=== PATIENT | male | born 1955 | race Caucasian/White ===

== ENCOUNTER 2022-03-03 11:20 | Inpatient (IN) | payer OTHER ==
--- OUTSIDE RECORDS SUMMARY | 2022-03-03 11:41 | XMS REPORT | Continuity of Care Document ---
:1955 Author Organization [facility] t Address [address] [place] [address] Care Team Providers Name Role Phone Kapil Hui Kenn Primary Care Physician Joshua Corral Attending Clinician [phone] 1.5, [facility] Ayla Mr Attending Clinician Unavailable SUSY CLARKE Attending Clinician Unavailable Susy Clarke MD Attending Clinician ALLISON LARKIN Attending Clinician Unavailable Mykel Sy Attending Clinician Unavailable REUBEN BILLY Attending Clinician Unavailable 3, [facility] Ayla Mr Attending Clinician Unavailable Jossue Swan NP Attending Clinician JOSSUE SWAN Attending Clinician Unavailable Andres Reynoso MA Attending Clinician Unavailable JOSHUA CASTANEDA Attending Clinician Unavailable FELISHA MALIK Attending Clinician Unavailable Felisha Malik MD Attending Clinician Jenny Blanco MA Attending Clinician Unavailable Sarita Bailey NP Attending Clinician NORA ECHEVERRIA Attending Clinician Unavailable Nora Whitley Attending Clinician [phone] Grace MITCHELL, Herman Bridges Attending Clinician Trae LAMBERT, Allison Attending Clinician RAJ AREVALO Attending Clinician Unavailable Pauly LAMBERT, Rica Attending Clinician [phone] Andres Patricia MD Attending Clinician RICA NOVA Attending Clinician Unavailable Jagdish BHATIA, Gonzales Ford Attending Clinician Unavailable Zak LAMBERT, Pedro Mckeon Attending Clinician [phone] Karla LAMBERT, Saige Attending Clinician Andres Gandhi Attending Clinician Unavailable Randi LAMBERT, Stefani Attending Clinician Felicia Fraga MD Attending Clinician [phone] FELICIA FRAGA Attending Clinician Unavailable Lulu Thomas RN Attending Clinician Unavailable Mini Medel Attending Clinician Unavailable Only, [facility] Test Attending Clinician Unavailable Gaurav Birmingham Attending Clinician [phone] CARLTON VELASQUEZ Attending Clinician Unavailable Nora Echeverria NP Attending Clinician Unavailable Fidelina Carlos MD Attending Clinician LEEANN URBINA Attending Clinician Unavailable Carlton Velasquez MD Attending Clinician [phone] CARLTON VELASQUEZ Attending Clinician Unavailable Carlton Velasquez MD Attending Clinician [phone] Attending Clinician Unavailable MATA BILLY Attending Clinician Unavailable Reuben Billy DPM Attending Clinician MATA BILLY Attending Clinician Unavailable Mathew Benitez MD Attending Clinician [phone] Mata Billy DPM Attending Clinician BRADY NASH Attending Clinician Unavailable Cornelio MITCHELL, Oyebunmi Attending Clinician LAZARA ORDOÑEZ Attending Clinician Unavailable YEMI ELIZABETH Attending Clinician Unavailable YOSSI STACY Attending Clinician Unavailable ZACHARY MUNOZ Attending Clinician Unavailable Fernanda Sylvester Attending Clinician Doctor Unassigned, [place] Attending Clinician Unavailable LEEANN BRANDT Attending Clinician Unavailable KAILYN HOWE Attending Clinician Unavailable Yessica , [facility] Attending Clinician YESSICA [facility] Attending Clinician Unavailable RAJ AREVALO Admitting Clinician Unavailable ANDRES PATIRCIA Admitting Clinician Unavailable FELISHA MALIK Admitting Clinician Unavailable CHINYERE FLEMING Admitting Clinician Unavailable ZACHARY MUNOZ Admitting Clinician Unavailable KAILYN HOWE Admitting Clinician Unavailable Payers Payer Name Policy Type Policy Number Effective Date Expiration Date S compa [facility] [id number] 2020 ADVANTAGE O -[facility] 00:00:00 [facility]-MEDICAID - [id number] 2018 MEDICAID 00:00:00 MEDICARE PART A [id number] \\T\\ B - MEDICARE [facility] DUAL [id number] 2020 [facility] HMO D SNP 00:00:00 MEDICAID OF [place] [id number] 2018 00:00:00 CDC REVIEW [id number] 2020 00:00:00 Problems Condition Condition Condition Status Onset Resolution Last Treating Co mments Source Name Details Category Date Date Treatment Clinician Date Hepatic Hepatic Disease Active [facility] encephalop encephalop 7-12 K[facility]ha kes athy athy 00:00: Medical 00 Center Other Other Disease Active [facility] cirrhosis cirrhosis 4-12 [facility] of liver of liver 00:00: Medica l 00 Center Chemothera Chemothera Disease Active [facility] py py 1-05 [facility] management management 00:00: Me felicianoal , , 00 Center encounter encounter for for HCC HCC Disease Active 2020-[address] [facility] (hepatocel (hepatocel 2-20 Kiesha kes lular lular 00:00: Medical carcinoma) carcinoma) 00 Ce nter Ulcerated Ulcerated Disease Active 2020-07 [facility] leg leg 2-02 [place] varices, varices, 00:00: of right right 00 Medicin (HCCode) (HCCode) e Ulcer of Ulcer of Disease Active 2020-07 [place] skin skin 0-12 [place] (HCCode) (HCCode) 00:00: of 00 Medicin e Benign Benign Disease Active 2020-07 [facility] neoplasm neoplasm 0-12 Colleg e of skin of of skin of 00:00: of trunk, trunk, 00 Medicin except except e scrotum scrotum Portal Portal Disease Active 2020-[address] [facility] hypertensi hypertensi 0-04 Kiesha kes on on 00:00: Medical 00 Center Onychomyco Onychomyco Disease Active 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, with y, with long-term long-term current current use of use of insulin [facility] PAD PAD Disease Active [facility] (periphera (periphera 03-26 Co llege l artery l artery 00:00: of disease) disease) 00 Medici n [facility] (HCCode) e Encounter Encounter Disease Active [facility] for for 03-26 [place] incision incision 00:00: of and and 00 Medicin drainage drainage e procedure procedure S/P S/P Disease Active [facility] excisional excisional 03-26 Co llege debridemen debridemen 00:00: of t t 00 Medicin e Post-opera Post-opera Disease Active [facility] tive state tive state 03-26 Co llege 00:00: of 00 Medicin e Encounter Encounter Disease Active [facility] for post for post 03-26 Colleg e surgical surgical 00:00: of wound wound 00 Medicin check check e PAD PAD Disease Active [facility] (periphera (periphera 03-26 Co llege l artery l artery 00:00: of disease) disease) 00 Medici n [facility] ([facility]) e Cellulitis Cellulitis Disease Active [facility] 8[facility]25 [facility] 00[facility] Medical 00 Center Diabetic Diabetic Disease [facility] foot foot [facility]25 [facility] Center Diabetic Diabetic Disease [facility] 8[facility]25 [facility] infection infection 00:00: Medi bebe 00 [place] Cellulitis Cellulitis Disease Active B ayjuan and and 8-23 [place] abscess of abscess of 00:00: of foot foot 00 Medicin e Hepatocell Hepatocell Disease Active [facility] ular ular 7-17 [facility] carcinoma carcinoma 00:00: Medi bebe 00 [place] Under care Under care Disease Active [facility] of 6-14 [place] 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 MRI reports a 6.2 cm mass in the right lobe of the liver concernin g for malignanc y. Imaging will be reviewed at radiology [facility]. Liver biopsy will likely be needed since he has no history of chronic liver disease and character istics of lesion are atypical. Fatty Fatty Disease Active 2018-07 Last [facility] St infiltrati infiltrati 0-21 [facility]men [facility] on of on of 00:00: t & Plan: Medical liver liver [address] [place] [address] g of this note might be different from the original. Ultrasoun d reports fatty infiltrat ion of the liver. He has multiple risk factors for BARRETO including diabetes, HTN, and hyperlipi demia. Transamin ases are well within normal range. Blood work ordered today to evaluate for viral, autoimmun e, genetic and metabolic causes of liver disease. Overweight Overweight Disease Active 2018-[address] (BMI (BMI 0-21 [facility] 25.0-29.9) 25.0-29.9) 00:00: t & Plan: Medical [address] [place] [address] g of this note might be different from the original. Body mass index is 28.09 kg/m2. Being overweigh t increases his risk for fatty infiltrat ion. Screening Screening Disease Active 2018-07 Last [facility] for for 0-21 Assessmen [place] endocrine, endocrine, 00:00: t & Plan: Medical metabolic metabolic 00 Formattin C enter and and g of this immunity immunity note disorder disorder might be different from the original. All patients with chronic liver disease, regardles s of etiology, should be immunized to prevent hepatitis A and hepatitis B if they are not already immune. We will test for immunity to both viruses - vaccine recommend ations will follow. 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 Medicin diabetes diabetes e mellitus mellitus (HCCode) (HCCode) Type 2 Type 2 Disease Active [facility] diabetes diabetes 01-01 Colleg e mellitus mellitus 00:00: of with with 00 Medicin diabetic diabetic e peripheral peripheral angiopathy angiopathy without without gangrene, gangrene, with with long-term long-term current current use of use of insulin insulin (HCCode) (HCCode) Type 2 Type 2 Disease Active Overview: Univer s diabetes diabetes 1-03 Formattin ity of mellitus mellitus 00:00: g of this [place] as without without 00 note Medical complicati complicati might be Branch ons ons different from the original. ICD10 Diagnosis Term Police Aide Utility Hypertensi Hypertensi Disease Active U nivers on on 07-05 ity of 00:00: [address] Diabetic Diabetic Disease Active [place] [facility] retinopath retinopath 8-13 Co llege y of both y of both 00:00: of eyes eyes 00 Medicin associated associated e with type with type 2 diabetes 2 diabetes mellitus mellitus (HCCode) (HCCode) Allergies, Adverse Reactions, Alerts Allergy Allergy Status Severity Reaction(s) Onset Inactive Treating Comm ents Source Name Type Date Date Clinician NO KNOWN Allergy Active [facility] NO KNOWN Drug Active [facility] ALLERGIE Class ity of S [facility] Family History Family Member Diagnosis Comments Start Date Stop Date Source Natural father Diabetes [facility] Natural father [facility] Natural mother [facility] Natural sister [facility] Natural sister Kidney failure [facility] Natural sister Mastocytosis [facility] Social History Social Habit Start Date Stop Date Quantity Comments Source History SDOH [facility] Alcohol Std Drinks Medica l Center History SDOH [facility] Alcohol Binge Medical [address] [facility] History SDOH [facility] St [facility] Alcohol Comment Medical C enter Alcohol intake 2022-01-11 2022-01-11 Current [facility] 00:00:00 00:00:00 non-drinker of Medical Ce nter alcohol (finding) Exposure to 2021-12-05 2021-12-15 [facility] SARS-CoV-2 (event) 00:00:00 11:58:00 of Med icine Tobacco use and 2019-04-18 2019-04-18 Never used [facility] St Kiesha kes exposure 00:00:00 00:00:00 Medical Center History SDOH 2019-04-18 2019-04-[address] [facility] Alcohol Frequency 00:00:00 [facility]:00[facility] Cigarette 2018-01-01 2018-01-01 [facility] pack-years 00:00:00 00:00:00 of Medicine Sex Ass[birth year] At [birth year] [facility] 00:00:00 00:00:00 [facility] Smoking Status Start Date Stop Date Source Never smoker [facility] Medications Ordered Filled Start Stop Current Ordering Indication Dosage Frequency Signature Comments Components Source Medication Medication Date Date Medication? Clinician (SIG) Name Name lactulose Yes Hepatic 20g QD Take [address] (CHRONULAC) 7-12 encephalopa mLs (20 g [facility] 10 gram/15 00:00: thy (HCC) total) by Medical mL solution 00 mouth Center daily. amlodipine Yes [id number] Take 1 [facility] (NORVASC) 3-22 tablet by Colle ge 10 MG 00:00: mouth of tablet 00 every day Medicin e amlodipine Yes [id number] Take 1 [facility] (NORVASC) 3-22 tablet by Colle ge 10 MG 00:00: mouth of tablet 00 every day Medicin e amlodipine Yes [id number] Take 1 [facility] (NORVASC) 3-22 tablet by Colle ge 10 MG 00:00: mouth of tablet 00 every day Medicin e enoxaparin 2021-0 Yes 40mg Inject 40 [facility] (LOVENOX) 3-16 mg into College 40 MG/0.4ML 00:00: the skin of SOLN 00 daily. Medicin e enoxaparin 2-0 Yes 40mg Inject 40 [facility] (LOVENOX) 3-16 mg into College 40 MG/0.4ML 00:00: the skin of SOLN 00 daily. Medicin e enoxaparin 2021-0 Yes 40mg Inject 40 [facility] (LOVENOX) 3-16 mg into College 40 MG/0.4ML 00:00: the skin of SOLN 00 daily. Medicin e enoxaparin 2021-0 Yes 40mg Inject 40 [facility] (LOVENOX) 3-16 mg into College 40 MG/0.4ML 00:00: the skin of SOLN 00 daily. Medicin e Insulin 2021-0 Yes [id number] 90U Inject 90 Félix Glargine 3-13 Units into Colle ge (LANTUS 00:00: the skin of SOLOSTAR) 00 daily. Medicin 100 UNIT/ML e SOPN Insulin 2021-0 Yes [id number] 90U Inject 90 Félix Glargine 3-13 Units into Colle ge (LANTUS 00:00: the skin of SOLOSTAR) 00 daily. Medicin 100 UNIT/ML e SOPN Insulin 2-0 Yes [id number] 90U Inject 90 [facility] Glargine 3-13 Units into Colle ge (LANTUS 00:00: the skin of SOLOSTAR) 00 daily. Medicin 100 UNIT/ML e SOPN Insulin 2-0 Yes [id number] 90U Inject 90 Fléix Glargine 3-13 Units into Colle ge (LANTUS 00:00: the skin of SOLOSTAR) 00 daily. Medicin 100 UNIT/ML e SOPN Insulin 2-0 2022- No [id number] 90U Inject 90 [facility] Glargine 3-13 07-05 Units into May ege (LANTUS 00:00: 00:00 the skin of SOLOSTAR) 00 :00 daily. Medicin 100 UNIT/ML e SOPN cyanocobala Yes 100ug QD Take [address] min 1-20 mcg by [facility] (VITAMIN 13:26: mouth Medical B-12) 100 54 daily. Center MCG tablet amLODIPine Yes 10mg QD Take [address] (NORVASC) 1-20 by mouth [facility] 10 MG 13:26: daily. Medical tablet 54 Center escitalopra Yes 40mg QD Take [address] m oxalate 1-20 by mouth [facility] (LEXAPRO) 13:26: daily. Medica l 20 MG 54 Center tablet gabapentin Yes 300mg Take [address] (NEURONTIN) 1-20 mg by [facility] 300 MG 13:26: mouth 3 Medical capsule 54 (three) Center times daily as needed. Insulin 2020-07 Yes [id number] 21U Inject 21 Éflix Lispro, 1 2-20 Units into May ege Unit Dial, 00:00: the skin 3 o f (HUMALOG 00 times Medicin KWIKPEN) daily e 100 UNIT/ML (before SOPN meals). Insulin 2020-07 Yes [id number] 21U Inject 21 [facility] Lispro, 1 2-20 Units into May ege Unit Dial, 00:00: the skin 3 o f (HUMALOG 00 times Medicin KWIKPEN) daily e 100 UNIT/ML (before SOPN meals). Insulin 2020-07 Yes [id number] 21U Inject 21 [facility] Lispro, 1 2-20 Units into May ege Unit Dial, 00:00: the skin 3 o f (HUMALOG 00 times Medicin KWIKPEN) daily e 100 UNIT/ML (before SOPN meals). Insulin 2020-07 Yes [id number] 21U Inject 21 [facility] Lispro, 1 2-20 Units into May ege Unit Dial, 00:00: the skin 3 o f (HUMALOG 00 times Medicin KWIKPEN) daily e 100 UNIT/ML (before SOPN meals). Insulin 2020-07 Yes [id number] 21U Inject 21 Félix Lispro, 1 2-20 Units into May ege Unit Dial, 00:00: the skin 3 o f (HUMALOG 00 times Medicin KWIKPEN) daily e 100 UNIT/ML (before SOPN meals). Insulin 2020-07 Yes [id number] 21U Inject 21 [facility] Lispro, 1 2-20 Units into May ege Unit Dial, 00:00: the skin 3 o f (HUMALOG 00 times Medicin KWIKPEN) daily e 100 UNIT/ML (before SOPN meals). Insulin 2020-07 Yes [id number] 21U Inject 21 Félix Lispro, 1 2-20 Units into May ege Unit Dial, 00:00: the skin 3 o f (HUMALOG 00 times Medicin KWIKPEN) daily e 100 UNIT/ML (before SOPN meals). Insulin 2020-07 Yes 18U Inject 18 [facility] Lispro 100 2-02 Units into Col lege UNIT/ML 14:17: the skin. of SOCT 35 Inject Medicin 18-21 e units into the skin. ACCU-CHEK 2020-07 Yes [facility] JASWINDER PLUS 1-19 College 00:00: of 00 Medicin e ACCU-CHEK 2020-07 Yes [facility] JASWINDER PLUS 1-19 College 00:00: of 00 Medicin e ACCU-CHEK 2020-07 Yes [facility] JASWINDER PLUS 1-19 College 00:00: of 00 Medicin e ACCU-CHEK 2020-07 Yes [facility] JASWINDER PLUS 1-19 College 00:00: of 00 Medicin e ACCU-CHEK 2020-07 Yes [facility] JASWINDER PLUS 1-19 College 00:00: of 00 Medicin e ACCU-CHEK 2020-07 Yes [facility] JASWINDER PLUS 1-19 College 00:00: of 00 Medicin e ACCU-CHEK 2020-07 Yes [facility] JASWINDER PLUS 1-19 College 00:00: of 00 Medicin e ACCU-CHEK 2020-07 Yes [facility] JASWINDER PLUS 1-19 College 00:00: of 00 Medicin e dicloxacill 2020-07- No 500mg Take 1 [facility] in 07-17 capsule by [place] (DYNAPEN) 00:00: 05:59 mouth four o f 500 MG 00 :00 times Medicin capsule daily for e 10 days. linaGLIPtin 2020-07- No 5mg QD Take [address] (TRADJENTA) 07-03 by mouth Gabrielle es 5 mg Tab 12:02: 00:00 daily. Medica l 01 :00 Center Insulin 2020-07 Yes 18U Inject 18 [facility] Lispro 100 0-29 Units into Col lege UNIT/ML 14:23: the skin. of SOCT 08 Inject Medicin 18-21 e units into the skin. Insulin 2020- Yes 18U Inject 18 [facility] Lispro 100 0-29 Units into Col lege UNIT/ML 14:23: the skin. of SOCT 08 Inject Medicin 18-21 e units into the skin. Insulin 2020- Yes 18U Inject 18 [facility] Lispro 100 0-22 Units into Col lege UNIT/ML 13:46: the skin. of SOCT 20 Inject Medicin 18-21 e units into the skin. Insulin 2020-0 Yes 18U Inject 18 [facility] Lispro 100 9-29 Units into Col lege UNIT/ML 14:43: the skin. of SOCT 51 Inject Medicin 18-21 e units into the skin. Insulin 2020-0 Yes 18U Inject 18 [facility] Lispro 100 9-29 Units into Col lege UNIT/ML 14:43: the skin. of SOCT 51 Inject Medicin 18-21 e units into the skin. enoxaparin 2021-0 Yes 40mg Inject 40 [facility] (LOVENOX) 9-29 mg into College 40 MG/0.4ML 00:00: the skin of SOLN 00 daily. Medicin e enoxaparin 2021-0 Yes 40mg Inject 40 [facility] (LOVENOX) 9-29 mg into College 40 MG/0.4ML 00:00: the skin of SOLN 00 daily. Medicin e enoxaparin 2021-0 Yes 40mg Inject 40 [facility] (LOVENOX) 9-29 mg into College 40 MG/0.4ML 00:00: the skin of SOLN 00 daily. Medicin e enoxaparin 2021-0 Yes 40mg Inject 40 [facility] (LOVENOX) 9-29 mg into College 40 MG/0.4ML 00:00: the skin of SOLN 00 daily. Medicin e enoxaparin 2021-0 Yes 40mg Inject 40 [facility] (LOVENOX) 9-29 mg into College 40 MG/0.4ML 00:00: the skin of SOLN 00 daily. Medicin e enoxaparin 2020-0 Yes 40mg Inject 40 [facility] (LOVENOX) 9-29 mg into College 40 MG/0.4ML 00:00: the skin of SOLN 00 daily. Medicin e enoxaparin 1-0 Yes 40mg Inject 40 [facility] (LOVENOX) 9-29 mg into College 40 MG/0.4ML 00:00: the skin of SOLN 00 daily. Medicin e enoxaparin 2020-0 Yes 40mg Inject 40 [facility] (LOVENOX) 9-29 mg into College 40 MG/0.4ML 00:00: the skin of SOLN 00 daily. Medicin e enoxaparin 2020-0 Yes 40mg Inject 40 [facility] (LOVENOX) 9-29 mg into College 40 MG/0.4ML 00:00: the skin of SOLN 00 daily. Medicin e enoxaparin 2020-0 Yes 40mg Inject 40 [facility] (LOVENOX) 9-29 mg into College 40 MG/0.4ML 00:00: the skin of SOLN 00 daily. Medicin e enoxaparin 0 2- No 40mg Inject 40 [facility] (LOVENOX) 9-29 04-28 mg into Colleg e 40 MG/0.4ML 00:00: 00:00 the skin o f SOLN 00 :00 daily. Medicin e Insulin 2020-0 Yes 18U Inject 18 [facility] Lispro 100 9-21 Units into Col lege UNIT/ML 14:00: the skin. of SOCT 50 Inject Medicin 18-21 e units into the skin. Insulin 2020-0 Yes 18U Inject 18 [facility] Lispro 100 9-21 Units into Col lege UNIT/ML 14:00: the skin. of SOCT 50 Inject Medicin 18-21 e units into the skin. Ozempic 0 Yes INJECT 0.[address] [facility] 0.25 mg or 8-18 MG UNDER [facility] 0.5 mg(2 00:00: THE SKIN Medic al mg/1.5 mL) 00 EVERY 7 Center PnIj DAYS fluocinonid 2020-0 Yes [facility] e (LIDEX) 7-29 College 0.05 % 00:00: of cream Medicin e fluocinonid Yes Félix e (LIDEX) 01-28 [place] 0.05 % 00:00: of cream Medicin e fluocinonid Yes [facility] e (LIDEX) 01-28 [place] 0.05 % 00:00: of cream Medicin e fluocinonid Yes Félix e (LIDEX) 01-28 [place] 0.05 % 00:00: of cream Medicin e fluocinonid Yes [facility] e (LIDEX) 01-28 [place] 0.05 % 00:00: of cream Medicin e fluocinonid Yes [facility] e (LIDEX) 01-28 [place] 0.05 % 00:00: of cream Medicin e fluocinonid Yes [facility] e (LIDEX) 01-28 [place] 0.05 % 00:00: of cream Medicin e fluocinonid Yes Félix e (LIDEX) 01-28 [place] 0.05 % 00:00: of cream Medicin e fluocinonid Yes [facility] e (LIDEX) 01-28 [place] 0.05 % 00:00: of cream Medicin e fluocinonid Yes Félix e (LIDEX) 01-28 [place] 0.05 % 00:00: of cream Medicin e fluocinonid 2021- No [facility] (LIDEX) 01-28 03-07 [place] 0.05 % 00:00: 00:00 of cream 00 :00 Medicin e Insulin 2020-0 Yes 18U Inject 18 [facility] r Lispro 100 7-13 Units into Col lege UNIT/ML 15:34: the skin. of SOCT 04 Inject Medicin 18-21 e units into the skin. Blood Yes [id number] USE TO [facility] Glucose 01-07 TEST BLOOD Colleg e Monitoring 00:00: GLUCOSE of Suppl 00 Medicin (ACCU-CHEK e JASWINDER PLUS) w/Device KIT Glucose Yes [id number] Use to [facility] Blood 01-07 check College Strips 00:00: sugars 3x of (ACCU-CHEK 00 daily Medicin JASWINDER PLUS) e Accu-Chek 2021-0 Yes [id number] Use to [facility] Softclix 7-08 check College Lancets 00:00: sugars of MISC 00 Medicin e Accu-Chek 2021-0 Yes [id number] Use to [facility] Softclix 7-08 check College Lancets 00:00: sugars of MISC 00 Medicin e Accu-Chek 2021-0 Yes [id number] Use to [facility] Softclix 7-08 check College Lancets 00:00: sugars of MISC 00 Medicin e Accu-Chek 2021-0 Yes [id number] Use to [facility] Softclix 7-08 check College Lancets 00:00: sugars of MISC 00 Medicin e Accu-Chek 2021-0 Yes [id number] Use to [facility] Softclix 7-08 check College Lancets 00:00: sugars of MISC 00 Medicin e Accu-Chek 2021-0 Yes [id number] Use to [facility] Softclix 7-08 check College Lancets 00:00: sugars of MISC 00 Medicin e Accu-Chek 2021-0 Yes [id number] Use to [facility] Softclix 7-08 check College Lancets 00:00: sugars of MISC 00 Medicin e Accu-Chek 2021-0 Yes [id number] Use to [facility] Softclix 7-08 check College Lancets 00:00: sugars of MISC 00 Medicin e Accu-Chek 2021-0 Yes [id number] Use to [facility] Softclix 7-08 check College Lancets 00:00: sugars of MISC 00 Medicin e Accu-Chek 2021-0 Yes [id number] Use to [facility] Softclix 7-08 check College Lancets 00:00: sugars of MISC 00 Medicin e Accu-Chek 2021-0 Yes [id number] Use to [facility] Softclix 7-08 check College Lancets 00:00: sugars of MISC 00 Medicin e Accu-Chek 2021-0 Yes [id number] Use to [facility] Softclix 7-08 check College Lancets 00:00: sugars of MISC 00 Medicin e Accu-Chek 2020-0 Yes [id number] Use to [facility] Softclix 01-07 check College Lancets 00:00: sugars of MISC 00 Medicin e Accu-Chek 2021- No [id number] Use to [facility] Softclix 01-07 04-28 check College Lancets 00:00: 00:00 sugars of MISC 00 :00 Medicin e enoxaparin 2021- No INJECT 0.[address] [facility] [facility] (LOVENOX) 01-07 01-05 ML [facility] 40 mg/0.4 00:00: 00:00 THE SKIN Med ical mL Syrg 00 :00 DAILY. [place] Blood 2020- No [id number] USE TO [facility] Glucose 01-07 TEST BLOOD Colle ge Monitoring 00:00: 00:00 GLUCOSE of Suppl 00 :00 Medicin (ACCU-CHEK e JASWINDER PLUS) w/Device KIT Glucose 2020- No [id number] Use to [facility] Blood 01-07 check [facility] Strips 00:00: 00:00 sugars 3x of (ACCU-CHEK 00 :00 daily Medicin JASWINDER PLUS) e Blood 2020- No [id number] USE TO [facility] Glucose 01-07 TEST BLOOD [facility] Monitoring 00:00: 00:00 GLUCOSE of Suppl 00 :00 Medicin (ACCU-CHEK e JASWINDER PLUS) w/Device KIT Glucose 2020- No [id number] Use to [facility] Blood 01-07 check [facility] Strips 00:00: 00:00 sugars 3x of (ACCU-CHEK 00 :00 daily Medicin JASWINDER PLUS) e enoxaparin Yes 40mg Inject 40 [facility] (LOVENOX) 7-07 mg into [facility] 40 MG/0.4ML 00:00: the skin of SOLN 00 daily. Medicin e enoxaparin 2020-0 Yes 40mg Inject 40 [facility] (LOVENOX) 7-07 mg into [facility] 40 MG/0.4ML 00:00: the skin of SOLN 00 daily. Medicin e enoxaparin Yes 40mg Inject 40 [facility] (LOVENOX) 7-07 mg into [facility] 40 MG/0.4ML 00:00: the skin of SOLN 00 daily. Medicin e enoxaparin Yes 40mg Inject 40 [facility] (LOVENOX) 7-07 mg into [facility] 40 MG/0.4ML 00:00: the skin of SOLN 00 daily. Medicin e enoxaparin 2020- No 40mg Inject 40 [facility] (LOVENOX) 7-07 09-29 mg into Colleg e 40 MG/0.4ML 00:00: 00:00 the skin o f SOLN 00 :00 daily. Medicin e mupirocin Yes APPLY THIN [facility] (BACTROBAN) 6-28 LAYER TO [facility] 2 % 00:00: THE of ointment 00 AFFECTED Medicin AREA OF e OPEN WOUNDS ON BOTH LEGS TWICE DAILY mupirocin Yes APPLY THIN [facility] (BACTROBAN) 6-28 LAYER TO [facility] 2 % 00:00: THE of ointment 00 AFFECTED Medicin AREA OF e OPEN WOUNDS ON BOTH LEGS TWICE DAILY mupirocin 0 Yes APPLY THIN [facility] (BACTROBAN) 6-28 LAYER TO [facility] 2 % 00:00: THE of ointment 00 AFFECTED Medicin AREA OF e OPEN WOUNDS ON BOTH LEGS TWICE DAILY mupirocin 0 Yes APPLY THIN [facility] (BACTROBAN) 6-28 LAYER TO [facility] 2 % 00:00: THE of ointment 00 AFFECTED Medicin AREA OF e OPEN WOUNDS ON BOTH LEGS TWICE DAILY mupirocin 0 Yes APPLY THIN [facility] (BACTROBAN) 6-28 LAYER TO [facility] 2 % 00:00: THE of ointment 00 AFFECTED Medicin AREA OF e OPEN WOUNDS ON BOTH LEGS TWICE DAILY mupirocin 0 Yes APPLY THIN [facility] (BACTROBAN) 6-28 LAYER TO [facility] 2 % 00:00: THE of ointment 00 AFFECTED Medicin AREA OF e OPEN WOUNDS ON BOTH LEGS TWICE DAILY mupirocin Yes APPLY THIN [facility] (BACTROBAN) 6-28 LAYER TO [facility] 2 % 00:00: THE of ointment 00 AFFECTED Medicin AREA OF e OPEN WOUNDS ON BOTH LEGS TWICE DAILY mupirocin Yes APPLY THIN [facility] (BACTROBAN) 6-28 LAYER TO [facility] 2 % 00:00: THE of ointment 00 AFFECTED Medicin AREA OF e OPEN WOUNDS ON BOTH LEGS TWICE DAILY mupirocin Yes APPLY THIN [facility] (BACTROBAN) 6-28 LAYER TO [facility] 2 % 00:00: THE of ointment 00 AFFECTED Medicin AREA OF e OPEN WOUNDS ON BOTH LEGS TWICE DAILY mupirocin 2022- No APPLY THIN [facility] (BACTROBAN) 6-28 01-19 LAYER TO [facility] 2 % 00:00: 00:00 THE of ointment 00 :00 AFFECTED Medicin AREA OF e OPEN WOUNDS ON BOTH LEGS TWICE DAILY Insulin Yes 18U Inject 18 [facility] Lispro 100 6-17 Units into [facility] UNIT/ML 15:04: the skin. of SOCT 25 Inject Medicin 18-21 e units into the skin. Insulin Yes 18U Inject 18 [facility] Lispro 100 6-17 Units into [facility] UNIT/ML 15:04: the skin. of SOCT 25 Inject Medicin 18-21 e units into the skin. Insulin 0 Yes 18U Inject 18 [facility] Lispro 100 6-17 Units into [facility] UNIT/ML 15:04: the skin. of SOCT 25 Inject Medicin 18-21 e units into the skin. insulin 2020- No 55U Inject 55 [facility] glargine 6-17 06-17 Units into [facility] (LANTUS) 15:03: 00:00 the skin of 100 UNIT/ML 06 :00 nightly. Medi ascencion injection e Insulin Yes 18U Inject 18 [facility] Lispro 100 6-16 Units into [facility] UNIT/ML 11:08: the skin. of SOCT 44 Inject Medicin 18-21 e units into the skin. Semaglutide Yes [id number] .5mg Inject 0.5 [facility] ,0.25 or 5-20 mg into College 0.5MG/DOS, 00:00: the skin of (OZEMPIC, 00 every 7 Medicin 0.25 OR 0.5 days. e MG/DOSE,) 2 MG/1.5ML SOPN Semaglutide 2021-0 Yes [id number] .5mg Inject 0.5 [facility] ,0.25 or 5-20 mg into College 0.5MG/DOS, 00:00: the skin of (OZEMPIC, 00 every 7 Medicin 0.25 OR 0.5 days. e MG/DOSE,) 2 MG/1.5ML SOPN Semaglutide 2021-0 Yes [id number] .5mg Inject 0.5 [facility] ,0.25 or 5-20 mg into College 0.5MG/DOS, 00:00: the skin of (OZEMPIC, 00 every 7 Medicin 0.25 OR 0.5 days. e MG/DOSE,) 2 MG/1.5ML SOPN Semaglutide 2021-0 Yes [id number] .5mg Inject 0.5 [facility] ,0.25 or 5-20 mg into College 0.5MG/DOS, 00:00: the skin of (OZEMPIC, 00 every 7 Medicin 0.25 OR 0.5 days. e MG/DOSE,) 2 MG/1.5ML SOPN Semaglutide 2021-0 Yes [id number] .5mg Inject 0.5 [facility] ,0.25 or 5-20 mg into College 0.5MG/DOS, 00:00: the skin of (OZEMPIC, 00 every 7 Medicin 0.25 OR 0.5 days. e MG/DOSE,) 2 MG/1.5ML SOPN Semaglutide 2021-0 Yes [id number] .5mg Inject 0.5 [facility] ,0.25 or 5-20 mg into [facility] 0.5MG/DOS, 00:00: the skin of (OZEMPIC, 00 every 7 Medicin 0.25 OR 0.5 days. e MG/DOSE,) 2 MG/1.5ML SOPN Semaglutide 2021-0 Yes [id number] .5mg Inject 0.5 [facility] ,0.25 or 5-20 mg into College 0.5MG/DOS, 00:00: the skin of (OZEMPIC, 00 every 7 Medicin 0.25 OR 0.5 days. e MG/DOSE,) 2 MG/1.5ML SOPN Semaglutide 2021-0 Yes [id number] .5mg Inject 0.5 [facility] ,0.25 or 5-20 mg into [facility] 0.5MG/DOS, 00:00: the skin of (OZEMPIC, 00 every 7 Medicin 0.25 OR 0.5 days. e MG/DOSE,) 2 MG/1.5ML SOPN Semaglutide 2021-0 Yes [id number] .5mg Inject 0.5 [facility] ,0.25 or 5-20 mg into [facility] 0.5MG/DOS, 00:00: the skin of (OZEMPIC, 00 every 7 Medicin 0.25 OR 0.5 days. e MG/DOSE,) 2 MG/1.5ML SOPN Semaglutide 2021-0 Yes [id number] .5mg Inject 0.5 [facility] ,0.25 or 5-20 mg into [facility] 0.5MG/DOS, 00:00: the skin of (OZEMPIC, 00 every 7 Medicin 0.25 OR 0.5 days. e MG/DOSE,) 2 MG/1.5ML SOPN Semaglutide 2021-0 Yes [id number] .5mg Inject 0.5 [facility] ,0.25 or 5-20 mg into College 0.5MG/DOS, 00:00: the skin of (OZEMPIC, 00 every 7 Medicin 0.25 OR 0.5 days. e MG/DOSE,) 2 MG/1.5ML SOPN Semaglutide 2021-0 Yes [id number] .5mg Inject 0.5 [facility] ,0.25 or 5-20 mg into [facility] 0.5MG/DOS, 00:00: the skin of (OZEMPIC, 00 every 7 Medicin 0.25 OR 0.5 days. e MG/DOSE,) 2 MG/1.5ML SOPN Semaglutide 2021-0 Yes [id number] .5mg Inject 0.5 [facility] ,0.25 or 5-20 mg into [facility] 0.5MG/DOS, 00:00: the skin of (OZEMPIC, 00 every 7 Medicin 0.25 OR 0.5 days. e MG/DOSE,) 2 MG/1.5ML SOPN Semaglutide 2021-0 Yes [id number] .5mg Inject 0.5 [facility] ,0.25 or 5-20 mg into [facility] 0.5MG/DOS, 00:00: the skin of (OZEMPIC, 00 every 7 Medicin 0.25 OR 0.5 days. e MG/DOSE,) 2 MG/1.5ML SOPN Semaglutide 2021-0 Yes [id number] .5mg Inject 0.5 [facility] ,0.25 or 5-20 mg into [facility] 0.5MG/DOS, 00:00: the skin of (OZEMPIC, 00 every 7 Medicin 0.25 OR 0.5 days. e MG/DOSE,) 2 MG/1.5ML SOPN Semaglutide 2021-0 Yes [id number] .5mg Inject 0.5 [facility] ,0.25 or 5-20 mg into [facility] 0.5MG/DOS, 00:00: the skin of (OZEMPIC, 00 every 7 Medicin 0.25 OR 0.5 days. e MG/DOSE,) 2 MG/1.5ML SOPN Semaglutide 2021-0 Yes [id number] .5mg Inject 0.5 [facility] ,0.25 or 5-20 mg into [facility] 0.5MG/DOS, 00:00: the skin of (OZEMPIC, 00 every 7 Medicin 0.25 OR 0.5 days. e MG/DOSE,) 2 MG/1.5ML SOPN Semaglutide 2021-0 Yes [id number] .5mg Inject 0.5 [facility] ,0.25 or 5-20 mg into [facility] 0.5MG/DOS, 00:00: the skin of (OZEMPIC, 00 every 7 Medicin 0.25 OR 0.5 days. e MG/DOSE,) 2 MG/1.5ML SOPN Semaglutide 2021-0 Yes [id number] .5mg Inject 0.5 [facility] ,0.25 or 5-20 mg into [facility] 0.5MG/DOS, 00:00: the skin of (OZEMPIC, 00 every 7 Medicin 0.25 OR 0.5 days. e MG/DOSE,) 2 MG/1.5ML SOPN Semaglutide 2021-0 Yes [id number] .5mg Inject 0.5 [facility] ,0.25 or 5-20 mg into [facility] 0.5MG/DOS, 00:00: the skin of (OZEMPIC, 00 every 7 Medicin 0.25 OR 0.5 days. e MG/DOSE,) 2 MG/1.5ML SOPN pantoprazol 2020-0 Yes TAKE 1 [facility] e 5-04 TABLET BY [facility] (PROTONIX) 00:00: MOUTH of 40 MG 00 EVERY DAY Medicin tablet e pantoprazol 2020-0 Yes TAKE 1 [facility] e 5-04 TABLET BY [facility] (PROTONIX) 00:00: MOUTH of 40 MG 00 EVERY DAY Medicin tablet e pantoprazol 2020-0 Yes TAKE 1 [facility] e 5-04 TABLET BY [facility] (PROTONIX) 00:00: MOUTH of 40 MG 00 EVERY DAY Medicin tablet e pantoprazol 2020-0 Yes TAKE 1 [facility] e 5-04 TABLET BY [facility] (PROTONIX) 00:00: MOUTH of 40 MG 00 EVERY DAY Medicin tablet e pantoprazol 2020-0 Yes TAKE 1 [facility] e 5-04 TABLET BY [facility] (PROTONIX) 00:00: MOUTH of 40 MG 00 EVERY DAY Medicin tablet e pantoprazol 2020-0 Yes TAKE 1 [facility] e 5-04 TABLET BY [facility] (PROTONIX) 00:00: MOUTH of 40 MG 00 EVERY DAY Medicin tablet e pantoprazol 2020-0 Yes TAKE 1 [facility] e 5-04 TABLET BY [facility] (PROTONIX) 00:00: MOUTH of 40 MG 00 EVERY DAY Medicin tablet e pantoprazol 2020-0 Yes TAKE 1 [facility] e 5-04 TABLET BY [facility] (PROTONIX) 00:00: MOUTH of 40 MG 00 EVERY DAY Medicin tablet e pantoprazol 2020-0 Yes TAKE 1 [facility] e 5-04 TABLET BY [facility] (PROTONIX) 00:00: MOUTH of 40 MG 00 EVERY DAY Medicin tablet e pantoprazol 2020-0 Yes TAKE 1 [facility] e 5-04 TABLET BY [facility] (PROTONIX) 00:00: MOUTH of 40 MG 00 EVERY DAY Medicin tablet e pantoprazol 2020-0 Yes TAKE 1 [facility] e 5-04 TABLET BY [facility] (PROTONIX) 00:00: MOUTH of 40 MG 00 EVERY DAY Medicin tablet e pantoprazol 2020-0 Yes TAKE 1 [facility] e 5-04 TABLET BY [facility] (PROTONIX) 00:00: MOUTH of 40 MG 00 EVERY DAY Medicin tablet e pantoprazol Yes TAKE 1 [facility] e 5-04 TABLET BY [place] (PROTONIX) 00:00: MOUTH of 40 MG 00 EVERY DAY Medicin tablet e pantoprazol Yes TAKE 1 [facility] e 5-04 TABLET BY [place] (PROTONIX) 00:00: MOUTH of 40 MG 00 EVERY DAY Medicin tablet e pantoprazol Yes TAKE 1 [facility] e 5-04 TABLET BY [place] (PROTONIX) 00:00: MOUTH of 40 MG 00 EVERY DAY Medicin tablet e pantoprazol Yes TAKE 1 [facility] e 5-04 TABLET BY [place] (PROTONIX) 00:00: MOUTH of 40 MG 00 EVERY DAY Medicin tablet e Insulin Yes 15U Inject 15 [facility] Lispro 100 4-22 Units into [facility] UNIT/ML 19:54: the skin. of SOCT 59 Medicin e insulin 0 Yes 55U Inject 55 [facility] glargine 4-22 Units into [facility] (LANTUS) 19:54: the skin of 100 UNIT/ML 59 nightly. Medi ascencion injection e Insulin Yes 15U Inject 15 [facility] Lispro 100 4-22 Units into [facility] UNIT/ML 16:56: the skin. of SOCT 04 Medicin e insulin 0 Yes 55U Inject 55 [facility] glargine 4-22 Units into [facility] (LANTUS) 16:56: the skin of 100 UNIT/ML 04 nightly. Medi ascencion injection e insulin Yes 55U Inject 55 [facility] glargine 4-22 Units into [facility] (LANTUS) 14:54: the skin of 100 UNIT/ML 59 nightly. Medi ascencion injection e Insulin 0 Yes 15U Inject 15 [facility] Lispro 100 4-15 Units into [facility] UNIT/ML 18:59: the skin. of SOCT 42 Medicin e insulin 0 Yes 55U Inject 55 [facility] glargine 4-15 Units into [facility] (LANTUS) 18:59: the skin of 100 UNIT/ML 42 nightly. Medi ascencion injection e Glucose Yes [id number] Check [facility] Blood 10-09 blood [facility] Strips 00:00: glucose of (ACCU-CHEK 00 four times Med icin JASWINDER PLUS) daily. Dx e Code: E 11.9 Alcohol 2020-0 Yes [id number] Check [facility] Swabs 10-09 blood College (PHARMACIST 00:00: glucose of CHOICE 00 four times Medicin ALCOHOL) daily. Dx e PADS Code: E 11.9 Lancets 30G 2020-0 Yes [id number] Check [facility] MISC 10-09 blood College 00:00: glucose of 00 four times Medicin daily. Dx e Code: E 11.9 Blood 0 Yes [id number] Use as [facility] Glucose 10-09 directed. College Monitoring 00:00: Dx Code: E o f Suppl 00 11.9 Medicin (ACCU-CHEK e JASWINDER PLUS) w/Device KIT Glucose Yes [id number] Check [facility] Blood 10-09 blood [facility] Strips 00:00: glucose of (ACCU-CHEK 00 four times Med icin JASWINDER PLUS) daily. Dx e Code: E 11.9 Alcohol 0 Yes [id number] Check [facility] Swabs 10-09 blood [facility] (PHARMACIST 00:00: glucose of CHOICE 00 four times Medicin ALCOHOL) daily. Dx e PADS Code: E 11.9 Lancets 30G 2020-0 Yes [id number] Check [facility] MISC 10-09 blood College 00:00: glucose of 00 four times Medicin daily. Dx e Code: E 11.9 Blood 0 Yes [id number] Use as [facility] Glucose 10-09 directed. [facility] Monitoring 00:00: Dx Code: E o f Suppl 00 11.9 Medicin (ACCU-CHEK e JASWINDER PLUS) w/Device KIT Glucose Yes [id number] Check [facility] Blood 10-09 blood [facility] Strips 00:00: glucose of (ACCU-CHEK 00 four times Med icin JASWINDER PLUS) daily. Dx e Code: E 11.9 Alcohol 2020-0 Yes [id number] Check [facility] Swabs 10-09 blood [facility] (PHARMACIST 00:00: glucose of CHOICE 00 four times Medicin ALCOHOL) daily. Dx e PADS Code: E 11.9 Lancets 30G 2020-0 Yes [id number] Check [facility] MISC 10-09 blood [facility] 00:00: glucose of 00 four times Medicin daily. Dx e Code: E 11.9 Blood 2020-0 Yes [id number] Use as [facility] Glucose 10-09 directed. [facility] Monitoring 00:00: Dx Code: E o f Suppl 00 11.9 Medicin (ACCU-CHEK e JASWINDER PLUS) w/Device KIT Glucose 0 Yes [id number] Check [facility] Blood 10-09 blood [facility] Strips 00:00: glucose of (ACCU-CHEK 00 four times Med icin JASWINDER PLUS) daily. Dx e Code: E 11.9 Alcohol 2020-0 Yes [id number] Check [facility] Swabs 10-09 blood [facility] (PHARMACIST 00:00: glucose of CHOICE 00 four times Medicin ALCOHOL) daily. Dx e PADS Code: E 11.9 Lancets 30G 2020-0 Yes [id number] Check [facility] MISC 10-09 blood College 00:00: glucose of 00 four times Medicin daily. Dx e Code: E 11.9 Blood Yes [id number] Use as [facility] Glucose 10-09 directed. [facility] Monitoring 00:00: Dx Code: E o f Suppl 00 11.9 Medicin (ACCU-CHEK e JASWINDER PLUS) w/Device KIT Glucose 0 Yes [id number] Check [facility] Blood 10-09 blood [facility] Strips 00:00: glucose of (ACCU-CHEK 00 four times Med icin JASWINDER PLUS) daily. Dx e Code: E 11.9 Alcohol 2020-0 Yes [id number] Check [facility] Swabs 10-09 blood [facility] (PHARMACIST 00:00: glucose of CHOICE 00 four times Medicin ALCOHOL) daily. Dx e PADS Code: E 11.9 Lancets 30G 2020-0 Yes [id number] Check [facility] MISC 10-09 blood College 00:00: glucose of 00 four times Medicin daily. Dx e Code: E 11.9 Blood 0 Yes [id number] Use as [facility] Glucose 10-09 directed. [facility] Monitoring 00:00: Dx Code: E o f Suppl 00 11.9 Medicin (ACCU-CHEK e JASWINDER PLUS) w/Device KIT Glucose 0 Yes [id number] Check [facility] Blood 10-09 blood [facility] Strips 00:00: glucose of (ACCU-CHEK 00 four times Med icin JASWINDER PLUS) daily. Dx e Code: E 11.9 Alcohol 2020-0 Yes [id number] Check [facility] Swabs 10-09 blood [facility] (PHARMACIST 00:00: glucose of CHOICE 00 four times Medicin ALCOHOL) daily. Dx e PADS Code: E 11.9 Lancets 30G 2020-0 Yes [id number] [facility] 00:00: glucose of 00 four times Medicin daily. Dx e Code: E 11.9 Blood 0 Yes [id number] Use as [facility] Glucose 10-09 directed. [facility] Monitoring 00:00: Dx Code: E o f Suppl 00 11.9 Medicin (ACCU-CHEK e JASWINDER PLUS) w/Device KIT Glucose Yes [id number] Check [facility] Blood 10-09 blood [facility] Strips 00:00: glucose of (ACCU-CHEK 00 four times Med icin JASWINEDR PLUS) daily. Dx e Code: E 11.9 Alcohol 0 Yes [id number] Check [facility] Swabs 10-09 blood College (PHARMACIST 00:00: glucose of CHOICE 00 four times Medicin ALCOHOL) daily. Dx e PADS Code: E 11.9 Lancets 30G 2020-0 Yes [id number] Check [facility] 10-09 blood College 00:00: glucose of 00 four times Medicin daily. Dx e Code: E 11.9 Blood 0 Yes [id number] Use as [facility] Glucose 10-09 directed. [facility] Monitoring 00:00: Dx Code: E o f Suppl 00 11.9 Medicin (ACCU-CHEK e JASWINDER PLUS) w/Device KIT Glucose 0 Yes [id number] Check [facility] Blood 10-09 blood [facility] Strips 00:00: glucose of (ACCU-CHEK 00 four times Med icin JASWINDER PLUS) daily. Dx e Code: E 11.9 Alcohol 2020-0 Yes [id number] Check [facility] Swabs 10-09 blood [facility] (PHARMACIST 00:00: glucose of CHOICE 00 four times Medicin ALCOHOL) daily. Dx e PADS Code: E 11.9 Lancets 30G 2020-0 Yes [id number] [facility] 00:00: glucose of 00 four times Medicin daily. Dx e Code: E 11.9 Alcohol 2020-0 Yes [id number] Check [facility] Swabs 10-09 blood [facility] (PHARMACIST 00:00: glucose of CHOICE 00 four times Medicin ALCOHOL) daily. Dx e PADS Code: E 11.9 Lancets 30G 2020-0 Yes [id number] Check [facility] MISC 10-09 blood College 00:00: glucose of 00 four times Medicin daily. Dx e Code: E 11.9 Alcohol 2020-0 Yes [id number] Check [facility] Swabs 10-09 blood [facility] (PHARMACIST 00:00: glucose of CHOICE 00 four times Medicin ALCOHOL) daily. Dx e PADS Code: E 11.9 Lancets 30G 2020-0 Yes [id number] Check [facility] MISC 10-09 blood College 00:00: glucose of 00 four times Medicin daily. Dx e Code: E 11.9 Alcohol 2020-0 Yes [id number] Check [facility] Swabs 10-09 blood [facility] (PHARMACIST 00:00: glucose of CHOICE 00 four times Medicin ALCOHOL) daily. Dx e PADS Code: E 11.9 Lancets 30G 2020-0 Yes [id number] Check [facility] MISC 10-09 blood College 00:00: glucose of 00 four times Medicin daily. Dx e Code: E 11.9 Alcohol 2020-0 Yes [id number] Check [facility] Swabs 10-09 blood [facility] (PHARMACIST 00:00: glucose of CHOICE 00 four times Medicin ALCOHOL) daily. Dx e PADS Code: E 11.9 Lancets 30G 2020-0 Yes [id number] Check [facility] MISC 10-09 blood [facility] 00:00: glucose of 00 four times Medicin daily. Dx e Code: E 11.9 Alcohol 2020-0 Yes [id number] Check [facility] Swabs 10-09 blood [facility] (PHARMACIST 00:00: glucose of CHOICE 00 four times Medicin ALCOHOL) daily. Dx e PADS Code: E 11.9 Lancets 30G 2020-0 Yes [id number] Check [facility] MISC 10-09 blood College 00:00: glucose of 00 four times Medicin daily. Dx e Code: E 11.9 Alcohol 2020-0 Yes [id number] Check [facility] Swabs 10-09 blood [facility] (PHARMACIST 00:00: glucose of CHOICE 00 four times Medicin ALCOHOL) daily. Dx e PADS Code: E 11.9 Lancets 30G 2020-0 Yes [id number] Check [facility] MISC 10-09 blood College 00:00: glucose of 00 four times Medicin daily. Dx e Code: E 11.9 Alcohol 2020-0 Yes [id number] Check [facility] Swabs 10-09 blood [facility] (PHARMACIST 00:00: glucose of CHOICE 00 four times Medicin ALCOHOL) daily. Dx e PADS Code: E 11.9 Lancets 30G 2020-0 Yes [id number] Check [facility] MISC 10-09 blood College 00:00: glucose of 00 four times Medicin daily. Dx e Code: E 11.9 Alcohol 2020-0 Yes [id number] Check [facility] Swabs 10-09 blood [facility] (PHARMACIST 00:00: glucose of CHOICE 00 four times Medicin ALCOHOL) daily. Dx e PADS Code: E 11.9 Lancets 30G 2020-0 Yes [id number] Check [facility] MISC 10-09 blood [facility] 00:00: glucose of 00 four times Medicin daily. Dx e Code: E 11.9 Alcohol 2020-0 Yes [id number] Check [facility] Swabs 10-09 blood [facility] (PHARMACIST 00:00: glucose of CHOICE 00 four times Medicin ALCOHOL) daily. Dx e PADS Code: E 11.9 Lancets 30G 2020-0 Yes [id number] Check [facility] MISC 10-09 blood College 00:00: glucose of 00 four times Medicin daily. Dx e Code: E 11.9 Alcohol 2020-0 Yes [id number] Check [facility] Swabs 10-09 blood [facility] (PHARMACIST 00:00: glucose of CHOICE 00 four times Medicin ALCOHOL) daily. Dx e PADS Code: E 11.9 Lancets 30G 2020-0 Yes [id number] Check [facility] MISC 10-09 blood College 00:00: glucose of 00 four times Medicin daily. Dx e Code: E 11.9 Alcohol 2020-0 Yes [id number] Check [facility] Swabs 10-09 blood [facility] (PHARMACIST 00:00: glucose of CHOICE 00 four times Medicin ALCOHOL) daily. Dx e PADS Code: E 11.9 Lancets 30G 2020-0 Yes [id number] Check [facility] MISC 10-09 blood [facility] 00:00: glucose of 00 four times Medicin daily. Dx e Code: E 11.9 Alcohol 2020-0 Yes [id number] Check [facility] Swabs 10-09 blood [facility] (PHARMACIST 00:00: glucose of CHOICE 00 four times Medicin ALCOHOL) daily. Dx e PADS Code: E 11.9 Lancets 30G 2020-0 Yes [id number] Check [facility] MISC 10-09 blood College 00:00: glucose of 00 four times Medicin daily. Dx e Code: E 11.9 Alcohol 2020-0 Yes [id number] Check [facility] Swabs 10-09 blood [facility] (PHARMACIST 00:00: glucose of CHOICE 00 four times Medicin ALCOHOL) daily. Dx e PADS Code: E 11.9 Lancets 30G 2020-0 Yes [id number] Check [facility] MISC 10-09 blood College 00:00: glucose of 00 four times Medicin daily. Dx e Code: E 11.9 Alcohol 2020-0 Yes [id number] Check [facility] Swabs 10-09 blood College (PHARMACIST 00:00: glucose of CHOICE 00 four times Medicin ALCOHOL) daily. Dx e PADS Code: E 11.9 Lancets 30G 2020-0 Yes [id number] Check [facility] MISC 10-09 blood College 00:00: glucose of 00 four times Medicin daily. Dx e Code: E 11.9 Alcohol 2020-0 Yes [id number] Check [facility] Swabs 10-09 blood College (PHARMACIST 00:00: glucose of CHOICE 00 four times Medicin ALCOHOL) daily. Dx e PADS Code: E 11.9 Lancets 30G 2020-0 Yes [id number] Check [facility] MISC 10-09 blood College 00:00: glucose of 00 four times Medicin daily. Dx e Code: E 11.9 Glucose 2020- No [id number] Check [place] [facility] Blood 10-09 blood College Strips 00:00: 00:00 glucose of (ACCU-CHEK 00 :00 four times Med icin JASWINDER PLUS) daily. Dx e Code: E 11.9 Glucose 2020-0 202- No [id number] Check [facility] Blood 10-09 blood College Strips 00:00: 00:00 glucose of (ACCU-CHEK 00 :00 four times Med icin JASWINDER PLUS) daily. Dx e Code: E 11.9 Insulin 2020-0 Yes 15U Inject 15 [facility] Lispro 100 3-12 Units into [facility] UNIT/ML 20:12: the skin. of SOCT 30 Medicin e insulin 2020-0 Yes 55U Inject 55 [facility] glargine 3-12 Units into [facility] (LANTUS) 20:12: the skin of 100 UNIT/ML 30 nightly. Medi ascencion injection e Insulin 2020-0 Yes 15U Inject 15 [facility] Lispro 100 3-12 Units into [facility] UNIT/ML 20:12: the skin. of SOCT 30 Medicin e insulin 2020-0 Yes 55U Inject 55 [facility] glargine 3-12 Units into [facility] (LANTUS) 20:12: the skin of 100 UNIT/ML 30 nightly. Medi ascencion injection e Semaglutide 2020-0 Yes [id number] .25mg Inject [facility] ,0.25 or 3-12 0.25 mg College 0.5MG/DOS, 00:00: into the of (OZEMPIC, 00 skin every Medi ascencion 0.25 OR 0.5 7 days. e MG/DOSE,) 2 MG/1.5ML SOPN Insulin 2020-0 Yes [id number] 65U Inject 65 [facility] Glargine 3-12 Units into [facility]le ge (LANTUS 00:00: the skin of SOLOSTAR) 00 daily. Medicin 100 UNIT/ML e SOPN Semaglutide 2020-0 Yes [id number] .25mg Inject [facility] ,0.25 or 3-12 0.25 mg College 0.5MG/DOS, 00:00: into the of (OZEMPIC, 00 skin every Medi ascencion 0.25 OR 0.5 7 days. e MG/DOSE,) 2 MG/1.5ML SOPN Insulin 1-0 Yes [id number] 65U Inject 65 [facility] Glargine 3-12 Units into [facility] (LANTUS 00:00: the skin of SOLOSTAR) 00 daily. Medicin 100 UNIT/ML e SOPN Semaglutide 1-0 Yes [id number] .25mg Inject [facility] ,0.25 or 3-12 0.25 mg [facility] 0.5MG/DOS, 00:00: into the of (OZEMPIC, 00 skin every Medi ascencion 0.25 OR 0.5 7 days. e MG/DOSE,) 2 MG/1.5ML SOPN Insulin 0 Yes [id number] 65U Inject 65 [facility] Glargine 3-12 Units into [facility]le [facility] (LANTUS 00:00: the skin of SOLOSTAR) 00 daily. Medicin 100 UNIT/ML e SOPN Semaglutide Yes [id number] .25mg Inject [facility] ,0.25 or 3-12 0.25 mg College 0.5MG/DOS, 00:00: into the of (OZEMPIC, 00 skin every Medi ascencion 0.25 OR 0.5 7 days. e MG/DOSE,) 2 MG/1.5ML SOPN Insulin 0 Yes [id number] 65U Inject 65 Félix Glargine 3-12 Units into Colle ge ([place] 00:00: the skin of SOLOSTAR) 00 daily. Medicin 100 UNIT/ML e SOPN Insulin Yes [id number] 65U Inject 65 Félix Glargine 3-12 Units into Colle ge ([place] 00:00: the skin of SOLOSTAR) 00 daily. Medicin 100 UNIT/ML e SOPN Insulin 0 Yes [id number] 65U Inject 65 [facility] Glargine 3-12 Units into Colle ge ([place] 00:00: the skin of SOLOSTAR) 00 daily. Medicin 100 UNIT/ML e SOPN Insulin 0 Yes [id number] 65U Inject 65 [facility] Glargine 3-12 Units into Colle ge ([place] 00:00: the skin of SOLOSTAR) 00 daily. Medicin 100 UNIT/ML e SOPN Insulin 0 Yes [id number] 65U Inject 65 [facility] Glargine 3-12 Units into Colle ge ([place] 00:00: the skin of SOLOSTAR) 00 daily. Medicin 100 UNIT/ML e SOPN Insulin 0 Yes [id number] 65U Inject 65 [facility] Glargine 3-12 Units into Colle ge ([place] 00:00: the skin of SOLOSTAR) 00 daily. Medicin 100 UNIT/ML e SOPN Insulin 0 2020- No [id number] 65U Inject 65 [facility] Glargine 3-12 09-21 Units into May ege ([place] 00:00: 00:00 the skin of SOLOSTAR) 00 :00 daily. Medicin 100 UNIT/ML e SOPN Insulin 0 2021- No [id number] 65U Inject 65 Félix Glargine 3-12 09-21 Units into May ege ([place] 00:00: 00:00 the skin of SOLOSTAR) 00 :00 daily. Medicin 100 UNIT/ML e SOPN Insulin Yes 15U Inject 15 [facility] Lispro 100 3-10 Units into Col lege UNIT/ML 19:18: the skin. of SOCT 47 Medicin e insulin 0 Yes 55U Inject 55 [facility] r glargine 3-10 Units into Colle ge ([place]) 19:18: the skin of 100 UNIT/ML 47 nightly. Medi ascencion injection e Insulin Yes 15U Inject 15 Baylo r Lispro 100 2-11 Units into Col lege UNIT/ML 19:35: the skin. of SOCT 31 Medicin e insulin Yes 55U Inject 55 Baylo r glargine 2-11 Units into Colle ge (LANTUS) 19:35: the skin of 100 UNIT/ML 31 nightly. Medi ascencion injection e Insulin Yes 15U Inject 15 [facility] Lispro 100 2-03 Units into [facility] UNIT/ML 19:20: the skin. of SOCT 27 Medicin e insulin Yes 55U Inject 55 [facility] glargine 2-03 Units into [facility] ([place]ANTUS) 19:20: the skin of 100 UNIT/ML 27 nightly. Medi ascencion injection e Amoxicillin Yes TAKE 4 [facility] 500 MG TABS 2-03 TABLETS BY [facility] 00:00: MOUTH 1 of 00 HOUR PRIOR Medicin TO DENTAL e APPOINTMEN T Amoxicillin Yes TAKE 4 [facility] 500 MG TABS 2-03 TABLETS BY [facility] 00:00: MOUTH 1 of 00 HOUR PRIOR Medicin TO DENTAL e APPOINTMEN T Amoxicillin Yes TAKE 4 [facility] 500 MG TABS 2-03 TABLETS BY [facility] 00:00: MOUTH 1 of 00 HOUR PRIOR Medicin TO DENTAL e APPOINTMEN T Amoxicillin Yes TAKE 4 [facility] 500 MG TABS 2-03 TABLETS BY [facility] 00:00: MOUTH 1 of 00 HOUR PRIOR Medicin TO DENTAL e APPOINTMEN T Amoxicillin Yes TAKE 4 [facility] 500 MG TABS 2-03 TABLETS BY [facility] 00:00: MOUTH 1 of 00 HOUR PRIOR Medicin TO DENTAL e APPOINTMEN T Amoxicillin Yes TAKE 4 [facility] 500 MG TABS 2-03 TABLETS BY [facility] 00:00: MOUTH 1 of 00 HOUR PRIOR Medicin TO DENTAL e APPOINTMEN T Amoxicillin 0 2020- No TAKE 4 [facility] 500 MG TABS 2-03 07-13 TABLETS BY [facility] 00:00: 00:00 MOUTH 1 of 00 :00 HOUR PRIOR Medicin TO DENTAL e APPOINTMEN T Lancets 30G Yes [id number] Check [facility] MISC 2-01 blood College 00:00: glucose of 00 four times Medicin daily. Dx e Code: E 11.9 Glucose Yes [id number] Check [facility] Blood 2- blood College Strips 00:00: glucose of (ACCU-CHEK 00 four times Med icin JASWINDER PLUS) daily. Dx e Code: E 11.9 Blood Yes [id number] USE TO [facility] Glucose 2- CALIBRATE College Calibration 00:00: METER. Dx o f (ACCU-CHEK 00 Code: E Medici n JASWINDER) SOLN 11.9 e Alcohol Yes [id number] Check [facility] Swabs 2- blood College (PHARMACIST 00:00: glucose of CHOICE 00 four times Medicin ALCOHOL) daily. Dx e PADS Code: E 11.9 Lancets 30G Yes [id number] Check [facility] MISC 2-01 blood College 00:00: glucose of 00 four times Medicin daily. Dx e Code: E 11.9 Glucose Yes [id number] Check [facility] Blood 2-01 blood College Strips 00:00: glucose of (ACCU-CHEK 00 four times Med icin JASWINDER PLUS) daily. Dx e Code: E 11.9 Blood Yes [id number] USE TO [facility] Glucose 2-01 CALIBRATE [employer] Calibration 00:00: METER. Dx o f (ACCU-CHEK 00 Code: E Medici n JASWINDER) SOLN 11.9 e Alcohol 2020-0 Yes [id number] Check [facility] Swabs 2- blood College (PHARMACIST 00:00: glucose of CHOICE 00 four times Medicin ALCOHOL) daily. Dx e PADS Code: E 11.9 Lancets 30G 2020-0 Yes [id number] Check [facility] MISC 2- blood College 00:00: glucose of 00 four times Medicin daily. Dx e Code: E 11.9 Glucose 2020-0 Yes [id number] Check [facility] Blood 2- blood College Strips 00:00: glucose of (ACCU-CHEK 00 four times Med icin JASWINDER PLUS) daily. Dx e Code: E 11.9 Blood 0 Yes [id number] USE TO [facility] r Glucose 2- CALIBRATE [employer] Calibration 00:00: METER. Dx o f (ACCU-CHEK 00 Code: E Medici n JASWINDER) SOLN 11.9 e Alcohol 2020-0 Yes [id number] Check [facility] Swabs 2- blood College (PHARMACIST 00:00: glucose of CHOICE 00 four times Medicin ALCOHOL) daily. Dx e PADS Code: E 11.9 Lancets 30G 2020-0 Yes [id number] Check [facility] MISC 2- blood College 00:00: glucose of 00 four times Medicin daily. Dx e Code: E 11.9 Glucose 2020-0 Yes [id number] Check [facility] Blood 2- blood [employer] Strips 00:00: glucose of (ACCU-CHEK 00 four times Med icin JASWINDER PLUS) daily. Dx e Code: E 11.9 Blood 0 Yes [id number] USE TO [facility] r Glucose 2- CALIBRATE [employer] Calibration 00:00: METER. Dx o f (ACCU-CHEK 00 Code: E Medici n JASWINDER) SOLN 11.9 e Alcohol 2020-0 Yes [id number] Check [facility] Swabs 2-01 blood College (PHARMACIST 00:00: glucose of CHOICE 00 four times Medicin ALCOHOL) daily. Dx e PADS Code: E 11.9 Lancets 30G 2020-0 Yes [id number] Check [facility] MISC 2-01 blood College 00:00: glucose of 00 four times Medicin daily. Dx e Code: E 11.9 Glucose 2020-0 Yes [id number] Check [facility] Blood 2-01 blood College Strips 00:00: glucose of (ACCU-CHEK 00 four times Med icin JASWINDER PLUS) daily. Dx e Code: E 11.9 Blood 2020-0 Yes [id number] USE TO [facility] Glucose 2-01 CALIBRATE [employer] Calibration 00:00: METER. Dx o f (ACCU-CHEK 00 Code: E Medici n JASWINDER) SOLN 11.9 e Alcohol 2020-0 Yes [id number] Check [facility] Swabs 2- blood College (PHARMACIST 00:00: glucose of CHOICE 00 four times Medicin ALCOHOL) daily. Dx e PADS Code: E 11.9 Lancets 30G 0 Yes [id number] Check [facility] 2- blood College 00:00: glucose of 00 four times Medicin daily. Dx e Code: E 11.9 Glucose 2020-0 Yes [id number] Check [facility] Blood 2- blood College Strips 00:00: glucose of (ACCU-CHEK 00 four times Med icin JASWINDER PLUS) daily. Dx e Code: E 11.9 Blood 2020-0 Yes [id number] USE TO [facility] Glucose 2-01 CALIBRATE [employer] Calibration 00:00: METER. Dx o f (ACCU-CHEK 00 Code: E Medici n JASWINDER) SOLN 11.9 e Alcohol 0 Yes [id number] Check [facility] Swabs 2- blood College (PHARMACIST 00:00: glucose of CHOICE 00 four times Medicin ALCOHOL) daily. Dx e PADS Code: E 11.9 Blood 2020-0 Yes [id number] USE TO [facility] Glucose 2-01 CALIBRATE [employer] Calibration 00:00: METER. Dx o f (ACCU-CHEK 00 Code: E Medici n JASWINDER) SOLN 11.9 e Blood 2020-0 Yes [id number] USE TO [facility] Glucose 2-01 CALIBRATE [employer] Calibration 00:00: METER. Dx o f (ACCU-CHEK 00 Code: E Medici n JASWINDER) SOLN 11.9 e Blood 2020-0 Yes [id number] USE TO [facility] Glucose 2-01 CALIBRATE [employer] Calibration 00:00: METER. Dx o f (ACCU-CHEK 00 Code: E Medici n JASWINDER) SOLN 11.9 e Blood 2020-0 Yes [id number] USE TO [facility] Glucose 2-01 CALIBRATE [employer] Calibration 00:00: METER. Dx o f (ACCU-CHEK 00 Code: E Medici n JASWINDER) SOLN 11.9 e Blood 2020-0 Yes [id number] USE TO [facility] Glucose 2-01 CALIBRATE [employer] Calibration 00:00: METER. Dx o f (ACCU-CHEK 00 Code: E Medici n JASWINDER) SOLN 11.9 e Blood 2020-0 Yes [id number] USE TO [facility] Glucose 2-01 CALIBRATE [employer] Calibration 00:00: METER. Dx o f (ACCU-CHEK 00 Code: E Medici n JASWINDER) SOLN 11.9 e Blood 2020-0 Yes [id number] USE TO [facility] Glucose 2-01 CALIBRATE [employer] Calibration 00:00: METER. Dx o f (ACCU-CHEK 00 Code: E Medici n JASWINDER) SOLN 11.9 e Blood 2020-0 Yes [id number] USE TO [facility] Glucose 2-01 CALIBRATE [employer] Calibration 00:00: METER. Dx o f (ACCU-CHEK 00 Code: E Medici n JASWINDER) SOLN 11.9 e Blood 2020-0 2021- No [id number] USE TO [facility] Glucose 2-01 - CALIBRATE Colleg e Calibration 00:00: 00:00 METER. Dx of (ACCU-CHEK 00 :00 Code: E Medici n JASWINDER) SOLN 11.9 e Blood 2020-0 2021- No [id number] USE TO [facility] Glucose 2-01 - CALIBRATE Colleg e Calibration 00:00: 00:00 METER. Dx of (ACCU-CHEK 00 :00 Code: E Medici n JASWINDER) SOLN 11.9 e Insulin 2020-0 Yes 15U Inject 15 [facility] Lispro 100 1-13 Units into [facility] UNIT/ML 20:56: the skin. of SOCT 19 Medicin e insulin 2020-0 Yes 55U Inject 55 [facility] glargine 1-13 Units into [facility] ([place]) 20:56: the skin of 100 UNIT/ML 19 nightly. Medi ascencion injection e Insulin 0 Yes 15U Inject 15 [facility] Lispro 100 1-13 Units into [facility] UNIT/ML 20:56: the skin. of SOCT 19 Medicin e insulin 0 Yes 55U Inject 55 [facility] glargine 1-13 Units into Col[facility] ([place]US) 20:56: the skin of 100 UNIT/ML 19 nightly. Medi ascencion injection e Insulin 0 Yes 15U Inject 15 [facility] Lispro 100 1-13 Units into [facility] UNIT/ML 20:56: the skin. of SOCT 19 Medicin e insulin 0 Yes 55U Inject 55 [facility] glargine 1-13 Units into [facility] ([place]ANTUS) 20:56: the skin of 100 UNIT/ML 19 nightly. Medi ascencion injection e levofloxaci 2019-07 2020- No 750mg Take 750 [facility] n 2-10 12-10 mg by [place] ([facility]) 19:38: 00:00 mouth of 750 MG 35 :00 daily. Medicin tablet e levofloxaci 2019-07 2020- No 750mg Take 750 [facility] n 2-10 12-10 mg by [place] ([facility]) 19:38: 00:00 mouth of 750 MG 35 :00 daily. Medicin tablet e Cyanocobala 2019-07 Yes 500ug Take 500 [facility] (B-12) 1-18 mcg by [place] 500 MCG 00:00: mouth of TABS 00 daily. Medicin e Cyanocobala 2019-07 Yes 500ug Take 500 [facility] (B-12) 1-18 mcg by [place] 500 MCG 00:00: mouth of TABS 00 daily. Medicin e Cyanocobala 2019-07 Yes 500ug Take 500 [facility] (B-12) 1-18 mcg by [place] 500 MCG 00:00: mouth of TABS 00 daily. Medicin e Cyanocobala 2019- Yes 500ug Take 500 [facility] (B-12) 1-18 mcg by [place] 500 MCG 00:00: mouth of TABS 00 daily. Medicin e Cyanocobala 2019-07 Yes 500ug Take 500 [facility] (B-12) 1-18 mcg by [place] 500 MCG 00:00: mouth of TABS 00 daily. Medicin e Cyanocobala 2020-1 Yes 500ug Take 500 [facility] (B-12) 1-18 mcg by [place] 500 MCG 00:00: mouth of TABS 00 daily. Medicin e Cyanocobala 2020-1 Yes 500ug Take 500 [facility] (B-12) 1-18 mcg by [place] 500 MCG 00:00: mouth of TABS 00 daily. Medicin e Cyanocobala 2020- Yes 500ug Take 500 [facility] (B-12) 1-18 mcg by [place] 500 MCG 00:00: mouth of TABS 00 daily. Medicin e Cyanocobala 2020- Yes 500ug Take 500 [facility] (B-12) 1-18 mcg by [place] 500 MCG 00:00: mouth of TABS 00 daily. Medicin e Cyanocobala 2020- Yes 500ug Take 500 [facility] (B-12) 1-18 mcg by [place] 500 MCG 00:00: mouth of TABS 00 daily. Medicin e Cyanocobala 2019- Yes 500ug Take 500 [facility] (B-12) 1-18 mcg by [place] 500 MCG 00:00: mouth of TABS 00 daily. Medicin e Cyanocobala 2019- Yes 500ug Take 500 [facility] (B-12) 1-18 mcg by [place] 500 MCG 00:00: mouth of TABS 00 daily. Medicin e Cyanocobala 2019- Yes 500ug Take 500 [facility] (B-12) 1-18 mcg by [place] 500 MCG 00:00: mouth of TABS 00 daily. Medicin e Cyanocobala 2020- Yes 500ug Take 500 [facility] (B-12) 1-18 mcg by [place] 500 MCG 00:00: mouth of TABS 00 daily. Medicin e Cyanocobala 2020-1 Yes 500ug Take 500 [facility] (B-12) 1-18 mcg by [place] 500 MCG 00:00: mouth of TABS 00 daily. Medicin e Cyanocobala 2020-1 Yes 500ug Take 500 [facility] (B-12) 1-18 mcg by [place] 500 MCG 00:00: mouth of TABS 00 daily. Medicin e Cyanocobala 2020-1 Yes 500ug Take 500 [facility] (B-12) 1-18 mcg by [place] 500 MCG 00:00: mouth of TABS 00 daily. Medicin e Cyanocobala 2020-1 Yes 500ug Take 500 [facility] (B-12) 1-18 mcg by [place] 500 MCG 00:00: mouth of TABS 00 daily. Medicin e Cyanocobala 2020-1 Yes 500ug Take 500 [facility] (B-12) 1-18 mcg by [place] 500 MCG 00:00: mouth of TABS 00 daily. Medicin e Cyanocobala 2020-1 Yes 500ug Take 500 [facility] (B-12) 1-18 mcg by [place] 500 MCG 00:00: mouth of TABS 00 daily. Medicin e Cyanocobala 2020- Yes 500ug Take 500 [facility] (B-12) 1-18 mcg by [place] 500 MCG 00:00: mouth of TABS 00 daily. Medicin e Cyanocobala 2020- Yes 500ug Take 500 [facility] (B-12) 1-18 mcg by [place] 500 MCG 00:00: mouth of TABS 00 daily. Medicin e Cyanocobala 2019-1 Yes 500ug Take 500 [facility] (B-12) 1-18 mcg by [place] 500 MCG 00:00: mouth of TABS 00 daily. Medicin e Cyanocobala 2019-1 Yes 500ug Take 500 [facility] (B-12) 1-18 mcg by [place] 500 MCG 00:00: mouth of TABS 00 daily. Medicin e Cyanocobala 2020-1 Yes 500ug Take 500 [facility] (B-12) 1-18 mcg by [place] 500 MCG 00:00: mouth of TABS 00 daily. Medicin e Cyanocobala 2020-1 Yes 500ug Take 500 [facility] (B-12) 1-18 mcg by [place] 500 MCG 00:00: mouth of TABS 00 daily. Medicin e Cyanocobala 2020-1 Yes 500ug Take 500 [facility] (B-12) 1-18 mcg by [place] 500 MCG 00:00: mouth of TABS 00 daily. Medicin e Cyanocobala 2020-1 Yes 500ug Take 500 [facility] (B-12) 1-18 mcg by [place] 500 MCG 00:00: mouth of TABS 00 daily. Medicin e Cyanocobala 2019-07 Yes 500ug Take 500 [facility] (B-12) 1-18 mcg by [place] 500 MCG 00:00: mouth of TABS 00 daily. Medicin e Cyanocobala 2019-07 Yes 500ug Take 500 [facility] (B-12) 1-18 mcg by [place] 500 MCG 00:00: mouth of TABS 00 daily. Medicin e Cyanocobala 2019-07 Yes 500ug Take 500 [facility] (B-12) 1-18 mcg by [place] 500 MCG 00:00: mouth of TABS 00 daily. Medicin e Cyanocobala 2019-07- No 500ug Take 500 [facility] (B-12) 1-18 [facility]: [facility]:00 mouth of TABS 00 :00 daily. Medicin e levofloxaci 2019-07 2020- No [id number] 750mg Take 1 [facility] n -18 12- [id number] Tablet by [place] ([facility]) 00:00: 05:59 mouth of 750 MG 00 :00 daily for Medicin tablet 14 days. e levofloxaci 2019-07 2020- No [id number] 750mg Take 1 [facility] n -18 12-03 [id number] Tablet by [place] ([facility]) 00:00: 05:59 mouth of 750 MG 00 :00 daily for Medicin tablet 14 days. e levofloxaci 2019-07- No [id number] 750mg Take 1 Tab [facility] n 07-07 [id number] by mouth [place] ([facility]) 00:00: 00:00 daily for o f 750 MG 00 :00 14 days. Medicin tablet e Insulin 2019-07 Yes [id number] 45U Inject 45 [facility] Glargine 0-28 Units into [facility] 100 UNIT/ML 00:00: the skin of SOPN 00 daily. DX Medicin Code: E e 11.9 Insulin 2019-07 Yes [id number] 45U Inject 45 [facility] Glargine 0-28 Units into [facility] 100 UNIT/ML 00:00: the skin of SOPN 00 daily. DX Medicin Code: E e 11.9 Insulin 2019-07 Yes [id number] 45U Inject 45 [facility] Glargine 0-28 Units into [facility] 100 UNIT/ML 00:00: the skin of SOPN 00 daily. DX Medicin Code: E e 11.9 Insulin 2019-07 Yes [id number] 45U Inject 45 [facility] Glargine 0-28 Units into [facility] 100 UNIT/ML 00:00: the skin of SOPN 00 daily. DX Medicin Code: E e 11.9 Insulin 2019-07 Yes [id number] 45U Inject 45 [facility] Glargine 0-28 Units into [facility] 100 UNIT/ML 00:00: the skin of SOPN 00 daily. DX Medicin Code: E e 11.9 Insulin 2019-07 Yes [id number] 45U Inject 45 [facility] Glargine 0-28 Units into [facility] 100 UNIT/ML 00:00: the skin of SOPN 00 daily. DX Medicin Code: E e 11.9 Insulin 2019-07 202- No [id number] 45U Inject 45 [facility] Glargine 0-28 01-11 Units into [facility] 100 UNIT/ML 00:00: 00:00 the skin o f SOPN 00 :00 daily. DX Medicin Code: E e 11.9 levofloxaci 2019-07- No [id number] 750mg Take 1 Tab [facility] n 0-05-15 [id number] by [facility] [place] 00:00: 05:59 daily for o f 750 MG 00 :00 28 days. Medicin tablet e levofloxaci 2019-07- No [id number] 750mg Take 1 Tab [facility] n 0-05-15 [id number] by [facility] ([place]) 00:00: 05:59 daily for o f 750 MG 00 :00 28 days. Medicin tablet e levofloxaci 2019-07- No [id number] 750mg Take 1 Tab [facility] n 0-15 05-15 [id number] by [facility] ([place]) 00:00: 05:59 daily for o f 750 MG 00 :00 28 days. Medicin tablet e levofloxaci 2019-07- No [id number] 750mg Take 1 Tab [facility] n 0-15 05-07 [id number] by [facility] ([place]) 00:00: 00:00 daily for o f 750 MG 00 :00 28 days. Medicin tablet e amoxicillin 2019- No [id number] 1{tbl} Take 1 Tab [facility] -clavulanat 9-24 10-05 by mouth [facility] e 00:00: 04:59 two times of (AUGMENTIN) 00 :00 daily for Med icin 875-125 MG 10 days. e per tablet amoxicillin 0 2020- No [id number] 1{tbl} Take 1 Tab [facility] -clavulanat 9-24 10-05 by mouth [facility] e 00:00: 04:59 two times of (AUGMENTIN) 00 :00 daily for Med icin 875-125 MG 10 days. e per tablet amoxicillin 0 2020- No [id number] 1{tbl} Take 1 Tab [facility] -clavulanat 9-24 10-05 by mouth [facility] e 00:00: 04:59 two times of (AUGMENTIN) 00 :00 daily for Med icin 875-125 MG 10 days. e per tablet metformin 2020-0 Yes [id number] 500mg Take 1 Tab [facility] (GLUCOPHAGE 9-21 by mouth [place] -XR) 500 MG 00:00: two times o f XR tablet 00 daily. Medicin e linaGLIPtin 2020-0 Yes [id number] Take 1 [facility] (TRADJENTA) 9-21 tablet by [facility] 5 MG TABS 00:00: mouth of 00 every day Medicin e Insulin 2020-0 Yes [id number] 12U Inject 12 [facility] Lispro, 1 9-21 Units into [facility] Unit Dial, 00:00: the skin 3 o f 100 UNIT/ML 00 times Medicin SOPN daily e (before meals). Glucose 2020-0 Yes [id number] Use one [facility] Blood 9-21 strip as College Strips 00:00: directed. of (ACCU-CHEK 00 Check [facility] Medi ascencion JASWINDER PLUS) 4 TIMES e DAILY metformin 2020-0 Yes [id number] 500mg Take 1 Tab [facility] (GLUCOPHAGE 9-21 by mouth [place] [facility] -XR) 500 MG 00:00: two times o f XR tablet 00 daily. Medicin e linaGLIPtin 2020-0 Yes [id number] Take 1 [facility] (TRADJENTA) 9-21 tablet by [facility] 5 MG TABS 00:00: mouth of 00 every day Medicin e Insulin 2020-0 Yes [id number] 12U Inject 12 [facility] Lispro, 1 9-21 Units into [facility] Unit Dial, 00:00: the skin 3 o f 100 UNIT/ML 00 times Medicin SOPN daily e (before meals). Glucose 2020-0 Yes [id number] Use one [facility] Blood 9-21 strip as College Strips 00:00: directed. of (ACCU-CHEK 00 Check [facility] Medi ascencion JASWINDER PLUS) 4 TIMES e DAILY metformin 2020-0 Yes [id number] 500mg Take 1 Tab [facility] (GLUCOPHAGE 9-21 by mouth [facility] -XR) 500 MG 00:00: two times o f XR tablet 00 daily. Medicin e linaGLIPtin 2020-0 Yes [id number] Take 1 [facility] (TRADJENTA) 9-21 tablet by [facility] 5 MG TABS 00:00: mouth of 00 every day Medicin e Insulin 2020-0 Yes [id number] 12U Inject 12 [facility] Lispro, 1 9-21 Units into [facility] Unit Dial, 00:00: the skin 3 o f 100 UNIT/ML 00 times Medicin SOPN daily e (before meals). Glucose 2020-0 Yes [id number] Use one [facility] Blood 9-21 strip as College Strips 00:00: directed. of (ACCU-CHEK 00 Check FSG Medi ascencion JASWINDER PLUS) 4 TIMES e DAILY metformin 2020-0 Yes [id number] 500mg Take 1 Tab [facility] (GLUCOPHAGE 9-21 by mouth [place] -XR) 500 MG 00:00: two times o f XR tablet 00 daily. Medicin e linaGLIPtin 2020-0 Yes [id number] Take 1 [facility] (TRADJENTA) 9-21 tablet by [facility] 5 MG TABS 00:00: mouth of 00 every day Medicin e Insulin 2020-0 Yes [id number] 12U Inject 12 [facility] Lispro, 1 9-21 Units into [facility] Unit Dial, 00:00: the skin 3 o f 100 UNIT/ML 00 times Medicin SOPN daily e (before meals). Glucose 2020-0 Yes [id number] Use one [facility] Blood 9-21 strip as [facility] Strips 00:00: directed. of (ACCU-CHEK 00 Check FS[facility] Medi ascencion JASWINDER PLUS) 4 TIMES e DAILY metformin 2020-0 Yes [id number] 500mg Take 1 Tab [facility] (GLUCOPHAGE 9-21 by mouth [place] -XR) 500 MG 00:00: two times o f XR tablet 00 daily. Medicin e linaGLIPtin 2020-0 Yes [id number] Take 1 [facility] (TRADJENTA) 9-21 tablet by [facility] 5 MG TABS 00:00: mouth of 00 every day Medicin e Insulin 2020-0 Yes [id number] 12U Inject 12 [facility] Lispro, 1 9-21 Units into [facility] Unit Dial, 00:00: the skin 3 o f 100 UNIT/ML 00 times Medicin SOPN daily e (before meals). Glucose 2020-0 Yes [id number] Use one [facility] Blood 9-21 strip as [facility] Strips 00:00: directed. of (ACCU-CHEK 00 Check FS[facility] Medi ascencion JASWINDER PLUS) 4 TIMES e DAILY metformin 2020-0 Yes [id number] 500mg Take 1 Tab [facility] (GLUCOPHAGE 9-21 by mouth [place] -XR) 500 MG 00:00: two times o f XR tablet 00 daily. Medicin e linaGLIPtin 2020-0 Yes [id number] Take 1 [facility] (TRADJENTA) 9-21 tablet by [facility] 5 MG TABS 00:00: mouth of 00 every day Medicin e Glucose 2020-0 Yes [id number] Use one [facility] Blood 9-21 strip as [facility] Strips 00:00: directed. of (ACCU-CHEK 00 Check FS[facility] Medi ascencion JASWINDER PLUS) 4 TIMES e DAILY metformin 2020-0 Yes [id number] 500mg Take 1 Tab [facility] (GLUCOPHAGE 9-21 by mouth [place] -XR) 500 MG 00:00: two times o f XR tablet 00 daily. Medicin e linaGLIPtin 2020-0 Yes [id number] Take 1 [facility] (TRADJENTA) 9-21 tablet by [facility] 5 MG TABS 00:00: mouth of 00 every day Medicin e Glucose 2020-0 Yes [id number] Use one [facility] Blood 9-21 strip as [facility] Strips 00:00: directed. of (ACCU-CHEK 00 Check FSG Medi ascencion JASWINDER PLUS) 4 TIMES e DAILY metformin 2020-0 Yes [id number] 500mg Take 1 Tab [facility] (GLUCOPHAGE 9-21 by mouth [place] -XR) 500 MG 00:00: two times o f XR tablet 00 daily. Medicin e linaGLIPtin 2020-0 Yes [id number] Take 1 [facility] (TRADJENTA) 9-21 tablet by [facility] 5 MG TABS 00:00: mouth of 00 every day Medicin e metformin 2020-0 Yes [id number] 500mg Take 1 Tab [facility] (GLUCOPHAGE 9-21 by mouth [facility] -XR) 500 MG 00:00: two times o f XR tablet 00 daily. Medicin e linaGLIPtin 2020-0 Yes [id number] Take 1 [facility] (TRADJENTA) 9-21 tablet by [facility] 5 MG TABS 00:00: mouth of 00 every day Medicin e metformin 2020-0 Yes [id number] 500mg Take 1 Tab [facility] (GLUCOPHAGE 9-21 by mouth [place] -XR) 500 MG 00:00: two times o f XR tablet 00 daily. Medicin e linaGLIPtin 2020-0 Yes [id number] Take 1 [facility] (TRADJENTA) 9-21 tablet by [facility] 5 MG TABS 00:00: mouth of 00 every day Medicin e metformin 2020-0 Yes [id number] 500mg Take 1 Tab [facility] (GLUCOPHAGE 9-21 by mouth [place] [facility] -XR) 500 MG 00:00: two times o f XR tablet 00 daily. Medicin e linaGLIPtin 2020-0 Yes [id number] Take 1 [facility] (TRADJENTA) 9-21 tablet by [facility] 5 MG TABS 00:00: mouth of 00 every day Medicin e metformin 2020-0 Yes [id number] 500mg Take 1 Tab [facility] (GLUCOPHAGE 9-21 by mouth [facility] -XR) 500 MG 00:00: two times o f XR tablet 00 daily. Medicin e metformin 2020-0 Yes [id number] 500mg Take 1 Tab [facility] (GLUCOPHAGE 9-21 by mouth [place] [facility] -XR) 500 MG 00:00: two times o f XR tablet 00 daily. Medicin e metformin 2020-0 Yes [id number] 500mg Take 1 Tab [facility] (GLUCOPHAGE 9-21 by mouth [place] [facility] -XR) 500 MG 00:00: two times o f XR tablet 00 daily. Medicin e metformin 2020-0 Yes [id number] 500mg Take 1 Tab [facility] (GLUCOPHAGE 9-21 by mouth [place] -XR) 500 MG 00:00: two times o f XR tablet 00 daily. Medicin e metformin 2020-0 Yes [id number] 500mg Take 1 Tab [facility] (GLUCOPHAGE 9-21 by mouth [facility] -XR) 500 MG 00:00: two times o f XR tablet 00 daily. Medicin e metformin 2020-0 Yes [id number] 500mg Take 1 Tab [facility] (GLUCOPHAGE 9-21 by mouth [place] [facility] -XR) 500 MG 00:00: two times o f XR tablet 00 daily. Medicin e metformin 2020-0 Yes [id number] 500mg Take 1 Tab [facility] (GLUCOPHAGE 9-21 by mouth [place] [facility] -XR) 500 MG 00:00: two times o f XR tablet 00 daily. Medicin e metformin 2020-0 Yes [id number] 500mg Take 1 Tab [facility] (GLUCOPHAGE 9-21 by mouth [place] [facility] -XR) 500 MG 00:00: two times o f XR tablet 00 daily. Medicin e metformin 2020-0 Yes [id number] 500mg Take 1 Tab [facility] (GLUCOPHAGE 9-21 by mouth [place] [facility] -XR) 500 MG 00:00: two times o f XR tablet 00 daily. Medicin e metformin 2020-0 Yes [id number] 500mg Take 1 Tab [facility] (GLUCOPHAGE 9-21 by mouth [place] [facility] -XR) 500 MG 00:00: two times o f XR tablet 00 daily. Medicin e metformin 2020-0 Yes [id number] 500mg Take 1 Tab [facility] (GLUCOPHAGE 9-21 by mouth [place] [facility] -XR) 500 MG 00:00: two times o f XR tablet 00 daily. Medicin e metformin 2020-0 Yes [id number] 500mg Take 1 Tab [facility] (GLUCOPHAGE 9-21 by mouth [place] [facility] -XR) 500 MG 00:00: two times o f XR tablet 00 daily. Medicin e metformin 2020-0 Yes [id number] 500mg Take 1 Tab [facility] (GLUCOPHAGE 9-21 by mouth [place] [facility] -XR) 500 MG 00:00: two times o f XR tablet 00 daily. Medicin e metformin 2020-0 Yes [id number] 500mg Take 1 Tab [facility] (GLUCOPHAGE 9-21 by mouth [place] [facility] -XR) 500 MG 00:00: two times o f XR tablet 00 daily. Medicin e metformin 2020-0 Yes [id number] 500mg Take 1 Tab [facility] (GLUCOPHAGE 9-21 by mouth May ege -XR) 500 MG 00:00: two times o f XR tablet 00 daily. Medicin e metformin 2020-0 Yes [id number] 500mg Take 1 Tab [facility] (GLUCOPHAGE 9-21 by mouth May ege -XR) 500 MG 00:00: two times o f XR tablet 00 daily. Medicin e metformin 2020-0 Yes [id number] 500mg Take 1 Tab [facility] (GLUCOPHAGE 9-21 by mouth May ege -XR) 500 MG 00:00: two times o f XR tablet 00 daily. Medicin e metformin 2020-0 Yes [id number] 500mg Take 1 Tab [facility] (GLUCOPHAGE 9-21 by mouth May ege -XR) 500 MG 00:00: two times o f XR tablet 00 daily. Medicin e metformin 2020-0 Yes [id number] 500mg Take 1 Tab [facility] (GLUCOPHAGE 9-21 by mouth May ege -XR) 500 MG 00:00: two times o f XR tablet 00 daily. Medicin e metformin 2020-0 Yes [id number] 500mg Take 1 Tab [facility] (GLUCOPHAGE 9-21 by mouth May ege -XR) 500 MG 00:00: two times o f XR tablet 00 daily. Medicin e linaGLIPtin 2020-0 Yes [id number] Take 1 [facility] (TRADJENTA) 9-21 tablet by [facility] 5 MG TABS 00:00: mouth of 00 every day Medicin e Insulin 2020-0 Yes [id number] 12U Inject 12 [facility] Lispro, 1 9-21 Units into [facility] Unit Dial, 00:00: the skin 3 o f 100 UNIT/ML 00 times Medicin SOPN daily e (before meals). Glucose 2020-0 Yes [id number] Use one [facility] Blood 9-21 strip as [facility] Strips 00:00: directed. of (ACCU-CHEK 00 Check FSG Medi ascencion JASWINDER PLUS) 4 TIMES e DAILY metformin 2020-0 Yes [id number] 500mg Take 1 Tab [facility] (GLUCOPHAGE 9-21 by mouth [facility] -XR) 500 MG 00:00: two times o f XR tablet 00 daily. Medicin e linaGLIPtin 2020-0 Yes [id number] Take 1 [facility] ([facility]) 9-21 tablet by [facility] 5 MG TABS 00:00: mouth of 00 every day Medicin e Insulin 2020-0 Yes [id number] 12U Inject 12 [facility] Lispro, 1 9-21 Units into [facility] Unit Dial, 00:00: the skin 3 o f 100 UNIT/ML 00 times Medicin SOPN daily e (before meals). Glucose 2020-0 Yes [id number] Use one [facility] Blood 9-21 strip as [facility] Strips 00:00: directed. of (ACCU-CHEK 00 Check FSG Medi ascencion JASWINDER PLUS) 4 TIMES e DAILY metformin 2020-0 Yes [id number] 500mg Take 1 Tab [facility] (GLUCOPHAGE 9-21 by mouth [facility] -XR) 500 MG 00:00: two times o f XR tablet 00 daily. Medicin e linaGLIPtin 2020-0 Yes [id number] Take 1 [facility] (TRADJENTA) 9-21 tablet by [facility] 5 MG TABS 00:00: mouth of 00 every day Medicin e Insulin 2020-0 Yes [id number] 12U Inject 12 [facility] Lispro, 1 9-21 Units into [facility] Unit Dial, 00:00: the skin 3 o f 100 UNIT/ML 00 times Medicin SOPN daily e (before meals). Glucose 2020-0 Yes [id number] Use one [facility] Blood 9-21 strip as [facility] Strips 00:00: directed. of (ACCU-CHEK 00 Check FSG Medi ascencion JASWINDER PLUS) 4 TIMES e DAILY metformin 2020-0 Yes [id number] 500mg Take 1 Tab [facility] (GLUCOPHAGE 9-21 by mouth [facility] -XR) 500 MG 00:00: two times o f XR tablet 00 daily. Medicin e metformin 2020-0 Yes [id number] 500mg Take 1 Tab [facility] (GLUCOPHAGE 9-21 by mouth [facility] -XR) 500 MG 00:00: two times o f XR tablet 00 daily. Medicin e linaGLIPtin 2020-0 Yes [id number] Take 1 [facility] ([facility]) 9-21 tablet by [facility] 5 MG TABS 00:00: mouth of 00 every day Medicin e Insulin 2020-0 Yes [id number] 12U Inject 12 [facility] Lispro, 1 9-21 Units into [facility] Unit Dial, 00:00: the skin 3 o f 100 UNIT/ML 00 times Medicin SOPN daily e (before meals). Glucose 2020-0 Yes [id number] Use one [facility] Blood 9-21 strip as [facility] Strips 00:00: directed. of (ACCU-CHEK 00 Check FSG Medi ascencion JASWINDER PLUS) 4 TIMES e DAILY metformin 2020-0 Yes [id number] 500mg Take 1 Tab [facility] (GLUCOPHAGE 9-21 by mouth [facility] -XR) 500 MG 00:00: two times o f XR tablet 00 daily. Medicin e linaGLIPtin 2020-0 Yes [id number] Take 1 [facility] ([facility]) 9-21 tablet by [facility] 5 MG TABS 00:00: mouth of 00 every day Medicin e Insulin 2020-0 Yes [id number] 12U Inject 12 [facility] Lispro, 1 9-21 Units into [facility] Unit Dial, 00:00: the skin 3 o f 100 UNIT/ML 00 times Medicin SOPN daily e (before meals). Glucose 2020-0 Yes [id number] Use one [facility] Blood 9-21 strip as [facility] Strips 00:00: directed. of (ACCU-CHEK 00 Check FSG Medi ascencion JASWINDER PLUS) 4 TIMES e DAILY metformin 2020-0 Yes [id number] 500mg Take 1 Tab [facility] (GLUCOPHAGE 9-21 by mouth [facility] -XR) 500 MG 00:00: two times o f XR tablet 00 daily. Medicin e linaGLIPtin 2020-0 Yes [id number] Take 1 [facility] (TRAD[facility]ENTA) 9-21 tablet by [facility] 5 MG TABS 00:00: mouth of 00 every day Medicin e Insulin 2020-0 Yes [id number] 12U Inject 12 [facility] Lispro, 1 9-21 Units into [facility] Unit Dial, 00:00: the skin 3 o f 100 UNIT/ML 00 times Medicin SOPN daily e (before meals). Glucose 2020-0 Yes [id number] Use one [facility] Blood 9-21 strip as [facility] Strips 00:00: directed. of (ACCU-CHEK 00 Check FSG Medi ascencion JASWINDER PLUS) 4 TIMES e DAILY metformin 2020-0 Yes [id number] 500mg Take 1 Tab [facility] (GLUCOPHAGE 9-21 by mouth [facility] -XR) 500 MG 00:00: two times o f XR tablet 00 daily. Medicin e linaGLIPtin 2020-0 Yes [id number] Take 1 [facility] ([facility]A) 9-21 tablet by [facility] 5 MG TABS 00:00: mouth of 00 every day Medicin e Insulin 2020-0 Yes [id number] 12U Inject 12 [facility] Lispro, 1 03-23 Units into [facility] Unit Dial, 00:00: the skin 3 o f 100 UNIT/ML 00 times Medicin SOPN daily e (before meals). Glucose 2020-0 Yes [id number] Use one [facility] Blood 03-23 strip as [facility] Strips 00:00: directed. of (ACCU-CHEK 00 Check FSG Medi ascencion JASWINDER PLUS) 4 TIMES e DAILY metformin 2019-0 2021- No [id number] 500mg Take 1 Tab [facility] (GLUCOPHAGE 03-23 03-13 by mouth [facility] -XR) 500 MG 00:00: 00:00 two times of XR tablet 00 :00 daily. Medicin e linaGLIPtin 2019-0 2020- No [id number] Take 1 [facility] ([place]A) -20 09-12 tablet by [facility] 5 MG TABS 00:00: 00:00 mouth of 00 :00 every day Medicin e linaGLIPtin 2019-0 2020- No [id number] Take 1 [facility] (TRADJ[facility]A) -20 09-12 tablet by [facility] 5 MG TABS 00:00: 00:00 mouth of 00 :00 every day Medicin e Insulin 2019-0 2020- No [id number] 12U Inject 12 [facility] Lispro, 1 - 01-11 Units into [facility] Unit Dial, 00:00: 00:00 the skin 3 of 100 UNIT/ML 00 :00 times Medicin SOPN daily e (before meals). Glucose 0 2020- No [id number] Use one [facility] Blood 03-23- strip as [facility] Strips 00:00: 00:00 directed. of (ACCU-CHEK 00 :00 Check FSG Medi ascencion JASWINDER PLUS) 4 TIMES e DAILY insulin 2019-0 Yes 8U Inject [address] [facility] lispro 9-16 [facility] (HUMALOG) 00:00: subcutaneo Me dical 100 unit/mL 00 usly 3 Center InPn (three) times daily before meals. ADVOCATE 2020-0 Yes USE FOR [facility] INSULIN PEN 9-16 INSULIN Colle [facility] NEEDLES 33G 00:00: INJECTIONS of X 4 MM MISC 00 FOUR TIMES Me dicin DAILY e DIRECTED ADVOCATE 2020-0 Yes USE FOR [facility] INSULIN PEN 9-16 INSULIN [facility]le [facility] NEEDLES 33G 00:00: INJECTIONS of X 4 MM MISC 00 FOUR TIMES Me dicin DAILY e DIRECTED ADVOCATE 2020-0 Yes USE FOR [facility] INSULIN PEN 9-16 INSULIN Colle [facility] NEEDLES 33G 00:00: INJECTIONS of X 4 MM MISC 00 FOUR TIMES Me dicin DAILY e DIRECTED ADVOCATE 2020-0 Yes USE FOR [facility] INSULIN PEN 9-16 INSULIN Colle [facility] NEEDLES 33G 00:00: INJECTIONS of X 4 MM MISC 00 FOUR TIMES Me dicin DAILY e DIRECTED ADVOCATE 2020-0 Yes USE FOR [facility] INSULIN PEN 9-16 INSULIN [facility]le [facility] NEEDLES 33G 00:00: INJECTIONS of X 4 MM MISC 00 FOUR TIMES Me dicin DAILY e DIRECTED ADVOCATE 2020-0 Yes USE FOR [facility] INSULIN PEN 9-16 INSULIN [facility] NEEDLES 33G 00:00: INJECTIONS of X 4 MM MISC 00 FOUR TIMES Me dicin DAILY e DIRECTED ADVOCATE 2020-0 Yes USE FOR [facility] INSULIN PEN 9-16 INSULIN [facility] NEEDLES 33G 00:00: INJECTIONS of X 4 MM MISC 00 FOUR TIMES Me dicin DAILY e DIRECTED ADVOCATE 2020-0 Yes USE FOR [facility] INSULIN PEN 9-16 INSULIN [facility]le [facility] NEEDLES 33G 00:00: INJECTIONS of X 4 MM MISC 00 FOUR TIMES Me dicin DAILY e DIRECTED ADVOCATE 2020-0 Yes USE FOR [facility] INSULIN PEN 9-16 INSULIN [facility]le [facility] NEEDLES 33G 00:00: INJECTIONS of X 4 MM MISC 00 FOUR TIMES Me dicin DAILY e DIRECTED ADVOCATE 2020-0 Yes USE FOR [facility] INSULIN PEN 9-16 INSULIN [facility]le [facility] NEEDLES 33G 00:00: INJECTIONS of X 4 MM MISC 00 FOUR TIMES Me dicin DAILY e DIRECTED ADVOCATE 2020-0 Yes USE FOR [facility] INSULIN PEN 9-16 INSULIN [facility]le [facility] NEEDLES 33G 00:00: INJECTIONS of X 4 MM MISC 00 FOUR TIMES Me dicin DAILY e DIRECTED ADVOCATE 2020-0 Yes USE FOR [facility] INSULIN PEN 9-16 INSULIN [facility]le [facility] NEEDLES 33G 00:00: INJECTIONS of X 4 MM MISC 00 FOUR TIMES Me dicin DAILY e DIRECTED ADVOCATE 2020-0 Yes USE FOR [facility] INSULIN PEN 9-16 INSULIN [facility]le [facility] NEEDLES 33G 00:00: INJECTIONS of X 4 MM MISC 00 FOUR TIMES Me dicin DAILY e DIRECTED ADVOCATE 2020-0 Yes USE FOR [facility] INSULIN PEN 9-16 INSULIN [facility] NEEDLES 33G 00:00: INJECTIONS of X 4 MM MISC 00 FOUR TIMES Me dicin DAILY e DIRECTED ADVOCATE 2020-0 Yes USE FOR [facility] INSULIN PEN 9-16 INSULIN [facility]le [facility] NEEDLES 33G 00:00: INJECTIONS of X 4 MM MISC 00 FOUR TIMES Me dicin DAILY e DIRECTED ADVOCATE 2020-0 Yes USE FOR [facility] INSULIN PEN 9-16 INSULIN [facility]le [facility] NEEDLES 33G 00:00: INJECTIONS of X 4 MM MISC 00 FOUR TIMES Me dicin DAILY e DIRECTED ADVOCATE 2020-0 Yes USE FOR [facility] INSULIN PEN 9-16 INSULIN [facility]le [facility] NEEDLES 33G 00:00: INJECTIONS of X 4 MM MISC 00 FOUR TIMES Me dicin DAILY e DIRECTED ADVOCATE 2020-0 Yes USE FOR [facility] INSULIN PEN 9-16 INSULIN Colle [facility] NEEDLES 33G 00:00: INJECTIONS of X 4 MM MISC 00 FOUR TIMES Me dicin DAILY e DIRECTED ADVOCATE 2020-0 Yes USE FOR [facility] INSULIN PEN 9-16 INSULIN [facility]le [facility] NEEDLES 33G 00:00: INJECTIONS of X 4 MM MISC 00 FOUR TIMES Me dicin DAILY e DIRECTED ADVOCATE 2020-0 Yes USE FOR [facility] INSULIN PEN 9-16 INSULIN [facility]le [facility] NEEDLES 33G 00:00: INJECTIONS of X 4 MM MISC 00 FOUR TIMES Me dicin DAILY e DIRECTED ADVOCATE 2020-0 Yes USE FOR [facility] INSULIN PEN 9-16 INSULIN Colle [facility] NEEDLES 33G 00:00: INJECTIONS of X 4 MM MISC 00 FOUR TIMES Me dicin DAILY e DIRECTED ADVOCATE 2020-0 Yes USE FOR [facility] INSULIN PEN 9-16 INSULIN Colle [facility] NEEDLES 33G 00:00: INJECTIONS of X 4 MM MISC 00 FOUR TIMES Me dicin DAILY e DIRECTED ADVOCATE 2020-0 Yes USE FOR [facility] INSULIN PEN 9-16 INSULIN Colle [facility] NEEDLES 33G 00:00: INJECTIONS of X 4 MM MISC 00 FOUR TIMES Me dicin DAILY e DIRECTED ADVOCATE 2020-0 Yes USE FOR [facility] INSULIN PEN 9-16 INSULIN Colle [facility] NEEDLES 33G 00:00: INJECTIONS of X 4 MM MISC 00 FOUR TIMES Me dicin DAILY e DIRECTED ADVOCATE 2020-0 Yes USE FOR [facility] INSULIN PEN 9-16 INSULIN [facility]le [facility] NEEDLES 33G 00:00: INJECTIONS of X 4 MM MISC 00 FOUR TIMES Me dicin DAILY e DIRECTED ADVOCATE 2020-0 Yes USE FOR [facility] INSULIN PEN 9-16 INSULIN Colle [facility] NEEDLES 33G 00:00: INJECTIONS of X 4 MM MISC 00 FOUR TIMES Me dicin DAILY e DIRECTED ADVOCATE 2020-0 Yes USE FOR [facility] INSULIN PEN 9-16 INSULIN [facility] NEEDLES 33G 00:00: INJECTIONS of X 4 MM MISC 00 FOUR TIMES Me dicin DAILY e DIRECTED ADVOCATE 2020-0 Yes USE FOR [facility] INSULIN PEN 9-16 INSULIN [facility]le [facility] NEEDLES 33G 00:00: INJECTIONS of X 4 MM MISC 00 FOUR TIMES Me dicin DAILY e DIRECTED ADVOCATE 2020-0 Yes USE FOR [facility] INSULIN PEN 9-16 INSULIN Colle [facility] NEEDLES 33G 00:00: INJECTIONS of X 4 MM MISC 00 FOUR TIMES Me dicin DAILY e DIRECTED ADVOCATE 2020-0 Yes USE FOR [facility] INSULIN PEN 9-16 INSULIN [facility]le [facility] NEEDLES 33G 00:00: INJECTIONS of X 4 MM MISC 00 FOUR TIMES Me dicin DAILY e DIRECTED ADVOCATE 2020-0 Yes USE FOR [facility] INSULIN PEN 9-16 INSULIN Colle ge NEEDLES 33G 00:00: INJECTIONS of X 4 MM MISC 00 FOUR TIMES Me dicin DAILY e DIRECTED ADVOCATE 2020-0 Yes USE FOR [facility] INSULIN PEN 9-16 INSULIN [facility]le [facility] NEEDLES 33G 00:00: INJECTIONS of X 4 MM MISC 00 FOUR TIMES Me dicin DAILY e DIRECTED ADVOCATE 2020-0 Yes USE FOR [facility] INSULIN PEN 9-16 INSULIN [facility]le [facility] NEEDLES 33G 00:00: INJECTIONS of X 4 MM MISC 00 FOUR TIMES Me dicin DAILY e DIRECTED ADVOCATE 2020-0 Yes USE FOR [facility] INSULIN PEN 9-16 INSULIN [facility] NEEDLES 33G 00:00: INJECTIONS of X 4 MM MISC 00 FOUR TIMES Me dicin DAILY e DIRECTED ADVOCATE 2020-0 Yes USE FOR [facility] INSULIN PEN 9-16 INSULIN [facility]le [facility] NEEDLES 33G 00:00: INJECTIONS of X 4 MM MISC 00 FOUR TIMES Me dicin DAILY e DIRECTED ADVOCATE 2020-0 Yes USE FOR [facility] INSULIN PEN 9-16 INSULIN [facility] NEEDLES 33G 00:00: INJECTIONS of X 4 MM MISC 00 FOUR TIMES Me dicin DAILY e DIRECTED ADVOCATE 2020-0 Yes USE FOR [facility] INSULIN PEN 9-16 INSULIN [facility] NEEDLES 33G 00:00: INJECTIONS of X 4 MM MISC 00 FOUR TIMES Me dicin DAILY e DIRECTED ADVOCATE 2020-0 Yes USE FOR [facility] INSULIN PEN 9-16 INSULIN Colle ge NEEDLES 33G 00:00: INJECTIONS of X 4 MM MISC 00 FOUR TIMES Me dicin DAILY e DIRECTED ADVOCATE 2020-0 Yes USE FOR [facility] INSULIN PEN 9-16 INSULIN [facility]le [facility] NEEDLES 33G 00:00: INJECTIONS of X 4 MM MISC 00 FOUR TIMES Me dicin DAILY e DIRECTED ADVOCATE 2020-0 Yes USE FOR [facility] INSULIN PEN 9-16 INSULIN [facility]le [facility] NEEDLES 33G 00:00: INJECTIONS of X 4 MM MISC 00 FOUR TIMES Me dicin DAILY e DIRECTED ADVOCATE 2020-0 Yes USE FOR [facility] INSULIN PEN 9-16 INSULIN Colle ge NEEDLES 33G 00:00: INJECTIONS of X 4 MM MISC 00 FOUR TIMES Me dicin DAILY e DIRECTED ADVOCATE 2020-0 Yes USE FOR [facility] INSULIN PEN 9-16 INSULIN [facility]le [facility] NEEDLES 33G 00:00: INJECTIONS of X 4 MM MISC 00 FOUR TIMES Me dicin DAILY e DIRECTED ADVOCATE 2020-0 Yes USE FOR [facility] INSULIN PEN 9-16 INSULIN [facility]le [facility] NEEDLES 33G 00:00: INJECTIONS of X 4 MM MISC 00 FOUR TIMES Me dicin DAILY e DIRECTED Insulin 2020-0 Yes [id number] 40U Inject 40 [facility] Glargine 9-14 Units into [facility] 100 UNIT/ML 00:00: the skin of SOPN 00 daily. DX Medicin Code: E e 11.9 Insulin 2020-0 Yes [id number] 40U Inject 40 [facility] Glargine 9-14 Units into [facility] 100 UNIT/ML 00:00: the skin of SOPN 00 daily. DX Medicin Code: E e 11.9 Insulin 2020-0 Yes [id number] 40U Inject 40 [facility] Glargine 9-14 Units into [facility] 100 UNIT/ML 00:00: the skin of SOPN 00 daily. DX Medicin Code: E e 11.9 Insulin 2020-0 Yes [id number] 40U Inject 40 [facility] Glargine 9-14 Units into Colle [facility] 100 UNIT/ML 00:00: the skin of SOPN 00 daily. DX Medicin Code: E e 11.9 Insulin 2020-0 Yes [id number] 40U Inject 40 [facility] Glargine 9-14 Units into [facility] 100 UNIT/ML 00:00: the skin of SOPN 00 daily. DX Medicin Code: E e 11.9 Insulin 2020-0 2020- No [id number] 40U Inject 40 [facility] Glargine 9-14 10-28 Units into [facility] 100 UNIT/ML 00:00: 00:00 the skin o f SOPN 00 :00 daily. DX Medicin Code: E e 11.9 Insulin 2020-0 2020- No [id number] 8U Inject 8 [facility] Lispro, 1 9-14 09-21 Units into [facility] Unit Dial, 00:00: 00:00 the skin 3 of (HUMALOG 00 :00 times Medicin KWIKPEN) daily for e 100 UNIT/ML 30 days. SOPN Dx Code: E 11.9 ascorbic 2020-0 Yes 500mg Q.5D Take [address] [facility] acid, 9-02 tablet [facility] vitamin C, 00:00: (500 mg Medi bebe (VITAMIN C) 00 total) by [address] [facility] 500 MG mouth 2 tablet (two) times daily. multivitami 2020-0 Yes 1{tbl} QD Take [address] [facility] 9-02 tablet by [facility] (THERAGRAN) 00:00: mouth Medic al tablet 00 daily. Center zinc 2020-0 Yes 220mg QD Take [address] [facility] sulfate 9-02 capsule [facility] (ZINCATE) 00:00: (220 mg Medic al 220 (50) mg 00 total) by [address] [facility] capsule mouth daily. insulin 2020-0 Yes 40U QD Inject 40 [facility] glargine [facility] (LANTUS) 00:00: subcutaneo Med ical 100 unit/mL 00 usly every Ce nter (3 mL) InPn morning. zinc 2020-0 Yes 220mg Take 220 [facility] sulfate 9-02 mg by [facility] (ZINCATE) 00:00: mouth. of 220 (50 Zn) 00 Medicin MG capsule e zinc 2020-0 Yes 220mg Take 220 [facility] sulfate 9-02 mg by [facility] (ZINCATE) 00:00: mouth. of 220 (50 Zn) 00 Medicin MG capsule e zinc 2020-0 Yes 220mg Take 220 [facility] sulfate 9-02 mg by [facility] (ZINCATE) 00:00: mouth. of 220 (50 Zn) 00 Medicin MG capsule e zinc 2020-0 Yes 220mg Take 220 [facility] sulfate 9-02 mg by [facility] (ZINCATE) 00:00: mouth. of 220 (50 Zn) 00 Medicin MG capsule e zinc 2020-0 Yes 220mg Take 220 [facility] sulfate 9-02 mg by [facility] (ZINCATE) 00:00: mouth. of 220 (50 Zn) 00 Medicin MG capsule e zinc 2020-0 Yes 220mg Take 220 [facility] sulfate 9-02 mg by College (ZINCATE) 00:00: mouth. of 220 (50 Zn) 00 Medicin MG capsule e zinc 2020-0 Yes 220mg Take 220 [facility] sulfate 9-02 mg by [facility] (ZINCATE) 00:00: mouth. of 220 (50 Zn) 00 Medicin MG capsule e zinc 2020-0 Yes 220mg Take 220 [facility] sulfate 9-02 mg by [facility] (ZINCATE) 00:00: mouth. of 220 (50 Zn) 00 Medicin MG capsule e zinc 2020-0 Yes 220mg Take 220 [facility] sulfate 9-02 mg by [facility] (ZINCATE) 00:00: mouth. of 220 (50 Zn) 00 Medicin MG capsule e Multiple 2020-0 Yes 1{tbl} Take 1 [facility] 9-02 Tablet by [facility] nerals 00:00: mouth. of (ONCOVITE) 00 Medicin TABS e Multiple 2020-0 Yes 1{tbl} Take 1 [facility] 9-02 Tablet by [facility] nerals 00:00: mouth. of (ONCOVITE) 00 Medicin TABS e Multiple 2020-0 Yes 2{tbl} Take 2 [facility] 9-02 Tablets by [facility] nerals 00:00: mouth of (ONCOVITE) 00 daily. Medicin TABS Take 2 e tablets once daily Multiple 2020-0 Yes 2{tbl} Take 2 [facility] 9-02 Tablets by [facility] nerals 00:00: mouth of (ONCOVITE) 00 daily. Medicin TABS Take 2 e tablets once daily Multiple 2020-0 Yes 2{tbl} Take 2 [facility] 9-02 Tablets by [facility] nerals 00:00: mouth of (ONCOVITE) 00 daily. Medicin TABS Take 2 e tablets once daily Multiple 2020-0 Yes 2{tbl} Take 2 [facility] 9-02 Tablets by [facility] nerals 00:00: mouth of (ONCOVITE) 00 daily. Medicin TABS Take 2 e tablets once daily Multiple 2020-0 Yes 2{tbl} Take 2 [facility] 9-02 Tablets by [facility] nerals 00:00: mouth of (ONCOVITE) 00 daily. Medicin TABS Take 2 e tablets once daily Multiple 2020-0 Yes 2{tbl} Take 2 [facility] 9-02 Tablets by [facility] nerals 00:00: mouth of (ONCOVITE) 00 daily. Medicin TABS Take 2 e tablets once daily Multiple 2020-0 Yes 2{tbl} Take 2 [facility] 9-02 Tablets by [facility] nerals 00:00: mouth of (ONCOVITE) 00 daily. Medicin TABS Take 2 e tablets once daily Multiple 2020-0 Yes 2{tbl} Take 2 [facility] 9-02 Tablets by [facility] nerals 00:00: mouth of (ONCOVITE) 00 daily. Medicin TABS Take 2 e tablets once daily Multiple 2020-0 Yes 2{tbl} Take 2 [facility] 9-02 Tablets by [facility] nerals 00:00: mouth of (ONCOVITE) 00 daily. Medicin TABS Take 2 e tablets once daily Multiple 2020-0 Yes 2{tbl} Take 2 [facility] 9-02 Tablets by [facility] nerals 00:00: mouth of (ONCOVITE) 00 daily. Medicin TABS Take 2 e tablets once daily Multiple 2020-0 Yes 2{tbl} Take 2 [facility] 9-02 Tablets by [facility] nerals 00:00: mouth of (ONCOVITE) 00 daily. Medicin TABS Take 2 e tablets once daily ascorbic 2019-0 Yes 500mg Take 500 [facility] acid 500 MG 9-02 mg by [facility] tablet 00:00: mouth. of 00 Medicin e Insulin 2019-0 Yes 40U Inject 40 [facility] Gl[facility]ine 9-02 Units into [facility]le [facility] 100 UNIT/ML 00:00: the skin. o f SOPN 00 Medicin e zinc 2020-0 Yes 220mg Take 220 [facility] sulfate 9-02 mg by [facility] (ZINCATE) 00:00: mouth. of 220 (50 Zn) 00 Medicin MG capsule e Multiple 2020-0 Yes 2{tbl} Take 2 [facility] 9-02 Tablets by [facility] nerals 00:00: mouth of (ONCOVITE) 00 daily. Medicin TABS Take 2 e tablets once daily ascorbic 2020-0 Yes 500mg Take 500 [facility] acid 500 MG 9-02 mg by [facility] tablet 00:00: mouth. of 00 Medicin e Insulin 2020-0 Yes 40U Inject 40 [facility] Gl[facility]ine 9-02 Units into [facility] 100 UNIT/ML 00:00: the skin. o f SOPN 00 Medicin e zinc 2020-0 Yes 220mg Take 220 [facility] sulfate 9-02 mg by [facility] (ZINCATE) 00:00: mouth. of 220 (50 Zn) 00 Medicin MG capsule e Multiple 2020-0 Yes 2{tbl} Take 2 [facility] 9-02 Tablets by [employer] [facility] nerals 00:00: mouth of (ONCOVITE) 00 daily. Medicin TABS Take 2 e tablets once daily ascorbic 2020-0 Yes 500mg Take 500 [facility] acid 500 MG 9-02 mg by [facility] tablet 00:00: mouth. of 00 Medicin e Insulin 2020-0 Yes 40U Inject 40 [facility] Gl[facility]ine 9-02 Units into [facility] 100 UNIT/ML 00:00: the skin. o f SOPN 00 Medicin e zinc 2020-0 Yes 220mg Take 220 [facility] sulfate 9-02 mg by [facility] (ZINCATE) 00:00: mouth. of 220 (50 Zn) 00 Medicin MG capsule e Multiple 2020-0 Yes 2{tbl} Take 2 [facility] 9-02 Tablets by [facility] nerals 00:00: mouth of (ONCOVITE) 00 daily. Medicin TABS Take 2 e tablets once daily ascorbic 2020-0 Yes 500mg Take 500 [facility] acid 500 MG 9-02 mg by [facility] tablet 00:00: mouth. of 00 Medicin e Insulin 2020-0 Yes 40U Inject 40 [facility] Gl[facility]ine 9-02 Units into [facility] 100 UNIT/ML 00:00: the skin. o f SOPN 00 Medicin e zinc 2020-0 Yes 220mg Take 220 [facility] sulfate 9-02 mg by [facility] (ZINCATE) 00:00: mouth. of 220 (50 Zn) 00 Medicin MG capsule e Multiple 2020-0 Yes 2{tbl} Take 2 [facility] 9-02 [facility]ts [facility]: mouth of (ONCOVITE) 00 daily. Medicin TABS Take 2 e tablets once daily ascorbic 2020-0 Yes 500mg Take 500 [facility] acid 500 MG 9-02 mg by [facility] tablet 00:00: mouth. of 00 Medicin e Insulin 2020-0 Yes 40U Inject 40 [facility] Gl[facility]ine 9-02 Units into [facility] 100 UNIT/ML 00:00: the skin. o f SOPN 00 Medicin e zinc 2020-0 Yes 220mg Take 220 [facility] sulfate 9-02 mg by [place] (ZINCATE) 00:00: mouth. of 220 (50 Zn) 00 Medicin MG capsule e Insulin 2020-0 Yes 40U Inject 40 [facility] Gl[facility]ine 9-02 Units into [facility] 100 UNIT/ML 00:00: the skin. o f SOPN 00 Medicin e zinc 2020-0 Yes 220mg Take 220 [facility] sulfate 9-02 mg by [facility] (ZINCATE) 00:00: mouth. of 220 (50 Zn) 00 Medicin MG capsule e Insulin 2020-0 Yes 40U Inject 40 [facility] Gl[facility]ine 9-02 Units into [facility] 100 UNIT/ML 00:00: the skin. o f SOPN 00 Medicin e zinc 2020-0 Yes 220mg Take 220 [facility] sulfate 9-02 mg by [facility] (ZINCATE) 00:00: mouth. of 220 (50 Zn) 00 Medicin MG capsule e Insulin 2020-0 Yes 40U Inject 40 [facility] Gl[facility]ine 9-02 Units into [facility] 100 UNIT/ML 00:00: the skin. o f SOPN 00 Medicin e zinc 2020-0 Yes 220mg Take 220 [facility] sulfate 9-02 mg by [facility] (ZINCATE) 00:00: mouth. of 220 (50 Zn) 00 Medicin MG capsule e Multiple 2020-0 Yes 2{tbl} Take 2 [facility] 9-02 [facility]ts [facility]: mouth of (ONCOVITE) 00 daily. Medicin TABS Take 2 e tablets once daily Insulin 2020-0 Yes 40U Inject 40 [facility] Gl[facility]ine 9-02 Units into [facility] 100 UNIT/ML 00:00: the skin. o f SOPN 00 Medicin e Insulin 2020-0 Yes 8U Inject 8 [facility] Lispro, 1 9-02 Units into [facility] Unit Dial, 00:00: the skin. of 100 UNIT/ML 00 Medicin SOPN e Insulin Pen 2020-0 Yes Use as [facility] (PEN - directed. [facility] NEEDLES) 00:00: Dispense of 32G X 4 MM 00 as Medicin MISC written, e do not substitute . Brand medically necessary. . zinc 2020-0 Yes 220mg Take 220 [facility] sulfate 9-02 mg by [facility] (ZINCATE) 00:00: mouth. of 220 (50 Zn) 00 Medicin MG capsule e zinc 2020-0 Yes 220mg Take 220 [facility] sulfate 9-02 mg by [facility] (ZINCATE) 00:00: mouth. of 220 (50 Zn) 00 Medicin MG capsule e zinc 2020-0 Yes 220mg Take 220 [facility] sulfate 9-02 mg by [facility] (ZINCATE) 00:00: mouth. of 220 (50 Zn) 00 Medicin MG capsule e zinc 2020-0 Yes 220mg Take 220 [facility] sulfate 9-02 mg by [facility] (ZINCATE) 00:00: mouth. of 220 (50 Zn) 00 Medicin MG capsule e zinc 2020-0 Yes 220mg Take 220 [facility] sulfate 9-02 mg by [facility] (ZINCATE) 00:00: mouth. of 220 (50 Zn) 00 Medicin MG capsule e Multiple 2020-0 Yes 2{tbl} Take 2 [facility] 9-02 Tablets by [facility] nerals 00:00: mouth of (ONCOVITE) 00 daily. Medicin TABS Take 2 e tablets once daily zinc 2020-0 Yes 220mg Take 220 [facility] sulfate 9-02 mg by [facility] (ZINCATE) 00:00: mouth. of 220 (50 Zn) 00 Medicin MG capsule e zinc 2020-0 Yes 220mg Take 220 [facility] sulfate 9-02 mg by [facility] (ZINCATE) 00:00: mouth. of 220 (50 Zn) 00 Medicin MG capsule e zinc 2020-0 Yes 220mg Take 220 [facility] sulfate 9-02 mg by [facility] (ZINCATE) 00:00: mouth. of 220 (50 Zn) 00 Medicin MG capsule e Multiple 2021- No 2{tbl} Take 2 [facility] 03-04-28 Tablets by [facility] 00:00: 00:00 mouth of (ONCOVITE) 00 :00 daily. Medicin TABS Take 2 e tablets once daily ascorbic No 500mg Take 500 [place] acid 500 MG 03-04 04-28 mg by [facility] e tablet 00:00: 00:00 mouth. of 00 :00 Medicin e zinc No 220mg Take 220 [facility] sulfate 03-04 02-11 mg by [place] (ZINCATE) 00:00: 00:00 mouth. of 220 (50 Zn) 00 :00 Medicin MG capsule e Insulin No 8U Inject 8 [facility] Lispro, 1 03-04 Units into [facility]ge Unit Dial, 00:00: 00:00 the skin. o f 100 UNIT/ML 00 :00 Medicin SOPN e Insulin Pen 2019- No Use as [place] Needle (PEN 03-04 directed. [facility] NEEDLES) 00:00: 00:00 Dispense of 32G X 4 MM 00 :00 as Medicin MISC written, e do not substitute . Brand medically necessary. . acetaminoph 2019- No 500mg Take 500 [facility] en 03-03 09-12 mg by [place] (TYLENOL) 00:00: 04:59 mouth. of 500 mg 00 :00 Medicin tablet e amoxicillin Yes 1{tbl} Take 1 Tab [facility] -clavulanat 8-20 by mouth [facility] e 00:00: two times of (AUGMENTIN) 00 daily. Medici n 875-125 MG e per tablet amoxicillin Yes 1{tbl} Take 1 Tab [facility] -clavulanat 8-20 by mouth May ege e 00:00: two times of (AUGMENTIN) 00 daily. Medici n 875-125 MG e per tablet amoxicillin 2019- No 1{tbl} Take 1 Tab [facility] -clavulanat 8-20 - by mouth [facility] 00:00: 00:00 two times of (AUGMENTIN) 00 :00 daily. Medici n 875-125 MG e per tablet JARDIANCE 2020-0 Yes [id number] Take 1 [facility] MG TABS 8-17 tablet by May ege 00:00: mouth of 00 every day Medicin e glipiZIDE 2020-0 Yes [id number] Take 2 [facility] (GLUCOTROL) 8-17 tablets by [facility] 10 MG 00:00: mouth of tablet 00 twice Medicin daily e JARDIANCE 2020-0 Yes [id number] Take 1 [facility] 25 MG TABS 8-17 tablet by May ege 00:00: mouth of 00 every day Medicin e glipiZIDE 2020-0 Yes [id number] Take 2 [facility] (GLUCOTROL) 8-17 tablets by [facility] 10 MG 00:00: mouth of tablet 00 twice Medicin daily e JARDIANCE 2020-0 2020- No [id number] Take 1 [facility] 25 MG TABS 8-17 -21 tablet by [facility] 00:00: 00:00 mouth of 00 :00 every day Medicin e glipiZIDE 2020-0 2020- No [id number] Take 2 [facility] (GLUCOTROL) 8-17 -21 tablets by [facility] 10 MG 00:00: 00:00 mouth of tablet 00 :00 twice Medicin daily e becaplermin 2020-0 Yes [facility] (REGRANEX) 7-10 [place] 0.01 % gel 00:00: of 00 Medicin e becaplermin 2020-0 Yes [facility] (REGRANEX) 7-10 [place] 0.01 % gel 00:00: of 00 Medicin e becaplermin 2020-0 Yes [facility] (REGRANEX) 7-10 [place] 0.01 % gel 00:00: of 00 Medicin e becaplermin 2020-0 Yes [facility] (REGRANEX) 7-10 [place] 0.01 % gel 00:00: of 00 Medicin e becaplermin 2020-0 Yes [facility] (REGRANEX) 7-10 [place] 0.01 % gel 00:00: of 00 Medicin e becaplermin 2020-0 Yes [facility] (REGRANEX) 7-10 [place] 0.01 % gel 00:00: of 00 Medicin e becaplermin 2020-0 2020- No [facility] (REGRANEX) 7-10 - [place] 0.01 % gel 00:00: 00:00 of 00 :00 Medicin e mupirocin 2019-0 2020- No Apply [facility] calcium 12-18 topically [facility] (BACTROBAN) 18:40: 00:00 two times of 2 % cream 11 :00 daily. Medicin e lisinopril 2020- No 20mg Take 20 mg [facility] (PRINIVIL, 12-18 by mouth. [facility] ZESTRIL) 20 18:31: 00:00 of MG tablet 32 :00 Medicin e collagenase 2020-0 Yes Apply to [facility] 250 UNIT/GM 6-18 affected May e[facility] ointment 00:00: are daily of 00 Medicin e collagenase 2020-0 Yes Apply to [facility] 250 UNIT/GM 6-18 affected [facility] ointment 00:00: are daily of 00 Medicin e collagenase 2020-0 Yes Apply to [facility] 250 UNIT/GM 6-18 affected [facility] ointment 00:00: are daily of 00 Medicin e collagenase 2020-0 Yes Apply to [facility] 250 UNIT/GM 6-18 affected [facility] ointment 00:00: are daily of 00 Medicin e collagenase 2020-0 Yes Apply to [facility] 250 UNIT/GM 6-18 affected [facility] ointment 00:00: are daily of 00 Medicin e collagenase 2020-0 Yes Apply to [facility] 250 UNIT/GM 6-18 affected [facility] ointment 00:00: are daily of 00 Medicin e collagenase 2020-0 Yes Apply to [facility] 250 UNIT/GM 6-18 affected [facility] ointment 00:00: are daily of 00 Medicin e collagenase 2020-0 Yes Apply to [facility] 250 UNIT/GM 6-18 affected May [facility] ointment 00:00: are daily of 00 Medicin e collagenase 2020-0 2020- No Apply to [facility] 250 UNIT/GM 6-18 03-23 affected [facility] ointment 00:00: 00:00 are daily of 00 :00 Medicin e gabapentin 2020-0 Yes Take 1 [facility] (NEURONTIN) 6-15 capsule by [facility] 300 MG 00:00: mouth 3 of capsule 00 times a Medicin day e gabapentin 2020-0 Yes Take 1 [facility] (NEURONTIN) 6-15 capsule by [facility] 300 MG 00:00: mouth 3 of capsule 00 times a Medicin day e gabapentin 2020-0 Yes Take 1 [facility] (NEURONTIN) 6-15 capsule by [facility] 300 MG 00:00: mouth 3 of capsule 00 times a Medicin day e gabapentin 2020-0 Yes Take 1 [facility] (NEURONTIN) 6-15 capsule by [facility] 300 MG 00:00: mouth 3 of capsule 00 times a Medicin day e gabapentin 2020-0 Yes Take 1 [facility] (NEURONTIN) 6-15 capsule by [facility] 300 MG 00:00: mouth 3 of capsule 00 times a Medicin day e gabapentin 2020-0 Yes Take 1 [facility] (NEURONTIN) 6-15 capsule by [facility] 300 MG 00:00: mouth 3 of capsule 00 times a Medicin day e gabapentin 2020-0 Yes Take 1 [facility] (NEURONTIN) 6-15 capsule by [facility] 300 MG 00:00: mouth 3 of capsule 00 times a Medicin day e gabapentin 2020-0 Yes Take 1 [facility] (NEURONTIN) 6-15 capsule by [facility] 300 MG 00:00: mouth 3 of capsule 00 times a Medicin day e gabapentin 2020-0 Yes Take 1 [facility] (NEURONTIN) 6-15 capsule by [facility] 300 MG 00:00: mouth 3 of capsule 00 times a Medicin day e gabapentin 2020-0 Yes Take 1 [facility] (NEURONTIN) 6-15 capsule by [facility] 300 MG 00:00: mouth 3 of capsule 00 times a Medicin day e gabapentin 2020-0 Yes Take 1 [facility] (NEURONTIN) 6-15 capsule by [facility] 300 MG 00:00: mouth 3 of capsule 00 times a Medicin day e gabapentin 2020-0 Yes Take 1 [facility] (NEURONTIN) 6-15 capsule by [facility] 300 MG 00:00: mouth 3 of capsule 00 times a Medicin day e gabapentin 2020-0 Yes Take 1 [facility] (NEURONTIN) 6-15 capsule by [facility] 300 MG 00:00: mouth 3 of capsule 00 times a Medicin day e gabapentin 2020-0 Yes Take 1 [facility] (NEURONTIN) 6-15 capsule by [facility] 300 MG 00:00: mouth 3 of capsule 00 times a Medicin day e gabapentin 2020-0 Yes Take 1 [facility] (NEURONTIN) 6-15 capsule by [facility] 300 MG 00:00: mouth 3 of capsule 00 times a Medicin day e gabapentin 2020-0 Yes Take 1 [facility] (NEURONTIN) 6-15 capsule by [facility] 300 MG 00:00: mouth 3 of capsule 00 times a Medicin day e gabapentin 2020-0 Yes Take 1 [facility] (NEURONTIN) 6-15 capsule by [facility] 300 MG 00:00: mouth 3 of capsule 00 times a Medicin day e gabapentin 2020-0 Yes Take 1 [facility] (NEURONTIN) 6-15 capsule by [facility] 300 MG 00:00: mouth 3 of capsule 00 times a Medicin day e gabapentin 2020-0 Yes Take 1 [facility] (NEURONTIN) 6-15 capsule by [facility] 300 MG 00:00: mouth 3 of capsule 00 times a Medicin day e gabapentin 2020-0 Yes Take 1 [facility] (NEURONTIN) 6-15 capsule by [facility] 300 MG 00:00: mouth 3 of capsule 00 times a Medicin day e gabapentin 2020-0 Yes Take 1 [facility] (NEURONTIN) 6-15 capsule by [facility] 300 MG 00:00: mouth 3 of capsule 00 times a Medicin day e gabapentin 2020-0 Yes Take 1 [facility] (NEURONTIN) 6-15 capsule by [facility] 300 MG 00:00: mouth 3 of capsule 00 times a Medicin day e gabapentin 2020-0 Yes Take 1 [facility] (NEURONTIN) 6-15 capsule by [facility] 300 MG 00:00: mouth 3 of capsule 00 times a Medicin day e gabapentin 2020-0 Yes Take 1 [facility] (NEURONTIN) 6-15 capsule by [facility] 300 MG 00:00: mouth 3 of capsule 00 times a Medicin day e gabapentin 2020-0 Yes Take 1 [facility] (NEURONTIN) 6-15 capsule by [facility] 300 MG 00:00: mouth 3 of capsule 00 times a Medicin day e gabapentin 2020-0 Yes Take 1 [facility] (NEURONTIN) 6-15 capsule by [facility] 300 MG 00:00: mouth 3 of capsule 00 times a Medicin day e gabapentin 2020-0 Yes Take 1 [facility] (NEURONTIN) 6-15 capsule by [facility] 300 MG 00:00: mouth 3 of capsule 00 times a Medicin day e gabapentin 2020-0 Yes Take 1 [facility] (NEURONTIN) 6-15 capsule by [facility] 300 MG 00:00: mouth 3 of capsule 00 times a Medicin day e gabapentin 2020-0 Yes Take 1 [facility] (NEURONTIN) 6-15 capsule by [facility] 300 MG 00:00: mouth 3 of capsule 00 times a Medicin day e gabapentin 2020-0 Yes Take 1 [facility] (NEURONTIN) 6-15 capsule by [facility] 300 MG 00:00: mouth 3 of capsule 00 times a Medicin day e gabapentin 2020-0 Yes Take 1 [facility] (NEURONTIN) 6-15 capsule by [facility] 300 MG 00:00: mouth 3 of capsule 00 times a Medicin day e gabapentin 2020-0 Yes Take 1 [facility] (NEURONTIN) 6-15 capsule by [facility] 300 MG 00:00: mouth 3 of capsule 00 times a Medicin day e gabapentin 2020-0 Yes Take 1 [facility] (NEURONTIN) 6-15 capsule by [facility] 300 MG 00:00: mouth 3 of capsule 00 times a Medicin day e gabapentin 2020-0 Yes Take 1 [facility] (NEURONTIN) 6-15 capsule by [facility] 300 MG 00:00: mouth 3 of capsule 00 times a Medicin day e gabapentin 2020-0 Yes Take 1 [facility] (NEURONTIN) 6-15 capsule by [facility] 300 MG 00:00: mouth 3 of capsule 00 times a Medicin day e gabapentin 2020-0 Yes Take 1 [facility] (NEURONTIN) 6-15 capsule by [facility] 300 MG 00:00: mouth 3 of capsule 00 times a Medicin day e gabapentin 2020-0 Yes Take 1 [facility] (NEURONTIN) 6-15 capsule by [facility] 300 MG 00:00: mouth 3 of capsule 00 times a Medicin day e gabapentin 2020-0 Yes Take 1 [facility] (NEURONTIN) 6-15 capsule by [facility] 300 MG 00:00: mouth 3 of capsule 00 times a Medicin day e gabapentin 2020-0 Yes Take 1 [facility] (NEURONTIN) 6-15 capsule by [facility] 300 MG 00:00: mouth 3 of capsule 00 times a Medicin day e gabapentin 2020-0 Yes Take 1 [facility] (NEURONTIN) 6-15 capsule by [facility] 300 MG 00:00: mouth 3 of capsule 00 times a Medicin day e gabapentin 2020-0 Yes Take 1 [facility] (NEURONTIN) 6-15 capsule by [facility] 300 MG 00:00: mouth 3 of capsule 00 times a Medicin day e gabapentin 2020-0 Yes Take 1 [facility] (NEURONTIN) 6-15 capsule by [facility] 300 MG 00:00: mouth 3 of capsule 00 times a Medicin day e gabapentin 2020-0 Yes Take 1 [facility] (NEURONTIN) 6-15 capsule by [facility] 300 MG 00:00: mouth 3 of capsule 00 times a Medicin day e gabapentin 2020-0 Yes Take 1 [facility] (NEURONTIN) 6-15 capsule by [facility] 300 MG 00:00: mouth 3 of capsule 00 times a Medicin day e gabapentin 2020-0 Yes Take 1 [facility] (NEURONTIN) 6-15 capsule by [facility] 300 MG 00:00: mouth 3 of capsule 00 times a Medicin day e gabapentin 2020-0 Yes Take 1 [facility] (NEURONTIN) 6-15 capsule by [facility] 300 MG 00:00: mouth 3 of capsule 00 times a Medicin day e gabapentin 2020-0 Yes Take 1 [facility] (NEURONTIN) 6-15 capsule by [facility] 300 MG 00:00: mouth 3 of capsule 00 times a Medicin day e gabapentin 2020-0 Yes Take 1 [facility] (NEURONTIN) 6-15 capsule by [facility] 300 MG 00:00: mouth 3 of capsule 00 times a Medicin day e gabapentin 2020-0 Yes Take 1 [facility] (NEURONTIN) 6-15 capsule by [facility] 300 MG 00:00: mouth 3 of capsule 00 times a Medicin day e gabapentin 2020-0 Yes Take 1 [facility] (NEURONTIN) 6-15 capsule by [facility] 300 MG 00:00: mouth 3 of capsule 00 times a Medicin day e gabapentin 2020-0 Yes Take 1 [facility] (NEURONTIN) 6-15 capsule by [facility] 300 MG 00:00: mouth 3 of capsule 00 times a Medicin day e lisinopril 2020-0 Yes 20mg Take 20 mg [facility] (PRINIVIL, 5-20 by mouth. May egg[facility] ZESTRIL) 20 18:55: of MG tablet 51 Medicin e amlodipine 2020-0 Yes [id number] Take 1 [facility] (NORVASC) 5-19 tablet by [facility]le [facility] 10 MG 00:00: mouth of tablet 00 every day Medicin e amlodipine 2020-0 Yes [id number] Take 1 [facility] (NORVASC) 5-19 tablet by Colle ge 10 MG 00:00: mouth of tablet 00 every day Medicin e amlodipine 2020-0 Yes [id number] Take 1 [facility] (NORVASC) 5-19 tablet by Colle ge 10 MG 00:00: mouth of tablet 00 every day Medicin e amlodipine 2020-0 Yes [id number] Take 1 [facility] (NORVASC) 5-19 tablet by Colle ge 10 MG 00:00: mouth of tablet 00 every day Medicin e amlodipine 2020-0 Yes [id number] Take 1 [facility] (NORVASC) 5-19 tablet by Colle ge 10 MG 00:00: mouth of tablet 00 every day Medicin e amlodipine 2020-0 Yes [id number] Take 1 [facility] (NORVASC) 5-19 tablet by Colle ge 10 MG 00:00: mouth of tablet 00 every day Medicin e amlodipine 2020-0 Yes [id number] Take 1 [facility] (NORVASC) 5-19 tablet by Colle ge 10 MG 00:00: mouth of tablet 00 every day Medicin e amlodipine 2020-0 Yes [id number] Take 1 [facility] (NORVASC) 5-19 tablet by Colle ge 10 MG 00:00: mouth of tablet 00 every day Medicin e amlodipine 2020-0 Yes [id number] Take 1 [facility] (NORVASC) 5-19 tablet by Colle ge 10 MG 00:00: mouth of tablet 00 every day Medicin e amlodipine 2020-0 Yes [id number] Take 1 [facility] (NORVASC) 5-19 tablet by Colle ge 10 MG 00:00: mouth of tablet 00 every day Medicin e amlodipine 2020-0 Yes [id number] Take 1 [facility] (NORVASC) 5-19 tablet by Colle ge 10 MG 00:00: mouth of tablet 00 every day Medicin e amlodipine 2020-0 Yes [id number] Take 1 [facility] (NORVASC) 5-19 tablet by Colle ge 10 MG 00:00: mouth of tablet 00 every day Medicin e amlodipine 2020-0 Yes [id number] Take 1 [facility] (NORVASC) 5-19 tablet by Colle ge 10 MG 00:00: mouth of tablet 00 every day Medicin e amlodipine 2020-0 Yes [id number] Take 1 [facility] (NORVASC) 5-19 tablet by Colle ge 10 MG 00:00: mouth of tablet 00 every day Medicin e amlodipine 2020-0 Yes [id number] Take 1 [facility] (NORVASC) 5-19 tablet by Colle ge 10 MG 00:00: mouth of tablet 00 every day Medicin e amlodipine 2020-0 Yes [id number] Take 1 [facility] (NORVASC) 5-19 tablet by Colle ge 10 MG 00:00: mouth of tablet 00 every day Medicin e amlodipine 2020-0 Yes [id number] Take 1 [facility] (NORVASC) 5-19 tablet by Colle [facility] 10 MG 00:00: mouth of tablet 00 every day Medicin e amlodipine 2020-0 Yes [id number] Take 1 [facility] (NORVASC) 5-19 tablet by Colle [facility] 10 MG 00:00: mouth of tablet 00 every day Medicin e amlodipine 2020-0 Yes [id number] Take 1 [facility] (NORVASC) 5-19 tablet by Colle ge 10 MG 00:00: mouth of tablet 00 every day Medicin e amlodipine 2020-0 Yes [id number] Take 1 [facility] (NORVASC) 5-19 tablet by Col[facility] 10 MG 00:00: mouth of tablet 00 every day Medicin e amlodipine 2020-0 Yes [id number] Take 1 [facility] (NORVASC) 5-19 tablet by Colle ge 10 MG 00:00: mouth of tablet 00 every day Medicin e amlodipine 2020-0 Yes [id number] Take 1 [facility] (NORVASC) 5-19 tablet by [facility]le [facility] 10 MG 00:00: mouth of tablet 00 every day Medicin e amlodipine 2020-0 Yes [id number] Take 1 [facility] (NORVASC) 5-19 tablet by Colle [facility] 10 MG 00:00: mouth of tablet 00 every day Medicin e amlodipine 2020-0 Yes [id number] Take 1 [facility] (NORVASC) 5-19 tablet by Colle [facility] 10 MG 00:00: mouth of tablet 00 every day Medicin e amlodipine 2020-0 Yes [id number] Take 1 [facility] (NORVASC) 5-19 tablet by Colle ge 10 MG 00:00: mouth of tablet 00 every day Medicin e amlodipine 2020-0 Yes [id number] Take 1 [facility] (NORVASC) 5-19 tablet by Colle [facility] 10 MG 00:00: mouth of tablet 00 every day Medicin e amlodipine 2020-0 Yes [id number] Take 1 [facility] (NORVASC) 5-19 tablet by Colle ge 10 MG 00:00: mouth of tablet 00 every day Medicin e amlodipine 2020-0 Yes [id number] Take 1 [facility] (NORVASC) 5-19 tablet by [facility] 10 MG 00:00: mouth of tablet 00 every day Medicin e amlodipine 2020-0 Yes [id number] Take 1 [facility] (NORVASC) 5-19 tablet by [facility] 10 MG 00:00: mouth of tablet 00 every day Medicin e amlodipine 2020-0 Yes [id number] Take 1 [facility] (NORVASC) 5-19 tablet by Colle ge 10 MG 00:00: mouth of tablet 00 every day Medicin e amlodipine 2020-0 Yes [id number] Take 1 [facility] (NORVASC) 5-19 tablet by [facility]le [facility] 10 MG 00:00: mouth of tablet 00 every day Medicin e amlodipine 2020-0 Yes [id number] Take 1 [facility] (NORVASC) 5-19 tablet by Colle ge 10 MG 00:00: mouth of tablet 00 every day Medicin e amlodipine 2020-0 Yes [id number] Take 1 [facility] (NORVASC) 5-19 tablet by Colle [facility] 10 MG 00:00: mouth of tablet 00 every day Medicin e amlodipine 2020-0 Yes [id number] Take 1 [facility] (NORVASC) 5-19 tablet by Colle ge 10 MG 00:00: mouth of tablet 00 every day Medicin e amlodipine 2020-0 Yes [id number] Take 1 [facility] (NORVASC) 5-19 tablet by Colle [facility] 10 MG 00:00: mouth of tablet 00 every day Medicin e amlodipine 2020-0 Yes [id number] Take 1 [facility] (NORVASC) 5-19 tablet by Colle [facility] 10 MG 00:00: mouth of tablet 00 every day Medicin e amlodipine 2020-0 Yes [id number] Take 1 [facility] (NORVASC) 5-19 tablet by Colle ge 10 MG 00:00: mouth of tablet 00 every day Medicin e amlodipine 2020-0 Yes [id number] Take 1 [facility] (NORVASC) 5-19 tablet by Colle ge 10 MG 00:00: mouth of tablet 00 every day Medicin e amlodipine 2020-0 Yes [id number] Take 1 [facility] (NORVASC) 5-19 tablet by Colle [facility] 10 MG 00:00: mouth of tablet 00 every day Medicin e amlodipine 2020-0 Yes [id number] Take 1 [facility] (NORVASC) 5-19 tablet by [facility]le [facility] 10 MG 00:00: mouth of tablet 00 every day Medicin e amlodipine 2020-0 Yes [id number] Take 1 [facility] (NORVASC) 5-19 tablet by Colle [facility] 10 MG 00:00: mouth of tablet 00 every day Medicin e amlodipine 2020-0 Yes [id number] Take 1 [facility] (NORVASC) 5-19 tablet by Colle ge 10 MG 00:00: mouth of tablet 00 every day Medicin e amlodipine 2020-0 Yes [id number] Take 1 [facility] (NORVASC) 5-19 tablet by Colle ge 10 MG 00:00: mouth of tablet 00 every day Medicin e amlodipine 2020-0 Yes [id number] Take 1 [facility] (NORVASC) 5-19 tablet by Colle ge 10 MG 00:00: mouth of tablet 00 every day Medicin e amlodipine 2020-0 Yes [id number] Take 1 [facility] (NORVASC) 5-19 tablet by Colle ge 10 MG 00:00: mouth of tablet 00 every day Medicin e amlodipine 2020-0 Yes [id number] Take 1 [facility] (NORVASC) 5-19 tablet by Colle ge 10 MG 00:00: mouth of tablet 00 every day Medicin e amlodipine 2020-0 Yes [id number] Take 1 [facility] (NORVASC) 5-19 tablet by Colle [facility] 10 MG 00:00: mouth of tablet 00 every day Medicin e amlodipine 2020-0 Yes [id number] Take 1 [facility] (NORVASC) 5-19 tablet by Colle ge 10 MG 00:00: mouth of tablet 00 every day Medicin e amlodipine 2020-0 Yes [id number] Take 1 [facility] (NORVASC) 5-19 tablet by Colle ge 10 MG 00:00: mouth of tablet 00 every day Medicin e triamcinolo 2020-[address] [facility] 5-14 [facility] ([facility]) 00:00: of 0.1 % cream 00 Medicin e triamcinolo 2020-[address] [facility] 5-14 [facility] ([facility]) 00:00: of 0.1 % cream 00 Medicin e triamcinolo 2020-0 Yes FRANSICO EXT [facility] 5-14 [facility] ([facility]) 00:00: of 0.1 % cream 00 Medicin e triamcinolo 2020-0 Yes FRANSICO EXT [facility] 5-14 [facility] ([facility]) 00:00: of 0.1 % cream 00 Medicin e triamcinolo 2020-0 Yes FRANSICO EXT [facility] 5-14 BID [place] ([facility]) 00:00: of 0.1 % cream 00 Medicin e triamcinolo 2020-0 Yes FRANSICO EXT [facility] 5-14 [facility] ([facility]) 00:00: of 0.1 % cream 00 Medicin e triamcinolo 2020-0 Yes FRANSICO EXT [facility] 5-14 [facility] ([facility]) 00:00: of 0.1 % cream 00 Medicin e triamcinolo 2020-0 Yes FRANSICO EXT [facility] 5-14 [facility] ([facility]) 00:00: of 0.1 % cream 00 Medicin e triamcinolo 2020-0 Yes FRANSICO EXT [facility] 5-14 BID [place] ([facility]) 00:00: of 0.1 % cream 00 Medicin e triamcinolo 2020-0 2020- No FRANSICO EXT [facility] 5-14 - BID [place] ([facility]) 00:00: 00:00 of 0.1 % cream 00 :00 Medicin e mupirocin 2020-0 Yes Apply [facility] calcium 4-14 topically [place] (BACTROBAN) 18:12: two times o f 2 % cream 46 daily. Medicin e lisinopril 2020-0 Yes 20mg Take 20 mg [facility] (PRINIVIL, 4-14 by mouth. May mack PETERSRIL) 20 18:12: of MG tablet 46 Medicin e mupirocin 2020-0 Yes Apply [facility] calcium 4-14 topically [place] (BACTROBAN) 18:12: two times o f 2 % cream 46 daily. Medicin e metformin 2020-0 2020- No 1000mg Take 1,000 [facility] (GLUCOPHAGE 4-14 04-14 mg by [facility] ) 1000 MG 18:12: 00:00 mouth. of tablet 35 :00 Medicin e metformin 2020-0 Yes [facility] (GLUCOPHAGE 4-14 [facility] -XR) 500 MG 00:00: of XR tablet 00 Medicin e metformin 2020-0 Yes [facility] (GLUCOPHAGE 4-14 [place] -XR) 500 MG 00:00: of XR tablet 00 Medicin e metformin 2020-0 Yes [facility] (GLUCOPHAGE 4-14 [place] -XR) 500 MG 00:00: of XR tablet 00 Medicin e metformin 2020-0 Yes [facility] (GLUCOPHAGE 4-14 [place] -XR) 500 MG 00:00: of XR tablet 00 Medicin e metformin 2020-0 Yes [facility] (GLUCOPHAGE 4-14 [place] -XR) 500 MG 00:00: of XR tablet 00 Medicin e metformin 2020-0 Yes [facility] (GLUCOPHAGE 4-14 [place] -XR) 500 MG 00:00: of XR tablet 00 Medicin e metformin 2020-0 Yes [facility] (GLUCOPHAGE 4-14 [place] -XR) 500 MG 00:00: of XR tablet 00 Medicin e metformin 2020-0 Yes [facility] (GLUCOPHAGE 4-14 [place] -XR) 500 MG 00:00: of XR tablet 00 Medicin e metformin 2020-0 Yes [facility] (GLUCOPHAGE 4-14 [place] -XR) 500 MG 00:00: of XR tablet 00 Medicin e metformin 2020-0 Yes [facility] (GLUCOPHAGE 4-14 [place] -XR) 500 MG 00:00: of XR tablet 00 Medicin e metformin 2020-0 2020- No [facility] (GLUCOPHAGE 4-14 09-21 College -XR) 500 MG 00:00: 00:00 of XR tablet 00 :00 Medicin e metformin 2020-0 Yes 1000mg Take 1,000 [facility] (GLUCOPHAGE 3-16 mg by [place] ) 1000 MG 18:50: mouth. of tablet 02 Medicin e mupirocin 2020-0 Yes Apply [facility] calcium 3-16 topically [place] (BACTROBAN) 18:50: two times o f 2 % cream 02 daily. Medicin e lisinopril 2020-0 2020- No 20mg Take 20 mg [facility] (PRINIVIL, 3-16 03-16 by mouth. Col lege ZESTRIL) 20 18:49: 00:00 of MG tablet 17 :00 Medicin e amoxicillin 2020-0 Yes [id number] 1{tbl} Take 1 [facility] -clavulanat 3-16 tablet by ity of e 00:00: mouth 2 [place] (AUGMENTIN) 00 (two) Medical 875-125 mg times Branch per tablet daily. amoxicillin 2020-0 Yes [id number] 1{tbl} Take 1 [facility] -clavulanat 3-16 tablet by ity of e 00:00: mouth 2 [place] (AUGMENTIN) 00 (two) Medical 875-125 mg times Branch per tablet daily. amoxicillin 2020-0 Yes 1{tbl} Take 1 Tab [facility] -clavulanat 3-16 by mouth. Col lege e 00:00: of (AUGMENTIN) 00 Medicin 875-125 MG e per tablet amoxicillin 2020-0 Yes 1{tbl} Take 1 Tab [facility] -clavulanat 3-16 by mouth. Col lege e 00:00: of (AUGMENTIN) 00 Medicin 875-125 MG e per tablet amoxicillin 2020-0 2020- No 1{tbl} Take 1 Tab [facility] -clavulanat 3-16 06-18 by mouth. Co [facility]lege e 00:00: 00:00 of (AUGMENTIN) 00 :00 Medicin 875-125 MG e per tablet metformin 2020-0 2020- No [id number] Take 1 [facility] (GLUCOPHAGE 3-16 03-16 tablet by Co llege -XR) 500 MG 00:00: 00:00 mouth of XR tablet 00 :00 every day Medic in e TRADJENTA 5 2020-0 Yes [id number] Take 1 [facility] MG TABS 2-21 tablet by [place] 00:00: mouth of 00 every day Medicin e TRADJENTA 5 2020-0 Yes [id number] Take 1 [facility] MG TABS 2-21 tablet by [place] 00:00: mouth of 00 every day Medicin e TRADJENTA 5 2020-0 Yes [id number] Take 1 [facility] MG TABS 2-21 tablet by College 00:00: mouth of 00 every day Medicin e TRADJENTA 5 2020-0 Yes [id number] Take 1 [facility] MG TABS 2-21 tablet by College 00:00: mouth of 00 every day Medicin e TRADJENTA 5 2020-0 Yes [id number] Take 1 [facility] MG TABS 2-21 tablet by College 00:00: mouth of 00 every day Medicin e TRADJENTA 5 2020-0 Yes [id number] Take 1 [facility] MG TABS 2-21 tablet by College 00:00: mouth of 00 every day Medicin e TRADJENTA 5 2020-0 Yes [id number] Take 1 [facility] MG TABS 2-21 tablet by College 00:00: mouth of 00 every day Medicin e TRADJENTA 5 2020-0 Yes [id number] Take 1 [facility] MG TABS 2-21 tablet by [place] 00:00: mouth of 00 every day Medicin e TRADJENTA 5 2020-0 Yes [id number] Take 1 [facility] MG TABS 2-21 tablet by College 00:00: mouth of 00 every day Medicin e TRADJENTA 5 2020-0 Yes [id number] Take 1 [facility] MG TABS 2-21 tablet by College 00:00: mouth of 00 every day Medicin e TRADJENTA 5 2020-0 Yes [id number] Take 1 [facility] MG TABS 2-21 tablet by [place] 00:00: mouth of 00 every day Medicin e TRADJENTA 5 2020-0 2020- No [id number] Take 1 [facility] MG TABS 2-21 09-21 tablet by [facility] 00:00: 00:00 mouth of 00 :00 every day Medicin e triamcinolo 2019- 2020- No FRANSICO EXT AA [facility] ne -15 03-16 [facility] College ([place]) 00:00: 00:00 of 0.1 % cream 00 :00 Medicin e Blood 2019- Yes USE TO [facility] Glucose 0-17 CALIBRATE College Calibration 00:00: METER of (ACCU-CHEK 00 Medicin JASWINDER) SOLN e Blood 2019- Yes USE TO [facility] Glucose 0-17 CALIBRATE [facility] Calibration 00:00: METER of (ACCU-CHEK 00 Medicin JASWINDER) SOLN e Blood 2019- Yes USE TO [facility] Glucose 0-17 CALIBRATE [facility] Calibration 00:00: METER of (ACCU-CHEK 00 Medicin JASWINDER) SOLN e Blood 2018-07 Yes USE TO [facility] Glucose 0-17 CALIBRATE [facility] Calibration 00:00: METER of (ACCU-CHEK 00 Medicin JASWINDER) SOLN e Blood 2018-07 Yes USE TO [facility] Glucose 0-17 CALIBRATE [facility] Calibration 00:00: METER of (ACCU-CHEK 00 Medicin JASWINDER) SOLN e Blood 2018-07 Yes USE TO [facility] Glucose 0-17 CALIBRATE College Calibration 00:00: METER of (ACCU-CHEK 00 Medicin JASWINDER) SOLN e Blood 2018-07 Yes USE TO [facility] Glucose 0-17 CALIBRATE College Calibration 00:00: METER of (ACCU-CHEK 00 Medicin JASWINDER) SOLN e Blood 2018-07 Yes USE TO [facility] Glucose 0-17 CALIBRATE College Calibration 00:00: METER of (ACCU-CHEK 00 Medicin JASWINDER) SOLN e Blood 2018-07 Yes USE TO [facility] Glucose 0-17 CALIBRATE [facility] Calibration 00:00: METER of (ACCU-CHEK 00 Medicin JASWINDER) SOLN e Blood 2018-07 Yes USE TO [facility] Glucose 0-17 CALIBRATE [employer] Calibration 00:00: METER of (ACCU-CHEK 00 Medicin JASWINDER) SOLN e Blood 2018-07 Yes USE TO [facility] Glucose 0-17 CALIBRATE [facility] Calibration 00:00: METER of (ACCU-CHEK 00 Medicin JASWINDER) SOLN e Blood 2018-07 Yes USE TO [facility] Glucose 0-17 CALIBRATE [facility] Calibration 00:00: METER of (ACCU-CHEK 00 Medicin JASWINDER) SOLN e Blood 2018-07 Yes USE TO [facility] Glucose 0-17 CALIBRATE [facility] Calibration 00:00: METER of (ACCU-CHEK 00 Medicin JASWINDER) SOLN e Blood 2018-07 Yes USE TO [facility] Glucose 0-17 CALIBRATE [facility] Calibration 00:00: METER of (ACCU-CHEK 00 Medicin JASWINDER) SOLN e Blood 2018-07 Yes USE TO [facility] Glucose 0-17 CALIBRATE [employer] Calibration 00:00: METER of (ACCU-CHEK 00 Medicin JASWINDER) SOLN e Blood 2018-07 Yes USE TO [facility] Glucose 0-17 CALIBRATE [facility] Calibration 00:00: METER of (ACCU-CHEK 00 Medicin JASWINDER) SOLN e Blood 2018-07 Yes USE TO [facility] Glucose 0-17 CALIBRATE [facility] Calibration 00:00: METER of (ACCU-CHEK 00 Medicin JASWINDER) SOLN e Blood 2018-07 Yes USE TO [facility] Glucose 0-17 CALIBRATE [employer] Calibration 00:00: METER of (ACCU-CHEK 00 Medicin JASWINDER) SOLN e Blood 2018-07 Yes USE TO [facility] Glucose 0-17 CALIBRATE [employer] Calibration 00:00: METER of (ACCU-CHEK 00 Medicin JASWINDER) SOLN e Blood 2018-07 Yes USE TO [facility] Glucose 0-17 CALIBRATE [facility] Calibration 00:00: METER of (ACCU-CHEK 00 Medicin JASWINDER) SOLN e Blood 2018-07 Yes USE TO [facility] Glucose 0-17 CALIBRATE [employer] Calibration 00:00: METER of (ACCU-CHEK 00 Medicin JASWINDER) SOLN e Blood 2018-07 Yes USE TO [facility] Glucose 0-17 CALIBRATE [employer] Calibration 00:00: METER of (ACCU-CHEK 00 Medicin JASWINDER) SOLN e Blood 2018-07 Yes USE TO [facility] Glucose 0-17 CALIBRATE [employer] Calibration 00:00: METER of (ACCU-CHEK 00 Medicin JASWINDER) SOLN e Blood 2018-07 Yes USE TO [facility] Glucose 0-17 CALIBRATE [employer] Calibration 00:00: METER of (ACCU-CHEK 00 Medicin JASWINDER) SOLN e Blood 2018-07 Yes USE TO [facility] Glucose 0-17 CALIBRATE [employer] Calibration 00:00: METER of (ACCU-CHEK 00 Medicin JASWINDER) SOLN e JARDIANCE 2018-07 Yes [id number] Take one [facility] 25 MG TABS 0-14 tablet by [facility] 00:00: mouth of 00 every day Medicin e glipiZIDE 2018-07 Yes Take two [facility] (GLUCOTROL) 0-14 tablets by [facility] 10 MG 00:00: mouth of tablet 00 twice Medicin daily e JARDIANCE 2018-07 Yes [id number] Take one [facility] 25 MG TABS 0-14 tablet by [facility] 00:00: mouth of 00 every day Medicin e glipiZIDE 2018-07 Yes Take two [facility] (GLUCOTROL) 0-14 tablets by [facility] 10 MG 00:00: mouth of tablet 00 twice Medicin daily e JARDIANCE 2018-07 Yes [id number] Take one [facility] 25 MG TABS 0-14 tablet by [facility] 00:00: mouth of 00 every day Medicin e glipiZIDE 2018-07 Yes Take two [facility] (GLUCOTROL) 0-14 tablets by [facility] 10 MG 00:00: mouth of tablet 00 twice Medicin daily e JARDIANCE 2018-07 Yes [id number] Take one [facility] 25 MG TABS 0-14 tablet by [facility] 00:00: mouth of 00 every day Medicin e glipiZIDE 2018-07 Yes Take two [facility] (GLUCOTROL) 0-14 tablets by [facility] 10 MG 00:00: mouth of tablet 00 twice Medicin daily e JARDIANCE 2018-07 Yes [id number] Take one [facility] 25 MG TABS 0-14 tablet by [facility] 00:00: mouth of 00 every day Medicin e glipiZIDE 2018-07 Yes Take two [facility] (GLUCOTROL) 0-14 tablets by [facility] 10 MG 00:00: mouth of tablet 00 twice Medicin daily e JARDIANCE 2018-07 Yes [id number] Take one [facility] 25 MG TABS 0-14 tablet by [facility] 00:00: mouth of 00 every day Medicin e glipiZIDE 2018-07 Yes Take two [facility] (GLUCOTROL) 0-14 tablets by [facility] 10 MG 00:00: mouth of tablet 00 twice Medicin daily e JARDIANCE 2018-07 Yes [id number] Take one [facility] 25 MG TABS 0-14 tablet by [facility] 00:00: mouth of 00 every day Medicin e glipiZIDE 2018-07 Yes Take two [facility] (GLUCOTROL) 0-14 tablets by [facility] 10 MG 00:00: mouth of tablet 00 twice Medicin daily e JARDIANCE 2018-07 Yes [id number] Take one [facility] 25 MG TABS 0-14 tablet by [facility] 00:00: mouth of 00 every day Medicin e glipiZIDE 2018-07 Yes Take two [facility] (GLUCOTROL) 0-14 tablets by [facility] 10 MG 00:00: mouth of tablet 00 twice Medicin daily e JARDIANCE 2018-07 Yes [id number] Take one [facility] 25 MG TABS 0-14 tablet by May [facility] 00:00: mouth of 00 every day Medicin e glipiZIDE 2018-07 Yes Take two [facility] (GLUCOTROL) 0-14 tablets by [facility] 10 MG 00:00: mouth of tablet 00 twice Medicin daily e JARDIANCE 2018-07 Yes [id number] Take one [facility] 25 MG TABS 0-14 tablet by [facility] 00:00: mouth of 00 every day Medicin e glipiZIDE 2018-07 Yes Take two [facility] (GLUCOTROL) 0-14 tablets by [facility] 10 MG 00:00: mouth of tablet 00 twice Medicin daily e lovastatin 2018-07 Yes 20mg QD Take [address] [facility] (MEVACOR) 0-09 by mouth [facility] 20 MG 00:00: nightly . [facility] tablet 00 Center lisinopril 2018-07 Yes 20mg Take 20 mg [facility] (PRINIVIL, 0-02 by mouth. May eg ZESTRI) 20 13:58: of MG tablet 49 Medicin e metformin 2018-07 Yes 1000mg Take 1,000 [facility] (GLUCOPHAGE 0-02 mg by [place] ) 1000 MG 13:58: mouth. of tablet 49 Medicin e lisinopril 2018-07 Yes 20mg Take 20 mg [facility] (PRINIVIL, 0-02 by mouth. May [facility] REBECCARI) 20 13:58: of MG tablet 49 Medicin e metformin 2018-07 Yes 1000mg Take 1,000 [facility] (GLUCOPHAGE 0-02 mg by [place] ) 1000 MG 13:58: mouth. of tablet 49 Medicin e citalopram Yes TK 1 T PO [facility] (CELEXA) 10 9-26 QD [facility] MG tablet 00:00: of 00 Medicin e amlodipine Yes [id number] 10mg Take 1 Tab [facility] (NORVASC) 9-12 by mouth [facility] 10 MG 00:00: daily. of tablet 00 Medicin e amlodipine Yes [id number] 10mg Take 1 Tab [facility] (NORVASC) 9-12 by mouth [facility] 10 MG 00:00: daily. of tablet 00 Medicin e amlodipine 2019-0 Yes [id number] 10mg Take 1 Tab [facility] (NORVASC) 9-12 by mouth [facility] 10 MG 00:00: daily. of tablet 00 Medicin e amlodipine 2019-0 Yes [id number] 10mg Take 1 Tab [facility] (NORVASC) 9-12 by mouth [facility] 10 MG 00:00: daily. of tablet 00 Medicin e amlodipine 2019-0 Yes [id number] 10mg Take 1 Tab [facility] (NORVASC) 9-12 by mouth [facility] 10 MG 00:00: daily. of tablet 00 Medicin e metformin 2019-0 Yes 1000mg Take 1,000 [facility] (GLUCOPHAGE 8-13 mg by [place] ) 1000 MG 19:18: mouth. of tablet 59 Medicin e metformin 2019-0 Yes 1000mg Take 1,000 [facility] (GLUCOPHAGE 8-13 mg by [place] ) 1000 MG 19:18: mouth. of tablet 59 Medicin e metformin 2019-0 Yes 1000mg Take 1,000 [facility] (GLUCOPHAGE 8-13 mg by [place] ) 1000 MG 19:18: mouth. of tablet 59 Medicin e AMLODIPINE 2019-0 Yes Take by [facility] BESYLATE OR 8-13 mouth. Mimi e 19:18: of 58 Medicin e lisinopril 2019-0 Yes 20mg Take 20 mg [facility] (PRINIVIL, 8-13 by mouth. May e[facility] ZESTRIL) 20 19:18: of MG tablet 58 Medicin e AMLODIPINE 2019-0 Yes Take by [facility] BESYLATE OR 8-13 mouth. [facility] 19:18: of 58 Medicin e lisinopril 2019-0 Yes 20mg Take 20 mg [facility] (PRINIVIL, 8-13 by mouth. May [facility] ZESTRIL) 20 19:18: of MG tablet 58 Medicin e lisinopril 2019-0 Yes 20mg Take 20 mg [facility] (PRINIVIL, 8-13 by mouth. May [facility] ZESTRIL) 20 19:18: of MG tablet 58 Medicin e gabapentin 2019-0 Yes 300mg Take 1 Cap [facility] (NEURONTIN) 8-13 by mouth 3 [facility] 300 MG 00:00: times of capsule 00 daily. Medicin e gabapentin 2019-0 Yes 300mg Take 1 Cap [facility] (NEURONTIN) 8-13 by mouth 3 [facility] 300 MG 00:00: times of capsule 00 daily. Medicin e gabapentin 2019-0 Yes 300mg Take 1 Cap [facility] (NEURONTIN) 8-13 by mouth 3 [facility] 300 MG 00:00: times of capsule 00 daily. Medicin e gabapentin 2019-0 Yes 300mg Take 1 Cap [facility] (NEURONTIN) 8-13 by mouth 3 [facility] 300 MG 00:00: times of capsule 00 daily. Medicin e gabapentin 2019-0 Yes 300mg Take 1 Cap [facility] (NEURONTIN) 8-13 by mouth 3 [facility] 300 MG 00:00: times of capsule 00 daily. Medicin e gabapentin 2019-0 Yes 300mg Take 1 Cap [facility] (NEURONTIN) 8-13 by mouth 3 [facility] 300 MG 00:00: times of capsule 00 daily. Medicin e gabapentin 2019-0 Yes 300mg Take 1 Cap [facility] (NEURONTIN) 8-13 by mouth 3 [facility] 300 MG 00:00: times of capsule 00 daily. Medicin e escitalopra 2019-0 Yes 20mg Take 20 mg [facility] (LEXAPRO) 7-18 by mouth [facility] 20 MG 00:00: daily. of tablet 00 Medicin e escitalopra 2019-0 Yes 20mg Take 20 mg [facility] m (LEXAPRO) 7-18 by mouth [facility] 20 MG 00:00: daily. of tablet 00 Medicin e escitalopra 2019-0 Yes 20mg Take 20 mg [facility] (LEXAPRO) 7-18 by mouth [facility] 20 MG 00:00: daily. of tablet 00 Medicin e escitalopra 2019-0 Yes 20mg Take 20 mg [facility] m (LEXAPRO) 7-18 by mouth [facility] 20 MG 00:00: daily. of tablet 00 Medicin e escitalopra 2019-0 Yes 20mg Take 20 mg [facility] m (LEXAPRO) 7-18 by mouth [facility] 20 MG 00:00: daily. of tablet 00 Medicin e escitalopra 2019-0 Yes 20mg Take 20 mg [facility] (LEXAPRO) 7-18 by mouth [facility] 20 MG 00:00: daily. of tablet 00 Medicin e escitalopra 2019-0 Yes 20mg Take 20 mg [facility] m (LEXAPRO) 7-18 by mouth [facility] 20 MG 00:00: daily. of tablet 00 Medicin e escitalopra 2019-0 Yes 20mg Take 20 mg [facility] (LEXAPRO) 7-18 by mouth [facility] 20 MG 00:00: daily. of tablet 00 Medicin e escitalopra 2019-0 Yes 20mg Take 20 mg [facility] (LEXAPRO) 7-18 by mouth [facility] 20 MG 00:00: daily. of tablet 00 Medicin e escitalopra 2019-0 Yes 20mg Take 20 mg [facility] (LEXAPRO) 7-18 by mouth [facility] 20 MG 00:00: daily. of tablet 00 Medicin e escitalopra 2019-0 Yes 20mg Take 20 mg [facility] m (LEXAPRO) 7-18 by mouth [facility] 20 MG 00:00: daily. of tablet 00 Medicin e escitalopra 2019-0 Yes 20mg Take 20 mg [facility] m (LEXAPRO) 7-18 by mouth [facility] 20 MG 00:00: daily. of tablet Medicin e escitalopra 2019-0 Yes 20mg Take 20 mg [facility] (LEXAPRO) 7-18 by mouth [facility] 20 MG 00:00: daily. of tablet Medicin e escitalopra 2019-0 Yes 20mg Take 20 mg [facility] m (LEXAPRO) 7-18 by mouth [facility] 20 MG 00:00: daily. of tablet 00 Medicin e escitalopra 2019-0 Yes 20mg Take 20 mg [facility] (LEXAPRO) 7-18 by mouth [facility] 20 MG 00:00: daily. of tablet 00 Medicin e escitalopra 2019-0 Yes 20mg Take 20 mg [facility] m (LEXAPRO) 7-18 by mouth [facility] 20 MG 00:00: daily. of tablet 00 Medicin e escitalopra 2019-0 Yes 20mg Take 20 mg [facility] (LEXAPRO) 7-18 by mouth [facility] 20 MG 00:00: daily. of tablet 00 Medicin e escitalopra 2019-0 Yes 20mg Take 20 mg [facility] m (LEXAPRO) 7-18 by mouth [facility] 20 MG 00:00: daily. of tablet 00 Medicin e escitalopra 2019-0 Yes 20mg Take 20 mg [facility] m (LEXAPRO) 7-18 by mouth [facility] 20 MG 00:00: daily. of tablet 00 Medicin e escitalopra 2019-0 Yes 20mg Take 20 mg [facility] (LEXAPRO) 7-18 by mouth [facility] 20 MG 00:00: daily. of tablet 00 Medicin e escitalopra 2018-0 Yes 20mg Take 20 mg [facility] m (LEXAPRO) 7-18 by mouth [facility] 20 MG 00:00: daily. of tablet 00 Medicin e escitalopra 2018-0 Yes 20mg Take 20 mg [facility] m (LEXAPRO) 7-18 by mouth [facility] 20 MG 00:00: daily. of tablet 00 Medicin e escitalopra 0 Yes 20mg Take 20 mg [facility] m (LEXAPRO) 7-18 by mouth [facility] 20 MG 00:00: daily. of tablet Medicin e escitalopra 0 Yes 20mg Take 20 mg [facility] (LEXAPRO) 7-18 by mouth [facility] 20 MG 00:00: daily. of tablet 00 Medicin e escitalopra 0 Yes 20mg Take 20 mg [facility] m (LEXAPRO) 7-18 by mouth [facility] 20 MG 00:00: daily. of tablet Medicin e escitalopra 0 Yes 20mg Take 20 mg [facility] m (LEXAPRO) 7-18 by mouth [facility] 20 MG 00:00: daily. of tablet 00 Medicin e escitalopra 0 Yes 20mg Take 20 mg [facility] (LEXAPRO) 7-18 by mouth [facility] 20 MG 00:00: daily. of tablet 00 Medicin e escitalopra 2019-0 Yes 20mg Take 20 mg [facility] m (LEXAPRO) 7-18 by mouth [facility] 20 MG 00:00: daily. of tablet 00 Medicin e escitalopra 2019-0 Yes 20mg Take 20 mg [facility] m (LEXAPRO) 7-18 by mouth [facility] 20 MG 00:00: daily. of tablet 00 Medicin e escitalopra 2018-0 Yes 20mg Take 20 mg [facility] m (LEXAPRO) 7-18 by mouth [facility] 20 MG 00:00: daily. of tablet 00 Medicin e escitalopra 2019-0 Yes 20mg Take 20 mg [facility] (LEXAPRO) 7-18 by mouth [facility] 20 MG 00:00: daily. of tablet 00 Medicin e escitalopra 2019-0 Yes 20mg Take 20 mg [facility] (LEXAPRO) 7-18 by mouth [facility] 20 MG 00:00: daily. of tablet 00 Medicin e escitalopra 2019-0 Yes 20mg Take 20 mg [facility] m (LEXAPRO) 7-18 by mouth [facility] 20 MG 00:00: daily. of tablet 00 Medicin e escitalopra 2019-0 Yes 20mg Take 20 mg [facility] (LEXAPRO) 7-18 by mouth [facility] 20 MG 00:00: daily. of tablet 00 Medicin e escitalopra 2019-0 Yes 20mg Take 20 mg [facility] (LEXAPRO) 7-18 by mouth [facility] 20 MG 00:00: daily. of tablet 00 Medicin e escitalopra 0 Yes 20mg Take 20 mg [facility] (LEXAPRO) 7-18 by mouth [facility] 20 MG 00:00: daily. of tablet 00 Medicin e escitalopra 2018-0 Yes 20mg Take 20 mg [facility] (LEXAPRO) 7-18 by mouth [facility] 20 MG 00:00: daily. of tablet Medicin e escitalopra 2019-0 Yes 20mg Take 20 mg [facility] (LEXAPRO) 7-18 by mouth [facility] 20 MG 00:00: daily. of tablet 00 Medicin e escitalopra 2019-0 Yes 20mg Take 20 mg [facility] (LEXAPRO) 7-18 by mouth [facility] 20 MG 00:00: daily. of tablet 00 Medicin e escitalopra 2019-0 Yes 20mg Take 20 mg [facility] (LEXAPRO) 7-18 by mouth [facility] 20 MG 00:00: daily. of tablet 00 Medicin e escitalopra 2019-0 Yes 20mg Take 20 mg [facility] m (LEXAPRO) 7-18 by mouth [facility] 20 MG 00:00: daily. of tablet 00 Medicin e escitalopra 2019-0 Yes 20mg Take 20 mg [facility] (LEXAPRO) 7-18 by mouth [facility] 20 MG 00:00: daily. of tablet 00 Medicin e escitalopra 2019-0 Yes 20mg Take 20 mg [facility] m (LEXAPRO) 7-18 by mouth [facility] 20 MG 00:00: daily. of tablet 00 Medicin e escitalopra 2019-0 Yes 20mg Take 20 mg [facility] (LEXAPRO) 7-18 by mouth [facility] 20 MG 00:00: daily. of tablet 00 Medicin e escitalopra 0 Yes 20mg Take 20 mg [facility] (LEXAPRO) 7-18 by mouth [facility] 20 MG 00:00: daily. of tablet 00 Medicin e escitalopra 0 Yes 20mg Take 20 mg [facility] (LEXAPRO) 7-18 by mouth [facility] 20 MG 00:00: daily. of tablet 00 Medicin e escitalopra 0 Yes 20mg Take 20 mg [facility] m (LEXAPRO) 7-18 by mouth [facility] 20 MG 00:00: daily. of tablet 00 Medicin e escitalopra 0 Yes 20mg Take 20 mg [facility] (LEXAPRO) 7-18 by mouth [facility] 20 MG 00:00: daily. of tablet 00 Medicin e escitalopra 0 Yes 20mg Take 20 mg [facility] m (LEXAPRO) 7-18 by mouth [facility] 20 MG 00:00: daily. of tablet 00 Medicin e escitalopra 2018-0 Yes 20mg Take 20 mg [facility] (LEXAPRO) 7-18 by mouth [facility] 20 MG 00:00: daily. of tablet 00 Medicin e escitalopra 2019-0 Yes 20mg Take 20 mg [facility] (LEXAPRO) 7-18 by mouth [facility] 20 MG 00:00: daily. of tablet 00 Medicin e escitalopra 2019-0 Yes 20mg Take 20 mg [facility] (LEXAPRO) 7-18 by mouth [facility] 20 MG 00:00: daily. of tablet 00 Medicin e escitalopra 2019-0 Yes 20mg Take 20 mg [facility] (LEXAPRO) 7-18 by mouth [facility] 20 MG 00:00: daily. of tablet 00 Medicin e escitalopra 2019-0 Yes 20mg Take 20 mg [facility] m (LEXAPRO) 7-18 by mouth [facility] 20 MG 00:00: daily. of tablet 00 Medicin e escitalopra 2019-0 Yes 20mg Take 20 mg [facility] (LEXAPRO) 7-18 by mouth [facility] 20 MG 00:00: daily. of tablet 00 Medicin e escitalopra 0 Yes 20mg Take 20 mg [facility] (LEXAPRO) 7-18 by mouth [facility] 20 MG 00:00: daily. of tablet 00 Medicin e escitalopra 0 Yes 20mg Take 20 mg [facility] m (LEXAPRO) 7-18 by mouth [facility] 20 MG 00:00: daily. of tablet 00 Medicin e escitalopra 0 Yes 20mg Take 20 mg [facility] (LEXAPRO) 7-18 by mouth [facility] 20 MG 00:00: daily. of tablet 00 Medicin e escitalopra Yes 20mg Take 20 mg [facility] m (LEXAPRO) 7-18 by mouth [facility] 20 MG 00:00: daily. of tablet 00 Medicin e Lancet 0 Yes USE WITH [facility] Devices 6-20 LANCET TO [place] (SIMPLE 00:00: TEST BLOOD of DIAGNOSTICS 00 GLUCOSE Medic in LANCING e DEV) [facility] PHARMACIST 2019-0 Yes USE TO [facility] CHOICE 6-20 TEST BLOOD [place] LANCETS 00:00: GLUCOSE of MISC 00 ONCE A DAY Medicin e Alcohol 2018-0 Yes USE TO [facility] Swabs 6-20 TEST BLOOD [place] (PHARMACIST 00:00: GLUCOSE of CHOICE 00 ONCE A DAY Medicin ALCOHOL) e PADS [facility] 2019-0 Yes USE WITH [facility] Devices 6-20 LANCET TO [place] (SIMPLE 00:00: TEST BLOOD of DIAGNOSTICS 00 GLUCOSE Medic in LANCING e DEV) [facility] PHARMACIST 2019-0 Yes USE TO [facility] 6-20 TEST BLOOD [facility] LANCETS 00:00: GLUCOSE of MISC 00 ONCE A DAY Medicin e Alcohol 2019-0 Yes USE TO [facility] Swabs 6-20 TEST BLOOD [place] (PHARMACIST 00:00: GLUCOSE of CHOICE 00 ONCE A DAY Medicin ALCOHOL) e PADS [facility] 2019-0 Yes USE WITH [facility] Devices 6-20 LANCET TO [place] (SIMPLE 00:00: TEST BLOOD of DIAGNOSTICS 00 GLUCOSE Medic in LANCING e DEV) [facility] PHARMACIST 2019-0 Yes USE TO [facility] 6-20 TEST BLOOD [facility] LANCETS 00:00: GLUCOSE of MISC 00 ONCE A DAY Medicin e Alcohol 2019-0 Yes USE TO [facility] Swabs 6-20 TEST BLOOD [facility] (PHARMACIST 00:00: GLUCOSE of CHOICE 00 ONCE A DAY Medicin ALCOHOL) e PADS [facility] 2019-0 Yes USE WITH [facility] 6-20 LANCET TO [facility] (SIMPLE 00:00: TEST BLOOD of DIAGNOSTICS 00 GLUCOSE Medic in LANCING e DEV) [facility] PHARMACIST 2019-0 Yes USE TO [facility] 6-20 TEST BLOOD [facility] LANCETS 00:00: GLUCOSE of MISC 00 ONCE A DAY Medicin e Alcohol 2019-0 Yes USE TO [facility] Swabs 6-20 TEST BLOOD [facility] (PHARMACIST 00:00: GLUCOSE of CHOICE 00 ONCE A DAY Medicin ALCOHOL) e PADS [facility] 2019-0 Yes USE WITH [facility] Devices 6-20 LANCET TO [facility] (SIMPLE 00:00: TEST BLOOD of DIAGNOSTICS 00 GLUCOSE Medic in LANCING e DEV) [facility] PHARMACIST 2019-0 Yes USE TO [facility] 6-20 TEST BLOOD [facility] LANCETS 00:00: GLUCOSE of MISC 00 ONCE A DAY Medicin e Alcohol 2019-0 Yes USE TO [facility] Swabs 6-20 TEST BLOOD [facility] (PHARMACIST 00:00: GLUCOSE of CHOICE 00 ONCE A DAY Medicin ALCOHOL) e PADS [facility] 2019-0 Yes USE WITH [facility] Devices 6-20 LANCET TO [facility] (SIMPLE 00:00: TEST BLOOD of DIAGNOSTICS 00 GLUCOSE Medic in LANCING e DEV) [facility] PHARMACIST 2019-0 Yes USE TO [facility] 6-20 TEST BLOOD [facility] LANCETS 00:00: GLUCOSE of MISC 00 ONCE A DAY Medicin e Alcohol 2019-0 Yes USE TO [facility] Swabs 6-20 TEST BLOOD [facility] (PHARMACIST 00:00: GLUCOSE of CHOICE 00 ONCE A DAY Medicin ALCOHOL) e PADS [facility] 2019-0 Yes USE WITH [facility] 6-20 LANCET TO [facility] (SIMPLE 00:00: TEST BLOOD of DIAGNOSTICS 00 GLUCOSE Medic in LANCING e DEV) [facility] PHARMACIST 2019-0 Yes USE TO [facility] 6-20 TEST BLOOD [facility] LANCETS 00:00: GLUCOSE of MISC 00 ONCE A DAY Medicin e Lancet 2019-0 Yes USE WITH [facility] Devices 6-20 LANCET TO [facility] (SIMPLE 00:00: TEST BLOOD of DIAGNOSTICS 00 GLUCOSE Medic in LANCING e DEV) [facility] PHARMACIST 2019-0 Yes USE TO [facility] 6-20 TEST BLOOD [facility] LANCETS 00:00: GLUCOSE of MISC 00 ONCE A DAY Medicin e Alcohol 2019-0 Yes USE TO [facility] Swabs 6-20 TEST BLOOD [facility] (PHARMACIST 00:00: GLUCOSE of CHOICE 00 ONCE A DAY Medicin ALCOHOL) e PADS ONE TOUCH 2019-0 Yes USE TO [facility] ULTRA TEST 6-20 TEST BLOOD Col [facility] 00:00: GLUCOSE of 00 ONCE A DAY Medicin e [facility] 2019-0 Yes USE WITH [facility] Devices 6-20 LANCET TO [facility] (SIMPLE 00:00: TEST BLOOD of DIAGNOSTICS 00 GLUCOSE Medic in LANCING e DEV) [facility] Lancet 2019-0 Yes USE WITH [facility] Devices 6-20 LANCET TO [facility] (SIMPLE 00:00: TEST BLOOD of DIAGNOSTICS 00 GLUCOSE Medic in LANCING e DEV) [facility] PHARMACIST 2019-0 Yes USE TO [facility] 6-20 TEST BLOOD [place] LANCETS 00:00: GLUCOSE of MISC 00 ONCE A DAY Medicin e PHARMACIST 2019-0 Yes USE TO [facility] 6-20 TEST BLOOD [place] LANCETS 00:00: GLUCOSE of MISC 00 ONCE A DAY Medicin e [facility] 2019-0 Yes USE WITH [facility] Devices 6-20 LANCET TO [facility] (SIMPLE 00:00: TEST BLOOD of DIAGNOSTICS 00 GLUCOSE Medic in LANCING e DEV) [facility] Lancet 2019-0 Yes USE WITH [facility] 6-20 LANCET TO [facility] (SIMPLE 00:00: TEST BLOOD of DIAGNOSTICS 00 GLUCOSE Medic in LANCING e DEV) [facility] Lancet 2019-0 Yes USE WITH [facility] Devices 6-20 LANCET TO [facility] (SIMPLE 00:00: TEST BLOOD of DIAGNOSTICS 00 GLUCOSE Medic in LANCING e DEV) [facility] Lancet 2019-0 Yes USE WITH [facility] Devices 6-20 LANCET TO [facility] (SIMPLE 00:00: TEST BLOOD of DIAGNOSTICS 00 GLUCOSE Medic in LANCING e DEV) [facility] Lancet 2019-0 Yes USE WITH [facility] Devices 6-20 LANCET TO [facility] (SIMPLE 00:00: TEST BLOOD of DIAGNOSTICS 00 GLUCOSE Medic in LANCING e DEV) [facility] Lancet 2019-0 Yes USE WITH [facility] Devices 6-20 LANCET TO [facility] (SIMPLE 00:00: TEST BLOOD of DIAGNOSTICS 00 GLUCOSE Medic in LANCING e DEV) [facility] Lancet 2019-0 Yes USE WITH [facility] Devices 6-20 LANCET TO [facility] (SIMPLE 00:00: TEST BLOOD of DIAGNOSTICS 00 GLUCOSE Medic in LANCING e DEV) [facility] Lancet 2019-0 Yes USE WITH [facility] 6-20 LANCET TO [facility] (SIMPLE 00:00: TEST BLOOD of DIAGNOSTICS 00 GLUCOSE Medic in LANCING e DEV) [facility] Alcohol 2019-0 Yes USE TO [facility] Swabs 6-20 TEST BLOOD [facility] (PHARMACIST 00:00: GLUCOSE of CHOICE 00 ONCE A DAY Medicin ALCOHOL) e PADS ONE TOUCH 2019-0 Yes USE TO [facility] ULTRA TEST 6-20 TEST BLOOD [facility] 00:00: GLUCOSE of 00 ONCE A DAY Medicin e [facility] 2019-0 Yes USE WITH [facility] 6-20 LANCET TO [facility] (SIMPLE 00:00: TEST BLOOD of DIAGNOSTICS 00 GLUCOSE Medic in LANCING e DEV) [facility] Lancet 2019-0 Yes USE WITH [facility] 6-20 LANCET TO [place] (SIMPLE 00:00: TEST BLOOD of DIAGNOSTICS 00 GLUCOSE Medic in LANCING e DEV) [facility] PHARMACIST 2019-0 Yes USE TO [facility] 6-20 TEST BLOOD [place] LANCETS 00:00: GLUCOSE of [facility] 00 ONCE A DAY Medicin e Lanc[facility] 2019-0 Yes USE WITH [facility] Devices 6-20 LANCET TO [facility] (SIMPLE 00:00: TEST BLOOD of DIAGNOSTICS 00 GLUCOSE Medic in LANCING e DEV) [facility] Lancet 2019-0 Yes USE WITH [facility] 6-20 LANCET TO [place] (SIMPLE 00:00: TEST BLOOD of DIAGNOSTICS 00 GLUCOSE Medic in LANCING e DEV) [facility] Lancet 2019-0 Yes USE WITH [facility] Devices 6-20 LANCET TO [place] (SIMPLE 00:00: TEST BLOOD of DIAGNOSTICS 00 GLUCOSE Medic in LANCING e DEV) [facility] Lancet 2019-0 Yes USE WITH [facility] 6-20 LANCET TO [place] (SIMPLE 00:00: TEST BLOOD of DIAGNOSTICS 00 GLUCOSE Medic in LANCING e DEV) [facility] Lancet 2019-0 Yes USE WITH [employer] 6-20 LANCET TO [place] (SIMPLE 00:00: TEST BLOOD of DIAGNOSTICS 00 GLUCOSE Medic in LANCING e DEV) [facility] [facility] [place] Lancet 2019-0 Yes USE WITH [facility] [employer] 6-20 LANCET TO [place] (SIMPLE 00:00: TEST BLOOD of DIAGNOSTICS 00 GLUCOSE Medic in LANCING e DEV) [facility] Lancet 2019-0 Yes USE WITH [employer] 6-20 LANCET TO [facility] (SIMPLE 00:00: TEST BLOOD of DIAGNOSTICS 00 GLUCOSE Medic in LANCING e DEV) [facility] Alcohol 2019-0 Yes USE TO [facility] Swabs 6-20 TEST BLOOD College (PHARMACIST 00:00: GLUCOSE of CHOICE 00 ONCE A DAY Medicin ALCOHOL) e PADS Lancet 2019-0 Yes USE WITH [facility] Devices 6-20 LANCET TO [facility] (SIMPLE 00:00: TEST BLOOD of DIAGNOSTICS 00 GLUCOSE Medic in LANCING e DEV) [facility] ONE TOUCH 2019-0 Yes USE TO [facility] ULTRA TEST 6-20 TEST BLOOD Col lege 00:00: GLUCOSE of 00 ONCE A DAY Medicin e Lancet 2019-0 Yes USE WITH [employer] 6-20 LANCET TO [facility] (SIMPLE 00:00: TEST BLOOD of DIAGNOSTICS 00 GLUCOSE Medic in LANCING e DEV) [facility] PHARMACIST 2019-0 Yes USE TO [facility] CHO[facility] 6-20 TEST BLOOD [facility] LANCETS 00:00: GLUCOSE of [facility] 00 ONCE A DAY Medicin e Lancet 2019-0 Yes USE WITH [employer] 6-20 LANCET TO [place] (SIMPLE 00:00: TEST BLOOD of DIAGNOSTICS 00 GLUCOSE Medic in LANCING e DEV) [facility] Lancet 2019-0 Yes USE WITH [employer] 6-20 LANCET TO [facility] (SIMPLE 00:00: TEST BLOOD of DIAGNOSTICS 00 GLUCOSE Medic in LANCING e DEV) [facility] [place] Lancet 2019-0 Yes USE WITH [facility] Devices 6-20 LANCET TO [facility] (SIMPLE 00:00: TEST BLOOD of DIAGNOSTICS 00 GLUCOSE Medic in LANCING e DEV) [facility] [place] Lancet 2019-0 Yes USE WITH [facility] Devices 6-20 LANCET TO [facility] (SIMPLE 00:00: TEST BLOOD of DIAGNOSTICS 00 GLUCOSE Medic in LANCING e DEV) [facility] [place] Lancet 2019-0 Yes USE WITH [employer] 6-20 LANCET TO [facility] (SIMPLE 00:00: TEST BLOOD of DIAGNOSTICS 00 GLUCOSE Medic in LANCING e DEV) [facility] [place] Lancet 2019-0 Yes USE WITH [facility] Devices 6-20 LANCET TO [facility] (SIMPLE 00:00: TEST BLOOD of DIAGNOSTICS 00 GLUCOSE Medic in LANCING e DEV) [facility] [place] Lancet 2019-0 Yes USE WITH [employer] 6-20 LANCET TO [place] (SIMPLE 00:00: TEST BLOOD of DIAGNOSTICS 00 GLUCOSE Medic in LANCING e DEV) [facility] Alcohol 2019-0 Yes USE TO [facility] Swabs 6-20 TEST BLOOD College (PHARMACIST 00:00: GLUCOSE of CHOICE 00 ONCE A DAY Medicin ALCOHOL) e PADS ONE TOUCH 2019-0 Yes USE TO [facility] ULTRA TEST 6-20 TEST BLOOD Col lege 00:00: GLUCOSE of 00 ONCE A DAY Medicin e Lancet 2019-0 Yes USE WITH [facility] 6-20 LANCET TO [facility] (SIMPLE 00:00: TEST BLOOD of DIAGNOSTICS 00 GLUCOSE Medic in LANCING e DEV) [facility] [place] Lancet 2019-0 Yes USE WITH [employer] 6-20 LANCET TO [facility] (SIMPLE 00:00: TEST BLOOD of DIAGNOSTICS 00 GLUCOSE Medic in LANCING e DEV) [facility] PHARMACIST 2019-0 Yes USE TO [facility] 6-20 TEST BLOOD [facility] LANCETS 00:00: GLUCOSE of MISC 00 ONCE A DAY Medicin e Alcohol 2018-0 Yes USE TO [facility] Sw[facility] 6-20 TEST BLOOD [facility] (PHARMACIST 00:00: GLUCOSE of CHOICE 00 ONCE A DAY Medicin ALCOHOL) e PADS ONE TOUCH 2018-0 Yes USE TO [facility] ULTRA TEST 6-20 TEST BLOOD Col lege 00:00: GLUCOSE of 00 ONCE A DAY Medicin e [place] 2018-0 Yes USE WITH [facility] 6-20 LANCET TO [facility] (SIMPLE 00:00: TEST BLOOD of DIAGNOSTICS 00 GLUCOSE Medic in LANCING e DEV) [facility] PHARMACIST 2019-0 Yes USE TO [facility] 6-20 TEST BLOOD [facility] LANCETS 00:00: GLUCOSE of MISC 00 ONCE A DAY Medicin e Alcohol 2018-0 Yes USE TO [facility] Swabs 6-20 TEST BLOOD [facility] (PHARMACIST 00:00: GLUCOSE of CHOICE 00 ONCE A DAY Medicin ALCOHOL) e PADS ONE TOUCH 2018-0 Yes USE TO [facility] ULTRA TEST 6-20 TEST BLOOD Col lege 00:00: GLUCOSE of 00 ONCE A DAY Medicin e Lanc[place] 2019-0 Yes USE WITH [facility] Devices 6-20 LANCET TO [facility] (SIMPLE 00:00: TEST BLOOD of DIAGNOSTICS 00 GLUCOSE Medic in LANCING e DEV) [facility] [place] PHARMACIST 2019-0 Yes USE TO [facility] 6-20 TEST BLOOD [facility] LANCETS 00:00: GLUCOSE of MISC 00 ONCE A DAY Medicin e Alcohol 2019-0 Yes USE TO [facility] Swabs 6-20 TEST BLOOD College (PHARMACIST 00:00: GLUCOSE of CHOICE 00 ONCE A DAY Medicin ALCOHOL) e PADS ONE TOUCH 2019-0 Yes USE TO [facility] ULTRA TEST 6-20 TEST BLOOD Col lege 00:00: GLUCOSE of 00 ONCE A DAY Medicin e Lancet 2019-0 Yes USE WITH [facility] Devices 6-20 LANCET TO [facility] (SIMPLE 00:00: TEST BLOOD of DIAGNOSTICS 00 GLUCOSE Medic in LANCING e DEV) [facility] [place] PHARMACIST 2019-0 Yes USE TO [facility] 6-20 TEST BLOOD [facility] LANCETS 00:00: GLUCOSE of MISC 00 ONCE A DAY Medicin e Lancet 2019-0 Yes USE WITH [facility] Devices 6-20 LANCET TO [facility] (SIMPLE 00:00: TEST BLOOD of DIAGNOSTICS 00 GLUCOSE Medic in LANCING e DEV) [facility] [place] Alcohol 2018-0 Yes USE TO [facility] Sw[facility] 6-20 TEST BLOOD College (PHARMACIST 00:00: GLUCOSE of CHOICE 00 ONCE A DAY Medicin ALCOHOL) e PADS ONE TOUCH 2018-0 Yes USE TO [facility] ULTRA TEST 6-20 TEST BLOOD Col lege 00:00: GLUCOSE of 00 ONCE A DAY Medicin e Lancet 2018-0 Yes USE WITH [facility] Devices 6-20 LANCET TO [facility] (SIMPLE 00:00: TEST BLOOD of DIAGNOSTICS 00 GLUCOSE Medic in LANCING e DEV) [facility] [place] PHARMACIST 2019-0 Yes USE TO [facility] 6-20 TEST BLOOD [facility] LANCETS 00:00: GLUCOSE of MISC 00 ONCE A DAY Medicin e Alcohol 2018-0 Yes USE TO [facility] Swabs 6-20 TEST BLOOD College (PHARMACIST 00:00: GLUCOSE of CHOICE 00 ONCE A DAY Medicin ALCOHOL) e PADS ONE TOUCH 2018-0 Yes USE TO [facility] ULTRA TEST 6-20 TEST BLOOD Col lege 00:00: GLUCOSE of 00 ONCE A DAY Medicin e [place] 2019-0 Yes USE WITH [facility] 6-20 LANCET TO [facility] (SIMPLE 00:00: TEST BLOOD of DIAGNOSTICS 00 GLUCOSE Medic in LANCING e DEV) [facility] PHARMACIST 2019-0 Yes USE TO [facility] 6-20 TEST BLOOD [facility] LANCETS 00:00: GLUCOSE of MISC 00 ONCE A DAY Medicin e Alcohol 2018-0 Yes USE TO [facility] Sw[facility] 6-20 TEST BLOOD [facility] (PHARMACIST 00:00: GLUCOSE of CHOICE 00 ONCE A DAY Medicin ALCOHOL) e PADS ONE TOUCH 2019-0 Yes USE TO [facility] ULTRA TEST 6-20 TEST BLOOD Col lege 00:00: GLUCOSE of 00 ONCE A DAY Medicin e [place] 2019-0 Yes USE WITH [facility] Devices 6-20 LANCET TO [facility] (SIMPLE 00:00: TEST BLOOD of DIAGNOSTICS 00 GLUCOSE Medic in LANCING e DEV) [facility] [place] PHARMACIST 2019-0 Yes USE TO [facility] 6-20 TEST BLOOD [facility] LANCETS 00:00: GLUCOSE of MISC 00 ONCE A DAY Medicin e Alcohol 2019-0 Yes USE TO [facility] Sw[facility] 6-20 TEST BLOOD [facility] (PHARMACIST 00:00: GLUCOSE of CHOICE 00 ONCE A DAY Medicin ALCOHOL) e PADS ONE TOUCH 2019-0 Yes USE TO [facility] ULTRA TEST 6-20 TEST BLOOD Col lege 00:00: GLUCOSE of 00 ONCE A DAY Medicin e Lancet 2019-0 Yes USE WITH [facility] Devices 6-20 LANCET TO [facility] (SIMPLE 00:00: TEST BLOOD of DIAGNOSTICS 00 GLUCOSE Medic in LANCING e DEV) [facility] [place] PHARMACIST 2019-0 Yes USE TO [facility] 6-20 TEST BLOOD [facility] LANCETS 00:00: GLUCOSE of MISC 00 ONCE A DAY Medicin e Alcohol 2018-0 Yes USE TO [facility] 6-20 TEST BLOOD [facility] (PHARMACIST 00:00: GLUCOSE of CHOICE 00 ONCE A DAY Medicin ALCOHOL) e PADS ONE TOUCH 2019-0 Yes USE TO [facility] ULTRA TEST 6-20 TEST BLOOD Col lege 00:00: GLUCOSE of 00 ONCE A DAY Medicin e Lanc[place] 2019-0 Yes USE WITH [facility] Devices 6-20 LANCET TO [facility] (SIMPLE 00:00: TEST BLOOD of DIAGNOSTICS 00 GLUCOSE Medic in LANCING e DEV) [facility] [place] PHARMACIST 2019-0 Yes USE TO [facility] 6-20 TEST BLOOD [facility] LANCETS 00:00: GLUCOSE of MISC 00 ONCE A DAY Medicin e Alcohol 2019-0 Yes USE TO [facility] Swabs 6-20 TEST BLOOD [facility] (PHARMACIST 00:00: GLUCOSE of CHOICE 00 ONCE A DAY Medicin ALCOHOL) e PADS ONE TOUCH 2019-0 Yes USE TO [facility] ULTRA TEST 6-20 TEST BLOOD Col lege 00:00: GLUCOSE of 00 ONCE A DAY Medicin e [place] 2019-0 Yes USE WITH [employer] 6-20 LANCET TO [facility] (SIMPLE 00:00: TEST BLOOD of DIAGNOSTICS 00 GLUCOSE Medic in LANCING e DEV) [facility] PHARMACIST 2019-0 Yes USE TO [facility] 6-20 TEST BLOOD [facility] LANCETS 00:00: GLUCOSE of MISC 00 ONCE A DAY Medicin e Alcohol 2019-0 Yes USE TO [facility] Swabs 6-20 TEST BLOOD [facility] (PHARMACIST 00:00: GLUCOSE of CHOICE 00 ONCE A DAY Medicin ALCOHOL) e PADS ONE TOUCH 2019-0 Yes USE TO [facility] ULTRA TEST 6-20 TEST BLOOD Col lege 00:00: GLUCOSE of 00 ONCE A DAY Medicin e [place] 2019-0 Yes USE WITH [facility] Devices 6-20 LANCET TO [facility] (SIMPLE 00:00: TEST BLOOD of DIAGNOSTICS 00 GLUCOSE Medic in LANCING e DEV) [facility] PHARMACIST 2019-0 Yes USE TO [facility] CHO[facility] 6-20 TEST BLOOD [facility] LANCETS 00:00: GLUCOSE of MISC 00 ONCE A DAY Medicin e Alcohol 2019-0 Yes USE TO [facility] Sw[facility] 6-20 TEST BLOOD [facility] (PHARMACIST 00:00: GLUCOSE of CHOICE 00 ONCE A DAY Medicin ALCOHOL) e PADS ONE TOUCH 2019-0 Yes USE TO [facility] ULTRA TEST 6-20 TEST BLOOD Col lege 00:00: GLUCOSE of 00 ONCE A DAY Medicin e Lancet 2019-0 Yes USE WITH [employer] 6-20 LANCET TO [facility] (SIMPLE 00:00: TEST BLOOD of DIAGNOSTICS 00 GLUCOSE Medic in LANCING e DEV) [facility] PHARMACIST 2019-0 Yes USE TO [facility] CHO[facility] 6-20 TEST BLOOD [facility] LANCETS 00:00: GLUCOSE of MISC 00 ONCE A DAY Medicin e Alcohol 2019-0 Yes USE TO [facility] Swabs 6-20 TEST BLOOD [facility] (PHARMACIST 00:00: GLUCOSE of CHOICE 00 ONCE A DAY Medicin ALCOHOL) e PADS ONE TOUCH 2019-0 Yes USE TO [facility] ULTRA TEST 6-20 TEST BLOOD Col lege 00:00: GLUCOSE of 00 ONCE A DAY Medicin e Lancet 2019-0 Yes USE WITH [facility] Devices 6-20 LANCET TO [facility] (SIMPLE 00:00: TEST BLOOD of DIAGNOSTICS 00 GLUCOSE Medic in LANCING e DEV) [facility] PHARMACIST 2019-0 Yes USE TO [facility] CHO[facility] 6-20 TEST BLOOD [facility] LANCETS 00:00: GLUCOSE of MISC 00 ONCE A DAY Medicin e Alcohol 2019-0 Yes USE TO [facility] Swabs 6-20 TEST BLOOD [facility] (PHARMACIST 00:00: GLUCOSE of CHOICE 00 ONCE A DAY Medicin ALCOHOL) e PADS Lancet 2019-0 Yes USE WITH [facility] Devices 6-20 LANCET TO [facility] (SIMPLE 00:00: TEST BLOOD of DIAGNOSTICS 00 GLUCOSE Medic in LANCING e DEV) [facility] PHARMACIST 2019-0 Yes USE TO [facility] 6-20 TEST BLOOD [facility] LANCETS 00:00: GLUCOSE of MISC 00 ONCE A DAY Medicin e Alcohol 2019-0 Yes USE TO [facility] 6-20 TEST BLOOD [facility] (PHARMACIST 00:00: GLUCOSE of CHOICE 00 ONCE A DAY Medicin ALCOHOL) e PADS Lancet 2019-0 Yes USE WITH [facility] Devices 6-20 LANCET TO [facility] (SIMPLE 00:00: TEST BLOOD of DIAGNOSTICS 00 GLUCOSE Medic in LANCING e DEV) [facility] PHARMACIST 2019-0 Yes USE TO [facility] CHO[facility] 6-20 TEST BLOOD [facility] LANCETS 00:00: GLUCOSE of MISC 00 ONCE A DAY Medicin e Lancet 2019-0 Yes USE WITH [facility] Devices 6-20 LANCET TO [facility] (SIMPLE 00:00: TEST BLOOD of DIAGNOSTICS 00 GLUCOSE Medic in LANCING e DEV) [facility] Alcohol 2019-0 Yes USE TO [facility] Sw[facility] 6-20 TEST BLOOD [facility] (PHARMACIST 00:00: GLUCOSE of CHOICE 00 ONCE A DAY Medicin ALCOHOL) e PADS Lanc[facility] 2019-0 Yes USE WITH [facility] Devices 6-20 LANCET TO [facility] (SIMPLE 00:00: TEST BLOOD of DIAGNOSTICS 00 GLUCOSE Medic in LANCING e DEV) [facility] [place] PHARMACIST 2019-0 Yes USE TO [facility] CHO[facility] 6-20 TEST BLOOD [facility] LANCETS 00:00: GLUCOSE of MISC 00 ONCE A DAY Medicin e Alcohol 2019-0 Yes USE TO [facility] Swabs 6-20 TEST BLOOD [facility] (PHARMACIST 00:00: GLUCOSE of CHOICE 00 ONCE A DAY Medicin ALCOHOL) e PADS Lancet 2019-0 Yes USE WITH [employer] 6-20 LANCET TO [facility] (SIMPLE 00:00: TEST BLOOD of DIAGNOSTICS 00 GLUCOSE Medic in LANCING e DEV) [facility] PHARMACIST 2019-0 Yes USE TO [facility] CHO[facility] 6-20 TEST BLOOD [facility] LANCETS 00:00: GLUCOSE of MISC 00 ONCE A DAY Medicin e Alcohol 2019-0 Yes USE TO [facility] Swabs 6-20 TEST BLOOD [facility] (PHARMACIST 00:00: GLUCOSE of CHOICE 00 ONCE A DAY Medicin ALCOHOL) e PADS [place] 2019-0 Yes USE WITH [facility] [employer] 6-20 LANCET TO [facility] (SIMPLE 00:00: TEST BLOOD of DIAGNOSTICS 00 GLUCOSE Medic in LANCING e DEV) [facility] PHARMACIST 2019-0 Yes USE TO [facility] CHO[facility] 6-20 TEST BLOOD [facility] LANCETS 00:00: GLUCOSE of MISC 00 ONCE A DAY Medicin e Alcohol 2019-0 Yes USE TO [facility] Swabs 6-20 TEST BLOOD [facility] (PHARMACIST 00:00: GLUCOSE of CHOICE 00 ONCE A DAY Medicin ALCOHOL) e PADS [facility] Yes USE WITH [facility] [employer] 6-20 LANCET TO [facility] (SIMPLE 00:00: TEST BLOOD of DIAGNOSTICS 00 GLUCOSE Medic in LANCING e DEV) [facility] PHARMACIST 2018- Yes USE TO [facility] CHO[facility] 6-20 TEST BLOOD [facility] LANCETS 00:00: GLUCOSE of MISC 00 ONCE A DAY Medicin e Alcohol 2018- Yes USE TO [facility] Swabs 6-20 TEST BLOOD College (PHARMACIST 00:00: GLUCOSE of CHOICE 00 ONCE A DAY Medicin ALCOHOL) e PADS [place] 2018- Yes USE WITH [facility] [employer] 6-20 LANCET TO [facility] (SIMPLE 00:00: TEST BLOOD of DIAGNOSTICS 00 GLUCOSE Medic in LANCING e DEV) [facility] PHARMACIST 2018- Yes USE TO [facility] CHO[facility] 6-20 TEST BLOOD [facility] LANCETS 00:00: GLUCOSE of MISC 00 ONCE A DAY Medicin e Alcohol 2018- Yes USE TO [facility] Sw[facility] 6-20 TEST BLOOD [facility] (PHARMACIST 00:00: GLUCOSE of CHOICE 00 ONCE A DAY Medicin ALCOHOL) e PADS PHARMACIST 2018-0 2020- No USE TO [facility] CHOICE 6-20 02-11 TEST BLOOD Colleg e LANCETS 00:00: 00:00 GLUCOSE of MISC 00 :00 ONCE A DAY Medicin e ONE TOUCH 2018-2019- No USE TO [facility] ULTRA TEST 6-20 - TEST BLOOD Co llege 00:00: 00:00 GLUCOSE of 00 :00 ONCE A DAY Medicin e naproxen Yes TAKE 1 [facility] (NAPROSYN) 4-16 TABLET BY [place] 500 MG 00:00: MOUTH of tablet 00 TWICE Medicin DAILY WITH e MEALS naproxen Yes TAKE 1 [facility] (NAPROSYN) 4-16 TABLET BY [place] 500 MG 00:00: MOUTH of tablet 00 TWICE Medicin DAILY WITH e MEALS naproxen Yes TAKE 1 [facility] (NAPROSYN) 4-16 TABLET BY [place] 500 MG 00:00: MOUTH of tablet 00 TWICE Medicin DAILY WITH e MEALS naproxen Yes TAKE 1 [facility] (NAPROSYN) 4-16 TABLET BY [place] 500 MG 00:00: MOUTH of tablet 00 TWICE Medicin DAILY WITH e MEALS naproxen 2019-0 Yes TAKE 1 [facility] (NAPROSYN) 4-16 TABLET BY [place] 500 MG 00:00: MOUTH of tablet 00 TWICE Medicin DAILY WITH e MEALS naproxen Yes TAKE 1 [facility] (NAPROSYN) 4-16 TABLET BY [place] 500 MG 00:00: MOUTH of tablet 00 TWICE Medicin DAILY WITH e MEALS naproxen Yes TAKE 1 [facility] (NAPROSYN) 4-16 TABLET BY [place] 500 MG 00:00: MOUTH of tablet 00 TWICE Medicin DAILY WITH e MEALS NAPROXEN Yes [id number] TAKE 1 [facility] 500 mg 4-16 [id number] TABLET BY ity of tablet 00:00: MOUTH TWICE Medical DAILY WITH Branch MEALS NAPROXEN Yes [id number] TAKE 1 [facility] 500 mg 4-16 [id number] TABLET BY ity of tablet 00:00: MOUTH 00 TWICE Medical DAILY WITH Branch MEALS naproxen 2020- No TAKE 1 [facility] (NAPROSYN) 4-16 06-18 TABLET BY Col lege 500 MG 00:00: 00:00 MOUTH of tablet 00 :00 TWICE Medicin DAILY WITH e MEALS naproxen 2020- No TAKE 1 [facility] (NAPROSYN) 4-16 03-16 TABLET BY Col lege 500 MG 00:00: 00:00 MOUTH of tablet 00 :00 TWICE Medicin DAILY WITH e MEALS Glucometer Yes Check [facility] Kit 3-28 glucose College 00:00: daily; Dx of Medicin e Glucometer Yes Check [facility] Kit 3-28 glucose College 00:00: daily; Dx of Medicin e Glucometer Yes Check [facility] Kit 3-28 glucose College 00:00: daily; Dx of Medicin e Glucometer Yes Check [facility] Kit 3-28 glucose College 00:00: daily; Dx of Medicin e Glucometer Yes Check [facility] Kit 3-28 glucose College 00:00: daily; Dx of Medicin e Glucometer Yes Check [facility] Kit 3-28 glucose College 00:00: daily; Dx of Medicin e metformin Yes [id number] 500mg Take 1 Tab [facility] (GLUCOPHAGE 3-28 by mouth [place] -XR) 500 MG 00:00: daily. of XR tablet Medicin e Glucometer Yes Check [facility] Kit 3-28 glucose College 00:00: daily; Dx of Medicin e TRADJENTA 5 Yes [id number] 5mg Take 5 mg [facility] MG TABS 3-28 by mouth College 00:00: daily. of Medicin e Glucometer Yes Check [facility] Kit 3-28 glucose College 00:00: daily; Dx of Medicin e Glucometer Yes Check [facility] Kit 3-28 glucose College 00:00: daily; Dx of Medicin e Glucometer Yes Check [facility] Kit 3-28 glucose College 00:00: daily; Dx of Medicin e Glucometer Yes Check [facility] Kit 3-28 glucose College 00:00: daily; Dx of Medicin e Glucometer Yes Check [facility] Kit 3-28 glucose College 00:00: daily; Dx of Medicin e Glucometer Yes Check [facility] Kit 3-28 glucose College 00:00: daily; Dx of Medicin e Glucometer Yes Check [facility] Kit 3-28 glucose College 00:00: daily; Dx of Medicin e Glucometer Yes Check [facility] Kit 3-28 glucose College 00:00: daily; Dx of Medicin e Glucometer Yes Check [facility] Kit 3-28 glucose College 00:00: daily; Dx of Medicin e metformin Yes [id number] 500mg Take 1 Tab [facility] (GLUCOPHAGE 3-28 by mouth [place] -XR) 500 MG 00:00: daily. of XR tablet Medicin e Glucometer Yes Check [facility] Kit 3-28 glucose College 00:00: daily; Dx of Medicin e TRADJENTA 5 Yes [id number] 5mg Take 5 mg [facility] MG TABS 3-28 by mouth College 00:00: daily. of Medicin e Glucometer Yes Check [facility] Kit 3-28 glucose College 00:00: daily; Dx of Medicin e metformin 2019-0 Yes [id number] 500mg Take 1 Tab [facility] (GLUCOPHAGE 3-28 by mouth [place] -XR) 500 MG 00:00: daily. of XR tablet Medicin e Glucometer Yes Check [facility] Kit 3-28 glucose College 00:00: daily; Dx of Medicin e TRADJENTA 5 2019-0 Yes [id number] 5mg Take 5 mg [facility] MG TABS 3-28 by mouth College 00:00: daily. of Medicin e metformin 2018- Yes [id number] 500mg Take 1 Tab [facility] (GLUCOPHAGE 3-28 by mouth [place] -XR) 500 MG 00:00: daily. of XR tablet Medicin e Glucometer Yes Check [facility] Kit 3-28 glucose College 00:00: daily; Dx of Medicin e TRADJENTA 5 2018- Yes [id number] 5mg Take 5 mg [facility] MG TABS 3-28 by mouth College 00:00: daily. of Medicin e metformin 2018- Yes [id number] 500mg Take 1 Tab [facility] (GLUCOPHAGE 3-28 by mouth [place] [facility] -XR) 500 MG 00:00: daily. of XR tablet Medicin e Glucometer Yes Check [facility] Kit 3-28 glucose College 00:00: daily; Dx of Medicin e TRADJENTA 5 Yes [id number] 5mg Take 5 mg [facility] MG TABS 3-28 by mouth College 00:00: daily. of Medicin e Glucometer Yes Check [facility] Kit 3-28 glucose College 00:00: daily; Dx of Medicin e Glucometer Yes Check [facility] Kit 3-28 glucose College 00:00: daily; Dx of Medicin e Glucometer Yes Check [facility] Kit 3-28 glucose College 00:00: daily; Dx of Medicin e Glucometer Yes Check [facility] Kit 3-28 glucose College 00:00: daily; Dx of Medicin e Glucometer Yes Check [facility] Kit 3-28 glucose College 00:00: daily; Dx of Medicin e Glucometer 2019-0 Yes Check [facility] Kit 3-28 glucose College 00:00: daily; Dx of Medicin e Glucometer 2018- Yes Check [facility] Kit 3-28 glucose College 00:00: daily; Dx of Medicin e Glucometer 2018- Yes Check [facility] Kit 3-28 glucose College 00:00: daily; Dx of Medicin e Glucometer 2018- Yes Check [facility] Kit 3- glucose College 00:00: daily; Dx of Medicin e Glucometer 2018- Yes Check [facility] Kit 3-28 glucose College 00:00: daily; Dx of Medicin e Glucometer 2018- Yes Check [facility] Kit 3-28 glucose College 00:00: daily; Dx of Medicin e Glucometer 2018- Yes Check [facility] Kit 3-28 glucose College 00:00: daily; Dx of Medicin e Glucometer Yes Check [facility] Kit 3- glucose College 00:00: daily; Dx of Medicin e Glucometer 2018- Yes Check [facility] Kit 3-28 glucose College 00:00: daily; Dx of Medicin e Glucometer 2018- Yes Check [facility] Kit 3-28 glucose College 00:00: daily; Dx of Medicin e Glucometer 2018- Yes Check [facility] Kit 3-28 glucose College 00:00: daily; Dx of Medicin e Glucometer 2018- Yes Check [facility] Kit 3-28 glucose College 00:00: daily; Dx of Medicin e Glucometer 2018- Yes Check [facility] Kit 3-28 glucose College 00:00: daily; Dx of Medicin e Glucometer 2018- Yes Check [facility] Kit 3-28 glucose College 00:00: daily; Dx of Medicin e Glucometer 2020- No Check [facility] Kit 3-28 -17 glucose College 00:00: 00:00 daily; Dx of 00 : Medicin e lisinopril 2018-0 Yes [id number] 20mg Take 20 mg [facility] (PRINIVIL,Z 3-11 by mouth ity of ESTRIL) 20 18:14: daily. [place] mg tablet 17 Medical [facility] amlodipine Yes Take by [facility] ers besylate 3-11 mouth. ity of (AMLODIPINE 18:14: [place] ORAL) 17 Medical [facility] lisinopril Yes [id number] 20mg Take 20 mg [facility] (PRINIVIL,Z 3-11 by mouth ity of ESTRIL) 20 18:14: daily. [place] mg tablet 17 [facility] amlodipine Yes Take by [facility] ers besylate 3-11 mouth. ity of (AMLODIPINE 18:14: [place] ORAL) 17 [facility] glipiZIDE Yes [id number] 20mg Take 2 [facility] (GLUCOTROL) 2-06 Tabs by Colle ge 10 MG 00:00: mouth two of tablet 00 times Medicin daily. e glipiZIDE Yes [id number] 20mg Take 2 [facility] (GLUCOTROL) 2-06 Tabs by Colle ge 10 MG 00:00: mouth two of tablet 00 times Medicin daily. e glipiZIDE Yes [id number] 20mg Take 2 [facility] (GLUCOTROL) 2-06 Tabs by Colle ge 10 MG 00:00: mouth two of tablet 00 times Medicin daily. e glipiZIDE Yes [id number] 20mg Take 2 [facility] (GLUCOTROL) 2-06 Tabs by Colle ge 10 MG 00:00: mouth two of tablet 00 times Medicin daily. e amlodipine 2017-07 Yes 10mg Take 10 mg [facility] (NORVASC) 1-21 by mouth Colleg e 10 MG 00:00: daily. of tablet 00 Medicin e amlodipine 2017-07 Yes 10mg Take 10 mg [facility] (NORVASC) 1-21 by mouth Colleg e 10 MG 00:00: daily. of tablet 00 Medicin e Empaglifloz 2017-07 Yes [id number] 1{tbl} Take 1 [facility] in 0-09 tablet by [place] (JARDIANCE) 00:00: mouth of 25 MG TABS 00 daily. Medicin e Empaglifloz 2017- Yes [id number] 1{tbl} Take 1 [facility] in 0-09 tablet by [place] (JARDIANCE) 00:00: mouth of 25 MG TABS 00 daily. Medicin e Empaglifloz 2017-07 Yes [id number] 1{tbl} Take 1 [facility] in 0-09 tablet by [place] (JARDIANCE) 00:00: mouth of 25 MG TABS 00 daily. Medicin e Empaglifloz 2017- Yes [id number] 1{tbl} Take 1 [facility] in 0-09 tablet by [place] (JARDIANCE) 00:00: mouth of 25 MG TABS 00 daily. Medicin e metformin Yes [id number] 1000mg Take 1,000 [facility] (GLUCOPHAGE 6-29 mg by ity of ) 1,000 mg 10:42: mouth 2 [place] 01 (two) Medical times [facility] daily with meals. metformin Yes [id number] 1000mg Take 1,000 [facility] (GLUCOPHAGE 6-29 mg by ity of ) 1,000 mg 10:42: mouth 2 [place] 01 (two) Medical times [facility] daily with meals. linaGLIPtin Yes TK 1 T PO [facility] (TRADJENTA) 6-13 D [facility] 5 MG TABS 00:00: 00 Medicin e linaGLIPtin Yes TK 1 T PO [facility] (TRADJENTA) 6-13 D [facility] 5 MG TABS 00:00: of 00 Medicin e linaGLIPtin Yes TK 1 T PO [facility] (TR[facility]) 6-13 [facility] 5 MG TABS 00:00: of 00 Medicin e linaGLIPtin Yes TK 1 T PO B [facility] ([facility]) 6-13 [facility] 5 MG TABS 00:00: of 00 Medicin e linaGLIPtin Yes TK 1 T PO B [facility] ([facility]) 6-13 [facility] 5 MG TABS 00:00: of 00 Medicin e [place] 5 Yes TK 1 T PO U nivers mg tablet 6-13 D ity of 00:00: [facility] TR[facility] 5 Yes TK 1 T PO U nivers mg tablet 6-13 D ity of 00:00: [facility] lovastatin Yes [id number] 20mg Take 20 mg [facility] ([facility]) 6-06 by mouth [facility] 20 MG 00:00: daily. of tablet 00 Medicin e lovastatin Yes [id number] 20mg Take 20 mg [facility] ([facility]) 6-06 [facility] 20 MG 00:00: daily. of tablet 00 Medicin e lovastatin 0 Yes [id number] 20mg Take 20 mg [facility] ([facility] 6[facility] 20 MG 00:00: daily. of tablet 00 Medicin e lovastatin 2017-0 Yes [id number] 20mg Take 20 mg [facility] ([facility]) [facility] 20 MG 00:00: daily. of tablet 00 Medicin e lovastatin Yes [id number] 20mg Take 20 mg [facility] ([facility]) 6[facility] 20 MG 00:00: daily. of tablet 00 Medicin e lovastatin Yes [id number] 20mg Take 20 mg [facility] ([facility] 20 MG 00:00: daily. of tablet 00 Medicin e lovastatin Yes [id number] 20mg Take 20 mg [facility] ([facility] 20 MG 00:00: daily. of tablet 00 Medicin e lovastatin Yes [id number] 20mg Take 20 mg [facility] ([facility] 20 MG 00:00: daily. of tablet 00 Medicin e lovastatin Yes [id number] 20mg Take 20 mg [facility] ([facility] 20 MG 00:00: daily. of tablet 00 Medicin e lovastatin Yes [id number] 20mg Take 20 mg [facility] ([facility] 20 MG 00:00: daily. of tablet 00 Medicin e lovastatin Yes TK 1 T [facility] ([facility] 20 MG 00:00: of tablet 00 Medicin e lovastatin Yes [id number] 20mg Take 20 mg [facility] ([facility]) 6[facility] 20 MG 00:00: daily. of tablet 00 Medicin e lovastatin Yes [id number] 20mg Take 20 mg [facility] ([facility]) 6[facility] 20 MG 00:00: daily. of tablet 00 Medicin e lovastatin Yes [id number] 20mg Take 20 mg [facility] ([facility] 20 MG 00:00: daily. of tablet 00 Medicin e lovastatin Yes [id number] 20mg Take 20 mg [facility] ([facility]) 6[facility] 20 MG 00:00: daily. of tablet 00 Medicin e lovastatin Yes [id number] 20mg Take 20 mg [facility] ([facility]) 6[facility] 20 MG 00:00: daily. of tablet 00 Medicin e lovastatin Yes [id number] 20mg Take 20 mg [facility] ([facility]) 6[facility] 20 MG 00:00: daily. of tablet 00 Medicin e lovastatin Yes [id number] 20mg Take 20 mg [facility] ([facility]) 6[facility]06 [facility] 20 MG 00:00: daily. of tablet 00 Medicin e lovastatin Yes [id number] 20mg Take 20 mg [facility] ([facility] 20 MG 00:00: daily. of tablet 00 Medicin e lovastatin Yes [id number] 20mg Take 20 mg [facility] ([facility]) 6[facility] 20 MG 00:00: daily. of tablet 00 Medicin e lovastatin Yes [id number] 20mg Take 20 mg [facility] ([facility]) 6[facility] 20 MG 00:00: daily. of tablet 00 Medicin e lovastatin Yes TK 1 T [facility] ([facility] 6[facility] 20 MG 00:00: of tablet 00 Medicin e lovastatin Yes [id number] 20mg Take 20 mg [facility] ([facility] 20 MG 00:00: daily. of tablet 00 Medicin e lovastatin Yes [id number] 20mg Take 20 mg [facility] ([facility]) 6[facility]06 [facility] 20 MG 00:00: daily. of tablet 00 Medicin e lovastatin Yes [id number] 20mg Take 20 mg [facility] ([facility]) 6[facility] 20 MG 00:00: daily. of tablet 00 Medicin e lovastatin 2018-0 Yes [id number] 20mg Take 20 mg [facility] ([facility]) 6[facility] 20 MG 00:00: daily. of tablet 00 Medicin e lovastatin 2017-0 Yes [id number] 20mg Take 20 mg [facility] ([facility] 6[facility] 20 MG 00:00: daily. of tablet 00 Medicin e lovastatin 2017-0 Yes [id number] 20mg Take 20 mg [facility] ([facility] 20 MG 00:00: daily. of tablet 00 Medicin e lovastatin 0 Yes [id number] 20mg Take 20 mg [facility] ([facility] 6[facility] 20 MG 00:00: daily. of tablet 00 Medicin e lovastatin 2017-0 Yes [id number] 20mg Take 20 mg [facility] ([facility]) 6[facility]06 [facility] 20 MG 00:00: daily. of tablet 00 Medicin e lovastatin Yes [id number] 20mg Take 20 mg [facility] ([facility]) 6[facility]06 [facility] 20 MG 00:00: daily. of tablet 00 Medicin e lovastatin Yes TK 1 T [facility] ([facility] 6[facility] 20 MG 00:00: of tablet 00 Medicin e lovastatin 0 Yes [id number] 20mg Take 20 mg [facility] ([facility] 20 MG 00:00: daily. of tablet 00 Medicin e lovastatin Yes [id number] 20mg Take 20 mg [facility] ([facility] 20 MG 00:00: daily. of tablet 00 Medicin e lovastatin Yes [id number] 20mg Take 20 mg [facility] ([facility]) 6[facility] 20 MG 00:00: daily. of tablet 00 Medicin e lovastatin 2017-0 Yes [id number] 20mg Take 20 mg [facility] ([facility]) 6[facility] 20 MG 00:00: daily. of tablet 00 Medicin e lovastatin 2017-0 Yes [id number] 20mg Take 20 mg [facility] ([facility]) [facility] 20 MG 00:00: daily. of tablet 00 Medicin e lovastatin 2017-0 Yes [id number] 20mg Take 20 mg [facility] ([facility]) [facility] 20 MG 00:00: daily. of tablet 00 Medicin e lovastatin 2017-0 Yes [id number] 20mg Take 20 mg [facility] ([facility]) 6[facility] 20 MG 00:00: daily. of tablet 00 Medicin e lovastatin 2017-0 Yes [id number] 20mg Take 20 mg [facility] ([facility]) [facility] 20 MG 00:00: daily. of tablet 00 Medicin e lovastatin 2017-0 Yes TK 1 T [facility] ([facility] 6[facility] 20 MG 00:00: of tablet 00 Medicin e lovastatin 2017-0 Yes [id number] 20mg Take 20 mg [facility] ([facility]) 6[facility]06 [facility] 20 MG 00:00: daily. of tablet 00 Medicin e lovastatin 2017-0 Yes TK 1 T [facility] ([facility] 6[facility] 20 MG 00:00: of tablet 00 Medicin e lovastatin 2017-0 Yes [id number] 20mg Take 20 mg [facility] ([facility] 20 MG 00:00: daily. of tablet 00 Medicin e lovastatin 2017-0 Yes [id number] 20mg Take 20 mg [facility] ([facility]) 6[facility] 20 MG 00:00: daily. of tablet 00 Medicin e lovastatin 2017-0 Yes [id number] 20mg Take 20 mg [facility] ([facility]) 6[facility]06 [facility] 20 MG 00:00: daily. of tablet 00 Medicin e lovastatin 2017-0 Yes [id number] 20mg Take 20 mg [facility] ([facility]) 6[facility]06 [facility] 20 MG 00:00: daily. of tablet 00 Medicin e lovastatin 2018-0 Yes [id number] 20mg Take 20 mg [facility] ([facility]) 6[facility] 20 MG 00:00: daily. of tablet 00 Medicin e lovastatin 2017-0 Yes [id number] 20mg Take 20 mg [facility] ([facility]) 6[facility] 20 MG 00:00: daily. of tablet 00 Medicin e lovastatin 2017-0 Yes [id number] 20mg Take 20 mg [facility] ([facility]) 6[facility]06 [facility] 20 MG 00:00: daily. of tablet 00 Medicin e lovastatin 2018-0 Yes [id number] 20mg Take 20 mg [facility] ([facility]) 6[facility]06 [facility] 20 MG 00:00: daily. of tablet 00 Medicin e lovastatin 2017-0 Yes [id number] 20mg Take 20 mg [facility] ([facility]) 6[facility]06 [facility] 20 MG 00:00: daily. of tablet 00 Medicin e lovastatin 2017-0 Yes [id number] 20mg Take 20 mg [facility] ([facility]) 6[facility] 20 MG 00:00: daily. of tablet 00 Medicin e lovastatin 2017-0 Yes [id number] 20mg Take 20 mg [facility] ([facility]) 6[facility] 20 MG 00:00: daily. of tablet 00 Medicin e lovastatin 2017-0 Yes [id number] 20mg Take 20 mg [facility] ([facility]) 6[facility]06 [facility] 20 MG 00:00: daily. of tablet 00 Medicin e lovastatin 2017-0 Yes [id number] 20mg Take 20 mg [facility] ([facility]) 6[facility] 20 MG 00:00: daily. of tablet 00 Medicin e lovastatin 2017-0 Yes [id number] 20mg Take 20 mg [facility] ([facility]) 6[facility] 20 MG 00:00: daily. of tablet 00 Medicin e lovastatin 2017-0 Yes [id number] 20mg Take 20 mg [facility] ([facility]) 6[facility]06 [facility] 20 MG 00:00: daily. of tablet 00 Medicin e lovastatin 2017-0 Yes [id number] 20mg Take 20 mg [facility] ([facility]) 6[facility]06 [facility] 20 MG 00:00: daily. of tablet 00 Medicin e lovastatin 2017-0 Yes [id number] 20mg Take 20 mg [facility] ([facility]) 6[facility]06 [facility] 20 MG 00:00: daily. of tablet 00 Medicin e lovastatin 2017-0 Yes [id number] 20mg Take 20 mg [facility] ([facility]) 6[facility]06 [facility] 20 MG 00:00: daily. of tablet Medicin e lovastatin Yes [id number] 20mg Take 20 mg [facility] ([facility]) 6[facility] 20 MG 00:00: daily. of tablet 00 Medicin e lovastatin Yes [id number] 20mg Take 20 mg [facility] ([facility]) 6[facility]06 [facility] 20 MG 00:00: daily. of tablet Medicin e lovastatin Yes [id number] 20mg Take 20 mg [facility] ([facility]) 606 [facility] 20 MG 00:00: daily. of tablet Medicin e lovastatin Yes TK 1 T PO [facility] 20 mg 6-06 NIGHTLY ity of tablet 00:00: [facility] lovastatin Yes TK 1 T PO Un tai 20 mg 6-06 NIGHTLY ity of tablet 00:00: [place] [facility] escitalopra Yes TK 1 T PO [facility] (LEXAPRO) 6-05 D [facility] 10 MG 00:00: of tablet Medicin e escitalopra Yes TK 1 T PO [facility] (LEXAPRO) 6-05 [facility] 10 MG 00:00: of tablet Medicin e escitalopra Yes TK 1 T PO [facility] (LEXAPRO) 6-05 [facility] 10 MG 00:00: of tablet Medicin e escitalopra Yes TK 1 T PO [facility] (LEXAPRO) 6-05 [facility] 10 MG 00:00: of tablet Medicin e escitalopra Yes TK 1 T PO [facility] (LEXAPRO) 6-05 D [facility] 10 MG 00:00: of tablet Medicin e escitalopra Yes TK 1 T PO U nivers m oxalate 6-05 D ity of 10 mg 00:00: [place] [facility] escitalopra Yes TK 1 T PO U nivers m oxalate 6-05 D ity of 10 mg 00:00: [place] [facility] glipiZIDE Yes TK 2 TS [facility] (GLUCOTROL) 5-29 BID [facility] 10 MG 00:00: of tablet 00 Medicin e glipiZIDE Yes TK 2 TS [facility] (GLUCOTROL) 5-29 BID [facility] 10 MG 00:00: of tablet 00 Medicin e glipiZIDE Yes TK 2 TS [facility] (GLUCOTROL) 5-29 BID [facility] 10 MG 00:00: of tablet Medicin e glipiZIDE Yes TK 2 TS [facility] (GLUCOTROL) 5-29 BID [facility] 10 MG 00:00: of tablet Medicin e glipiZIDE Yes TK 2 TS PO Un [facility] 10 mg 5-29 BID ity of tablet 00:00: [place] [id number] [facility] glipiZIDE Yes TK 2 TS PO Un tai 10 mg 5-29 BID ity of tablet 00:00: [place] [id number] [facility] Immunizations Ordered Filled Immunization Date Status Comments Sour e Immunization Name Name Influenza 2020-04-08 Completed [facility] 00:00:00 [facility] Influenza 2020-04-08 Completed [facility] 00:00:00 Medicine Influenza 2020-04-08 Completed [facility] of 00:00:00 Medicine Influenza 2020-04-08 Completed [facility] of 00:00:00 Medicine Influenza 2020-04-08 Completed [facility] of 00:00:00 Medicine Influenza 2020-04-08 Completed [facility] 00:00:00 Medicine Influenza 2020-04-08 Completed [facility] 00:00:00 Medicine Influenza 2020-04-08 Completed [facility] of 00:00:00 Medicine Influenza 2020-04-08 Completed [facility] of 00:00:00 Medicine Influenza 2020-04-08 Completed [facility] of 00:00:00 Medicine Influenza 2020-04-08 Completed [facility] of 00:00:00 Medicine Influenza 2020-04-08 Completed [facility] 00:00:00 Medicine Influenza 2020-04-08 Completed [facility] of 00:00:00 Medicine Influenza 2020-04-08 Completed [facility] 00:00:00 Medicine Influenza 2020-04-08 Completed [facility] 00:00:00 Medicine Influenza 2020-04-08 Completed [facility] of 00:00:00 Medicine Influenza Hd 2020-04-08 Completed [facility] of 00:00:00 Medicine Influenza Hd 2020-04-08 Completed [facility] of 00:00:00 Medicine Influenza Hd 2020-04-08 Completed [facility] 00:00:00 Medicine Influenza Hd 2020-04-08 Completed [facility] of 00:00:00 Medicine Influenza Hd 2020-04-08 Completed [facility] of 00:00:00 Medicine Influenza Hd 2020-04-08 Completed [facility] 00:00:00 Medicine Influenza Hd 2020-04-08 Completed [facility] of 00:00:00 Medicine Influenza Hd 2020-04-08 Completed [facility] of 00:00:00 Medicine Influenza Hd 2020-04-08 Completed [facility] 00:00:00 Medicine Influenza Hd 2020-04-08 Completed [facility] of 00:00:00 Medicine Influenza Hd 2020-04-08 Completed [facility] 00:00:00 Medicine Influenza Hd 2020-04-08 Completed [facility] 00:00:00 Medicine Influenza Hd 2020-04-08 Completed [facility] of 00:00:00 Medicine Influenza Hd 2020-04-08 Completed [facility] 00:00:00 Medicine Influenza Hd 2020-04-08 Completed [facility] 00:00:00 Medicine Influenza Hd 2020-04-08 Completed [facility] of 00:00:00 Medicine Influenza Hd 2020-04-08 Completed [facility] 00:00:00 Medicine Influenza Hd 2020-04-08 Completed [facility] 00:00:00 Medicine Influenza Hd 2020-04-08 Completed [facility] of 00:00:00 Medicine Influenza Hd 2020-04-08 Completed [facility] of 00:00:00 Medicine Influenza Hd 2020-04-08 Completed [facility] 00:00:00 Medicine Influenza Hd 2020-04-08 Completed [facility] of 00:00:00 Medicine Influenza Hd 2020-04-08 Completed [facility] 00:00:00 Medicine Tdap 2019-09-16 Completed [facility] of 00:00:00 Medicine Tdap 2019-09-16 Completed [facility] of 00:00:00 Medicine Tdap 2019-09-16 Completed [facility] of 00:00:00 Medicine Tdap 2019-09-16 Completed [facility] of 00:00:00 Medicine Tdap 2019-09-16 Completed [facility] of 00:00:00 Medicine Tdap 2019-09-16 Completed [facility] of 00:00:00 Medicine Tdap 2019-09-16 Completed [facility] of 00:00:00 Medicine Tdap 2019-09-16 Completed [facility] of 00:00:00 Medicine Tdap 2019-09-16 Completed [facility] of 00:00:00 Medicine Tdap 2019-09-16 Completed [facility] 00:00:00 Medicine Tdap 2019-09-16 Completed [facility] 00:00:00 Medicine Tdap 2019-09-16 Completed [facility] 00:00:00 Medicine Tdap 2019-09-16 Completed [facility] 00:00:00 Medicine Tdap 2019-09-16 Completed [facility] 00:00:00 Medicine Tdap 2019-09-16 Completed [facility] 00:00:00 Medicine Tdap 2019-09-16 Completed [facility] 00:00:00 Medicine Tdap 2019-09-16 Completed [facility] 00:00:00 Medicine Tdap 2019-09-16 Completed [facility] 00:00:00 Medicine Tdap 2019-09-16 Completed [facility] 00:00:00 Medicine Tdap 2019-09-16 Completed [facility] 00:00:00 Medicine Tdap 2019-09-16 Completed [facility] 00:00:00 Medicine Tdap 2019-09-16 Completed [facility] 00:00:00 Medicine Tdap 2019-09-16 Completed [facility] of 00:00:00 Medicine Tdap 2019-09-16 Completed [facility] 00:00:00 Medicine Tdap 2019-09-16 Completed [facility] 00:00:00 Medicine Tdap 2019-09-16 Completed [facility] 00:00:00 Medicine Tdap 2019-09-16 Completed [facility] of 00:00:00 Medicine Tdap 2019-09-16 Completed [facility] of 00:00:00 Medicine Tdap 2019-09-16 Completed [facility] 00:00:00 Medicine Tdap 2019-09-16 Completed [facility] 00:00:00 Medicine Tdap 2019-09-16 Completed [facility] 00:00:00 Medicine Tdap 2019-09-16 Completed [facility] 00:00:00 Medicine Tdap 2019-09-16 Completed [facility] 00:00:00 Medicine Tdap 2019-09-16 Completed [facility] 00:00:00 Medicine Tdap 2019-09-16 Completed [facility] 00:00:00 Medicine Tdap 2019-09-16 Completed [facility] 00:00:00 Medicine Tdap 2019-09-16 Completed [facility] 00:00:00 Medicine Tdap 2019-09-16 Completed [facility] 00:00:00 Medicine Tdap 2019-09-16 Completed [facility] 00:00:00 Medicine TDAP 2019-09-16 Completed [facility] 00:00:00 [facility] TDAP 2019-09-16 Completed [facility] 00:00:00 [facility] Vital Signs Vital Name Observation Time Observation Value Comments Source Body height 2022-01-04 18:02:00 177.8 cm [facility] Body weight 2022-01-04 18:02:00 83.462 kg [facility] BMI 2022-01-04 18:02:00 26[facility]40 [facility] Systolic blood 2021-12-15 17:25:00 162 mm[Hg] [facility] pressure Medicine Diastolic blood 2021-12-15 17:25:00 78 mm[Hg] [facility] pressure Medicine Heart rate 2021-12-15 17:25:00 73 /min [facility] Body temperature 2021-12-15 17:25:00 37 [facility] Respiratory rate 2021-12-15 17:25:00 18 /min [facility] Body height 2021-12-15 17:25:00 177.8 cm [facility] Body weight 2021-12-15 17:25:00 83.462 kg [facility] BMI 2021-12-15 17:25:00 26.40 kg/m2 [facility] Body height 2021-10-28 18:50:00 175.3 cm [facility] Body weight 2021-10-28 18:50:00 83.008 kg [facility] BMI 2021-10-28 18:50:00 27.02 kg/m2 [facility] Systolic blood 2021-09-15 18:40:00 158 mm[Hg] [facility] pressure Medicine Diastolic blood 2021-09-15 18:40:00 71 mm[Hg] [facility] pressure Medicine Heart rate 2021-09-15 18:40:00 90 /min [facility] Body height 2021-09-15 18:40:00 177.8 cm [facility] Body weight 2021-09-15 18:40:00 84.097 kg [facility] BMI 2021-09-15 18:40:00 26.60 kg/m2 [facility] Systolic blood 2021-09-06 19:27:00 144 mm[Hg] [facility] pressure Medicine Diastolic blood 2021-09-06 19:27:00 80 mm[Hg] [facility] Medicine Heart rate 2021-09-06 19:27:00 88 /min [facility] Body height 2021-09-06 19:27:00 177.8 cm [facility] Body weight 2021-09-06 19:27:00 83.19 kg [facility] BMI 2021-09-06 19:27:00 26.32 kg/m2 [facility] Body height 2021-08-12 20:26:00 180.3 cm [facility] Body weight 2021-08-12 20:26:00 81.647 kg [facility] BMI 2021-08-12 20:26:00 25.10 kg/m2 [facility] Systolic blood 2021-07-21 20:12:00 156 mm[Hg] [facility] pressure Medicine Diastolic blood 2021-07-21 20:12:00 76 mm[Hg] [facility] pressure Medicine Heart rate 2021-07-21 20:12:00 74 /min [facility] Body temperature 2021-07-21 20:12:00 36.56 Aminata [facility] Respiratory rate 2021-07-21 20:12:00 18 /min [facility] Body height 2021-07-21 20:12:[facility] 2021-07-21 20:12:[address] [facility] BMI 2021-07-21 20:12:00 28.12 [facility] HE[facility] 2021-07-07 09:53:11 180.3 cm WEIGHT 2021-07-07 09:53:11 87.091 kg HEIGHT 2021-07-07 09:53:11 180.3 cm WEIGHT 2021-07-07 09:53:11 87.091 kg HEIGHT 2021-07-07 09:53:11 180.3 cm WEIGHT 2021-07-07 09:53:11 87.091 kg WEIGHT 2021-06-22 07:19:00 86.521 kg WEIGHT 2021-06-21 13:41:00 86.183 kg WEIGHT 2021-06-22 07:19:00 86.521 kg WEIGHT 2021-06-21 13:41:00 86.183 kg WEIGHT 2021-06-22 07:19:00 86.521 kg WEIGHT 2021-06-21 13:41:00 86.183 kg Body height 2021-06-03 20:16:[address] [facility] Body weight 2021-06-03 20:16:[address] [facility] BMI 2021-06-03 20:16:00 27.89 kg/m2 [facility] Systolic blood 2021-05-26 20:36:00 149 mm[Hg] [facility] pressure Medicine Diastolic blood 2021-05-26 20:36:00 88 mm[Hg] [facility] pressure Medicine Heart rate 2021-05-26 20:36:00 102 /[facility] Body temperature 2021-05-26 20:36:00 37 Aminata [facility] Respiratory rate 2021-05-26 20:36:00 19 /min [facility] Body height 2021-05-26 20:36:00 180.3 cm [facility] Body weight 2021-05-26 20:36:00 91.082 [facility] BMI 2021-05-26 20:36:00 28.01 kg/m2 [facility] Systolic blood 2021-04-30 19:23:00 144 mm[Hg] [facility] pressure Medicine Diastolic blood 2021-04-30 19:23:00 80 mm[Hg] [facility] Medicine Heart rate 2021-04-30 19:23:00 82 /min [facility] Body temperature 2021-04-30 19:23:00 35.06 Aminata [facility] Body height 2021-04-30 19:23:00 177.8 [facility] Body weight 2021-04-30 19:23:00 85.73 [facility] BMI 2021-04-30 19:23:00 27.12 [facility]2 [facility] O[facility] saturation in 2021-04-30 19:23:00 97 /min [facility] Arterial blood by [facility] Pulse oximetry Systolic blood 2021-04-23 18:51:00 120 mm[Hg] [facility] pressure Medicine Diastolic blood 2021-04-23 18:51:00 80 mm[Hg] [facility] Medicine Heart rate 2021-04-23 18:51:00 101 /min [facility] Respiratory rate 2021-04-23 18:51:00 16 /min [facility] Body height 2021-04-23 18:51:00 180.3 [facility] Body weight 2021-04-23 18:51:00 85.594 [facility] BMI 2021-04-23 18:51:00 26.32 kg[facility]m2 [facility] Systolic blood 2021-04-13 17:55:00 133 mm[Hg] [facility] pressure Medicine Diastolic blood 2021-04-13 17:55:00 81 mm[Hg] [facility] pressure Medicine Heart rate 2021-04-13 17:55:00 85 /min [facility] Body height 2021-04-13 17:55:00 177.8 [facility] Respiratory rate 2021-03-31 19:39:00 18 /min [facility] Body height 2021-03-31 19:39:00 177.8 cm [facility] Body weight 2021-03-31 19:39:00 88.905 kg [facility] BMI 2021-03-31 19:39:00 28.12 kg[facility]m2 [facility] Systolic blood 2021-03-31 19:39:00 153 mm[Hg] [facility] Medicine Diastolic blood 2021-03-31 19:39:00 72 mm[Hg] [facility] Medicine Heart rate 2021-03-31 19:39:00 94 /min [facility] Body temperature 2021-03-31 19:39:00 36.94 Aminata [facility] HEIGHT 2021-03-29 13:18:00 180.3 cm WEIGHT 2021-03-29 13:18:00 86.592 kg HEIGHT 2021-03-29 13:18:00 180.3 cm WEIGHT 2021-03-29 13:18:00 86.592 kg HEIGHT 2021-03-29 13:18:00 180.3 cm WEIGHT 2021-03-29 13:18:00 86.592 kg Systolic blood 2021-01-06 16:04:00 160 mm[Hg] [facility] Medicine Diastolic blood 2021-01-06 16:04:00 71 mm[Hg] [facility] Medicine Heart rate 2021-01-06 16:04:00 87 /min [facility] Body temperature 2021-01-06 16:04:00 36.72 Aminata [facility] Body height 2021-01-06 16:04:00 177.8 cm [facility] Body weight 2021-01-06 16:04:00 88.996 [facility] BMI 2021-01-06 16:04:00 28.15 kg/m2 [facility] Systolic blood 2020-12-17 20:12:00 140 mm[Hg] [facility] pressure Medicine Diastolic blood 2020-12-17 20:12:00 75 mm[Hg] [facility] pressure Medicine Heart rate 2020-12-17 20:12:00 86 /min [facility] Respiratory rate 2020-12-17 20:12:00 16 /min [facility] Body height 2020-12-17 20:12:00 177.8 cm [facility] Body weight 2020-12-17 20:12:00 85.866 kg [facility] BMI 2020-12-17 20:12:00 27.16 kg/m2 [facility] Systolic blood 2020-12-16 16:01:00 128 mm[Hg] [facility] pressure Medicine Diastolic blood 2020-12-16 16:01:00 79 mm[Hg] [facility] Medicine Heart rate 2020-12-16 16:01:00 90 /min [facility] Body temperature 2020-12-16 16:01:00 36.67 Aminata [facility] Body height 2020-12-16 16:01:00 177.8 cm [facility] Medicine Body weight 2020-12-16 16:01:00 87.091 kg [facility] BMI 2020-12-16 16:01:00 27.55 kg/m2 [facility] Systolic blood 2020-10-22 19:54:00 157 mm[Hg] [facility] pressure Medicine Diastolic blood 2020-10-22 19:54:00 77 mm[Hg] [facility] pressure Medicine Heart rate 2020-10-22 19:54:00 76 /min [facility] Body height 2020-10-22 19:54:00 177.8 cm [facility] Body weight 2020-10-22 19:54:00 87.091 kg [facility] BMI 2020-10-22 19:54:00 27.55 kg/m2 [facility] Systolic blood 2020-10-15 18:58:00 150 mm[Hg] [facility] pressure Medicine Diastolic blood 2020-10-15 18:58:00 82 mm[Hg] [facility] pressure Medicine Heart rate 2020-10-15 18:58:00 83 /min [facility] Body height 2020-10-15 18:58:00 177.8 cm [facility] Body weight 2020-10-15 18:58:00 87.091 kg [facility] BMI 2020-10-15 18:58:00 27.55 kg/m2 [facility] Systolic blood 2020-09-11 20:10:00 140 mm[Hg] [facility] pressure Medicine Diastolic blood 2020-09-11 20:10:00 84 mm[Hg] [facility] Medicine Heart rate 2020-09-11 20:10:00 84 /min [facility] Respiratory rate 2020-09-11 20:10:00 16 /min [facility] Body height 2020-09-11 20:10:00 177.8 cm [facility] Body weight 2020-09-11 20:10:00 89.812 kg [facility] BMI 2020-09-11 20:10:00 28.41 kg/m2 [facility] Systolic blood 2020-09-09 19:16:00 159 mm[Hg] [facility] Medicine Diastolic blood 2020-09-09 19:16:00 73 mm[Hg] [facility] Medicine Heart rate 2020-09-09 19:16:00 68 /min [facility] Body temperature 2020-09-09 19:16:00 36.89 Aminata [facility] Body height 2020-09-09 19:16:00 177.8 cm [facility] Body weight 2020-09-09 19:16:00 89.812 kg [facility] BMI 2020-09-09 19:16:00 28.41 kg/m2 [facility] Systolic blood 2020-09-03 20:01:00 145 mm[Hg] [facility] pressure Medicine Diastolic blood 2020-09-03 20:01:00 65 mm[Hg] [facility] pressure Medicine Heart rate 2020-09-03 20:01:00 86 /min [facility] Body height 2020-09-03 20:01:00 177.8 cm [facility] Body weight 2020-09-03 20:01:00 89.812 kg [facility] BMI 2020-09-03 20:01:00 28.41 kg/m2 [facility] Systolic blood 2020-08-13 19:34:00 151 mm[Hg] [facility] pressure Medicine Diastolic blood 2020-08-13 19:34:00 72 mm[Hg] [facility] pressure Medicine Heart rate 2020-08-13 19:34:00 72 /min [facility] Body height 2020-08-13 19:34:00 177.8 cm [facility] Body weight 2020-08-13 19:34:00 87.091 kg [facility] BMI 2020-08-13 19:34:00 27.55 kg/m2 [facility] Systolic blood 2020-08-05 19:19:00 138 mm[Hg] [facility] pressure Medicine Diastolic blood 2020-08-05 19:19:00 79 mm[Hg] [facility] pressure Medicine Heart rate 2020-08-05 19:19:00 79 /min [facility] Body height 2020-08-05 19:19:00 177.8 cm [facility] Body weight 2020-08-05 19:19:00 87.091 kg [facility] BMI 2020-08-05 19:19:00 27.55 kg/m2 [facility] Systolic blood 2020-07-15 20:58:00 155 mm[Hg] [facility] pressure Medicine Diastolic blood 2020-07-15 20:58:00 74 mm[Hg] [employer] [facility] Medicine Heart rate 2020-07-15 20:58:00 76 /min [facility] Body temperature 2020-07-15 20:58:00 36.83 Aminata [facility] Body height 2020-07-15 20:58:00 177.8 cm [facility] Body weight 2020-07-15 20:58:00 90.719 kg [facility] BMI 2020-07-15 20:58:00 28.70 kg/m2 [facility] Systolic blood 2020-07-13 19:57:00 130 mm[Hg] [facility] pressure Medicine Diastolic blood 2020-07-13 19:57:00 76 mm[Hg] [facility] Medicine Heart rate 2020-07-13 19:57:00 66 /min [facility] Body height 2020-07-13 19:57:00 177.8 cm [facility] Body weight 2020-07-13 19:57:00 89.359 kg [facility] BMI 2020-07-13 19:57:00 28.27 kg/m2 [facility] HEIGHT 2020-07-09 13:14:00 180.3 cm WEIGHT 2020-07-09 13:14:00 90.719 kg HEIGHT 2020-07-09 13:14:00 180.3 cm WEIGHT 2020-07-09 13:14:00 90.719 kg Systolic blood 2020-06-11 19:34:00 132 mm[Hg] [facility] Medicine Diastolic blood 2020-06-11 19:34:00 64 mm[Hg] [facility] Medicine Heart rate 2020-06-11 19:34:00 77 /min [facility] Body height 2020-06-11 19:34:00 177.8 cm [facility] Body weight 2020-06-11 19:34:00 87.091 kg [facility] BMI 2020-06-11 19:34:00 27.55 kg/m2 [facility] Systolic blood 2020-06-04 21:18:00 138 mm[Hg] [facility] pressure Medicine Diastolic blood 2020-06-04 21:18:00 79 mm[Hg] [facility] pressure Medicine Heart rate 2020-06-04 21:18:00 73 /min [facility] Respiratory rate 2020-06-04 21:18:00 18 /min [facility] Body height 2020-06-04 21:18:00 177.8 cm [facility] Systolic blood 2020-05-20 17:37:00 134 mm[Hg] [facility] pressure Medicine Diastolic blood 2020-05-20 17:37:00 83 mm[Hg] [facility] pressure Medicine Heart rate 2020-05-20 17:37:00 94 /min [facility] Body temperature 2020-05-20 17:37:00 36.83 Aminata [facility] Respiratory rate 2020-05-20 17:37:00 16 /min [facility] Body height 2020-05-20 17:37:00 177.8 cm [facility] Body weight 2020-05-20 17:37:00 87.726 kg [facility] BMI 2020-05-20 17:37:00 [facility]75 [facility] Oxygen saturation in 2020-05-20 17:37:00 95 /min [facility] blood by [facility] Pulse oximetry Systolic blood 2020-05-20 19:23:00 172 mm[Hg] [facility] Medicine Diastolic blood 2020-05-20 19:23:00 77 mm[Hg] [facility] Medicine Heart rate 2020-05-20 19:23:00 86 /min [facility] Body temperature 2020-05-20 19:23:00 36.67 Aminata [facility] Body height 2020-05-20 19:23:00 177.8 cm [facility] Body weight 2020-05-20 19:23:00 88.179 kg [facility] BMI 2020-05-20 19:23:00 27.89 kg/m2 [facility] Systolic blood 2020-05-06 16:51:00 148 mm[Hg] [facility] pressure Medicine Diastolic blood 2020-05-06 16:51:00 75 mm[Hg] [facility] Medicine Heart rate 2020-05-06 16:51:00 80 /min [facility] Body height 2020-05-06 16:51:00 177.8 cm [facility] Body weight 2020-05-06 16:51:00 85.276 kg [facility] BMI 2020-05-06 16:51:00 26.98 kg/m2 [facility] Systolic blood 2020-04-23 16:17:00 146 mm[Hg] [facility] pressure Medicine Diastolic blood 2020-04-23 16:17:00 71 mm[Hg] [facility] Medicine Heart rate 2020-04-23 16:17:00 96 /min [facility] Body height 2020-04-23 16:17:00 177.8 cm [facility] Body weight 2020-04-23 16:17:00 85.276 kg [facility] BMI 2020-04-23 16:17:00 26.98 kg/m2 [facility] Systolic blood 2020-04-16 20:58:00 116 mm[Hg] [facility] pressure Medicine Diastolic blood 2020-04-16 20:58:00 73 mm[Hg] [facility] Medicine Heart rate 2020-04-16 20:58:00 78 /min [facility] Body temperature 2020-04-16 20:58:00 37.06 Aminata [facility] Respiratory rate 2020-04-16 20:58:00 16 /min [facility] Body height 2020-04-16 20:58:00 177.8 cm [facility] Body weight 2020-04-16 20:58:00 85.276 kg [facility] BMI 2020-04-16 20:58:00 26.98 kg/m2 [facility] Systolic blood 2020-04-02 18:22:00 127 mm[Hg] [facility] pressure Medicine Diastolic blood 2020-04-02 18:22:00 72 mm[Hg] [employer] [facility] pressure Medicine Heart rate 2020-04-02 18:22:00 89 /min [facility] Body height 2020-04-02 18:22:00 177.8 cm [facility] Body weight 2020-04-02 18:22:00 85.73 kg [facility] BMI 2020-04-02 18:22:00 27.12 kg/m2 [facility] Systolic blood 2020-03-26 14:03:00 147 mm[Hg] [facility] pressure Medicine Diastolic blood 2020-03-26 14:03:00 76 mm[Hg] [facility] pressure Medicine Heart rate 2020-03-26 14:03:00 97 /min [facility] Body height 2020-03-26 14:03:00 177.8 cm [facility] Body weight 2020-03-26 14:03:00 84.823 kg [facility] BMI 2020-03-26 14:03:00 26.83 kg/m2 [facility] Systolic blood 2020-03-26 15:52:00 147 mm[Hg] [facility] pressure Medicine Diastolic blood 2020-03-26 15:52:00 76 mm[Hg] [facility] pressure Medicine Heart rate 2020-03-26 15:52:00 97 /min [facility] Body height 2020-03-26 15:52:00 177.8 cm [facility] Body weight 2020-03-26 15:52:00 84.823 kg [facility] BMI 2020-03-26 15:52:00 26.83 kg/m2 [facility] Systolic blood 2020-03-23 18:34:00 130 mm[Hg] [facility] pressure Medicine Diastolic blood 2020-03-23 18:34:00 65 mm[Hg] [facility] of pressure Medicine Heart rate 2020-03-23 18:34:00 79 /min [facility] Respiratory rate 2020-03-23 18:34:00 16 /min [facility] Body height 2020-03-23 18:34:00 177.8 cm [facility] Body weight 2020-03-23 18:34:00 85.231 kg [facility] BMI 2020-03-23 18:34:00 26.96 kg/m2 [facility] HEIGHT 2020-03-18 00:00:00 177.8 cm WEIGHT 2020-03-18 00:00:00 83.915 kg HEIGHT 2020-02-25 00:00:00 177.8 cm WEIGHT 2020-02-25 00:00:00 84.823 kg HEIGHT 2020-02-25 00:00:00 177.8 cm WEIGHT 2020-02-25 00:00:00 84.823 kg Systolic blood 2019-11-20 18:52:00 134 mm[Hg] [facility] pressure Medicine Diastolic blood 2019-11-20 18:52:00 77 mm[Hg] [facility] Medicine Heart rate 2019-11-20 18:52:00 95 /min [facility] Body temperature 2019-11-20 18:52:00 36.89 Aminata [facility] Body height 2019-11-20 18:52:00 177.8 cm [facility] Body weight 2019-11-20 18:52:00 84.823 kg [facility] BMI 2019-11-20 18:52:00 26.83 kg/m2 [facility] Systolic blood 2019-09-16 18:40:00 110 mm[Hg] [facility] Medicine Diastolic blood 2019-09-16 18:40:00 72 mm[Hg] [facility] Medicine Heart rate 2019-09-16 18:40:00 88 /min [facility] Body temperature 2019-09-16 18:40:00 36.89 Aminata [facility] Respiratory rate 2019-09-16 18:40:00 18 /min [facility] Body height 2019-09-16 18:40:00 177.8 cm [facility] Body weight 2019-09-16 18:40:00 86.637 kg [facility] BMI 2019-09-16 18:40:00 27.41 kg/m2 [facility] Systolic blood 2019-04-03 13:52:00 145 mm[Hg] [facility] Medicine Diastolic blood 2019-04-03 13:52:00 76 mm[Hg] [facility] Medicine Heart rate 2019-04-03 13:52:00 79 /min [facility] Body temperature 2019-04-03 13:52:00 36.89 Aminata [facility] Body height 2019-04-03 13:52:[address] [facility] Body weight 2019-04-03 13:52:[address] [facility] BMI 2019-04-03 13:52:00 27.41 kg/m2 [facility] Systolic blood 2022-01-11 14:41:00 136 mm[Hg] [facility] Diastolic blood 2022-01-11 14:41:00 78 mm[Hg] [facility] Heart rate 2022-01-11 14:41:00 63 /min [facility] Body temperature 2022-01-11 14:41:00 36.56 Aminata [facility] Body height 2022-01-11 14:41:00 177.8 cm [facility] Body weight 2022-01-11 14:41:00 78.427 kg [facility] BMI 2022-01-11 14:41:00 24.81 kg/m2 [facility] Oxygen saturation in 2022-01-11 14:41:00 96 /min [facility] Arterial blood by Medical Ce nter Pulse oximetry Respiratory rate 2021-07-22 13:26:00 18 /min [facility] Procedures Procedure Date / Time Performing Clinician Source Performed BASIC METABOLIC PANEL (7) 2022-01-11 15:32:00 Joshua [address]an[address] [facility] HEPATIC FUNCTION PANEL 2022-01-11 15:32:[address] [facility] CBC W/PLT COUNT & AUTO 2022-01-11 15:32:00 Joshua Castaneda [facility] PROTHROMBIN TIME/INR 2022-01-11 15:32:00 Castaneda, [facility] ALPHA FETOPROTEIN (AFP), 2022-01-11 15:32:00 Castaneda, [facility] TUMOR MARKER [facility] CBC W/PLT COUNT & AUTO 2022-01-11 15:32:00 Castaneda, Line [facility] S [facility] MR ABDOMEN WITH & WITHOUT 2021-12-21 14:38:00 Castaneda, Line I [facility] IV CONTRAST [facility] CBC W/PLT COUNT & AUTO 2021-12-15 12:39:00 Beny [facility] COMPREHENSIVE METABOLIC 2021-12-15 12:39:00 [facility] CBC W/PLT COUNT & AUTO 2021-12-15 12:39:00 [facility] BASIC METABOLIC PANEL (7) 2021-10-12 14:46:00 Castaneda, Line I [facility] HEPATIC FUNCTION PANEL 2021-10-12 14:46:00 Castaneda, [facility] S [facility] CBC W/PLT COUNT & AUTO 2021-10-12 14:46:00 Castaneda, [facility] S [facility] PROTHROMBIN TIME/INR 2021-10-12 14:46:00 Castaneda, [facility] ALPHA FETOPROTEIN (AFP), 2021-10-12 14:46:00 Castaneda, [facility] TUMOR MARKER [facility] CBC W/PLT COUNT & AUTO 2021-10-12 14:46:00 Castaneda, [facility] S [facility] MR ABDOMEN WITH & WITHOUT 2021-09-21 12:35:00 Nora Echeverria [facility] CONTRAST [facility] NM BONE SCAN WHOLE BODY 2021-09-08 13:07:00 Nora Echeverria [facility] CHEST WITHOUT IV 2021-09-08 10:29:[address] Eche[address] [facility] BASIC METABOLIC PANEL (7) 2021-07-22 14:33:00 Nora Echeverria [facility] HEPATIC FUNCTION PANEL 2021-07-22 14:33:00 Nora Echeverria [facility] CBC W/PLT COUNT & AUTO 2021-07-22 14:33:00 Nora Echeverria [facility] PROTHROMBIN TIME/INR 2021-07-22 14:33:00 Nora Echeverria [facility] CBC W/PLT COUNT & AUTO 2021-07-22 14:33:00 Nora Echeverria [facility] POCT-GLUCOSE METER 2021-07-08 07:51:00 [facility] CBC W/PLT COUNT & AUTO 2021-07-08 03:57:00 Joleen Ross [facility] BASIC METABOLIC PANEL (7) 2021-07-08 03:57:00 Joleen Ross [facility] HEPATIC FUNCTION PANEL 2021-07-08 03:57:00 Joleen Ross [facility] CBC W/PLT COUNT & AUTO 2021-07-08 03:57:00 Joleen Ross [facility] POCT-GLUCOSE METER 2021-07-07 21:46:00 Leonel [facility] POCT-GLUCOSE METER 2021-07-07 18:40:00 Leonel [facility] NM Y90 MICROSPHERES 2021-07-07 16:05:00 Felisha Malik [facility] NM TUMOR LOCALIZATION 2021-07-07 15:15:00 Felisha Malik [facility] IR VISCERAL ARTERIOGRAM 2021-07-07 14:49:00 Felisha Malik [facility] SARS-COV2/RT-PCR ([facility] & 2021-07-07 10:38:00 Felisha Malik [facility] REF [facility]) [facility] BASIC METABOLIC PANEL (7) 2021-07-07 09:39:00 Monse [facility] HEPATIC FUNCTION PANEL 2021-07-07 09:39:00 Nicholas Monsegen [facility] CBC W/PLT COUNT & AUTO 2021-07-07 09:39:00 Monse Peterson [facility] PROTHROMBIN TIME/INR 2021-07-07 09:39:00 Monse Peterson [facility] CBC W/PLT COUNT & AUTO 2021-07-07 09:39:00 Monse Peterson [facility] POCT-GLUCOSE METER 2021-06-22 07:11:00 [facility] POCT-GLUCOSE METER 2021-06-22 00:50:00 [facility] NM TUMOR LOCAL 2021-06-21 17:51:00 Felisha Malik [facility] PRE-MICROSPHERE THERAPY [facility] IR VISCERAL ARTERIOGRAM 2021-06-21 15:55:00 Felisha Malik [facility] CBC W/PLT COUNT & AUTO 2021-06-21 13:32:00 Marian Grossman [facility] PROTHROMBIN TIME/INR 2021-06-21 13:32:[address] [facility] BASIC METABOLIC PANEL (7) 2021-06-21 13:32:00 Marian Grossman [facility] HEPATIC FUNCTION PANEL 2021-06-21 13:32:[address] [facility] CBC W/PLT COUNT & AUTO 2021-06-21 13:32:00 Marian Grossman [facility] NM BONE SCAN WHOLE BODY 2021-05-03 15:21:00 Joshua Castaneda [facility] CT CHEST WITHOUT IV 2021-05-03 11:23:00 Joshua Castaneda [facility] BASIC METABOLIC PANEL (7) 2021-03-29 14:23:00 Castaneda, Line [facility] I [facility] HEPATIC FUNCTION PANEL 2021-03-29 14:23:00 Castaneda, Line [facility] S t [facility] CBC W/PLT COUNT & AUTO 2021-03-29 14:23:00 Castaneda, Line [facility] S t [facility] DIFFERENTIAL [facility] PROTHROMBIN TIME/INR 2021-03-29 14:23:00 Castaneda, Line [facility] ALPHA FETOPROTEIN (AFP), 2021-03-29 14:23:00 Castaneda, [facility] TUMOR MARKER [facility] CBC W/PLT COUNT & AUTO 2021-03-29 14:23:00 Castaneda, Line [facility] S [facility] DIFFERENTIAL [facility] MR ABDOMEN WITH & WITHOUT 2021-03-26 15:57:00 Carlton Velasquez [facility] I [facility] IV CONTRAST [facility] POCT HEMOGLOBIN A1C 2020-12-17 20:49:[address] [facility] HEMATOLOGY SLIDE RETURN 2020-07-15 20:51:00 Jossue Swan [facility] POCT REAGENT STP/BLD 2020-06-11 19:45:00 Trae [facility] POCT REAGENT STP/BLD 2020-03-23 19:06:00 Trae [facility] GLUCOSE [facility] POCT HEMOGLOBIN A1C 2019-09-16 18:55:00 Trae [facility] Plan of Care Planned Activity Planned Date Details Comments Source Future Scheduled 2029-09-15 DTAP/TDAP/TD [facility]00 VACCINES (2 - Td or Medical Center Tdap) [code = DTAP/TDAP/TD VACCINES (2 - Td or Tdap)] Future Scheduled 2022-09-02 Urine screening for [facility] Test 00:00:00 [facility] (procedure) [facility] [code = 847713102] Future Scheduled 2022-03-[address] [facility] Test 00:00:00 (#1) [code = Medical Center INFLUENZA VACCINE (#1)] Future Scheduled 2022-01-04 Screening for [facility] Test 13:03:35 malignant neoplasm of Medici ne of colon (procedure) [code = 091319565] Future Scheduled 2022-01-04 COVID-19 Vaccine [facility] Test 13:03:35 (#1) [code = of Medicine COVID-19 Vaccine (#1)] Future Scheduled 2022-01-04 Pneumococcal 65+ (1 [facility] or [facility] Test 13:03:35 - PCV) [code = of Medicine Pneumococcal 65+ (1 - PCV)] Future Scheduled 2022-01-04 ANNUAL DIABETIC [facility] Test 13:03:35 RETINOPATHY of Medicine SCREENING [code = ANNUAL DIABETIC RETINOPATHY SCREENING] Future Scheduled 2022-01-04 ZOSTER VACCINE (1 of [facility] Test 13:03:35 2) [code = ZOSTER of Medicin e VACCINE (1 of 2)] Future Scheduled 2022-01-04 MEDICARE AWV [facility] Test 13:03:35 (Initial) [code = of Medicin e MEDICARE AWV (Initial)] Future Scheduled 2022-01-04 BMI FOLLOW UP PLAN [facility] Test 13:03:35 [code = BMI FOLLOW of Medici ne UP PLAN] Future Scheduled 2022-01-04 FLU VACCINE > 6 [facility] Test 13:03:35 MONTHS [code = FLU of Medici ne VACCINE > 6 MONTHS] Future Scheduled 2022-01-04 Hemoglobin A1c [facility] Test 13:03:35 measurement of Medicine (procedure) [code = 56599140] Future Scheduled 2022-01-04 Diabetic foot [facility] Test 13:03:35 examination of Medicine (regime/therapy) [code = 170458410] Future Scheduled 2022-01-04 FALL SCREEN [code = [employer] Test 13:03:35 FALL SCREEN] of Medicine Future Scheduled 2022-01-04 TETANUS SHOT (ADULT) [facility] Test 13:03:35 [code = TETANUS SHOT of Medi cine (ADULT)] Future Scheduled 2021-12-24 HEMOGLOBIN A1C [code Expected: [facility] Test 00:00:00 = 4548-4] 12/24/2021 of Medicine (Approximate), Expires: 09/11/2025 Future Scheduled 2021-12-24 COMPREHENSIVE Expected: [facility] Test 00:00:00 METABOLIC PANEL 12/24/2021 of Medicine [code = 06121-2] (Approximate), Expires: 09/11/2025 Future Scheduled 2021-12-24 LIPID PANEL [code = Expected: [employer] Test 00:00:00 91372-0] 12/24/2021 of Medicine (Approximate), Expires: 09/05/2024 Future Scheduled 2021-12-18 Screening for [facility] Test 08:38:08 malignant neoplasm of Medici ne of colon (procedure) [code = 165431843] Future Scheduled 2021-12-18 COVID-19 Vaccine [facility] Test 08:38:08 (#1) [code = of Medicine COVID-19 Vaccine (#1)] Future Scheduled 2021-12-18 Pneumococcal 65+ (1 [employer] Test 08:38:08 - PCV) [code = of Medicine Pneumococcal 65+ (1 - PCV)] Future Scheduled 2021-12-18 ANNUAL DIABETIC [facility] Test 08:38:08 RETINOPATHY of Medicine SCREENING [code = ANNUAL DIABETIC RETINOPATHY SCREENING] Future Scheduled 2021-12-18 ZOSTER VACCINE (1 of [facility] Test 08:38:08 2) [code = ZOSTER of Medicin e VACCINE (1 of 2)] Future Scheduled 2021-12-18 MEDICARE AWV [facility] Test 08:38:08 (Initial) [code = of Medicin e MEDICARE AWV (Initial)] Future Scheduled 2021-12-18 BMI FOLLOW UP PLAN [facility] Test 08:38:08 [code = BMI FOLLOW of Medici ne UP PLAN] Future Scheduled 2021-12-18 FLU VACCINE > 6 [facility] 08:38:08 MONTHS [code = FLU of Medici ne VACCINE > 6 MONTHS] Future Scheduled 2021-12-18 Hemoglobin A1c [facility] 08:38:08 measurement of Medicine (procedure) [code = 18451872] Future Scheduled 2021-12-18 Diabetic foot [facility] 08:38:08 examination of Medicine (regime/therapy) [code = 024893289] Future Scheduled 2021-12-18 FALL SCREEN [code = [employer] [facility] 08:38:08 FALL SCREEN] of Medicine Future Scheduled 2021-12-18 TETANUS SHOT (ADULT) [employer] [facility] 08:38:08 [code = TETANUS SHOT of Medi cine (ADULT)] Future Scheduled 2021-10-28 Screening for [facility] 13:52:45 malignant neoplasm of Medici ne of colon (procedure) [code = 812921803] Future Scheduled 2021-10-28 COVID-19 Vaccine (1) [employer] [facility] 13:52:45 [code = COVID-19 of Medicine Vaccine (1)] Future Scheduled 2021-10-28 ANNUAL DIABETIC [facility] 13:52:45 RETINOPATHY of Medicine SCREENING [code = ANNUAL DIABETIC RETINOPATHY SCREENING] Future Scheduled 2021-10-28 ZOSTER VACCINE (1 of [employer] [facility] 13:52:45 2) [code = ZOSTER of Medicin e VACCINE (1 of 2)] Future Scheduled 2021-10-28 Pneumococcal 65+ (1 [employer] [facility] 13:52:45 of 1 - PPSV23) [code of Medi cine = Pneumococcal 65+ (1 of 1 - PPSV23)] Future Scheduled 2021-10-28 MEDICARE IPPE [facility] 13:52:45 (WELCOME TO of Medicine MEDICARE) [code = MEDICARE IPPE (WELCOME TO MEDICARE)] Future Scheduled 2021-10-28 BMI FOLLOW UP PLAN [facility] [employer] Test 13:52:45 [code = BMI FOLLOW of Medici ne UP PLAN] Future Scheduled 2021-10-28 FLU VACCINE > 6 [facility] [employer] 13:52:45 MONTHS [code = FLU of Medici ne VACCINE > 6 MONTHS] Future Scheduled 2021-10-28 Hemoglobin A1c [facility] 13:52:45 measurement of Medicine (procedure) [code = 85242811] Future Scheduled 2021-10-28 Diabetic foot [facility] 13:52:45 examination of Medicine (regime/therapy) [code = 304844660] Future Scheduled 2021-10-28 FALL SCREEN [code = [employer] [facility] 13:52:45 FALL SCREEN] of Medicine Future Scheduled 2021-10-28 TETANUS SHOT (ADULT) [employer] [facility] 13:52:45 [code = TETANUS SHOT of Medi cine (ADULT)] Future Scheduled 2021-09-17 Screening for [facility] 13:01:37 malignant neoplasm of Medici ne of colon (procedure) [code = 017490568] Future Scheduled 2021-09-17 COVID-19 Vaccine (1) [facility] Test 13:01:37 [code = COVID-19 of Medicine Vaccine (1)] Future Scheduled 2021-09-17 ANNUAL DIABETIC [facility] [employer] 13:01:37 RETINOPATHY of Medicine SCREENING [code = ANNUAL DIABETIC RETINOPATHY SCREENING] Future Scheduled 2021-09-17 ZOSTER VACCINE (1 of [facility] Test 13:01:37 2) [code = ZOSTER of Medicin e VACCINE (1 of 2)] Future Scheduled 2021-09-17 Pneumococcal 65+ (1 [facility] [place] Test 13:01:37 of 1 - PPSV23) [code of Medi cine = Pneumococcal 65+ (1 of 1 - PPSV23)] Future Scheduled 2021-09-17 MEDICARE IPPE [facility] 13:01:37 (WELCOME TO of Medicine MEDICARE) [code = MEDICARE IPPE (WELCOME TO MEDICARE)] Future Scheduled 2021-09-17 BMI FOLLOW UP PLAN [facility] [place] Test 13:01:37 [code = BMI FOLLOW of Medici ne UP PLAN] Future Scheduled 2021-09-17 Hemoglobin A1c [facility] Test 13:01:37 measurement of Medicine (procedure) [code = 15932108] Future Scheduled 2021-09-17 Diabetic foot [facility] 13:01:37 examination of Medicine (regime/therapy) [code = 809249005] Future Scheduled 2021-09-17 FLU VACCINE > 6 Postponed from [facility] Test 13:01:37 MONTHS [code = FLU 01/31/2021 of Medici ne VACCINE > 6 MONTHS] (Postpone Reason: Patient declined today) Future Scheduled 2021-09-17 FALL SCREEN [code = [facility] [place] [facility] 13:01:37 FALL SCREEN] of Medicine Future Scheduled 2021-09-17 TETANUS SHOT (ADULT) [facility] Test 13:01:37 [code = TETANUS SHOT of Medi cine (ADULT)] Future Scheduled 2021-09-12 Screening for [facility] 17:00:56 malignant neoplasm of Medici ne of colon (procedure) [code = 160744078] Future Scheduled 2021-09-12 COVID-19 Vaccine (1) [facility] Test 17:00:56 [code = COVID-19 of Medicine Vaccine (1)] Future Scheduled 2021-09-12 ANNUAL DIABETIC [facility] 17:00:56 RETINOPATHY of Medicine SCREENING [code = ANNUAL DIABETIC RETINOPATHY SCREENING] Future Scheduled 2021-09-12 ZOSTER VACCINE (1 of [facility] Test 17:00:56 2) [code = ZOSTER of Medicin e VACCINE (1 of 2)] Future Scheduled 2021-09-12 Pneumococcal 65+ (1 [employer] [facility] 17:00:56 of 1 - PPSV23) [code of Medi cine = Pneumococcal 65+ (1 of 1 - PPSV23)] Future Scheduled 2021-09-12 MEDICARE IPPE [facility] 17:00:56 (WELCOME TO of Medicine MEDICARE) [code = MEDICARE IPPE (WELCOME TO MEDICARE)] Future Scheduled 2021-09-12 BMI FOLLOW UP PLAN [facility] [place] Test 17:00:56 [code = BMI FOLLOW of Medici ne UP PLAN] Future Scheduled 2021-09-12 Hemoglobin A1c [facility] Test 17:00:56 measurement of Medicine (procedure) [code = 05212142] Future Scheduled 2021-09-12 Diabetic foot [facility] 17:00:56 examination of Medicine (regime/therapy) [code = 181703770] Future Scheduled 2021-09-12 FLU VACCINE > 6 Postponed from [facility] Test 17:00:56 MONTHS [code = FLU 01/31/2021 of Medici ne VACCINE > 6 MONTHS] (Postpone Reason: Patient declined today) Future Scheduled 2021-09-12 FALL SCREEN [code = [employer] [facility] 17:00:56 FALL SCREEN] of Medicine Future Scheduled 2021-09-12 TETANUS SHOT (ADULT) [facility] Test 17:00:56 [code = TETANUS SHOT of Medi cine (ADULT)] Future Scheduled 2021-08-12 PRIOR AUTH FOR 1 Occurrences [facility] [employer] 14:42:29 DIABETIC SHOES starting of Medicine (A5500) [code = 08/12/2021 until A5500] 08/12/2022 Future Scheduled 2021-08-12 PRIOR AUTH FOR 1 Occurrences [facility] [employer] [facility] 14:42:29 DIABETIC INSERTS starting of Medicine (A5512) [code = 08/12/2021 until A5512] 08/12/2022 Future Scheduled 2021-08-12 Screening for [facility] 14:27:43 malignant neoplasm of Medici ne of colon (procedure) [code = 496840434] Future Scheduled 2021-08-12 COVID-19 Vaccine (1) [facility] Test 14:27:43 [code = COVID-19 of Medicine Vaccine (1)] Future Scheduled 2021-08-12 ANNUAL DIABETIC [facility] [employer] 14:27:43 RETINOPATHY of Medicine SCREENING [code = ANNUAL DIABETIC RETINOPATHY SCREENING] Future Scheduled 2021-08-12 ZOSTER VACCINE (1 of [facility] Test 14:27:43 2) [code = ZOSTER of Medicin e VACCINE (1 of 2)] Future Scheduled 2021-08-12 Pneumococcal 65+ (1 [facility] [place] Test 14:27:43 of 1 - PPSV23) [code of Medi cine = Pneumococcal 65+ (1 of 1 - PPSV23)] Future Scheduled 2021-08-12 MEDICARE IPPE [facility] 14:27:43 (WELCOME TO of Medicine MEDICARE) [code = MEDICARE IPPE (WELCOME TO MEDICARE)] Future Scheduled 2021-08-12 BMI FOLLOW UP PLAN [facility] Test 14:27:43 [code = BMI FOLLOW of Medici ne UP PLAN] Future Scheduled 2021-08-12 Hemoglobin A1c [facility] Test 14:27:43 measurement of Medicine (procedure) [code = 25295383] Future Scheduled 2021-08-12 Diabetic foot [facility] 14:27:43 examination of Medicine (regime/therapy) [code = 266897405] Future Scheduled 2021-08-12 FALL SCREEN [code = [facility] [place] Test 14:27:43 FALL SCREEN] of Medicine Future Scheduled 2021-08-12 FLU VACCINE > 6 Postponed from [facility] Test 14:27:43 MONTHS [code = FLU 01/31/2021 of Medici ne VACCINE > 6 MONTHS] (Postpone Reason: Patient declined today) Future Scheduled 2021-08-12 TETANUS SHOT (ADULT) [facility] Test 14:27:43 [code = TETANUS SHOT of Medi cine (ADULT)] Future Scheduled 2021-07-23 Screening for [facility] [employer] [facility] 17:02:58 malignant neoplasm of Medici ne of colon (procedure) [code = 788068883] Future Scheduled 2021-07-23 Pneumococcal 65+ (1 [employer] [facility] 17:02:58 of 2 - PPSV23) [code of Medi cine = Pneumococcal 65+ (1 of 2 - PPSV23)] Future Scheduled 2021-07-23 COVID-19 Vaccine (1) [employer] [facility] 17:02:58 [code = COVID-19 of Medicine Vaccine (1)] Future Scheduled 2021-07-23 ANNUAL DIABETIC [facility] [employer] 17:02:58 RETINOPATHY of Medicine SCREENING [code = ANNUAL DIABETIC RETINOPATHY SCREENING] Future Scheduled 2021-07-23 ZOSTER VACCINE (1 of [facility] Test 17:02:58 2) [code = ZOSTER of Medicin e VACCINE (1 of 2)] Future Scheduled 2021-07-23 MEDICARE IPPE [facility] 17:02:58 (WELCOME TO of Medicine MEDICARE) [code = MEDICARE IPPE (WELCOME TO MEDICARE)] Future Scheduled 2021-07-23 FLU VACCINE > 6 [facility] [employer] 17:02:58 MONTHS [code = FLU of Medici ne VACCINE > 6 MONTHS] Future Scheduled 2021-07-23 BMI FOLLOW UP PLAN [facility] [place] Test 17:02:58 [code = BMI FOLLOW of Medici ne UP PLAN] Future Scheduled 2021-07-23 Hemoglobin A1c [facility] 17:02:58 measurement of Medicine (procedure) [code = 00987718] Future Scheduled 2021-07-23 Diabetic foot [facility] 17:02:58 examination of Medicine (regime/therapy) [code = 576205421] Future Scheduled 2021-07-23 FALL SCREEN [code = [employer] [facility] 17:02:58 FALL SCREEN] of Medicine Future Scheduled 2021-07-23 TETANUS SHOT (ADULT) [facility] Test 17:02:58 [code = TETANUS SHOT of Medi cine (ADULT)] Future Scheduled 2021-07-21 CBC W/AUTO DIFF WITH Ordered: [facility] Test 14:29:00 PLATELETS [code = 07/21/2021 of Medicin e 96885-0] Future Scheduled 2021-07-[address] [facility] Test 00:00:00 (12+) [code = Medical Center DEPRESSION SCREENING (12+)] Future Scheduled 2021-07-03 F[address]S RISK SCREENING [facility] Test 00:00:00 [code = FALLS RISK Medical C enter SCREENING] Future Scheduled 2021-06-03 Screening for [facility] 14:18:17 malignant neoplasm of Medici ne of colon (procedure) [code = 772303846] Future Scheduled 2021-06-03 Pneumococcal 65+ (1 [employer] Test 14:18:17 of 2 - PPSV23) [code of Medi cine = Pneumococcal 65+ (1 of 2 - PPSV23)] Future Scheduled 2021-06-03 COVID-19 Vaccine (1) [employer] [facility] 14:18:17 [code = COVID-19 of Medicine Vaccine (1)] Future Scheduled 2021-06-03 ANNUAL DIABETIC [facility] [employer] 14:18:17 RETINOPATHY of Medicine SCREENING [code = ANNUAL DIABETIC RETINOPATHY SCREENING] Future Scheduled 2021-06-03 ZOSTER VACCINE (1 of [employer] [facility] 14:18:17 2) [code = ZOSTER of Medicin e VACCINE (1 of 2)] Future Scheduled 2021-06-03 MEDICARE IPPE [facility] 14:18:17 (WELCOME TO of Medicine MEDICARE) [code = MEDICARE IPPE (WELCOME TO MEDICARE)] Future Scheduled 2021-06-03 FLU VACCINE > 6 [facility] [employer] 14:18:17 MONTHS [code = FLU of Medici ne VACCINE > 6 MONTHS] Future Scheduled 2021-06-03 BMI FOLLOW UP PLAN [employer] [facility] 14:18:17 [code = BMI FOLLOW of Medici ne UP PLAN] Future Scheduled 2021-06-03 Hemoglobin A1c [facility] [employer] 14:18:17 measurement of Medicine (procedure) [code = 46126600] Future Scheduled 2021-06-03 FALL SCREEN [code = [employer] [facility] 14:18:17 FALL SCREEN] of Medicine Future Scheduled 2021-06-03 Diabetic foot [facility] 14:18:17 examination of Medicine (regime/therapy) [code = 676372673] Future Scheduled 2021-06-03 TETANUS SHOT (ADULT) [employer] [facility] 14:18:17 [code = TETANUS SHOT of Medi cine (ADULT)] Future Scheduled 2021-05-26 Screening for [facility] 14:38:30 malignant neoplasm of Medici ne of colon (procedure) [code = 009542907] Future Scheduled 2021-05-26 Pneumococcal 65+ (1 [employer] [facility] 14:38:30 of 2 - PPSV23) [code of Medi cine = Pneumococcal 65+ (1 of 2 - PPSV23)] Future Scheduled 2021-05-26 COVID-19 Vaccine (1) [employer] [facility] 14:38:30 [code = COVID-19 of Medicine Vaccine (1)] Future Scheduled 2021-05-26 ANNUAL DIABETIC [facility] [employer] 14:38:30 RETINOPATHY of Medicine SCREENING [code = ANNUAL DIABETIC RETINOPATHY SCREENING] Future Scheduled 2021-05-26 ZOSTER VACCINE (1 of [employer] [facility] 14:38:30 2) [code = ZOSTER of Medicin e VACCINE (1 of 2)] Future Scheduled 2021-05-26 MEDICARE IPPE [facility] 14:38:30 (WELCOME TO of Medicine MEDICARE) [code = MEDICARE IPPE (WELCOME TO MEDICARE)] Future Scheduled 2021-05-26 FLU VACCINE > 6 [facility] [employer] 14:38:30 MONTHS [code = FLU of Medici ne VACCINE > 6 MONTHS] Future Scheduled 2021-05-26 BMI FOLLOW UP PLAN [facility] [employer] Test 14:38:30 [code = BMI FOLLOW of Medici ne UP PLAN] Future Scheduled 2021-05-26 Hemoglobin A1c [facility] [employer] 14:38:30 measurement of Medicine (procedure) [code = 50469468] Future Scheduled 2021-05-26 FALL SCREEN [code = [employer] [facility] 14:38:30 FALL SCREEN] of Medicine Future Scheduled 2021-05-26 Diabetic foot [facility] 14:38:30 examination of Medicine (regime/therapy) [code = 515369609] Future Scheduled 2021-05-26 TETANUS SHOT (ADULT) [employer] [facility] 14:38:30 [code = TETANUS SHOT of Medi cine (ADULT)] Future Scheduled 2021-04-30 Screening for [facility] 16:22:53 malignant neoplasm of Medici ne of colon (procedure) [code = 053828820] Future Scheduled 2021-04-30 COVID-19 Vaccine (1) [facility] Test 16:22:53 [code = COVID-19 of Medicine Vaccine (1)] Future Scheduled 2021-04-30 ANNUAL DIABETIC [facility] 16:22:53 RETINOPATHY of Medicine SCREENING [code = ANNUAL DIABETIC RETINOPATHY SCREENING] Future Scheduled 2021-04-30 ZOSTER VACCINE (1 of [facility] Test 16:22:53 2) [code = ZOSTER of Medicin e VACCINE (1 of 2)] Future Scheduled 2021-04-30 PNEUMOVAX >=65 [facility] Test 16:22:53 (PPSV23) [code = of Medicine PNEUMOVAX >=65 (PPSV23)] Future Scheduled 2021-04-30 FLU VACCINE > 6 [facility] Test 16:22:53 MONTHS [code = FLU of Medici ne VACCINE > 6 MONTHS] Future Scheduled 2021-04-30 BMI FOLLOW UP PLAN [facility] Test 16:22:53 [code = BMI FOLLOW of Medici ne UP PLAN] Future Scheduled 2021-04-30 Hemoglobin A1c [facility] Test 16:22:53 measurement of Medicine (procedure) [code = 44142417] Future Scheduled 2021-04-30 FALL SCREEN [code = [facility] Test 16:22:53 FALL SCREEN] of Medicine Future Scheduled 2021-04-30 Diabetic foot [facility] 16:22:53 examination of Medicine (regime/therapy) [code = 989176742] Future Scheduled 2021-04-30 TETANUS SHOT (ADULT) [facility] Test 16:22:53 [code = TETANUS SHOT of Medi cine (ADULT)] Future Scheduled 2021-04-30 CULTURE, AEROBIC Ordered: [facility] Test 15:08:37 [code = 634-6] 04/30/2021 of Medicine Future Scheduled 2021-04-30 CULTURE, ANAEROBIC Ordered: [facility] Test 15:08:37 [code = 635-3] 04/30/2021 of Medicine Future Scheduled 2021-04-28 Screening for [facility] 20:32:57 malignant neoplasm of Medici ne of colon (procedure) [code = 414090680] Future Scheduled 2021-04-28 COVID-19 Vaccine (1) [facility] Test 20:32:57 [code = COVID-19 of Medicine Vaccine (1)] Future Scheduled 2021-04-28 ANNUAL DIABETIC [facility] 20:32:57 RETINOPATHY of Medicine SCREENING [code = ANNUAL DIABETIC RETINOPATHY SCREENING] Future Scheduled 2021-04-28 ZOSTER VACCINE (1 of [facility] Test 20:32:57 2) [code = ZOSTER of Medicin e VACCINE (1 of 2)] Future Scheduled 2021-04-28 PNEUMOVAX >=65 [facility] Test 20:32:57 (PPSV23) [code = of Medicine PNEUMOVAX >=65 (PPSV23)] Future Scheduled 2021-04-28 FLU VACCINE > 6 [facility] 20:32:57 MONTHS [code = FLU of Medici ne VACCINE > 6 MONTHS] Future Scheduled 2021-04-28 BMI FOLLOW UP PLAN [facility] Test 20:32:57 [code = BMI FOLLOW of Medici ne UP PLAN] Future Scheduled 2021-04-28 Hemoglobin A1c [facility] Test 20:32:57 measurement of Medicine (procedure) [code = 54538188] Future Scheduled 2021-04-28 FALL SCREEN [code = [facility] [place] Test 20:32:57 FALL SCREEN] of Medicine Future Scheduled 2021-04-28 Diabetic foot [facility] 20:32:57 examination of Medicine (regime/therapy) [code = 299307630] Future Scheduled 2021-04-28 TETANUS SHOT (ADULT) [facility] Test 20:32:57 [code = TETANUS SHOT of Medi cine (ADULT)] Future Scheduled 2021-04-23 HEMOGLOBIN A1C [code Ordered: [facility] Test 15:06:16 = 4548-4] 04/23/2021 of Medicine Future Scheduled 2021-04-23 LIPID PANEL [code = Ordered: [facility] [place] Test 15:06:16 16215-4] 04/23/2021 of Medicine Future Scheduled 2021-04-23 COMPREHENSIVE Ordered: [facility] 15:06:16 METABOLIC PANEL 04/23/2021 of Medicine [code = 78817-4] Future Scheduled 2021-04-23 MICROALBUMIN/CREAT Ordered: [facility] Test 15:06:16 URINE RATIO [code = 04/23/2021 of Medic ine 9318-7] Future Scheduled 2021-04-13 Screening for [facility] 08:32:47 malignant neoplasm of Medici ne of colon (procedure) [code = 649913884] Future Scheduled 2021-04-13 COVID-19 Vaccine (1) [facility] 08:32:47 [code = COVID-19 of Medicine Vaccine (1)] Future Scheduled 2021-04-13 ANNUAL DIABETIC [facility] [employer] 08:32:47 RETINOPATHY of Medicine SCREENING [code = ANNUAL DIABETIC RETINOPATHY SCREENING] Future Scheduled 2021-04-13 ZOSTER VACCINE (1 of [facility] Test 08:32:47 2) [code = ZOSTER of Medicin e VACCINE (1 of 2)] Future Scheduled 2021-04-13 PNEUMOVAX >=65 [facility] 08:32:47 (PPSV23) [code = of Medicine PNEUMOVAX >=65 (PPSV23)] Future Scheduled 2021-04-13 FLU VACCINE > 6 [facility] Test 08:32:47 MONTHS [code = FLU of Medici ne VACCINE > 6 MONTHS] Future Scheduled 2021-04-13 BMI FOLLOW UP PLAN [facility] Test 08:32:47 [code = BMI FOLLOW of Medici ne UP PLAN] Future Scheduled 2021-04-13 Hemoglobin A1c [facility] Test 08:32:47 measurement of Medicine (procedure) [code = 92744134] Future Scheduled 2021-04-13 Diabetic foot [facility] 08:32:47 examination of Medicine (regime/therapy) [code = 475396481] Future Scheduled 2021-04-13 FALL SCREEN [code = [facility] 08:32:47 FALL SCREEN] of Medicine Future Scheduled 2021-04-13 TETANUS SHOT (ADULT) [facility] Test 08:32:47 [code = TETANUS SHOT of Medi cine (ADULT)] Future Scheduled 2021-03-31 URINALYSIS AUTO Ordered: [facility] 14:55:05 W/SCOPE [code = 03/31/2021 of Medicine 25039-4] Future Scheduled 2021-03-31 Screening for [facility] Test 14:42:01 malignant neoplasm of Medici ne of colon (procedure) [code = 174721388] Future Scheduled 2021-03-31 COVID-19 Vaccine (1) [facility] Test 14:42:01 [code = COVID-19 of Medicine Vaccine (1)] Future Scheduled 2021-03-31 ANNUAL DIABETIC [facility] 14:42:01 RETINOPATHY of Medicine SCREENING [code = ANNUAL DIABETIC RETINOPATHY SCREENING] Future Scheduled 2021-03-31 ZOSTER VACCINE (1 of [facility] Test 14:42:01 2) [code = ZOSTER of Medicin e VACCINE (1 of 2)] Future Scheduled 2021-03-31 PNEUMOVAX >=65 [facility] Test 14:42:01 (PPSV23) [code = of Medicine PNEUMOVAX >=65 (PPSV23)] Future Scheduled 2021-03-31 FLU VACCINE > 6 [facility] Test 14:42:01 MONTHS [code = FLU of Medici ne VACCINE > 6 MONTHS] Future Scheduled 2021-03-31 BMI FOLLOW UP PLAN [facility] Test 14:42:01 [code = BMI FOLLOW of Medici ne UP PLAN] Future Scheduled 2021-03-31 Hemoglobin A1c [facility] Test 14:42:01 measurement of Medicine (procedure) [code = 68819469] Future Scheduled 2021-03-31 Diabetic foot [facility] Test 14:42:01 examination of Medicine (regime/therapy) [code = 312610880] Future Scheduled 2021-03-31 FALL SCREEN [code = [facility] Test 14:42:01 FALL SCREEN] of Medicine Future Scheduled 2021-03-31 TETANUS SHOT (ADULT) [facility] Test 14:42:01 [code = TETANUS SHOT of Medi cine (ADULT)] Future Scheduled 2021-03-23 Screening for [facility] Test 14:17:00 malignant neoplasm of Medici ne of colon (procedure) [code = 966411524] Future Scheduled 2021-03-23 COVID-19 Vaccine (1) [facility] Test 14:17:00 [code = COVID-19 of Medicine Vaccine (1)] Future Scheduled 2021-03-23 ANNUAL DIABETIC [facility] 14:17:00 RETINOPATHY of Medicine SCREENING [code = ANNUAL DIABETIC RETINOPATHY SCREENING] Future Scheduled 2021-03-23 ZOSTER VACCINE (1 of [facility] Test 14:17:00 2) [code = ZOSTER of Medicin e VACCINE (1 of 2)] Future Scheduled 2021-03-23 PNEUMOVAX >=65 [facility] Test 14:17:00 (PPSV23) [code = of Medicine PNEUMOVAX >=65 (PPSV23)] Future Scheduled 2021-03-23 FLU VACCINE > 6 [facility] Test 14:17:00 MONTHS [code = FLU of Medici ne VACCINE > 6 MONTHS] Future Scheduled 2021-03-23 BMI FOLLOW UP PLAN [facility] Test 14:17:00 [code = BMI FOLLOW of Medici ne UP PLAN] Future Scheduled 2021-03-23 Hemoglobin A1c [facility] Test 14:17:00 measurement of Medicine (procedure) [code = 26051858] Future Scheduled 2021-03-23 Diabetic foot [facility] Test 14:17:00 examination of Medicine (regime/therapy) [code = 551342650] Future Scheduled 2021-03-23 FALL SCREEN [code = [facility] Test 14:17:00 FALL SCREEN] of Medicine Future Scheduled 2021-03-23 TETANUS SHOT (ADULT) [facility] Test 14:17:00 [code = TETANUS SHOT of Medi cine (ADULT)] Future Scheduled 2021-03-23 Screening for [facility] Test 14:17:00 malignant neoplasm of Medici ne of colon (procedure) [code = 897190668] Future Scheduled 2021-03-23 COVID-19 Vaccine (1) [facility] Test 14:17:00 [code = COVID-19 of Medicine Vaccine (1)] Future Scheduled 2021-03-23 ANNUAL DIABETIC [facility] 14:17:00 RETINOPATHY of Medicine SCREENING [code = ANNUAL DIABETIC RETINOPATHY SCREENING] Future Scheduled 2021-03-23 ZOSTER VACCINE (1 of [facility] Test 14:17:00 2) [code = ZOSTER of Medicin e VACCINE (1 of 2)] Future Scheduled 2021-03-23 PNEUMOVAX >=65 [facility] Test 14:17:00 (PPSV23) [code = of Medicine PNEUMOVAX >=65 (PPSV23)] Future Scheduled 2021-03-23 FLU VACCINE > 6 [facility] Test 14:17:00 MONTHS [code = FLU of Medici ne VACCINE > 6 MONTHS] Future Scheduled 2021-03-23 BMI FOLLOW UP PLAN [facility] Test 14:17:00 [code = BMI FOLLOW of Medici ne UP PLAN] Future Scheduled 2021-03-23 Hemoglobin A1c [facility] 14:17:00 measurement of Medicine (procedure) [code = 78745440] Future Scheduled 2021-03-23 Diabetic foot [facility] Test 14:17:00 examination of Medicine (regime/therapy) [code = 828127963] Future Scheduled 2021-03-23 FALL SCREEN [code = [facility] [place] Test 14:17:00 FALL SCREEN] of Medicine Future Scheduled 2021-03-23 TETANUS SHOT (ADULT) [facility] Test 14:17:00 [code = TETANUS SHOT of Medi cine (ADULT)] Diagnostic Test 2021-03-18 HEMOGLOBIN A1C [code Expected: [facility] Pending 00:00:00 = 4548-4] 03/18/2021 of Medicine (Approximate), Expires: 12/14/2023 Diagnostic Test 2021-03-18 LIPID PANEL [code = Expected: [facility] Pending 00:00:00 36374-9] 03/18/2021 of Medicine (Approximate), Expires: 12/14/2023 Diagnostic Test 2021-03-18 COMPREHENSIVE Expected: [facility] Pending 00:00:00 METABOLIC PANEL 03/18/2021 of Medicine [code = 87141-7] (Approximate), Expires: 12/14/2023 Diagnostic Test 2021-03-18 MICROALBUMIN/CREAT Expected: [facility] Pending 00:00:00 URINE RATIO [code = 03/18/2021 of Medic ine 9318-7] (Approximate), Expires: 12/14/2023 Future Scheduled 2021-01-12 Screening for [facility] Test 15:33:34 malignant neoplasm of Medici ne of colon (procedure) [code = 511674196] Future Scheduled 2021-01-12 COVID-19 Vaccine (1) [facility] Test 15:33:34 [code = COVID-19 of Medicine Vaccine (1)] Future Scheduled 2021-01-12 ANNUAL DIABETIC [facility] Test 15:33:34 RETINOPATHY of Medicine SCREENING [code = ANNUAL DIABETIC RETINOPATHY SCREENING] Future Scheduled 2021-01-12 ZOSTER VACCINE (1 of [facility] Test 15:33:34 2) [code = ZOSTER of Medicin e VACCINE (1 of 2)] Future Scheduled 2021-01-12 PNEUMOVAX >=65 [facility] Test 15:33:34 (PPSV23) [code = of Medicine PNEUMOVAX >=65 (PPSV23)] Future Scheduled 2021-01-12 FLU VACCINE > 6 [facility] Test 15:33:34 MONTHS [code = FLU of Medici ne VACCINE > 6 MONTHS] Future Scheduled 2021-01-12 BMI FOLLOW UP PLAN [facility] Test 15:33:34 [code = BMI FOLLOW of Medici ne UP PLAN] Future Scheduled 2021-01-12 [facility]33[facility]34 measurement of Medicine (procedure) [code = 14478853] Future Scheduled 2021-01-12 Diabetic foot [facility] Test 15:33:34 examination of Medicine (regime/therapy) [code = 392088616] Future Scheduled 2021-01-12 FALL SCREEN [code = [facility] Test 15:33:34 FALL SCREEN] of Medicine Future Scheduled 2021-01-12 TETANUS SHOT (ADULT) [facility] Test 15:33:34 [code = TETANUS SHOT of Medi cine (ADULT)] Future Scheduled 2021-01-06 Screening for [facility] Test 11:05:01 malignant neoplasm of Medici ne of colon (procedure) [code = 588046404] Future Scheduled 2021-01-06 COVID-19 Vaccine (1) [facility] Test 11:05:01 [code = COVID-19 of Medicine Vaccine (1)] Future Scheduled 2021-01-06 ANNUAL DIABETIC [facility] Test 11:05:01 RETINOPATHY of Medicine SCREENING [code = ANNUAL DIABETIC RETINOPATHY SCREENING] Future Scheduled 2021-01-06 ZOSTER VACCINE (1 of [facility] Test 11:05:01 2) [code = ZOSTER of Medicin e VACCINE (1 of 2)] Future Scheduled 2021-01-06 PNEUMOVAX >=65 [facility] Test 11:05:01 (PPSV23) [code = of Medicine PNEUMOVAX >=65 (PPSV23)] Future Scheduled 2021-01-06 FLU VACCINE > 6 [facility] Test 11:05:01 MONTHS [code = FLU of Medici ne VACCINE > 6 MONTHS] Future Scheduled 2021-01-06 BMI FOLLOW UP PLAN [facility] r [place] Test 11:05:01 [code = BMI FOLLOW of Medici ne UP PLAN] Future Scheduled 2021-01-06 Hemoglobin A1c [facility] Test 11:05:01 measurement of Medicine (procedure) [code = 39737407] Future Scheduled 2021-01-06 Diabetic foot [facility] Test 11:05:01 examination of Medicine (regime/therapy) [code = 576668530] Future Scheduled 2021-01-06 FALL SCREEN [code = [facility] or [place] Test 11:05:01 FALL SCREEN] of Medicine Future Scheduled 2021-01-06 TETANUS SHOT (ADULT) [facility] Test 11:05:01 [code = TETANUS SHOT of Medi cine (ADULT)] Future Scheduled 2020-12-27 Screening for [facility] Test 23:28:00 malignant neoplasm of Medici ne of colon (procedure) [code = 639752858] Future Scheduled 2020-12-27 COVID-19 Vaccine (1) [facility] Test 23:28:00 [code = COVID-19 of Medicine Vaccine (1)] Future Scheduled 2020-12-27 ANNUAL DIABETIC [facility] Test 23:28:00 RETINOPATHY of Medicine SCREENING [code = ANNUAL DIABETIC RETINOPATHY SCREENING] Future Scheduled 2020-12-27 ZOSTER VACCINE (1 of [facility] Test 23:28:00 2) [code = ZOSTER of Medicin e VACCINE (1 of 2)] Future Scheduled 2020-12-27 PNEUMOVAX >=65 [facility] Test 23:28:00 (PPSV23) [code = of Medicine PNEUMOVAX >=65 (PPSV23)] Future Scheduled 2020-12-27 FLU VACCINE > 6 [facility] Test 23:28:00 MONTHS [code = FLU of Medici ne VACCINE > 6 MONTHS] Future Scheduled 2020-12-27 BMI FOLLOW UP PLAN [facility] Test 23:28:00 [code = BMI FOLLOW of Medici ne UP PLAN] Future Scheduled 2020-12-27 Hemoglobin A1c [facility] Test 23:28:00 measurement of Medicine (procedure) [code = 16959053] Future Scheduled 2020-12-27 Diabetic foot [facility] Test 23:28:00 examination of Medicine (regime/therapy) [code = 664275772] Future Scheduled 2020-12-27 FALL SCREEN [code = [facility] Test 23:28:00 FALL SCREEN] of Medicine Future Scheduled 2020-12-27 TETANUS SHOT (ADULT) [facility] Test 23:28:00 [code = TETANUS SHOT of Medi cine (ADULT)] Future Scheduled 2020-12-17 MS MED NUTR THER, Ordered: [facility] Test 16:13:20 SUBSQ, INDIV, EA 15 12/17/2020 of Medic ine MIN [code = 09704] Future Scheduled 2020-12-17 Hemoglobin A1c [facility] Test 16:03:02 measurement of Medicine (procedure) [code = 53770550] Future Scheduled 2020-12-17 Diabetic foot [facility] Test 15:29:29 examination of Medicine (regime/therapy) [code = 874480450] Future Scheduled 2020-12-17 Screening for [facility] Test 15:02:55 malignant neoplasm of Medici ne of colon (procedure) [code = 923805352] Future Scheduled 2020-12-17 COVID-19 Vaccine (1) [facility] Test 15:02:55 [code = COVID-19 of Medicine Vaccine (1)] Future Scheduled 2020-12-17 ANNUAL DIABETIC [facility] Test 15:02:55 RETINOPATHY of Medicine SCREENING [code = ANNUAL DIABETIC RETINOPATHY SCREENING] Future Scheduled 2020-12-17 ZOSTER VACCINE (1 of [facility] Test 15:02:55 2) [code = ZOSTER of Medicin e VACCINE (1 of 2)] Future Scheduled 2020-12-17 PNEUMOVAX >=65 [facility] Test 15:02:55 (PPSV23) [code = of Medicine PNEUMOVAX >=65 (PPSV23)] Future Scheduled 2020-12-17 FLU VACCINE > 6 [facility] Test 15:02:55 MONTHS [code = FLU of Medici ne VACCINE > 6 MONTHS] Future Scheduled 2020-12-17 BMI FOLLOW UP PLAN [facility] Test 15:02:55 [code = BMI FOLLOW of Medici ne UP PLAN] Future Scheduled 2020-12-17 FALL SCREEN [code = [employer] Test 15:02:55 FALL SCREEN] of Medicine Future Scheduled 2020-12-17 TETANUS SHOT (ADULT) [facility] Test 15:02:55 [code = TETANUS SHOT of Medi cine (ADULT)] Future Scheduled 2020-12-16 Screening for [facility] Test 11:01:53 malignant neoplasm of Medici ne of colon (procedure) [code = 207326302] Future Scheduled 2020-12-16 COVID-19 Vaccine (1) [facility] Test 11:01:53 [code = COVID-19 of Medicine Vaccine (1)] Future Scheduled 2020-12-16 [facility] RETINOPATHY of Medicine SCREENING [code = ANNUAL DIABETIC RETINOPATHY SCREENING] Future Scheduled 2020-12-16 ZOSTER VACCINE (1 of [facility] Test 11:01:53 2) [code = ZOSTER of Medicin e VACCINE (1 of 2)] Future Scheduled 2020-12-16 PNEUMOVAX >=65 [facility] Test 11:01:53 (PPSV23) [code = of Medicine PNEUMOVAX >=65 (PPSV23)] Future Scheduled 2020-12-16 FLU VACCINE > 6 [facility] Test 11:01:53 MONTHS [code = FLU of Medici ne VACCINE > 6 MONTHS] Future Scheduled 2020-12-16 [facility] 11:01:53 measurement of Medicine (procedure) [code = 74026796] Future Scheduled 2020-12-16 BMI FOLLOW UP PLAN [facility] [place] Test 11:01:53 [code = BMI FOLLOW of Medici ne UP PLAN] Future Scheduled 2020-12-16 Diabetic foot [facility] Test 11:01:53 examination of Medicine (regime/therapy) [code = 345025308] Future Scheduled 2020-12-16 FALL SCREEN [code = [employer] Test 11:01:53 FALL SCREEN] of Medicine Future Scheduled 2020-12-16 TETANUS SHOT (ADULT) [facility] Test 11:01:53 [code = TETANUS SHOT of Medi cine (ADULT)] Diagnostic Test 2020-12-12 HEMOGLOBIN A1C [code Expected: [facility] Pending 00:00:00 = 4548-4] 12/12/2020, of Medicine Expires: 09/11/2024 Diagnostic Test 2020-12-12 LIPID PANEL [code = Expected: [facility] Pending 00:00:00 55702-2] 12/12/2020, of Medicine Expires: 09/11/2024 Diagnostic Test 2020-12-12 COMPREHENSIVE Expected: [facility] Pending 00:00:00 METABOLIC PANEL 12/12/2020, of Medicine [code = 77772-7] Expires: 09/11/2024 Diagnostic Test 2020-12-12 MICROALBUMIN/CREAT Expected: [facility] Pending 00:00:00 URINE RATIO [code = 12/12/2020, of Medic ine 9318-7] Expires: 09/11/2024 Diagnostic Test 2020-09-09 HEMOGLOBIN A1C [code Expected: [facility] Pending 00:00:00 = 4548-4] 09/09/2020, of Medicine Expires: 06/11/2021 Diagnostic Test 2020-09-09 LIPID PANEL [code = Expected: [facility] Pending 00:00:00 67772-3] 09/09/2020, of Medicine Expires: 06/11/2021 Diagnostic Test 2020-09-09 COMPREHENSIVE Expected: [facility] Pending 00:00:00 METABOLIC PANEL 09/09/2020, of Medicine [code = 44756-6] Expires: 06/11/2021 Diagnostic Test 2020-09-09 MICROALBUMIN/CREAT Expected: [facility] Pending 00:00:00 URINE RATIO [code = 09/09/2020, of Medic ine 9318-7] Expires: 06/11/2021 Diagnostic Test 2020-06-10 HEMOGLOBIN A1C [code Expected: [facility] [place] Pending 00:00:00 = 4548-4] 06/10/2020, of Medicine Expires: 03/23/2022 Diagnostic Test 2020-06-10 LIPID PANEL [code = Expected: [facility] Pending 00:00:00 45750-3] 06/10/2020, of Medicine Expires: 03/23/2022 Diagnostic Test 2020-06-10 COMPREHENSIVE Expected: [facility] Pending 00:00:00 METABOLIC PANEL 06/10/2020, of Medicine [code = 48971-1] Expires: 03/23/2022 Diagnostic Test 2020-06-10 MICROALBUMIN/CREAT Expected: [facility] Pending 00:00:00 URINE RATIO [code = 06/10/2020, of Medic ine 9318-7] Expires: 03/23/2022 Future Scheduled 2020-05-[address] [facility] Test 00:00:00 measurement Medical Center (procedure) [code = 22734558] Future Scheduled 2020-01-[address] [facility] Test 00:00:00 WELLNESS (YEAR 2 or Medical Center FIRST YEAR if no IPPE) [code = MEDICARE ANNUAL WELLNESS (YEAR 2 or FIRST YEAR if no IPPE)] Diagnostic Test 2019-05-04 CBC W/AUTO DIFF WITH Expected: [facility] Pending 00:00:00 PLATELETS [code = 05/04/2019, of [place] 46372-3] Expires: 10/03/2019 Diagnostic Test 2019-04-10 MRI ABDOMEN W WO Expected: [facility] Pending 00:00:00 CONTRAST [code = 04/10/2019, of Medicine 66537-5] Expires: 11/02/2019 Diagnostic Test 2019-04-10 COMPREHENSIVE Expected: [facility] Pending 00:00:00 METABOLIC PANEL 04/10/2019, of Medicine [code = 24547-7] Expires: 10/03/2019 Future Scheduled 2003 SHINGLES VACCINES ([address] [facility] Test 00:00:00 of 2) [code = Medical Center SHINGLES VACCINES (1 of 2)] Future Scheduled [address] [facility] Test 00:00:00 SCREENING [code = Medical Ce nter HEPATITIS C SCREENING] Future Scheduled 1963 DIABETIC EYE EXAM [facility] Test 00:00:00 [code = DIABETIC EYE Medical Center EXAM] Future Scheduled [address] [facility] Test 00:00:00 examination Medical Center (regime/therapy) [code = 764582072] Future Scheduled 1959 PNEUMOCOCCAL 65+ YRS [facility] Test 00:00:00 (1 - PCV) [code = Medical Ce nter PNEUMOCOCCAL 65+ YRS (1 - PCV)] Future Scheduled 1953 COVID-[address] [facility] Test 00:00:00 (#1) [code = Medical Center COVID-19 VACCINE (#1)] Future Scheduled [address] [facility] Test 00:00:00 (combo) [code = CT Medical C enter Colonography (combo)] Future Scheduled [address] [facility] Test 00:00:00 malignant neoplasm Medical C enter of colon (procedure) [code = 059041303] Future Scheduled [address] [facility] Test 00:00:00 malignant neoplasm Medical C enter of colon (procedure) [code = 295958511] Future Scheduled [address] [facility] Test 00:00:00 malignant neoplasm Medical C enter of colon (procedure) [code = 947671694] Future Scheduled [address] [facility] Test 00:00:00 malignant neoplasm Medical C enter of colon (procedure) [code = 449055576] Future Scheduled 1953 Sigmoidoscopy [code [facility] Test 00:00:00 = Sigmoidoscopy] Medical [address] Future Scheduled COLON CANCER [facility] Test SCREENING: of Medicine COLONOSCOPY [code = COLON CANCER SCREENING: COLONOSCOPY] Future Scheduled ANNUAL DIABETIC [facility] Test RETINOPATHY of Medicine SCREENING [code = ANNUAL DIABETIC RETINOPATHY SCREENING] Future Scheduled ZOSTER VACCINE (1 of [facility] Test 2) [code = ZOSTER of Medicin e VACCINE (1 of 2)] Future Scheduled MEDICARE AWV [facility] Test (Initial) [code = of Medicin e MEDICARE AWV (Initial)] Future Scheduled PNEUMOVAX >=65 [facility] Test (PPSV23) [code = of Medicine PNEUMOVAX >=65 (PPSV23)] Future Scheduled Diabetic foot [facility] Test examination of Medicine (regime/therapy) [code = 917216552] Future Scheduled A1C TESTING EVERY 6 [facility] or [place] Test MONTHS [code = A1C of Medici ne TESTING EVERY 6 MONTHS] Future Scheduled BMI FOLLOW UP PLAN [facility] Test [code = BMI FOLLOW of Medici ne UP PLAN] Future Scheduled FALL SCREEN [code = [facility] [place] Test FALL SCREEN] of Medicine Future Scheduled TETANUS SHOT (ADULT) [employer] Test [code = TETANUS SHOT of Medi cine (ADULT)] Future Scheduled COLON CANCER [facility] Test SCREENING: of Medicine COLONOSCOPY [code = COLON CANCER SCREENING: COLONOSCOPY] Future Scheduled ANNUAL DIABETIC [facility] Test RETINOPATHY of Medicine SCREENING [code = ANNUAL DIABETIC RETINOPATHY SCREENING] Future Scheduled ZOSTER VACCINE (1 of [employer] Test 2) [code = ZOSTER of Medicin e VACCINE (1 of 2)] Future Scheduled MEDICARE AWV [facility] Test (Initial) [code = of Medicin e MEDICARE AWV (Initial)] Future Scheduled PNEUMOVAX >=65 [facility] Test (PPSV23) [code = of Medicine PNEUMOVAX >=65 (PPSV23)] Future Scheduled Diabetic foot [facility] Test examination of Medicine (regime/therapy) [code = 300372622] Future Scheduled A1C TESTING EVERY 6 [employer] Test MONTHS [code = A1C of Medici ne TESTING EVERY 6 MONTHS] Future Scheduled BMI FOLLOW UP PLAN [employer] Test [code = BMI FOLLOW of Medici ne UP PLAN] Future Scheduled FALL SCREEN [code = [employer] [facility] FALL SCREEN] of Medicine Future Scheduled TETANUS SHOT (ADULT) [employer] Test [code = TETANUS SHOT of Medi cine (ADULT)] Future Scheduled COLON CANCER [facility] Test SCREENING: of Medicine COLONOSCOPY [code = COLON CANCER SCREENING: COLONOSCOPY] Future Scheduled ANNUAL DIABETIC [facility] Test RETINOPATHY of Medicine SCREENING [code = ANNUAL DIABETIC RETINOPATHY SCREENING] Future Scheduled ZOSTER VACCINE (1 of [employer] Test 2) [code = ZOSTER of Medicin e VACCINE (1 of 2)] Future Scheduled MEDICARE AWV [facility] Test (Initial) [code = of Medicin e MEDICARE AWV (Initial)] Future Scheduled PNEUMOVAX >=65 [facility] Test (PPSV23) [code = of Medicine PNEUMOVAX >=65 (PPSV23)] Future Scheduled Diabetic foot [facility] Test examination of Medicine (regime/therapy) [code = 295667606] Future Scheduled A1C TESTING EVERY 6 [employer] Test MONTHS [code = A1C of Medici ne TESTING EVERY 6 MONTHS] Future Scheduled BMI FOLLOW UP PLAN [employer] Test [code = BMI FOLLOW of Medici ne UP PLAN] Future Scheduled FALL SCREEN [code = [employer] [facility] FALL SCREEN] of Medicine Future Scheduled TETANUS SHOT (ADULT) [employer] Test [code = TETANUS SHOT of Medi cine (ADULT)] Future Scheduled COLON CANCER [facility] Test SCREENING: of Medicine COLONOSCOPY [code = COLON CANCER SCREENING: COLONOSCOPY] Future Scheduled ANNUAL DIABETIC [facility] Test RETINOPATHY of Medicine SCREENING [code = ANNUAL DIABETIC RETINOPATHY SCREENING] Future Scheduled ZOSTER VACCINE (1 of [employer] Test 2) [code = ZOSTER of Medicin e VACCINE (1 of 2)] Future Scheduled MEDICARE AWV [facility] Test (Initial) [code = of Medicin e MEDICARE AWV (Initial)] Future Scheduled PNEUMOVAX >=65 [facility] Test (PPSV23) [code = of Medicine PNEUMOVAX >=65 (PPSV23)] Future Scheduled Diabetic foot [facility] Test examination of Medicine (regime/therapy) [code = 047099410] Future Scheduled A1C TESTING EVERY 6 [employer] Test MONTHS [code = A1C of Medici ne TESTING EVERY 6 MONTHS] Future Scheduled BMI FOLLOW UP PLAN [employer] Test [code = BMI FOLLOW of Medici ne UP PLAN] Future Scheduled FALL SCREEN [code = [employer] [facility] FALL SCREEN] of Medicine Future Scheduled TETANUS SHOT (ADULT) [employer] Test [code = TETANUS SHOT of Medi cine (ADULT)] Future Scheduled COLON CANCER [facility] Test SCREENING: of Medicine COLONOSCOPY [code = COLON CANCER SCREENING: COLONOSCOPY] Future Scheduled ANNUAL DIABETIC [facility] Test RETINOPATHY of Medicine SCREENING [code = ANNUAL DIABETIC RETINOPATHY SCREENING] Future Scheduled ZOSTER VACCINE (1 of [employer] Test 2) [code = ZOSTER of Medicin e VACCINE (1 of 2)] Future Scheduled MEDICARE AWV [facility] Test (Initial) [code = of Medicin e MEDICARE AWV (Initial)] Future Scheduled PNEUMOVAX >=65 [facility] Test (PPSV23) [code = of Medicine PNEUMOVAX >=65 (PPSV23)] Future Scheduled Diabetic foot [facility] Test examination of Medicine (regime/therapy) [code = 551710962] Future Scheduled A1C TESTING EVERY 6 [employer] Test MONTHS [code = A1C of Medici ne TESTING EVERY 6 MONTHS] Future Scheduled BMI FOLLOW UP PLAN [employer] Test [code = BMI FOLLOW of Medici ne UP PLAN] Future Scheduled FALL SCREEN [code = [employer] [facility] FALL SCREEN] of Medicine Future Scheduled TETANUS SHOT (ADULT) [employer] Test [code = TETANUS SHOT of Medi cine (ADULT)] Future Scheduled COLON CANCER [facility] Test SCREENING: of Medicine COLONOSCOPY [code = COLON CANCER SCREENING: COLONOSCOPY] Future Scheduled COVID-19 Vaccine [facility] Test Evaluation [code = of Medici ne COVID-19 Vaccine Evaluation] Future Scheduled ANNUAL DIABETIC [facility] Test RETINOPATHY of Medicine SCREENING [code = ANNUAL DIABETIC RETINOPATHY SCREENING] Future Scheduled ZOSTER VACCINE (1 of [employer] Test 2) [code = ZOSTER of Medicin e VACCINE (1 of 2)] Future Scheduled MEDICARE AWV [facility] Test (Initial) [code = of Medicin e MEDICARE AWV (Initial)] Future Scheduled PNEUMOVAX >=65 [facility] Test (PPSV23) [code = of Medicine PNEUMOVAX >=65 (PPSV23)] Future Scheduled Diabetic foot [facility] Test examination of Medicine (regime/therapy) [code = 309060666] Future Scheduled A1C TESTING EVERY 6 [employer] Test MONTHS [code = A1C of Medici ne TESTING EVERY 6 MONTHS] Future Scheduled BMI FOLLOW UP PLAN [employer] Test [code = BMI FOLLOW of Medici ne UP PLAN] Future Scheduled FALL SCREEN [code = [employer] [facility] FALL SCREEN] of Medicine Future Scheduled TETANUS SHOT (ADULT) [employer] Test [code = TETANUS SHOT of Medi cine (ADULT)] Future Scheduled MS DEBRIDEMENT OF Ordered: [facility] Test NAILS, 6 OR MORE 07/17/2020 of Medicine [code = 77867] Future Scheduled COLON CANCER [facility] Test SCREENING: of Medicine COLONOSCOPY [code = COLON CANCER SCREENING: COLONOSCOPY] Future Scheduled COVID-19 Vaccine [facility] Test Evaluation [code = of Medici ne COVID-19 Vaccine Evaluation] Future Scheduled ANNUAL DIABETIC [facility] Test RETINOPATHY of Medicine SCREENING [code = ANNUAL DIABETIC RETINOPATHY SCREENING] Future Scheduled ZOSTER VACCINE (1 of [employer] Test 2) [code = ZOSTER of Medicin e VACCINE (1 of 2)] Future Scheduled MEDICARE AWV [facility] Test (Initial) [code = of Medicin e MEDICARE AWV (Initial)] Future Scheduled PNEUMOVAX >=65 [facility] Test (PPSV23) [code = of Medicine PNEUMOVAX >=65 (PPSV23)] Future Scheduled Diabetic foot [facility] Test examination of Medicine (regime/therapy) [code = 821003292] Future Scheduled A1C TESTING EVERY 6 [employer] Test MONTHS [code = A1C of Medici ne TESTING EVERY 6 MONTHS] Future Scheduled BMI FOLLOW UP PLAN [employer] Test [code = BMI FOLLOW of Medici ne UP PLAN] Future Scheduled FALL SCREEN [code = [employer] [facility] FALL SCREEN] of Medicine Future Scheduled TETANUS SHOT (ADULT) [employer] Test [code = TETANUS SHOT of Medi cine (ADULT)] Future Scheduled MS MED NUTR THER, Ordered: [facility] Test 1ST, INDIV, EA 15 08/04/2020 of Medicin e MIN [code = 42154] Future Scheduled COLON CANCER [facility] Test SCREENING: of Medicine COLONOSCOPY [code = COLON CANCER SCREENING: COLONOSCOPY] Future Scheduled COVID-19 Vaccine [facility] Test Evaluation [code = of Medici ne COVID-19 Vaccine Evaluation] Future Scheduled ANNUAL DIABETIC [facility] Test RETINOPATHY of Medicine SCREENING [code = ANNUAL DIABETIC RETINOPATHY SCREENING] Future Scheduled ZOSTER VACCINE (1 of [employer] Test 2) [code = ZOSTER of Medicin e VACCINE (1 of 2)] Future Scheduled MEDICARE AWV [facility] Test (Initial) [code = of Medicin e MEDICARE AWV (Initial)] Future Scheduled PNEUMOVAX >=65 [facility] Test (PPSV23) [code = of Medicine PNEUMOVAX >=65 (PPSV23)] Future Scheduled Diabetic foot [facility] Test examination of Medicine (regime/therapy) [code = 257046552] Future Scheduled A1C TESTING EVERY 6 [employer] Test MONTHS [code = A1C of Medici ne TESTING EVERY 6 MONTHS] Future Scheduled BMI FOLLOW UP PLAN [employer] Test [code = BMI FOLLOW of Medici ne UP PLAN] Future Scheduled FALL SCREEN [code = [employer] [facility] FALL SCREEN] of Medicine Future Scheduled TETANUS SHOT (ADULT) [employer] Test [code = TETANUS SHOT of Medi cine (ADULT)] Future Scheduled COLON CANCER [facility] Test SCREENING: of Medicine COLONOSCOPY [code = COLON CANCER SCREENING: COLONOSCOPY] Future Scheduled COVID-19 Vaccine [facility] Test Evaluation [code = of Medici ne COVID-19 Vaccine Evaluation] Future Scheduled ANNUAL DIABETIC [facility] Test RETINOPATHY of Medicine SCREENING [code = ANNUAL DIABETIC RETINOPATHY SCREENING] Future Scheduled ZOSTER VACCINE (1 of [employer] Test 2) [code = ZOSTER of Medicin e VACCINE (1 of 2)] Future Scheduled MEDICARE AWV [facility] Test (Initial) [code = of Medicin e MEDICARE AWV (Initial)] Future Scheduled PNEUMOVAX >=65 [facility] [employer] Test (PPSV23) [code = of Medicine PNEUMOVAX >=65 (PPSV23)] Future Scheduled Diabetic foot [facility] Test examination of Medicine (regime/therapy) [code = [id number]] Future Scheduled A1C TESTING EVERY 6 [employer] [facility] MONTHS [code = A1C of Medici ne TESTING EVERY 6 MONTHS] Future Scheduled BMI FOLLOW UP PLAN [employer] Test [code = BMI FOLLOW of Medici ne UP PLAN] Future Scheduled FALL SCREEN [code = [employer] FALL SCREEN] of Medicine Future Scheduled TETANUS SHOT (ADULT) [employer] Test [code = TETANUS SHOT of Medi cine (ADULT)] Future Scheduled COLON CANCER [facility] ege Test SCREENING: of Medicine COLONOSCOPY [code = COLON CANCER SCREENING: COLONOSCOPY] Future Scheduled COVID-19 Vaccine [facility] Test Evaluation [code = of Medici ne COVID-19 Vaccine Evaluation] Future Scheduled ANNUAL DIABETIC [facility] Test RETINOPATHY of Medicine SCREENING [code = ANNUAL DIABETIC RETINOPATHY SCREENING] Future Scheduled ZOSTER VACCINE (1 of [employer] Test 2) [code = ZOSTER of Medicin e VACCINE (1 of 2)] Future Scheduled MEDICARE AWV [facility] Test (Initial) [code = of Medicin e MEDICARE AWV (Initial)] Future Scheduled PNEUMOVAX >=65 [facility] [employer] Test (PPSV23) [code = of Medicine PNEUMOVAX >=65 (PPSV23)] Future Scheduled Diabetic foot [facility] Test examination of Medicine (regime/therapy) [code = [id number]] Future Scheduled A1C TESTING EVERY 6 [employer] [facility] MONTHS [code = A1C of Medici ne TESTING EVERY 6 MONTHS] Future Scheduled BMI FOLLOW UP PLAN [employer] Test [code = BMI FOLLOW of Medici ne UP PLAN] Future Scheduled FALL SCREEN [code = [employer] [facility] FALL SCREEN] of Medicine Future Scheduled TETANUS SHOT (ADULT) [employer] Test [code = TETANUS SHOT of Medi cine (ADULT)] Future Scheduled ORT - XR FOOT BILAT Ordered: [employer] [facility] 3V (CHARGE ONLY) 02/12/2019 of Medicine [code = 43962] Future Scheduled Screening for [facility] Test malignant neoplasm of Medici ne of colon (procedure) [code = 742160624] Future Scheduled COVID-19 Vaccine [employer] Test Evaluation [code = of Medici ne COVID-19 Vaccine Evaluation] Future Scheduled ANNUAL DIABETIC [facility] Test RETINOPATHY of Medicine SCREENING [code = ANNUAL DIABETIC RETINOPATHY SCREENING] Future Scheduled ZOSTER VACCINE (1 of [employer] Test 2) [code = ZOSTER of Medicin e VACCINE (1 of 2)] Future Scheduled MEDICARE AWV [employer] (Initial) [code = of Medicin e MEDICARE AWV (Initial)] Future Scheduled PNEUMOVAX >=65 [facility] Test (PPSV23) [code = of Medicine PNEUMOVAX >=65 (PPSV23)] Future Scheduled Diabetic foot [facility] Test examination of Medicine (regime/therapy) [code = 134943597] Future Scheduled Hemoglobin A1c [facility] llege Test measurement of Medicine (procedure) [code = 55738573] Future Scheduled BMI FOLLOW UP PLAN [employer] Test [code = BMI FOLLOW of Medici ne UP PLAN] Future Scheduled COLON CANCER [facility] [employer] Test SCREENING: of Medicine COLONOSCOPY [code = COLON CANCER SCREENING: COLONOSCOPY] Future Scheduled FALL SCREEN [code = [employer] FALL SCREEN] of Medicine Future Scheduled TETANUS SHOT (ADULT) [employer] Test [code = TETANUS SHOT of Medi cine (ADULT)] Future Scheduled MEDICARE AWV [code = [employer] [facility] MEDICARE AWV] of Medicine Future Scheduled TETANUS SHOT (ADULT) [employer] Test [code = TETANUS SHOT of Medi cine (ADULT)] Future Scheduled ANNUAL DIABETIC [employer] [employer] [facility] RETINOPATHY of Medicine SCREENING [code = ANNUAL DIABETIC RETINOPATHY SCREENING] Future Scheduled Screening for [employer] Test malignant neoplasm of Medici ne of colon (procedure) [code = [id number]] Future Scheduled COVID-19 Vaccine (1) [employer] Test [code = COVID-19 of Medicine Vaccine (1)] Future Scheduled ANNUAL DIABETIC [facility] Test RETINOPATHY of Medicine SCREENING [code = ANNUAL DIABETIC RETINOPATHY SCREENING] Future Scheduled ZOSTER VACCINE (1 of [employer] Test 2) [code = ZOSTER of Medicin e VACCINE (1 of 2)] Future Scheduled BMI FOLLOW UP PLAN [employer] Test [code = BMI FOLLOW of Medici ne UP PLAN] Future Scheduled MEDICARE AWV [facility] Test (Initial) [code = of Medicin e MEDICARE AWV (Initial)] Future Scheduled PNEUMOVAX >=65 [facility] Test (PPSV23) [code = of Medicine PNEUMOVAX >=65 (PPSV23)] Future Scheduled Hemoglobin A1c [facility] [employer] Test measurement of Medicine (procedure) [code = 54440471] Future Scheduled BMI FOLLOW UP PLAN [employer] Test [code = BMI FOLLOW of Medici ne UP PLAN] Future Scheduled FALL SCREEN [code = [employer] [place] [facility] FALL SCREEN] of Medicine Future Scheduled Diabetic foot [facility] Test examination of Medicine (regime/therapy) [code = 671457898] Future Scheduled TETANUS SHOT (ADULT) [employer] Test [code = TETANUS SHOT of Medi cine (ADULT)] Future Scheduled HEPATITIS C [facility] Test SCREENING [code = of Medicin e HEPATITIS C SCREENING] Future Scheduled PNEUMOVAX >=65 [employer] Test (PPSV23) [code = of Medicine PNEUMOVAX >=65 (PPSV23)] Future Scheduled PREVNAR >= 65 [facility] Test (PCV13) [code = of Medicine PREVNAR >= 65 (PCV13)] Future Scheduled Screening for [facility] [employer] Test malignant neoplasm of Medici ne of colon (procedure) [code = 404570325] Future Scheduled FLU VACCINE > 6 [facility] Test MONTHS [code = FLU of Medici ne VACCINE > 6 MONTHS] Future Scheduled COVID-19 Vaccine (1) [employer] [facility] [code = COVID-19 of Medicine Vaccine (1)] Future Scheduled ANNUAL DIABETIC [facility] Test RETINOPATHY of Medicine SCREENING [code = ANNUAL DIABETIC RETINOPATHY SCREENING] Future Scheduled ZOSTER VACCINE (1 of [employer] Test 2) [code = ZOSTER of Medicin e VACCINE (1 of 2)] Future Scheduled MEDICARE AWV [facility] [employer] [facility] (Initial) [code = of Medicin e MEDICARE AWV (Initial)] Future Scheduled PNEUMOVAX >=65 [employer] [employer] [facility] (PPSV23) [code = of Medicine PNEUMOVAX >=65 (PPSV23)] Future Scheduled Hemoglobin A1c [facility] [employer] Test measurement of Medicine (procedure) [code = 90675853] Future Scheduled BMI FOLLOW UP PLAN [employer] Test [code = BMI FOLLOW of Medici ne UP PLAN] Future Scheduled FALL SCREEN [code = [employer] [facility] FALL SCREEN] of Medicine Future Scheduled Diabetic foot [facility] Test examination of Medicine (regime/therapy) [code = 790640717] Future Scheduled TETANUS SHOT (ADULT) [employer] Test [code = TETANUS SHOT of Medi cine (ADULT)] Future Scheduled Diabetic foot [facility] [employer] [facility] examination of Medicine (regime/therapy) [code = 185525457] Future Scheduled FALL SCREEN [code = [employer] [facility] FALL SCREEN] of Medicine Future Scheduled Screening for [facility] Test malignant neoplasm of Medici ne of colon (procedure) [code = 214827455] Future Scheduled COVID-19 Vaccine (1) [employer] Test [code = COVID-19 of Medicine Vaccine (1)] Future Scheduled ANNUAL DIABETIC [facility] Test RETINOPATHY of Medicine SCREENING [code = ANNUAL DIABETIC RETINOPATHY SCREENING] Future Scheduled ZOSTER VACCINE (1 of [employer] Test 2) [code = ZOSTER of Medicin e VACCINE (1 of 2)] Future Scheduled MEDICARE AWV [facility] [employer] Test (Initial) [code = of Medicin e MEDICARE AWV (Initial)] Future Scheduled PNEUMOVAX >=65 [facility] [employer] Test (PPSV23) [code = of Medicine PNEUMOVAX >=65 (PPSV23)] Future Scheduled FLU VACCINE > 6 [facility] Test MONTHS [code = FLU of Medici ne VACCINE > 6 MONTHS] Future Scheduled Hemoglobin A1c [facility] [employer] Test measurement of Medicine (procedure) [code = 34922300] Future Scheduled BMI FOLLOW UP PLAN [employer] Test [code = BMI FOLLOW of Medici ne UP PLAN] Future Scheduled FALL SCREEN [code = [employer] [facility] FALL SCREEN] of Medicine Future Scheduled Diabetic foot [facility] Test examination of Medicine (regime/therapy) [code = 375292608] Future Scheduled TETANUS SHOT (ADULT) [employer] Test [code = TETANUS SHOT of Medi cine (ADULT)] Future Scheduled Screening for [facility] [employer] Test malignant neoplasm of Medici ne of colon (procedure) [code = 653528050] Future Scheduled COVID-19 Vaccine (1) [employer] Test [code = COVID-19 of Medicine Vaccine (1)] Future Scheduled ANNUAL DIABETIC [facility] Test RETINOPATHY of Medicine SCREENING [code = ANNUAL DIABETIC RETINOPATHY SCREENING] Future Scheduled ZOSTER VACCINE (1 of [employer] Test 2) [code = ZOSTER of Medicin e VACCINE (1 of 2)] Future Scheduled MEDICARE AWV [facility] [employer] [facility] (Initial) [code = of Medicin e MEDICARE AWV (Initial)] Future Scheduled PNEUMOVAX >=65 [facility] Test (PPSV23) [code = of Medicine PNEUMOVAX >=65 (PPSV23)] Future Scheduled FLU VACCINE > 6 [facility] Test MONTHS [code = FLU of Medici ne VACCINE > 6 MONTHS] Future Scheduled Hemoglobin A1c [facility] llege Test measurement of Medicine (procedure) [code = 02213089] Future Scheduled BMI FOLLOW UP PLAN [facility] Test [code = BMI FOLLOW of Medici ne UP PLAN] Future Scheduled FALL SCREEN [code = [facility] [place] Test FALL SCREEN] of Medicine Future Scheduled Diabetic foot [facility] Test examination of Medicine (regime/therapy) [code = 724369576] Future Scheduled TETANUS SHOT (ADULT) [employer] Test [code = TETANUS SHOT of Medi cine (ADULT)] Future Scheduled Screening for [facility] Test malignant neoplasm of Medici ne of colon (procedure) [code = 092340116] Future Scheduled COVID-19 Vaccine (1) [employer] Test [code = COVID-19 of Medicine Vaccine (1)] Future Scheduled ANNUAL DIABETIC [facility] Test RETINOPATHY of Medicine SCREENING [code = ANNUAL DIABETIC RETINOPATHY SCREENING] Future Scheduled ZOSTER VACCINE (1 of [employer] Test 2) [code = ZOSTER of Medicin e VACCINE (1 of 2)] Future Scheduled MEDICARE AWV [facility] [employer] Test (Initial) [code = of Medicin e MEDICARE AWV (Initial)] Future Scheduled PNEUMOVAX >=65 [facility] [employer] Test (PPSV23) [code = of Medicine PNEUMOVAX >=65 (PPSV23)] Future Scheduled FLU VACCINE > 6 [facility] Test MONTHS [code = FLU of Medici ne VACCINE > 6 MONTHS] Future Scheduled Hemoglobin A1c [facility] [employer] Test measurement of Medicine (procedure) [code = 49482023] Future Scheduled BMI FOLLOW UP PLAN [employer] Test [code = BMI FOLLOW of Medici ne UP PLAN] Future Scheduled Diabetic foot [facility] Test examination of Medicine (regime/therapy) [code = 136370030] Future Scheduled FALL SCREEN [code = [employer] [facility] FALL SCREEN] of Medicine Future Scheduled TETANUS SHOT (ADULT) [employer] Test [code = TETANUS SHOT of Medi cine (ADULT)] Future Scheduled MS MED NUTR THER, Ordered: [facility] Test SUBSQ, INDIV, EA 15 02/14/2019 of Medic ine MIN [code = 72393] Future Scheduled COLON CANCER [facility] [employer] Test SCREENING: of Medicine COLONOSCOPY [code = COLON CANCER SCREENING: COLONOSCOPY] Future Scheduled MEDICARE AWV [code = [employer] [facility] MEDICARE AWV] of Medicine Future Scheduled TETANUS SHOT (ADULT) [employer] Test [code = TETANUS SHOT of Medi cine (ADULT)] Future Scheduled ANNUAL DIABETIC [facility] [employer] [facility] RETINOPATHY of Medicine SCREENING [code = ANNUAL DIABETIC RETINOPATHY SCREENING] Future Scheduled BMI FOLLOW UP PLAN [employer] Test [code = BMI FOLLOW of Medici ne UP PLAN] Future Scheduled HEPATITIS C [facility] [employer] Test SCREENING [code = of Medicin e HEPATITIS C SCREENING] Future Scheduled PNEUMOVAX >=65 [facility] [employer] Test (PPSV23) [code = of Medicine PNEUMOVAX >=65 (PPSV23)] Future Scheduled PREVNAR >= 65 [facility] Test (PCV13) [code = of Medicine PREVNAR >= 65 (PCV13)] Future Scheduled FLU VACCINE > 6 [facility] Test MONTHS [code = FLU of Medici ne VACCINE > 6 MONTHS] Future Scheduled Diabetic foot [facility] [employer] [facility] examination of Medicine (regime/therapy) [code = 795733186] Future Scheduled FALL SCREEN [code = [employer] [facility] FALL SCREEN] of Medicine Future Scheduled MS MED NUTR THER, Ordered: [facility] Test SUBSQ, INDIV, EA 15 03/28/2019 of Medic ine MIN [code = 07012] Future Scheduled COLON CANCER [facility] [employer] Test SCREENING: of Medicine COLONOSCOPY [code = COLON CANCER SCREENING: COLONOSCOPY] Future Scheduled MEDICARE AWV [code = [employer] [facility] MEDICARE AWV] of Medicine Future Scheduled TETANUS SHOT (ADULT) [employer] Test [code = TETANUS SHOT of Medi cine (ADULT)] Future Scheduled ANNUAL DIABETIC [facility] [employer] [facility] RETINOPATHY of Medicine SCREENING [code = ANNUAL DIABETIC RETINOPATHY SCREENING] Future Scheduled BMI FOLLOW UP PLAN [employer] Test [code = BMI FOLLOW of Medici ne UP PLAN] Future Scheduled HEPATITIS C [facility] [employer] Test SCREENING [code = of Medicin e HEPATITIS C SCREENING] Future Scheduled PNEUMOVAX >=65 [facility] [employer] Test (PPSV23) [code = of Medicine PNEUMOVAX >=65 (PPSV23)] Future Scheduled PREVNAR >= 65 [facility] [employer] Test (PCV13) [code = of Medicine PREVNAR >= 65 (PCV13)] Future Scheduled FLU VACCINE > 6 [facility] Test MONTHS [code = FLU of Medici ne VACCINE > 6 MONTHS] Future Scheduled Diabetic foot [facility] [employer] Test examination of Medicine (regime/therapy) [code = 730961283] Future Scheduled FALL SCREEN [code = [employer] [place] [facility] FALL SCREEN] of Medicine Future Scheduled HEPATITIS Ordered: [facility] [employer] Test PANEL,ACUTE W/REFLEX 04/03/2019 of [employer] [code = NOCPT] Future Scheduled COLON CANCER [facility] [employer] [facility] SCREENING: of Medicine COLONOSCOPY [code = COLON CANCER SCREENING: COLONOSCOPY] Future Scheduled MEDICARE AWV [code = [employer] [facility] MEDICARE AWV] of Medicine Future Scheduled TETANUS SHOT (ADULT) [employer] Test [code = TETANUS SHOT of Medi cine (ADULT)] Future Scheduled ANNUAL DIABETIC [facility] [employer] Test RETINOPATHY of Medicine SCREENING [code = ANNUAL DIABETIC RETINOPATHY SCREENING] Future Scheduled BMI FOLLOW UP PLAN [employer] Test [code = BMI FOLLOW of Medici ne UP PLAN] Future Scheduled HEPATITIS C [facility] [employer] Test SCREENING [code = of Medicin e HEPATITIS C SCREENING] Future Scheduled PNEUMOVAX >=65 [facility] [employer] [facility] (PPSV23) [code = of Medicine PNEUMOVAX >=65 (PPSV23)] Future Scheduled PREVNAR >= 65 [facility] Test (PCV13) [code = of Medicine PREVNAR >= 65 (PCV13)] Future Scheduled FLU VACCINE > 6 [facility] Test MONTHS [code = FLU of Medici ne VACCINE > 6 MONTHS] Future Scheduled Diabetic foot [facility] Test examination of Medicine (regime/therapy) [code = 276111016] Future Scheduled FALL SCREEN [code = [employer] FALL SCREEN] of Medicine Future Scheduled COLON CANCER [facility] [employer] Test SCREENING: of Medicine COLONOSCOPY [code = COLON CANCER SCREENING: COLONOSCOPY] Future Scheduled MEDICARE AWV [code = [employer] [facility] MEDICARE AWV] of Medicine Future Scheduled TETANUS SHOT (ADULT) [employer] Test [code = TETANUS SHOT of Medi cine (ADULT)] Future Scheduled ANNUAL DIABETIC [facility] [employer] Test RETINOPATHY of Medicine SCREENING [code = ANNUAL DIABETIC RETINOPATHY SCREENING] Future Scheduled BMI FOLLOW UP PLAN [employer] Test [code = BMI FOLLOW of Medici ne UP PLAN] Future Scheduled PNEUMOVAX >=65 [facility] [employer] Test (PPSV23) [code = of Medicine PNEUMOVAX >=65 (PPSV23)] Future Scheduled PREVNAR >= 65 [facility] Test (PCV13) [code = of Medicine PREVNAR >= 65 (PCV13)] Future Scheduled FLU VACCINE > 6 [facility] Test MONTHS [code = FLU of Medici ne VACCINE > 6 MONTHS] Future Scheduled Diabetic foot [facility] Test examination of Medicine (regime/therapy) [code = 580878285] Future Scheduled FALL SCREEN [code = [employer] [facility] FALL SCREEN] of Medicine Future Scheduled HEMOGLOBIN A1C [code Ordered: [employer] Test = 4548-4] 09/16/2019 of Medicine Future Scheduled COMPREHENSIVE Ordered: [facility] Test METABOLIC PANEL 09/16/2019 of Medicine [code = 69961-6] Future Scheduled LIPID PANEL [code = Ordered: [employer] [facility] 13065-8] 09/16/2019 of Medicine Future Scheduled MICROALBUMIN/CREAT Ordered: [employer] [facility] URINE RATIO [code = 09/16/2019 of Medic ine 9318-7] Future Scheduled COLON CANCER [facility] [employer] SCREENING: of Medicine COLONOSCOPY [code = COLON CANCER SCREENING: COLONOSCOPY] Future Scheduled TETANUS SHOT (ADULT) [employer] Test [code = TETANUS SHOT of Medi cine (ADULT)] Future Scheduled ANNUAL DIABETIC [facility] Test RETINOPATHY of Medicine SCREENING [code = ANNUAL DIABETIC RETINOPATHY SCREENING] Future Scheduled BMI FOLLOW UP PLAN [employer] Test [code = BMI FOLLOW of Medici ne UP PLAN] Future Scheduled MEDICARE AWV [facility] [employer] Test (Initial) [code = of Medicin e MEDICARE AWV (Initial)] Future Scheduled PNEUMOVAX >=65 [facility] [employer] Test (PPSV23) [code = of Medicine PNEUMOVAX >=65 (PPSV23)] Future Scheduled PREVNAR >= 65 [facility] Test (PCV13) [code = of Medicine PREVNAR >= 65 (PCV13)] Future Scheduled FLU VACCINE > 6 [facility] Test MONTHS [code = FLU of Medici ne VACCINE > 6 MONTHS] Future Scheduled Diabetic foot [facility] Test examination of Medicine (regime/therapy) [code = 640922172] Future Scheduled FALL SCREEN [code = [employer] FALL SCREEN] of Medicine Future Scheduled A1C TESTING EVERY 6 [employer] [facility] MONTHS [code = A1C of Medici ne TESTING EVERY 6 MONTHS] Future Scheduled COLON CANCER [facility] [employer] SCREENING: of Medicine COLONOSCOPY [code = COLON CANCER SCREENING: COLONOSCOPY] Future Scheduled TETANUS SHOT (ADULT) [employer] Test [code = TETANUS SHOT of Medi cine (ADULT)] Future Scheduled ANNUAL DIABETIC [facility] Test RETINOPATHY of Medicine SCREENING [code = ANNUAL DIABETIC RETINOPATHY SCREENING] Future Scheduled BMI FOLLOW UP PLAN [employer] Test [code = BMI FOLLOW of Medici ne UP PLAN] Future Scheduled MEDICARE AWV [facility] [employer] (Initial) [code = of Medicin e MEDICARE AWV (Initial)] Future Scheduled PNEUMOVAX >=65 [facility] [employer] Test (PPSV23) [code = of Medicine PNEUMOVAX >=65 (PPSV23)] Future Scheduled PREVNAR >= 65 [facility] Test (PCV13) [code = of Medicine PREVNAR >= 65 (PCV13)] Future Scheduled FLU VACCINE > 6 [facility] Test MONTHS [code = FLU of Medici ne VACCINE > 6 MONTHS] Future Scheduled Diabetic foot [facility] [employer] [facility] examination of Medicine (regime/therapy) [code = 910458644] Future Scheduled FALL SCREEN [code = [employer] FALL SCREEN] of Medicine Future Scheduled A1C TESTING EVERY 6 [employer] [facility] MONTHS [code = A1C of Medici ne TESTING EVERY 6 MONTHS] Future Scheduled COLON CANCER [facility] [employer] Test SCREENING: of Medicine COLONOSCOPY [code = COLON CANCER SCREENING: COLONOSCOPY] Future Scheduled TETANUS SHOT (ADULT) [employer] [facility] [code = TETANUS SHOT of Medi cine (ADULT)] Future Scheduled ANNUAL DIABETIC [facility] Test RETINOPATHY of Medicine SCREENING [code = ANNUAL DIABETIC RETINOPATHY SCREENING] Future Scheduled BMI FOLLOW UP PLAN [employer] Test [code = BMI FOLLOW of Medici ne UP PLAN] Future Scheduled MEDICARE AWV [facility] Test (Initial) [code = of Medicin e MEDICARE AWV (Initial)] Future Scheduled PNEUMOVAX >=65 [facility] [employer] [facility] (PPSV23) [code = of Medicine PNEUMOVAX >=65 (PPSV23)] Future Scheduled PREVNAR >= 65 [facility] Test (PCV13) [code = of Medicine PREVNAR >= 65 (PCV13)] Future Scheduled FLU VACCINE > 6 [facility] Test MONTHS [code = FLU of Medici ne VACCINE > 6 MONTHS] Future Scheduled Diabetic foot [facility] [employer] [facility] examination of Medicine (regime/therapy) [code = 007956320] Future Scheduled A1C TESTING EVERY 6 [employer] [facility] MONTHS [code = A1C of Medici ne TESTING EVERY 6 MONTHS] Future Scheduled FALL SCREEN [code = [employer] FALL SCREEN] of Medicine Future Scheduled COLON CANCER [facility] [employer] Test SCREENING: of Medicine COLONOSCOPY [code = COLON CANCER SCREENING: COLONOSCOPY] Future Scheduled TETANUS SHOT (ADULT) [employer] Test [code = TETANUS SHOT of Medi cine (ADULT)] Future Scheduled ANNUAL DIABETIC [facility] [employer] [facility] RETINOPATHY of Medicine SCREENING [code = ANNUAL DIABETIC RETINOPATHY SCREENING] Future Scheduled BMI FOLLOW UP PLAN [employer] Test [code = BMI FOLLOW of Medici ne UP PLAN] Future Scheduled MEDICARE AWV [facility] [employer] Test (Initial) [code = of Medicin e MEDICARE AWV (Initial)] Future Scheduled PNEUMOVAX >=65 [facility] [employer] [facility] (PPSV23) [code = of Medicine PNEUMOVAX >=65 (PPSV23)] Future Scheduled FLU VACCINE > 6 [facility] Test MONTHS [code = FLU of Medici ne VACCINE > 6 MONTHS] Future Scheduled Diabetic foot [facility] [employer] [facility] examination of Medicine (regime/therapy) [code = 167064316] Future Scheduled A1C TESTING EVERY 6 [employer] [facility] MONTHS [code = A1C of Medici ne TESTING EVERY 6 MONTHS] Future Scheduled FALL SCREEN [code = [employer] [facility] FALL SCREEN] of Medicine Future Scheduled COLON CANCER [facility] [employer] [facility] SCREENING: of Medicine COLONOSCOPY [code = COLON CANCER SCREENING: COLONOSCOPY] Future Scheduled TETANUS SHOT (ADULT) [employer] Test [code = TETANUS SHOT of Medi cine (ADULT)] Future Scheduled ANNUAL DIABETIC [facility] Test RETINOPATHY of Medicine SCREENING [code = ANNUAL DIABETIC RETINOPATHY SCREENING] Future Scheduled BMI FOLLOW UP PLAN [employer] Test [code = BMI FOLLOW of Medici ne UP PLAN] Future Scheduled MEDICARE AWV [facility] [employer] Test (Initial) [code = of Medicin e MEDICARE AWV (Initial)] Future Scheduled PNEUMOVAX >=65 [facility] Test (PPSV23) [code = of Medicine PNEUMOVAX >=65 (PPSV23)] Future Scheduled FLU VACCINE > 6 [facility] Test MONTHS [code = FLU of Medici ne VACCINE > 6 MONTHS] Future Scheduled Diabetic foot [facility] Test examination of Medicine (regime/therapy) [code = [id number]] Future Scheduled A1C TESTING EVERY 6 [employer] [facility] MONTHS [code = A1C of Medici ne TESTING EVERY 6 MONTHS] Future Scheduled FALL SCREEN [code = [employer] [facility] FALL SCREEN] of Medicine Future Scheduled COLON CANCER [facility] [employer] Test SCREENING: of Medicine COLONOSCOPY [code = COLON CANCER SCREENING: COLONOSCOPY] Future Scheduled TETANUS SHOT (ADULT) [employer] Test [code = TETANUS SHOT of Medi cine (ADULT)] Future Scheduled ANNUAL DIABETIC [facility] Test RETINOPATHY of Medicine SCREENING [code = ANNUAL DIABETIC RETINOPATHY SCREENING] Future Scheduled BMI FOLLOW UP PLAN [employer] Test [code = BMI FOLLOW of Medici ne UP PLAN] Future Scheduled MEDICARE AWV [facility] Test (Initial) [code = of Medicin e MEDICARE AWV (Initial)] Future Scheduled PNEUMOVAX >=65 [facility] Test (PPSV23) [code = of Medicine PNEUMOVAX >=65 (PPSV23)] Future Scheduled FLU VACCINE > 6 [facility] Test MONTHS [code = FLU of Medici ne VACCINE > 6 MONTHS] Future Scheduled Diabetic foot [facility] [employer] Test examination of Medicine (regime/therapy) [code = 650252513] Future Scheduled A1C TESTING EVERY 6 [employer] Test MONTHS [code = A1C of Medici ne TESTING EVERY 6 MONTHS] Future Scheduled FALL SCREEN [code = [employer] FALL SCREEN] of Medicine Future Scheduled COLON CANCER [facility] [employer] Test SCREENING: of Medicine COLONOSCOPY [code = COLON CANCER SCREENING: COLONOSCOPY] Future Scheduled TETANUS SHOT (ADULT) [employer] Test [code = TETANUS SHOT of Medi cine (ADULT)] Future Scheduled ANNUAL DIABETIC [facility] [employer] RETINOPATHY of Medicine SCREENING [code = ANNUAL DIABETIC RETINOPATHY SCREENING] Future Scheduled BMI FOLLOW UP PLAN [employer] Test [code = BMI FOLLOW of Medici ne UP PLAN] Future Scheduled MEDICARE AWV [facility] [employer] Test (Initial) [code = of Medicin e MEDICARE AWV (Initial)] Future Scheduled PNEUMOVAX >=65 [employer] Test (PPSV23) [code = of Medicine PNEUMOVAX >=65 (PPSV23)] Future Scheduled FLU VACCINE > 6 [employer] Test MONTHS [code = FLU of Medici ne VACCINE > 6 MONTHS] Future Scheduled Diabetic foot [facility] [employer] Test examination of Medicine (regime/therapy) [code = [id number]] Future Scheduled A1C TESTING EVERY 6 [employer] Test MONTHS [code = A1C of Medici ne TESTING EVERY 6 MONTHS] Future Scheduled FALL SCREEN [code = [employer] FALL SCREEN] of Medicine Future Scheduled COLON CANCER [facility] [employer] Test SCREENING: of Medicine COLONOSCOPY [code = COLON CANCER SCREENING: COLONOSCOPY] Future Scheduled TETANUS SHOT (ADULT) [employer] Test [code = TETANUS SHOT of Medi cine (ADULT)] Future Scheduled ANNUAL DIABETIC [facility] [employer] Test RETINOPATHY of Medicine SCREENING [code = ANNUAL DIABETIC RETINOPATHY SCREENING] Future Scheduled BMI FOLLOW UP PLAN [employer] Test [code = BMI FOLLOW of Medici ne UP PLAN] Future Scheduled MEDICARE AWV [facility] [employer] Test (Initial) [code = of Medicin e MEDICARE AWV (Initial)] Future Scheduled PNEUMOVAX >=65 [facility] [employer] Test (PPSV23) [code = of Medicine PNEUMOVAX >=65 (PPSV23)] Future Scheduled FLU VACCINE > 6 [facility] [employer] Test MONTHS [code = FLU of Medici ne VACCINE > 6 MONTHS] Future Scheduled Diabetic foot [facility] [employer] Test examination of Medicine (regime/therapy) [code = [id number]] Future Scheduled A1C TESTING EVERY 6 [employer] Test MONTHS [code = A1C of Medici ne TESTING EVERY 6 MONTHS] Future Scheduled FALL SCREEN [code = [employer] FALL SCREEN] of Medicine Future Scheduled COLON CANCER [facility] [employer] Test SCREENING: of Medicine COLONOSCOPY [code = COLON CANCER SCREENING: COLONOSCOPY] Future Scheduled TETANUS SHOT (ADULT) [employer] Test [code = TETANUS SHOT of Medi cine (ADULT)] Future Scheduled ANNUAL DIABETIC [facility] [employer] Test RETINOPATHY of Medicine SCREENING [code = ANNUAL DIABETIC RETINOPATHY SCREENING] Future Scheduled BMI FOLLOW UP PLAN [employer] Test [code = BMI FOLLOW of Medici ne UP PLAN] Future Scheduled ZOSTER VACCINE (1 of [employer] Test 2) [code = ZOSTER of Medicin e VACCINE (1 of 2)] Future Scheduled MEDICARE AWV [facility] [employer] Test (Initial) [code = of Medicin e MEDICARE AWV (Initial)] Future Scheduled PNEUMOVAX >=65 [facility] [employer] Test (PPSV23) [code = of Medicine PNEUMOVAX >=65 (PPSV23)] Future Scheduled FLU VACCINE > 6 [facility] [employer] Test MONTHS [code = FLU of Medici ne VACCINE > 6 MONTHS] Future Scheduled Diabetic foot [facility] [employer] Test examination of Medicine (regime/therapy) [code = [id number]] Future Scheduled A1C TESTING EVERY 6 [employer] MONTHS [code = A1C of Medici ne TESTING EVERY 6 MONTHS] Future Scheduled FALL SCREEN [code = [employer] FALL SCREEN] of Medicine Future Scheduled COLON CANCER [facility] [employer] Test SCREENING: of Medicine COLONOSCOPY [code = COLON CANCER SCREENING: COLONOSCOPY] Future Scheduled TETANUS SHOT (ADULT) [employer] Test [code = TETANUS SHOT of Medi cine (ADULT)] Future Scheduled ANNUAL DIABETIC [employer] RETINOPATHY of Medicine SCREENING [code = ANNUAL DIABETIC RETINOPATHY SCREENING] Future Scheduled BMI FOLLOW UP PLAN [employer] Test [code = BMI FOLLOW of Medici ne UP PLAN] Future Scheduled ZOSTER VACCINE (1 of [employer] Test 2) [code = ZOSTER of Medicin e VACCINE (1 of 2)] Future Scheduled MEDICARE AWV [facility] [employer] Test (Initial) [code = of Medicin e MEDICARE AWV (Initial)] Future Scheduled PNEUMOVAX >=65 [employer] [employer] Test (PPSV23) [code = of Medicine PNEUMOVAX >=65 (PPSV23)] Future Scheduled FLU VACCINE > 6 [facility] [employer] Test MONTHS [code = FLU of Medici ne VACCINE > 6 MONTHS] Future Scheduled Diabetic foot [facility] [employer] examination of Medicine (regime/therapy) [code = [id number]] Future Scheduled A1C TESTING EVERY 6 [employer] MONTHS [code = A1C of Medici ne TESTING EVERY 6 MONTHS] Future Scheduled FALL SCREEN [code = [employer] FALL SCREEN] of Medicine Future Scheduled COLON CANCER [facility] [employer] Test SCREENING: of Medicine COLONOSCOPY [code = COLON CANCER SCREENING: COLONOSCOPY] Future Scheduled TETANUS SHOT (ADULT) [employer] Test [code = TETANUS SHOT of Medi cine (ADULT)] Future Scheduled ANNUAL DIABETIC [facility] [employer] Test RETINOPATHY of Medicine SCREENING [code = ANNUAL DIABETIC RETINOPATHY SCREENING] Future Scheduled BMI FOLLOW UP PLAN [employer] Test [code = BMI FOLLOW of Medici ne UP PLAN] Future Scheduled ZOSTER VACCINE (1 of [employer] Test 2) [code = ZOSTER of Medicin e VACCINE (1 of 2)] Future Scheduled MEDICARE AWV [facility] [employer] Test (Initial) [code = of Medicin e MEDICARE AWV (Initial)] Future Scheduled PNEUMOVAX >=65 [facility] [employer] Test (PPSV23) [code = of Medicine PNEUMOVAX >=65 (PPSV23)] Future Scheduled FLU VACCINE > 6 [facility] [employer] MONTHS [code = FLU of Medici ne VACCINE > 6 MONTHS] Future Scheduled Diabetic foot [facility] [employer] Test examination of Medicine (regime/therapy) [code = 013582263] Future Scheduled A1C TESTING EVERY 6 [employer] MONTHS [code = A1C of Medici ne TESTING EVERY 6 MONTHS] Future Scheduled FALL SCREEN [code = [employer] FALL SCREEN] of Medicine Future Scheduled COLON CANCER [facility] [employer] Test SCREENING: of Medicine COLONOSCOPY [code = COLON CANCER SCREENING: COLONOSCOPY] Future Scheduled TETANUS SHOT (ADULT) [employer] Test [code = TETANUS SHOT of Medi cine (ADULT)] Future Scheduled ANNUAL DIABETIC [facility] [employer] Test RETINOPATHY of Medicine SCREENING [code = ANNUAL DIABETIC RETINOPATHY SCREENING] Future Scheduled BMI FOLLOW UP PLAN [employer] Test [code = BMI FOLLOW of Medici ne UP PLAN] Future Scheduled ZOSTER VACCINE (1 of [employer] Test 2) [code = ZOSTER of Medicin e VACCINE (1 of 2)] Future Scheduled MEDICARE AWV [facility] [employer] (Initial) [code = of Medicin e MEDICARE AWV (Initial)] Future Scheduled PNEUMOVAX >=65 [facility] [employer] Test (PPSV23) [code = of Medicine PNEUMOVAX >=65 (PPSV23)] Future Scheduled FLU VACCINE > 6 [facility] [employer] MONTHS [code = FLU of Medici ne VACCINE > 6 MONTHS] Future Scheduled Diabetic foot [facility] [employer] Test examination of Medicine (regime/therapy) [code = [id number]] Future Scheduled A1C TESTING EVERY 6 [employer] MONTHS [code = A1C of Medici ne TESTING EVERY 6 MONTHS] Future Scheduled FALL SCREEN [code = [employer] FALL SCREEN] of Medicine Future Scheduled COLON CANCER [facility] [employer] Test SCREENING: of Medicine COLONOSCOPY [code = COLON CANCER SCREENING: COLONOSCOPY] Future Scheduled TETANUS SHOT (ADULT) [employer] Test [code = TETANUS SHOT of Medi cine (ADULT)] Future Scheduled ANNUAL DIABETIC [facility] [employer] Test RETINOPATHY of Medicine SCREENING [code = ANNUAL DIABETIC RETINOPATHY SCREENING] Future Scheduled BMI FOLLOW UP PLAN [employer] Test [code = BMI FOLLOW of Medici ne UP PLAN] Future Scheduled ZOSTER VACCINE (1 of [employer] Test 2) [code = ZOSTER of Medicin e VACCINE (1 of 2)] Future Scheduled MEDICARE AWV [facility] [employer] Test (Initial) [code = of Medicin e MEDICARE AWV (Initial)] Future Scheduled PNEUMOVAX >=65 [facility] [employer] Test (PPSV23) [code = of Medicine PNEUMOVAX >=65 (PPSV23)] Future Scheduled FLU VACCINE > 6 [facility] [employer] Test MONTHS [code = FLU of Medici ne VACCINE > 6 MONTHS] Future Scheduled Diabetic foot [facility] [employer] Test examination of Medicine (regime/therapy) [code = [id number]] Future Scheduled A1C TESTING EVERY 6 [employer] MONTHS [code = A1C of Medici ne TESTING EVERY 6 MONTHS] Future Scheduled FALL SCREEN [code = [employer] FALL SCREEN] of Medicine Future Scheduled MS POST-OP FOLLOW-UP Ordered: [employer] Test VISIT [code = 49057] 03/26/2020 of Medi cine Future Scheduled COLON CANCER [facility] [employer] Test SCREENING: of Medicine COLONOSCOPY [code = COLON CANCER SCREENING: COLONOSCOPY] Future Scheduled TETANUS SHOT (ADULT) [employer] Test [code = TETANUS SHOT of Medi cine (ADULT)] Future Scheduled ANNUAL DIABETIC [facility] [employer] RETINOPATHY of Medicine SCREENING [code = ANNUAL DIABETIC RETINOPATHY SCREENING] Future Scheduled ZOSTER VACCINE (1 of [employer] Test 2) [code = ZOSTER of Medicin e VACCINE (1 of 2)] Future Scheduled MEDICARE AWV [facility] [employer] Test (Initial) [code = of Medicin e MEDICARE AWV (Initial)] Future Scheduled PNEUMOVAX >=65 [facility] [employer] Test (PPSV23) [code = of Medicine PNEUMOVAX >=65 (PPSV23)] Future Scheduled FLU VACCINE > 6 [facility] [employer] Test MONTHS [code = FLU of Medici ne VACCINE > 6 MONTHS] Future Scheduled Diabetic foot [facility] [employer] Test examination of Medicine (regime/therapy) [code = [id number]] Future Scheduled A1C TESTING EVERY 6 [employer] Test MONTHS [code = A1C of Medici ne TESTING EVERY 6 MONTHS] Future Scheduled FALL SCREEN [code = [employer] FALL SCREEN] of Medicine Future Scheduled BMI FOLLOW UP PLAN [facility] r [employer] Test [code = BMI FOLLOW of Medici ne UP PLAN] Future Scheduled MS POST-OP FOLLOW-UP Ordered: [facility] Test VISIT [code = 29339] 04/02/2020 of [employer] Future Scheduled COLON CANCER [facility] [employer] Test SCREENING: of Medicine COLONOSCOPY [code = COLON CANCER SCREENING: COLONOSCOPY] Future Scheduled TETANUS SHOT (ADULT) [facility] [employer] Test [code = TETANUS SHOT of Medi cine (ADULT)] Future Scheduled ANNUAL DIABETIC [facility] [employer] Test RETINOPATHY of Medicine SCREENING [code = ANNUAL DIABETIC RETINOPATHY SCREENING] Future Scheduled ZOSTER VACCINE (1 of [employer] Test 2) [code = ZOSTER of Medicin e VACCINE (1 of 2)] Future Scheduled MEDICARE AWV [facility] [employer] Test (Initial) [code = of Medicin e MEDICARE AWV (Initial)] Future Scheduled PNEUMOVAX >=65 [facility] [employer] Test (PPSV23) [code = of Medicine PNEUMOVAX >=65 (PPSV23)] Future Scheduled FLU VACCINE > 6 [facility] [employer] Test MONTHS [code = FLU of Medici ne VACCINE > 6 MONTHS] Future Scheduled Diabetic foot [facility] [employer] Test examination of Medicine (regime/therapy) [code = 026495486] Future Scheduled A1C TESTING EVERY 6 [employer] Test MONTHS [code = A1C of Medici ne TESTING EVERY 6 MONTHS] Future Scheduled FALL SCREEN [code = [employer] FALL SCREEN] of Medicine Future Scheduled BMI FOLLOW UP PLAN [employer] Test [code = BMI FOLLOW of Medici ne UP PLAN] Future Scheduled COLON CANCER [facility] [employer] Test SCREENING: of Medicine COLONOSCOPY [code = COLON CANCER SCREENING: COLONOSCOPY] Future Scheduled ANNUAL DIABETIC [facility] [employer] Test RETINOPATHY of Medicine SCREENING [code = ANNUAL DIABETIC RETINOPATHY SCREENING] Future Scheduled ZOSTER VACCINE (1 of [employer] Test 2) [code = ZOSTER of Medicin e VACCINE (1 of 2)] Future Scheduled MEDICARE AWV [facility] [employer] Test (Initial) [code = of Medicin e MEDICARE AWV (Initial)] Future Scheduled PNEUMOVAX >=65 [facility] [employer] Test (PPSV23) [code = of Medicine PNEUMOVAX >=65 (PPSV23)] Future Scheduled Diabetic foot [facility] [employer] Test examination of Medicine (regime/therapy) [code = 301062962] Future Scheduled A1C TESTING EVERY 6 [employer] Test MONTHS [code = A1C of Medici ne TESTING EVERY 6 MONTHS] Future Scheduled FALL SCREEN [code = [employer] FALL SCREEN] of Medicine Future Scheduled BMI FOLLOW UP PLAN [facility] Test [code = BMI FOLLOW of Medici ne UP PLAN] Future Scheduled TETANUS SHOT (ADULT) [employer] Test [code = TETANUS SHOT of Medi cine (ADULT)] Future Scheduled COLON CANCER [facility] [employer] Test SCREENING: of Medicine COLONOSCOPY [code = COLON CANCER SCREENING: COLONOSCOPY] Future Scheduled ANNUAL DIABETIC [facility] [employer] Test RETINOPATHY of Medicine SCREENING [code = ANNUAL DIABETIC RETINOPATHY SCREENING] Future Scheduled ZOSTER VACCINE (1 of [employer] Test 2) [code = ZOSTER of Medicin e VACCINE (1 of 2)] Future Scheduled MEDICARE AWV [facility] [employer] Test (Initial) [code = of Medicin e MEDICARE AWV (Initial)] Future Scheduled PNEUMOVAX >=65 [facility] [employer] Test (PPSV23) [code = of Medicine PNEUMOVAX >=65 (PPSV23)] Future Scheduled Diabetic foot [facility] [employer] Test examination of Medicine (regime/therapy) [code = 682163782] Future Scheduled A1C TESTING EVERY 6 [employer] Test MONTHS [code = A1C of Medici ne TESTING EVERY 6 MONTHS] Future Scheduled FALL SCREEN [code = [employer] FALL SCREEN] of Medicine Future Scheduled BMI FOLLOW UP PLAN [employer] Test [code = BMI FOLLOW of Medici ne UP PLAN] Future Scheduled TETANUS SHOT (ADULT) [employer] Test [code = TETANUS SHOT of Medi cine (ADULT)] Future Scheduled COLON CANCER [facility] [employer] Test SCREENING: of Medicine COLONOSCOPY [code = COLON CANCER SCREENING: COLONOSCOPY] Future Scheduled ANNUAL DIABETIC [facility] [employer] Test RETINOPATHY of Medicine SCREENING [code = ANNUAL DIABETIC RETINOPATHY SCREENING] Future Scheduled ZOSTER VACCINE (1 of [employer] Test 2) [code = ZOSTER of Medicin e VACCINE (1 of 2)] Future Scheduled MEDICARE AWV [facility] [employer] Test (Initial) [code = of Medicin e MEDICARE AWV (Initial)] Future Scheduled PNEUMOVAX >=65 [facility] [employer] Test (PPSV23) [code = of Medicine PNEUMOVAX >=65 (PPSV23)] Future Scheduled Diabetic foot [facility] [employer] Test examination of Medicine (regime/therapy) [code = 100310498] Future Scheduled A1C TESTING EVERY 6 [employer] Test MONTHS [code = A1C of Medici ne TESTING EVERY 6 MONTHS] Future Scheduled FALL SCREEN [code = [employer] FALL SCREEN] of Medicine Future Scheduled BMI FOLLOW UP PLAN [employer] Test [code = BMI FOLLOW of Medici ne UP PLAN] Future Scheduled TETANUS SHOT (ADULT) [employer] Test [code = TETANUS SHOT of Medi cine (ADULT)] Future Scheduled XR FOOT LEFT 1 Occurrences [facility] [employer] Test (COMPLETE) [code = [place] [address]-8] 10/28/2020 until 10/22/2021 Future Scheduled XR FOOT LEFT 1 Occurrences [facility] [employer] Test (COMPLETE) [code = [place] [address]-1] 09/03/2020 until 09/03/2021 Future Scheduled PRIOR AUTH FOR 1 Occurrences [facility] [employer] Test DIABETIC SHOES starting of Medicine (A5500) [code = 08/05/2020 until A5500] 08/05/2021 Future Scheduled PRIOR AUTH FOR 1 Occurrences [facility] [employer] Test DIABETIC INSERTS starting of Medicine (A5512) [code = 08/05/2020 until A5512] 08/05/2021 Future Scheduled XR FOOT LEFT 1 Occurrences [facility] [employer] Test (COMPLETE) [code = [place] [address]-1] 08/26/2020 until 03/13/2021 Future Scheduled XR FOOT LEFT 1 Occurrences [facility] [employer] Test (COMPLETE) [code = [place] [address]-4] 07/17/2020 until 02/10/2021 Future Scheduled XR FOOT LEFT 1 Occurrences [facility] [employer] Test (COMPLETE) [code = [place] [address]-6] 06/04/2020 until 01/02/2021 Future Scheduled XR FOOT LEFT 1 Occurrences [facility] [employer] Test (COMPLETE) [code = [place] [address]-5] 06/05/2020 until 01/02/2021 Future Scheduled XR FOOT LEFT 1 Occurrences [facility] [employer] Test (COMPLETE) [code = [place] [address]-5] 05/06/2020 until 12/04/2020 Future Scheduled XR FOOT LEFT 1 Occurrences [facility] [employer] Test (COMPLETE) [code = [place] [address]-9] 04/23/2020 until 11/21/2020 Future Scheduled US ARTERIAL LEG LEFT 1 Occurrences [employer] Test [code = 17731] starting of Medicine 03/26/2020 until 10/24/2020 Future Scheduled XR FOOT LEFT 1 Occurrences [facility] [employer] Test (COMPLETE) [code = [place] [address]-4] 03/26/2020 until 10/24/2020 Future Scheduled PRIOR AUTH FOR 1 Occurrences [facility] [employer] [facility] DIABETIC SHOES starting of Medicine (A5500) [code = 02/13/2019 until A5500] 02/13/2020 Future Scheduled PRIOR AUTH FOR 1 Occurrences [facility] [employer] Test DIABETIC INSERTS starting of Medicine (A5512) [code = 02/13/2019 until A5512] 02/13/2020 Encounters Start End Encounter Admission Attending Care Care Encounter Source Date/Time Date/Time Type Type Clinicians Facility Department ID 2022-03-02 2022-03-02 [facility] [id number] [facility] 12:00:00 23:59:00 Encounter 1.5, [facility] Ayla [facility] 2022-01-12 2022-01-[address] [facility] [id number] 00:00[facility] 00:00:00 ion [facility] 2022-01-11 2022-01-[address] [facility] [id number] 13:30:00 14:00:00 Visit [facility] 2022-01-07 2022-01-07 Outpatient ROGER LARKIN [facility] [id number] [facility] 14:40:37 15:09:25 ALLISON funk of Medicin e 2022-01-06 2022-01-[address] [facility] [id number] [facility] 00:00:00 00:00:00 ion [facility] 2022-01-04 2022-01-04 Office ROGER BILLY 1.2.840.114 [id number] [facility] 12:47:22 15:01:32 Visit REUBEN AMBULATOR 350.1.13.21 College Y 0.2.7.2.686 of [id number] Medi ascencion 600 e 2021-12-21 2021-12-21 [facility] 10 [id number] [facility] 12:34:06 23:59:00 Encounter 3, [facility] Ayla [facility] 2021-12-15 2021-12-[address] [facility] [id number] [facility] [address] 18:00:00 18:15:00 Only [facility] 2021-12-15 2021-12-[address] [facility] [id number] [facility] 11:58:39 14:25:48 Visit JOSSUE Ayla 350.1.13.21 Co llege 0.2.7.2.686 of [id number] Medi ascencion 506 e 2021-10-28 2021-10-28 Office ROGER BILLY [id number] [facility] 13:27:15 14:14:36 Visit REUBEN AMBULATOR 350.1.13.21 College Y 0.2.7.2.686 of [id number] Medi ascencion 600 e 2021-10-21 2021-10-[address] [facility] [id number] 00:00:00 00:00:00 [facility] 2021-10-12 2021-10-12 Outpatient EL LEONEL [facility] [id number] [facility] 13:36:28 13:36:28 LINE 2021-10-12 2021-10-[address] [facility] [id number] 13:00:00 13:30:00 Visit Joshua Castaneda [facility] 2021-10-11 2021-10-11 [id number] 00:00:00 00:00:00 ion [facility] 2021-10-11 2021-10-[address] [facility] [id number] 00:00:00 00:00:00 [facility] 2021-09-29 2021-09-[facility] [id number] 00:00:00 00:00:00 ion [facility] 2021-09-29 2021-09-29 [facility] [id number] 00:00:00 00:00:00 Only [facility] 2021-09-28 2021-09-[address] [facility] [id number] 00:00:00 00:00:00 [facility] 2021-09-28 2021-09-[address] [facility] [id number] 00:00:00 00:00:00 [facility] 2021-09-27 2021-09-27 Outpatient EL SLE [facility] [id number] [facility] 00:00:00 00:00:00 2021-09-21 2021-09-21 Outpatient LUZ ECHEVERRIA [facility] [id number] [facility] 11:26:53 23:59:00 [facility] 2021-09-21 2021-09-21 [facility] [id number] 11:00:00 23:59:00 Encounter [facility] 2021-09-15 2021-09-15 [facility] 1.2.840.114 [id number] [facility] 13:35:40 15:25:47 Visit JOSSUE Aguila 350.1.13.21 Co donald 0.2.7.2.686 of [id number] [facility] 506 e 2021-09-08 2021-09-08 Outpatient [facility] SLE [id number] [facility] 09:59:26 23:59:00 [facility] 2021-09-08 2021-09-08 [facility] [id number] 09:59:26 23:59:00 Encounter [facility] 2021-09-08 2021-09-[address] [facility] [id number] SLE 09:27:07 09:58:00 [facility] 2021-09-08 2021-09-08 [facility] [id number] 09:27:07 09:58:00 Encounter [facility] 2021-09-08 2021-09-[address] [facility] [id number] [facility] 09:20:55 09:26:00 [facility] 2021-09-08 2021-09-08 [facility] [id number] 09:20:55 09:26:00 Encounter [facility] 2021-09-08 2021-09-08 [facility] [id number] 00:00:00 00:00:[address] [facility] 2021-09-06 2021-09-06 Office ROGER Larkin 1.2.840.114 [id number] [facility] 13:30:00 14:19:38 Visit Allison AMBULATOR 350.1.13.21 College Y 0.2.7.2.686 of [id number] [facility] 310 e 2021-08-17 2021-08-17 Emergency X IRINA, [facility] ERT [id number] [facility] 19:08:00 22:06:00 RAJ giovanni [facility] 2021-08-12 2021-08-12 Office ROGER BILLY 1.2.840.[id number] [place] [address] 14:23:08 14:50:44 Visit REUBEN AMBULATOR 350.1.13.21 College Y 0.2.7.2.686 of [id number] [facility] 600 e 2021-07-30 2021-07-[address] [facility] [id number] 00:00:00 00:00:00 [facility] 2021-07-22 2021-07-[address] [facility] [id number] 13:00:00 13:30:00 Visit Estefany [facility] 2021-07-22 2021-07-22 Outpatient [facility] [id number] SLE 13:16:49 13:16:49 2021-07-21 2021-07-[address] [facility] 1.2.840.114 [id number] [facility] 14:00:58 15:00:26 Visit JOSSUE Ayla 350.1.13.21 Co llege 0.2.7.2.686 of [id number] [facility] 506 e 2021-07-21 2021-07-[address] [facility] [id number] 00:00:00 00:00:00 [facility] 2021-07-07 2021-07-08 [facility] CastanedaJoshua [facility] [id number] 17:08:00 11:44:00 [facility]-07-07 2021-07-08 Outpatient LUZ CABRERAALL [facility] [id number] [facility] 09:30:19 11:44:00 RICA JJ 2021-07-07 2021-07-07 Outpatient [facility] [id number] [facility] 09:33:02 17:07:00 2021-07-07 2021-07-07 [facility] [id number] 09:33:02 17:07:00 [facility] 2021-07-07 2021-07-07 Clinical CastanedaJoshua dawkins [facility] [id number] 10:45:00 11:00:00 Support Gonzales Dubon tere [facility] 2021-07-07 2021-07-07 Outpatient [facility] [id number] SLE 10:47:42 10:47:42 2021-07-07 2021-07-07 [facility] [id number] 00:00:00 00:00:00 Only [facility] 2021-07-07 2021-07-07 IP [facility] [id number] 00:00:00 00:00:00 Con/Monika [facility] 2021-07-07 2021-07-[address] [facility] [id number] 00:00:00 00:00:00 Only [facility] 2021-07-07 2021-07-[address] [facility] [id number] 00:00:00 00:00:00 Only [facility] 2021-06-23 2021-06-[address] [facility] [id number] 00:00:00 00:00:00 Only [facility] 2021-06-21 2021-06-22 [facility] Leonel Line [facility] [id number] 17:53:00 12:29:[address] [facility] 2021-06-21 2021-06-22 Outpatient LUZ FRAGA [facility] [id number] SLE 13:01:45 12:29:00 FELICIA 2021-06-21 2021-06-21 Outpatient SLE SLE [id number] SLE 10:12:19 17:52:00 2021-06-21 2021-06-21 [facility] [id number] [facility] 10:12:19 17:52:00 Encounter [facility] 2021-06-21 2021-06-21 Letter LEEANN Thomas 1.2.840.[id number] [place] [address] 00:00:00 00:00:00 (Out) Lulu ASHLEY 350.1.13.10 it y of [facility] 4.2.7.2.686 [facility] [id number] [place] [address] [address] 2021-06-21 2021-06-21 [facility] [id number] [facility] 00:00:00 00:00:00 Only [facility] 2021-06-20 2021-06-20 Laboratory Only, [facility] Test [facility] 1.2.8 40.114 [id number] [facility] 17:15:00 17:30:00 Only Gaurav Urena 350. 1.13.10 ity [facility] 4.2.7.2.686 [facility] [id number] [place] [address] [address] [place] 2021-06-10 2021-06-10 Outpatient SLE [facility]H [id number] [facility] 00:00:00 00:00:00 2021-06-10 2021-06-10 Outpatient EL SLE [facility]H [id number] [facility] 00:00:00 00:00:00 2021-06-03 2021-06-03 Office ROGER BILLY 1.2.840.[id number] [place] [address] 14:07:58 15:01:48 Visit REUBEN MURO 350.1.13.21 College Y .2.7.2.686 [id number] Medi ascencion 600 e 2021-06-02 2021-06-02 Outpatient EL SLEH SLEH [id number] [facility] 00:00:00 00:00:00 2021-06-02 2021-06-02 Outpatient EL SLEH SLEH [id number] [facility] 00:00:00 00:00:00 2021-06-01 2021-06-[address] [facility] [id number] 00:00:00 00:00:00 Only [facility] 2021-05-26 2021-05-26 Office VELASQUEZ, [facility] 1.2.840.114 [id number] [facility] 14:19:30 16:05:07 Visit CARLTON Aguila 350.1.13.21 Co llege 0.2.7.2.686 of [id number] Medi ascencion 506 e 2021-05-21 2021-05-21 Outpatient EL SLEH SLEH [id number] [facility]H 00:00:00 00:00:00 2021-05-20 2021-05-20 Outpatient LEPJENNIFER, BCM [facility] [id number] [facility] 00:00:00 00:00:00 REUBEN Bravo Medicin e 2021-05-18 2021-05-18 Outpatient EL CASTANEDA, SLEH SLEH [id number] SLEH 00:00:00 00:00:00 LINE 2021-05-18 2021-05-18 Outpatient EL CASTANEDA, SLEH SLEH [id number] [facility] 00:00:00 00:00:00 LINE 2021-05-18 2021-05-18 Outpatient EL CASTANEDA, SLEH SLEH [id number] SLEH 00:00:00 00:00:00 LINE 2021-05-13 2021-05-[address] [facility] [id number] 00:00:00 00:00:00 ion Line [facility] 2021-05-11 2021-05-[address] [facility] [id number] 00:00:00 00:00:00 ion Line [facility] 2021-05-05 2021-05-05 Outpatient EL LEONEL SLEH SLEH [id number] SLEH 00:00:00 00:00:00 LINE 2021-05-05 2021-05-05 Outpatient EL LEONEL SLEH SLEH [id number] SLEH 00:00:00 00:00:00 LINE 2021-05-03 2021-05-03 Outpatient EL LEONEL SLEH SLEH [id number] SLEH 11:03:36 23:59:00 LINE 2021-05-03 2021-05-03 [facility] [id number] 10:30:00 23:59:00 Encounter [facility] 2021-05-03 2021-05-[address] [facility] [id number] 11:00:00 12:00:00 Visit [facility] 2021-05-03 2021-05-03 Outpatient EL SLEH SLEH [id number] SLEH 11:08:54 11:08:54 2021-05-03 2021-05-03 Outpatient LUZ CASTANEDA SLEH SLEH [id number] SLEH 10:00:20 10:29:00 LINE 2021-05-03 2021-05-03 [facility] [id number] 10:00:20 10:29:00 Encounter Line [facility] 2021-05-03 2021-05-03 Outpatient EL LEONEL SLEH SLEH [id number] SLEH 10:00:09 09:59:00 LINE 2021-05-03 2021-05-03 [facility] [id number] 09:30:00 09:59:00 Encounter Line [facility] 2021-05-03 2021-05-[address] [facility] [id number] 00:00:00 00:00:00 Only Nora Carvajal [facility] 2021-04-30 2021-04-30 Office Breanna [facility] 1.2.840.114 [id number] [facility] 14:18:21 16:43:10 Visit Fidelina AMBULATOR 350.1.13.21 College Y 0.2.7.2.686 of [id number] Medi ascencion 355 e 2021-04-23 2021-04-23 Office PURNIMA LARKIN 1.2.840.114 [id number] [facility] 13:32:04 15:12:15 Visit ALLISON AMBULATOR 350.1.13.21 College Y 0.2.7.2.686 of [id number] Medi ascencion 310 e 2021-04-13 2021-04-13 Office CIARALEEANN [facility] 1.2.840.114 [id number] [facility] 12:39:06 13:14:09 Visit AMBULATOR 350.1.13.21 College Y 0.2.7.2.686 of [id number] Medi ascencion 300 e 2021-04-12 2021-04-[address] [facility] [id number] 00:00:00 00:00:00 Only Line [facility] 2021-04-08 2021-04-[address] [facility] [id number] 00:00:00 00:00:00 ion [facility] 2021-04-01 2021-04-[address] [facility] [id number] 00:00:00 00:00:00 ion Line [facility] 2021-03-31 2021-03-[address] [facility] 1.2.840.114 [id number] [facility] 14:05:02 15:36:19 Visit MANILA Ayla 350.1.13.21 Co llege 0.2.7.2.686 of [id number] Medi ascencion 506 e 2021-03-29 2021-03-[address] [facility] [id number] 13:00:00 13:30:00 Visit Joshua Castaneda [facility] 2021-03-29 2021-03-[address] [facility] [id number] SLE 00:00:00 00:00:00 2021-03-26 2021-03-[address] [facility] [id number] [facility] 14:00:00 23:59:00 Encounter 1.5, [facility] Ayla [facility] 2021-03-26 2021-03-[address] [facility] [id number] [facility] 00:00:00 00:00:00 CARLTON 2021-03-23 2021-03-23 Office ROGER BILLY 1.2.840.114 [id number] [facility] 13:54:30 14:47:19 Visit REUBEN AMBULATOR 350.1.13.21 College Y 0.2.7.2.686 of [id number] [facility] ascencion 600 e 2021-03-15 2021-03-15 Outpatient LUZ MALIK, [facility] [id number] [facility] 00:00:00 00:00:00 FELISHA 2021-02-03 2021-02-03 Outpatient EVA [facility] [id number] [facility] 14:09:02 15:14:28 CARLTON Le e of Medicin e 2021-01-12 2021-01-12 Office ROGER BILLY 1.2.840.114 [id number] [facility] 15:07:09 16:08:05 Visit REUBEN AMBULATOR 350.1.13.21 College Y 0.2.7.2.686 of [id number] [facility] ascencion 600 e 2021-01-06 2021-01-06 Office [facility] [place] 1.2.840.114 [id number] [facility] 11:00:27 11:57:56 Visit Carltondottie Ganr 350.1.13.21 Co llege Ari 0.2.7.2.686 of [id number] Medi ascencion 530 e 2020-12-22 2020-12-22 Outpatient LUZ CASTANEDA, [facility] [id number] [facility] 00:00:00 00:00:00 LINE 2020-12-17 2020-12-17 Office ROGER LARKIN 1.2.840.114 [id number] [facility] 14:16:48 16:07:10 Visit ALLISON AMBULATOR 350.1.13.21 College Y 0.2.7.2.686 of [id number] [facility] ascencion 310 e 2020-12-17 2020-12-17 Office ROGER Mckeon 1.2.840.114 [id number] [facility] 13:31:58 14:31:58 Visit Vicky AMBULATOR 350.1.13.21 College [place] Y 0.2.7.2.686 of 499.7015046 [facility] ascencion 310 e 2020-12-16 2020-12-16 Office JAMI VelasquezC 1.2.840.114 [id number] [facility] 10:56:39 11:16:39 Visit Carlton ParisNair 350.1.13.21 Co lleggood Ari 0.2.7.2.686 of [id number] Medi ascencion 530 e 2020-10-22 2020-10-22 Office ROGER BILLY 1.2.840.114 [id number] [facility] 13:55:44 16:15:16 Visit MATA AMBULATOR 350.1.13.21 College Y 0.2.7.2.686 of [id number] [facility] ascencion 825 e 2020-10-22 2020-10-22 Office ROGER Billy 1.2.840.114 [id number] [facility] 11:07:43 11:27:43 Visit Reuben S AMBULATOR 350.1.13.21 College Y 0.2.7.2.686 of 210.3657198 [facility] ascencion 600 e 2020-10-22 2020-10-22 Outpatient IVETTE BILLY [facility] [id number] SLE 00:00:00 00:00:00 MATA 2020-10-15 2020-10-15 Office ROGER Benitez 1.2.840.114 [id number] [facility] 11:53:46 12:08:46 Visit Mathew AMBULATOR 350.1.13.21 College Yuan Y 0.2.7.2.686 of [id number] [facility] ascencion 825 e 2020-09-21 2020-09-21 [facility] [id number] [facility] 00:00:00 00:00:00 FELISHA 2020-09-11 2020-09-11 Office ROGER Larkin 1.2.840.114 [id number] [facility] 14:03:39 15:57:33 Visit Allison AMBULATOR 350.1.13.21 College Y 0.2.7.2.686 of [id number] [facility] ascencion 310 e 2020-09-09 2020-09-09 Office BUCK Velasquez 1.2.840.114 [id number] [facility] 13:03:47 13:23:47 Visit Carlton Aguila 350.1.13.21 Co llege Ari 0.2.7.2.686 of [id number] [facility] ascencion 530 e 2020-09-03 2020-09-03 Office ROGER Billy 1.2.840.114 [id number] [facility] 13:38:37 15:29:13 Visit Mata Nunez AMBULATOR 350.1.13.21 College Y 0.2.7.2.686 of 199.8582084 [facility] ascencion 825 e 2020-09-03 2020-09-[address] [facility] [id number] SLE 00:00:00 00:00:00 MATA 2020-08-18 2020-08-[address] [facility] [id number] SLE 00:00:00 00:00:00 2020-08-13 2020-08-13 Office PURNIMA Billy 1.2.840.[id number] [place] [address] 13:23:14 15:06:12 Visit Mata Nunez AMBULATOR 350.1.13.21 College Y 0.2.7.2.686 of 106.1600950 [facility] ascencion 825 e 2020-08-13 2020-08-[address] [facility] [id number] SLE 00:00:00 00:00:00 BRADY 2020-08-05 2020-08-05 Office PURNIMA BillyAlena 1.2.840.114 [id number] [facility] 13:08:39 13:28:39 Visit Reuben Ford AMBULATOR 350.1.13.21 College Y 0.2.7.2.686 of 310.8487042 [facility] ascencion 600 e 2020-08-04 2020-08-04 Office ROGER Mckeon 1.2.840.114 [id number] [facility] 13:25:19 15:43:47 Visit Vicky AMBULATOR 350.1.13.21 [facility] Y 0.2.7.2.686 of 365.8428785 [facility] ascencion 310 e 2020-07-22 2020-07-22 Outpatient LUZ MALIK SLE SLE [id number] SLE 00:00:00 00:00:00 [facility] 2020-07-22 2020-07-22 Outpatient LUZ MALIK [facility] SLE [id number] SLE 00:00:00 00:00:00 [facility] 2020-07-15 2020-07-15 Office [facility] 1.2.840.114 [id number] [facility] 14:53:43 15:25:14 Visit Carlton Aguila 350.1.13.21 Co llmack Ari 0.2.7.2.686 of 127.6960432 [facility] ascencion 530 e 2020-07-13 2020-07-13 Office ROGER Billy 1.2.840.114 [id number] [facility] 13:43:32 16:16:42 Visit Matarikki Nunez AMBULATOR 350.1.13.21 College Y 0.2.7.2.686 of [id number] [facility] ascencion 825 e 2020-07-13 2020-07-13 Outpatient CHARITY SLE SLEH [id number] SLEH 00:00:00 00:00:00 BRADY 2020-07-09 2020-07-09 Outpatient EL SLE SLE [id number] SLE 00:00:00 00:00:00 2020-06-11 2020-06-11 Office ROGER Larkin 1.2.840.114 [id number] [facility] 12:58:09 14:27:36 Visit Allison AMBULATOR 350.1.13.21 College Y 0.2.7.2.686 of 731.3874901 [facility] ascencion 310 e 2020-06-04 2020-06-04 Office ROGER Billy 1.2.840.114 [id number] [facility] 14:53:19 16:07:18 Visit Mata Nunez AMBULATOR 350.1.13.21 College Y 0.2.7.2.686 of 509.3408315 [facility] ascencion 825 e 2020-05-20 2020-05-20 Office ROGER Grimes 1.2.840.114 [id number] [facility] 11:34:19 15:11:14 Visit Oyebunmi AMBULATOR 350.1.13.21 College Y 0.2.7.2.686 of 540.2847332 [facility] ascencion 355 e 2020-05-20 2020-05-20 Office [facility] [place] [facility] 1.2.840.114 [id number] [facility] 13:07:14 13:37:14 Visit Carlton ParisNair 350.1.13.21 Co llege Ari 0.2.7.2.686 of [id number] [facility] ascencion 530 e 2020-05-20 2020-05-20 Outpatient LUZ BILLY [facility] [id number] [address] [place] [address] 00:00:00 00:00:00 MATA 2020-05-06 2020-05-06 Office ROGER Billy 1.2.840.[id number] [place] [address] 10:32:12 13:30:54 Visit Mata Nunez AMBULATOR 350.1.13.21 College Y 0.2.7.2.686 of 322.4736736 [facility] ascencion 825 e 2020-05-05 2020-05-05 Office ROGER Billy 1.2.840.114 [id number] [facility] 13:08:32 13:28:32 Visit Reuben S AMBULATOR 350.1.13.21 College Y 0.2.7.2.686 of 516.4653263 [facility] ascencion 600 e 2020-04-23 2020-04-23 Office ROGER Billy 1.2.840.114 [id number] [facility] 10:47:41 11:47:30 Visit Mata Nunez AMBULATOR 350.1.13.21 College Y 0.2.7.2.686 of 269.7757280 Medi ascencion 825 e 2020-04-23 2020-04-23 Outpatient LUZ BILLY SLE SLE [id number] SLEH 00:00:00 00:00:00 MATA 2020-04-16 2020-04-16 Office Breanna, [facility] 1.2.840.[id number] [place] [address] 15:47:12 16:47:12 Visit Fidelina AMBULATOR 350.1.13.21 College Y 0.2.7.2.686 of 435.0611904 [facility] ascencion 355 e 2020-04-08 2020-04-[address] OR[address]ÑEZ [facility] [id number] SLE 00:00:00 00:00:00 LAZARA 2020-04-08 2020-04-[address] [facility] [id number] SLE 00:00:00 00:00:00 2020-04-02 2020-04-02 Office Fredy, [facility] 1.2.840.[id number] [place] [address] 13:12:57 14:37:50 Visit Mata Nunez AMBULATOR 350.1.13.21 College Y 0.2.7.2.686 of 443.6594009 [facility] ascencion 825 e 2020-03-26 2020-03-26 Office Fredy, [facility] 1.2.840.114 [id number] [facility] 08:37:25 09:52:33 Visit Mata Nunez AMBULATOR 350.1.13.21 College Y 0.2.7.2.686 of 501.3900775 [facility] ascencion 825 e 2020-03-26 2020-03-26 Office Eli, [place] 1.2.840.114 [id number] [facility] 08:55:50 09:52:26 Visit Mathew AMBULATOR 350.1.13.21 College Yuan Y 0.2.7.2.686 of 693.8438132 [facility] ascencion 825 e 2020-03-26 2020-03-[address] [facility] [id number] SLEH 00:00:00 00:00:00 BRADY 2020-03-23 2020-03-23 Office ROGER Larkin 1.2.840.114 [id number] [facility] 13:27:03 14:39:17 Visit Allison AMBULATOR 350.1.13.21 College Y 0.2.7.2.686 of 876.5970830 Medi ascencion 310 e 2020-03-18 2020-03-18 Outpatient LUZ ELIZABETH [facility] [id number] SLE 00:00:00 00:00:00 [facility] 2020-03-06 2020-03-06 Outpatient IVETTE CARRANZA SLE [id number] SLE 00:00:00 00:00:00 [facility] 2020-03-05 2020-03-05 Office ROGER Billy 1.2.840.114 [id number] [facility] 13:15:49 13:35:49 Visit Reuben S AMBULATOR 350.1.13.21 College Y 0.2.7.2.686 of 406.4224098 [facility] ascencion 600 e 2020-02-25 2020-02-25 Emergency ER [facility] Emergency [id number] [facility] 12:51:00 12:51:00 2020-02-20 2020-02-20 Office ROGER Billy 1.2.840.114 [id number] [facility] 15:16:41 15:36:41 Visit Reuben S AMBULATOR 350.1.13.21 College Y 0.2.7.2.686 of 640.1555583 [facility] ascencion 600 e 2020-02-13 2020-02-13 Office ROGER Billy 1.2.840.114 [id number] [facility] 14:06:05 14:26:05 Visit Reuben S AMBULATOR 350.1.13.21 College Y 0.2.7.2.686 of 172.2426657 Medi ascencion 600 e 2020-02-06 2020-02-06 Office ROGER Billy 1.2.840.114 [id number] [facility] 14:20:57 14:40:57 Visit Reuben S AMBULATOR 350.1.13.21 College Y 0.2.7.2.686 of 754.5969557 Medi ascencion 600 e 2020-01-30 2020-01-30 Office ROGER Billy 1.2.840.114 [id number] [facility] 14:30:49 14:50:49 Visit Reuben S AMBULATOR 350.1.13.21 College Y 0.2.7.2.686 of 764.6527926 Medi ascencion 600 e 2020-01-23 2020-01-23 Office ROGER Billy 1.2.840.114 [id number] [facility] 12:50:53 13:10:53 Visit Reuben S AMBULATOR 350.1.13.21 College Y 0.2.7.2.686 of 069.2598792 Medi ascencion 600 e 2020-01-17 2020-01-17 Outpatient EL SLE SLE [id number] SLEH 00:00:00 00:00:00 2020-01-06 2020-01-06 Outpatient SLE SLE [id number] SLEH 00:00:00 00:00:00 [id number] 2020-01-06 2020-01-06 Outpatient EL SAMANTHARI, [facility] SLE [id number] SLEH 00:00:00 00:00:00 FELISHA 2019-12-26 2019-12-26 Office ROGER Billy 1.2.840.114 [id number] [facility] 12:33:56 12:53:56 Visit Reuben S AMBULATOR 350.1.13.21 College Y 0.2.7.2.686 of 380.6288983 Medi ascencion 600 e 2019-12-19 2019-12-19 Office ROGER Billy 1.2.840.114 [id number] [facility] 12:45:31 14:13:58 Visit Reuben S AMBULATOR 350.1.13.21 College Y 0.2.7.2.686 of 396.1693030 Medi ascencion 600 e 2019-11-20 2019-11-20 Office JAMI VelasquezC 1.2.840.114 [id number] [facility] 12:48:55 14:12:12 Visit Carlton Ayla 350.1.13.21 Co llege Ari 0.2.7.2.686 of 649.3178439 Medi ascencion 530 e 2019-10-15 2019-10-15 Office ROGER Billy 1.2.840.114 [id number] [facility] 12:08:28 13:27:47 Visit Reuben Ford AMBULATOR 350.1.13.21 College Y 0.2.7.2.686 of 893.9559374 [facility] 600 e 2019-10-10 2019-10-10 Outpatient SLEH SLEH [id number] SLEH 00:00:00 00:00:00 [id number] 2019-09-20 2019-09-20 Outpatient SLEH SLEH [id number] [id number] SLEH 00:00:00 00:00:00 [id number] 2019-09-16 2019-09-16 Urgent Forte, Bandar 1.2.840.114 [id number] 18:59:08 19:14:08 Care Fernanda Pediatric 350.1.13.10 s and 4.2.7.2.686 Adult [id number] Primary [facility] 2019-09-16 2019-09-16 Office ROGER Larkin 1.2.840.114 [id number] [facility] 13:37:39 16:21:02 Visit Allison AMBULATOR 350.1.13.21 College Y 0.2.7.2.686 of 067.4822360 [facility] 310 e 2019-09-16 2019-09-16 Orders Doctor LEEANN 1.2.840.114 [id number] 00:00:00 00:00:00 Only Unassigned, DION 350.1.13.10 [facility] 4.2.7.2.686 [id number] 009 2019-09-04 2019-09-04 Outpatient SLEH SLEH [id number] 4-2 [facility]H 00:00:00 00:00:00 [id number] 2019-04-18 2019-04-18 Office ROGER Billy 1.2.840.114 [id number] [facility] 11:16:38 11:41:32 Visit Reuben Ford AMBULATOR 350.1.13.21 College Y 0.2.7.2.686 of 501.1619968 [facility] 600 e 2019-04-03 2019-04-03 Office BUCK Velasquez 1.2.840.114 [id number] [facility] 08:50:25 09:20:25 Visit Carlton Ayla 350.1.13.21 Co llege Ari 0.2.7.2.686 of 271.7509637 [facility] ascencion 530 e 2019-03-27 2019-03-27 Office ROGER Juan 1.2.648.355 [id number] [facility] 13:54:10 15:58:29 Visit Dalila AMBULATOR 350.1.13.21 College Y 0.2.7.2.686 of [id number] [facility] ascencion 325 e 2019-02-13 2019-02-13 Office ROGER Juan 1.2.586.118 [id number] [facility] 13:23:36 16:50:53 Visit Dalila AMBULATOR 350.1.13.21 College Y 0.2.7.2.686 of 359.1684051 [facility] ascencion 325 e 2019-02-12 2019-02-12 Office ROGER Billy 1.2.840.114 [id number] [facility] 13:38:05 17:00:11 Visit Reuben Ford AMBULATOR 350.1.13.21 College Y 0.2.7.2.686 of [id number] [facility] ascencion 600 e 2018-10-08 2018-10-08 Outpatient ROGER JUAN [facility] [id number] [facility] 14:41:17 16:10:55 DALILA Colle ge of Medicin e Results Test Description Test Time Test Comments Results Result Comments Source BASIC METABOLIC PANEL 2022-01-11 18:19:14 Test Item Value Reference Range Interpretation Comme nts SODIUM (BEAKER) (test code 128 meq/L 136-145 L = 381) POTASSIUM (BEAKER) (test 4.4 meq/L 3.5-5.1 code = 379) CHLORIDE (BEAKER) (test 91 meq/L 98-107 L code = 382) CO2 (BEAKER) (test code = 27 meq/L 22-29 355) BLOOD UREA NITROGEN 20 mg/dL 7-21 (BEAKER) (test code = 354) CREATININE (BEAKER) (test 1.07 mg/dL 0.57-1.25 code = 358) GLUCOSE RANDOM (BEAKER) 462 mg/dL 70-105 HH (test code = 652) CALCIUM (BEAKER) (test 10.4 mg/dL 8.4-10.2 H code = 697) EGFR (BEAKER) (test code = 69 mL/min/1.73 sq m ESTIMATED GFR IS NOT 1092) ACCURATE CRE ATININE CLEARANCE IN MS EDICTING GLOMERULAR FILT RATION RATE. ESTIMATED GFR IS NOT APPLICABLE FOR DIALYSIS PATIENTS. [employer] ID - BSALPHA FETOPROTEIN (AFP), TUMOR [id number] 17:29:33 Test Item Value Reference Range Interpretation Comments ALPHA-FETOPROTEIN (BEAKER) (test 3.4 ng/mL <10.0 code = 1094) [employer] ID - BSHEPATIC FUNCTION [id number] 17:01:26 Test Item Value Reference Range Interpretation Comments TOTAL PROTEIN (BEAKER) (test code = 9.2 gm/dL 6.0-8.3 H 770) ALBUMIN (BEAKER) (test code = 1145) 4.5 g/dL 3.5-5.0 BILIRUBIN TOTAL (BEAKER) (test code 1.2 mg/dL 0.2-1.2 = 377) BILIRUBIN DIRECT (BEAKER) (test 0.4 mg/dL 0.1-0.5 code = 706) ALKALINE PHOSPHATASE (BEAKER) (test 81 U/L 40-150 code = 346) AST (SGOT) (BEAKER) (test code = 17 U/L 5-34 353) ALT (SGPT) (BEAKER) (test code = 14 U/L 6-55 347) [employer] ID - BSPROTHROMBIN [id number] 16:47:42 Test Item Value Reference Range Interpretation Comments PROTIME (BEAKER) 13.4 seconds 11.9-14.2 (test code = 759) INR (BEAKER) (test 1.04 See_Comment [Automat ed message] code = 370) The system [employer] generated this result transmitted ref erence range: <=5.90. The reference range was not used to int erpret this result as normal/abnormal . RECOMMENDED COUMADIN/WARFARIN INR THERAPY RANGESSTANDARD DOSE: 2.0 - 3.0 Includes: PROPHYLAXIS for venous thrombosis, systemic embolization; TREATMENT for venous thrombosis and/or pulmonary embolus.HIGH RISK: Target INR is 2.5-3.5 for patients with mechanical heart valves.CBC W/PLT COUNT & AUTO [id number] 16:47:42 Test Item Value Reference Range Interpretation Comments WHITE BLOOD CELL COUNT (BEAKER) 7.5 K/ L 3.5-10.5 (test code = 775) RED BLOOD CELL COUNT (BEAKER) 5.47 M/ L 4.63-6.08 (test code = 761) HEMOGLOBIN (BEAKER) (test code = 15.8 GM/DL 13.7-17.5 410) HEMATOCRIT (BEAKER) (test code = 47.2 % 40.1-51.0 411) MEAN CORPUSCULAR VOLUME (BEAKER) 86.3 fL 79.0-92.2 (test code = 753) MEAN CORPUSCULAR HEMOGLOBIN 28.9 pg 25.7-32.2 (BEAKER) (test code = 751) MEAN CORPUSCULAR HEMOGLOBIN CONC 33.5 GM/DL 32.3-36.5 (BEAKER) (test code = 752) RED CELL DISTRIBUTION WIDTH 14.4 % 11.6-14.4 (BEAKER) (test code = 412) PLATELET COUNT (BEAKER) (test code 97 K/CU MM 150-450 L = 756) MEAN PLATELET VOLUME (BEAKER) 12.1 fL 9.4-12.4 (test code = 754) NUCLEATED RED BLOOD CELLS (BEAKER) 0 /100 WBC 0-0 (test code = 413) NEUTROPHILS RELATIVE PERCENT 67 % (BEAKER) (test code = 429) LYMPHOCYTES RELATIVE PERCENT 21 % (BEAKER) (test code = 430) MONOCYTES RELATIVE PERCENT 10 % (BEAKER) (test code = 431) EOSINOPHILS RELATIVE PERCENT 1 % (BEAKER) (test code = 432) BASOPHILS RELATIVE PERCENT 1 % (BEAKER) (test code = 437) NEUTROPHILS ABSOLUTE COUNT 5.04 K/ L 1.78-5.38 (BEAKER) (test code = 670) LYMPHOCYTES ABSOLUTE COUNT 1.54 K/ L 1.32-3.57 (BEAKER) (test code = 414) MONOCYTES ABSOLUTE COUNT (BEAKER) 0.71 K/ L 0.30-0.82 (test code = 415) EOSINOPHILS ABSOLUTE COUNT 0.10 K/ L 0.04-0.54 (BEAKER) (test code = 416) BASOPHILS ABSOLUTE COUNT (BEAKER) 0.08 K/ L 0.01-0.08 (test code = 417) IMMATURE GRANULOCYTES-RELATIVE 1 % 0-1 PERCENT (BEAKER) (test code = 2801) MR, ABDOMEN, WITHOUT / WITH IV [id number] 09:16:00Reffering; Dr. Carlton Diaz Reason for Exam - Click Yes and Enter Reason Below->YesUnlis diana Reason for Exam->HCC, S/p [facility] 1955 Sex: MFINAL REPORT MRI of the abdomen with and without contrast Clinical History: Unlisted Reason for ExamHCC, S/p July Technique: Multiplanar and multisequence MR images of the abdomen are obtained before and after intravenous contrast administration. Contrast is administeredto evaluate neoplasm and vasculature. Comparison: September 21, 2021 and March 26, 2021 Discussion: Liver is cirrhotic. Status post microspheres therapy. There is a treatment cavity in segment 8 of theliver measures approximately 5 x 7.4 cm, unchanged. Slightly irregular rim enhancement of the cavityappears similar to the prior exam. Additionally, there is a 3 x 4 cm nodular component in the right aspect of the cavity that demonstrates low-grade heterogeneous and progressive enhancement, worrisomefor residual disease. No new suspicious liver mass is identified. Hepatic vasculature is patent. There is no biliary ductal dilatation. Gallbladder is absent. Spleen is borderline enlarged. Pancreas, ad renal glands are normal. Kidneys demonstrate no hydronephrosis, or mass. No ascites. A few mildly enlarged diaphragmatic lymph nodes are unchanged. No new adenopathy. Visualized bowel is unremarkable. No suspicious bony lesion. Impression: Slightly irregular a nonspecific rim enhancement of the treatment cavity in segment 8 of liver is similar to the prior exam. Additionally, there is a 3 x 4 cm nodular component within the cavity that demonstrates low-grade progressive enhancement, concerning for residual disease. Continued close follow-up is advised. Signed: Michael Leeport Verified Date/Time: 01/01/2022 09:16:23 CBC W/PLT COUNT & AUTO [id number] 13:16:14 Test Item Value Reference Range Interpretation Comments WHITE BLOOD CELL COUNT (BEAKER) 4.8 K/ L 3.5-10.5 (test code = 775) RED BLOOD CELL COUNT (BEAKER) 4.88 M/ L 4.63-6.08 (test code = 761) HEMOGLOBIN (BEAKER) (test code = 14.0 GM/DL 13.7-17.5 410) HEMATOCRIT (BEAKER) (test code = 42.8 % 40.1-51.0 411) MEAN CORPUSCULAR VOLUME (BEAKER) 87.7 fL 79.0-92.2 (test code = 753) MEAN CORPUSCULAR HEMOGLOBIN 28.7 pg 25.7-32.2 (BEAKER) (test code = 751) MEAN CORPUSCULAR HEMOGLOBIN CONC 32.7 GM/DL 32.3-36.5 (BEAKER) (test code = 752) RED CELL DISTRIBUTION WIDTH 13.9 % 11.6-14.4 (BEAKER) (test code = 412) PLATELET COUNT (BEAKER) (test 107 K/CU MM 150-450 L code = 756) MEAN PLATELET VOLUME (BEAKER) 12.3 fL 9.4-12.4 (test code = 754) NEUTROPHILS RELATIVE PERCENT 62 % (BEAKER) (test code = 429) LYMPHOCYTES RELATIVE PERCENT 27 % (BEAKER) (test code = 430) MONOCYTES RELATIVE PERCENT 10 % (BEAKER) (test code = 431) EOSINOPHILS RELATIVE PERCENT 1 % (BEAKER) (test code = 432) BASOPHILS RELATIVE PERCENT 0 % (BEAKER) (test code = 437) NEUTROPHILS ABSOLUTE COUNT 2.94 K/ L 1.78-5.38 (BEAKER) (test code = 670) LYMPHOCYTES ABSOLUTE COUNT 1.29 K/ L 1.32-3.57 L (BEAKER) (test code = 414) MONOCYTES ABSOLUTE COUNT (BEAKER) 0.46 K/ L 0.30-0.82 (test code = 415) EOSINOPHILS ABSOLUTE COUNT 0.06 K/ L 0.04-0.54 (BEAKER) (test code = 416) BASOPHILS ABSOLUTE COUNT (BEAKER) 0.02 K/ L 0.01-0.08 (test code = 417) IMMATURE GRANULOCYTES-RELATIVE 0 % 0-1 PERCENT (BEAKER) (test code = 2801) COMPREHENSIVE METABOLIC [id number] 13:09:43 Test Item Value Reference Range Interpretation Comments TOTAL PROTEIN 7.8 gm/dL 6.0-8.3 Specimen sligh tly (BEAKER) (test code = hemoly zed 770) ALBUMIN (BEAKER) 4.3 g/dL 3.5-5.0 Specimen sl ightly (test code = 1145) hemolyzed ALKALINE PHOSPHATASE 68 U/L 40-150 (BEAKER) (test code = 346) BILIRUBIN TOTAL 0.7 mg/dL 0.2-1.2 Specimen sli ghtly (BEAKER) (test code = hemoly zed 377) SODIUM (BEAKER) (test 133 meq/L 136-145 L code = 381) POTASSIUM (BEAKER) 4.2 meq/L 3.5-5.1 Specimen slightly (test code = 379) hemolyzed CHLORIDE (BEAKER) 100 meq/L 98-107 (test code = 382) CO2 (BEAKER) (test 29 meq/L 22-29 code = 355) BLOOD UREA NITROGEN 8 mg/dL 7-21 (BEAKER) (test code = 354) CREATININE (BEAKER) 0.70 mg/dL 0.57-1.25 Specimen slightly (test code = 358) hemolyzed GLUCOSE RANDOM 374 mg/dL 70-105 H (BEAKER) (test code = 652) CALCIUM (BEAKER) 9.4 mg/dL 8.4-10.2 (test code = 697) AST (SGOT) (BEAKER) 18 U/L 5-34 Specimen slightly (test code = 353) hemolyzed ALT (SGPT) (BEAKER) 9 U/L 6-55 Specimen slightly (test code = 347) hemolyzed EGFR (BEAKER) (test 112 ESTIMATE D GFR IS code = 1092) mL/min/1.73 sq NOT ACCURA TE m CREATININE CLEARANCE IN PREDICTING GLOMERULAR FILTRATION RATE . ESTIMATED GFR I S NOT APPLICABLE FOR DIALYSIS PATIEN TS. ALPHA FETOPROTEIN (AFP), TUMOR [id number] 18:58:37 Test Item Value Reference Range Interpretation Comments ALPHA-FETOPROTEIN (BEAKER) (test 3.0 ng/mL <10.0 code = 1094) Commercial Mortgage Broker ID - BSBASIC METABOLIC [id number] 18:38:55 Test Item Value Reference Range Interpretation Comments SODIUM (BEAKER) 135 meq/L 136-145 L (test code = 381) POTASSIUM (BEAKER) 4.0 meq/L 3.5-5.1 (test code = 379) CHLORIDE (BEAKER) 96 meq/L 98-107 L (test code = 382) CO2 (BEAKER) (test 30 meq/L 22-29 H code = 355) BLOOD UREA NITROGEN 6 mg/dL 7-21 L (BEAKER) (test code = 354) CREATININE (BEAKER) 0.73 mg/dL 0.57-1.25 (test code = 358) GLUCOSE RANDOM 261 mg/dL 70-105 H (BEAKER) (test code = 652) CALCIUM (BEAKER) 9.6 mg/dL 8.4-10.2 (test code = 697) EGFR (BEAKER) (test 107 mL/min/1.73 ESTIM ATED GFR IS code = 1092) sq m NOT ACCURATE CREATININE CLEARANCE IN PREDICTING GLOMERULAR FILTRATION RATE . ESTIMATED GFR I S NOT APPLICABLE FOR DIALYSIS PATIEN TS. Commercial Mortgage Broker ID - BSHEPATIC FUNCTION [id number] 18:38:55 Test Item Value Reference Range Interpretation Comments TOTAL PROTEIN (BEAKER) (test code = 8.1 gm/dL 6.0-8.3 770) ALBUMIN (BEAKER) (test code = 1145) 4.0 g/dL 3.5-5.0 BILIRUBIN TOTAL (BEAKER) (test code 0.7 mg/dL 0.2-1.2 = 377) BILIRUBIN DIRECT (BEAKER) (test 0.3 mg/dL 0.1-0.5 code = 706) ALKALINE PHOSPHATASE (BEAKER) (test 74 U/L 40-150 code = 346) AST (SGOT) (BEAKER) (test code = 16 U/L 5-34 353) ALT (SGPT) (BEAKER) (test code = 11 U/L 6-55 347) Commercial Mortgage Broker ID - BSPROTHROMBIN [id number] 18:22:50 Test Item Value Reference Range Interpretation Comments PROTIME (BEAKER) 13.5 seconds 11.9-14.2 (test code = 759) INR (BEAKER) (test 1.05 See_Comment [Automat ed message] code = 370) The system [employer] generated this result transmitted ref erence range: <=5.90. The reference range was not used to int erpret this result as normal/abnormal . RECOMMENDED COUMADIN/WARFARIN INR THERAPY RANGESSTANDARD DOSE: 2.0 - 3.0 Includes: PROPHYLAXIS for venous thrombosis, systemic embolization; TREATMENT for venous thrombosis and/or pulmonary embolus.HIGH RISK: Target INR is 2.5-3.5 for patients with mechanical heart valves.CBC W/PLT COUNT & AUTO [id number] 18:10:31 Test Item Value Reference Range Interpretation Comments WHITE BLOOD CELL COUNT (BEAKER) 5.6 K/ L 3.5-10.5 (test code = 775) RED BLOOD CELL COUNT (BEAKER) 4.98 M/ L 4.63-6.08 (test code = 761) HEMOGLOBIN (BEAKER) (test code = 14.2 GM/DL 13.7-17.5 410) HEMATOCRIT (BEAKER) (test code = 44.0 % 40.1-51.0 411) MEAN CORPUSCULAR VOLUME (BEAKER) 88.4 fL 79.0-92.2 (test code = 753) MEAN CORPUSCULAR HEMOGLOBIN 28.5 pg 25.7-32.2 (BEAKER) (test code = 751) MEAN CORPUSCULAR HEMOGLOBIN CONC 32.3 GM/DL 32.3-36.5 (BEAKER) (test code = 752) RED CELL DISTRIBUTION WIDTH 13.3 % 11.6-14.4 (BEAKER) (test code = 412) PLATELET COUNT (BEAKER) (test code 72 K/CU MM 150-450 L = 756) MEAN PLATELET VOLUME (BEAKER) 12.5 fL 9.4-12.4 H (test code = 754) NUCLEATED RED BLOOD CELLS (BEAKER) 0 /100 WBC 0-0 (test code = 413) NEUTROPHILS RELATIVE PERCENT 60 % (BEAKER) (test code = 429) LYMPHOCYTES RELATIVE PERCENT 27 % (BEAKER) (test code = 430) MONOCYTES RELATIVE PERCENT 11 % (BEAKER) (test code = 431) EOSINOPHILS RELATIVE PERCENT 2 % (BEAKER) (test code = 432) BASOPHILS RELATIVE PERCENT 1 % (BEAKER) (test code = 437) NEUTROPHILS ABSOLUTE COUNT 3.35 K/ L 1.78-5.38 (BEAKER) (test code = 670) LYMPHOCYTES ABSOLUTE COUNT 1.50 K/ L 1.32-3.57 (BEAKER) (test code = 414) MONOCYTES ABSOLUTE COUNT (BEAKER) 0.59 K/ L 0.30-0.82 (test code = 415) EOSINOPHILS ABSOLUTE COUNT 0.10 K/ L 0.04-0.54 (BEAKER) (test code = 416) BASOPHILS ABSOLUTE COUNT (BEAKER) 0.05 K/ L 0.01-0.08 (test code = 417) IMMATURE GRANULOCYTES-RELATIVE 0 % 0-1 PERCENT (BEAKER) (test code = 2801) MR, ABDOMEN, [id number] 09:42:00Reffering; Dr. Vincent RiveroUnlisted Reason for Exam - Click Yes and Enter Reason Below->YesUnlisted Reason for Exam- >follow up of HCCAnesthesia:->None [facility] : 1955 Sex: MFINAL REPORT MRI of the abdomen dated September 21, 2021 COMPARISON: March 26, 2021 Comment: Multiplanar T1 and T2-weighted images of the abdomen, postcontrast axial and coronal T1-weighted images of the abdomen were obtained. Liver is cirrhotic in appearance. Patient is status post Y-90 microspheres therapy. There is interval increase in size of the post treatment cavity in the segment 8 of the liver measuring approximately 4.9 x 7.5 cm, previously 4.5 x 4.6 cm. There is minimallyirregular peripheral enhancement to along the margin of the post treatment cavity. This may represent posttreatment changes. Residual disease cannot be entirely excluded. No other suspicious mass is seen in the liver. Spleen is enlarged measuring 12.7 x 5.1 x 9.5 cm. The splenic, superior mesenteric, portal, and hepatic veins are patent. Main portal vein measures approximately 11 mm in diameter. Gallbladder is not visualized. No biliary dilatation is seen. Pancreas and adrenals are unremarkable. Both kidneys are normal in size and functioning. No ascites is present. IMPRESSION:1. Cirrhosis with splenomegaly.2. Status post Y-90 therapy with irregular marginal enhancement may represent residual disease or posttreatment changes. This can be followed with subsequent imaging study. Signed: Neelam RussellMDReport Verified Date/Time: 09/28/2021 09:42:44 CT, CHEST, WITHOUT [id number] 15:52:00Reffering; Dr. Carlton GastelumoUnlisted Reason for Exam - Click Yes and Enter Reason Below->YesUnlisted Reason for Exam->HCC, follow up screening for mets [facility] : 1955 Sex: MFINAL REPORT CT Chest without contrast History: Hepatocellular carcinoma Comparison: 05/03/2021 Technique: serial axial imaging was performed without intravenous contrast as per departmental protocol. Multiplanar images are reconstructed and reviewed when indicated. This CT examination is performed using one or more of the following dose reduction techniques: Automated exposure control, adjustment of the mA and /or kV according to patient size, and/or use of iterative reconstructiontechnique. Findings:No mediastinal lymphadenopathy. No definite hilar enlargement. Normal size heart. No pericardial effusion. No thoracic aortic aneurysm. Normal caliber of main pulmonary trunk. Patent central airways. No pleural effusion or pneumothorax. There is a calcified granuloma within the lingular segment of the left upper lobe is consistent with prior granulomatous disease. There is a 2 mm right lower lobe nodule on axial image 30 which is unchanged. The lungs are otherwise clear. Stable appearance of multiple mildly enlarged anterior diaphragmatic lymph nodes. The partially imaged upper a bdomen, and ill-defined hypodense mass near the hepatic dome has increased in size. This is incompletely characterized on this exam. Redemonstration of peripheral calcifications within the gallbladder wall. No aggressive osseous lesion. Impression: 1. No evidence of pulmonary metastasis.2. Stable appearance of multiple mildly enlarged anterior diaphragmatic lymph nodes.3. Ill-defined hypodense mass to the hepatic dome has increased in size from prior examination. Recommend further characterization with MRI of the abdomen, liver mass protocol. Signed: Akil Espinoza MDRepcoxhealth Verified Date/Time: 09/16/2021 15:52:35 BONE AND/OR JOINT IMAGING, WHOLE [id number] 17:07:00Reffering; Dr. Carlton Diaz Reason for Exam - Click Yes and Enter Reason Below->YesUnlis diana Reason for Exam->HCC follow up screening for metastatic disease [facility] : 1955 Sex: MFINAL REPORT PROCEDURE: BONE SCAN, WHOLE BODY CPT CODE: 03498 INDICATION: Hepatocellular carcinoma PROTOCOL: 20.5 mCi of Tc-99m MDP was injected intravenously. Whole body and selected spot images were obtained approximately 3 hours later. FINDINGS: Tracer activity is irregularly mildly increased in the shoulders, sternoclavicular joints, costosternal junctions, wrists, hips, knees,and ankles/feet. Additionally, there is irregular mild increase throughout the spine. Mild increase in the right eighth costovertebral junction, unchanged from prior bone scan. IMPRESSION: 1.No evidence of osseous neoplastic process.2.Degenerative changes in the spine and peripheral joints.3.Benign calvarial hyperostosis.4.Focal increase in the right eighth costovertebral vertebral junction suggests traumatic or focally more severe degenerative etiology and is unchanged from the study of 05/03/2021. Images for comparison/correlation were CT chest of 05/03/2021 and MR abdomen of 03/26/2021. Signed: Barak Arevalo MDReport Verified Date/Time: 09/08/2021 17:07:38 Reading Location: [address] Reading Room BASI METABOLIC [id number] 15:13:56 Test Item Value Reference Range Interpretation Comments SODIUM (BEAKER) 135 meq/L 136-145 L (test code = 381) POTASSIUM (BEAKER) 4.1 meq/L 3.5-5.1 (test code = 379) CHLORIDE (BEAKER) 98 meq/L 98-107 (test code = 382) CO2 (BEAKER) (test 32 meq/L 22-29 H code = 355) BLOOD UREA NITROGEN 5 mg/dL 7-21 L (BEAKER) (test code = 354) CREATININE (BEAKER) 0.72 mg/dL 0.57-1.25 (test code = 358) GLUCOSE RANDOM 135 mg/dL 70-105 H (BEAKER) (test code = 652) CALCIUM (BEAKER) 9.7 mg/dL 8.4-10.2 (test code = 697) EGFR (BEAKER) (test 109 mL/min/1.73 ESTIM ATED GFR IS code = 1092) sq m NOT ACCURATE CREATININE CLEARANCE IN PREDICTING GLOMERULAR FILTRATION RATE . ESTIMATED GFR I S NOT APPLICABLE FOR DIALYSIS PATIEN TS. Commercial Mortgage Broker ID - CARLOS MHEPATIC FUNCTION [id number] 15:13:56 Test Item Value Reference Range Interpretation Comments TOTAL PROTEIN (BEAKER) (test code = 7.9 gm/dL 6.0-8.3 770) ALBUMIN (BEAKER) (test code = 1145) 3.8 g/dL 3.5-5.0 BILIRUBIN TOTAL (BEAKER) (test code 0.7 mg/dL 0.2-1.2 = 377) BILIRUBIN DIRECT (BEAKER) (test 0.3 mg/dL 0.1-0.5 code = 706) ALKALINE PHOSPHATASE (BEAKER) (test 78 U/L 40-150 code = 346) AST (SGOT) (BEAKER) (test code = 19 U/L 5-34 353) ALT (SGPT) (BEAKER) (test code = 14 U/L 6-55 347) Commercial Mortgage Broker ID - CARLOS MPROTHROMBIN [id number] 15:04:57 Test Item Value Reference Range Interpretation Comments PROTIME (BEAKER) 13.4 seconds 11.9-14.2 (test code = 759) INR (BEAKER) (test 1.04 See_Comment [Automat ed message] code = 370) The system [employer] generated this result transmitted ref erence range: <=5.90. The reference range was not used to int erpret this result as normal/abnormal . RECOMMENDED COUMADIN/WARFARIN INR THERAPY RANGESSTANDARD DOSE: 2.0 - 3.0 Includes: PROPHYLAXIS for venous thrombosis, systemic embolization; TREATMENT for venous thrombosis and/or pulmonary embolus.HIGH RISK: Target INR is 2.5-3.5 for patients with mechanical heart valves.CBC W/PLT COUNT & AUTO [id number] 14:59:15 Test Item Value Reference Range Interpretation Comments WHITE BLOOD CELL COUNT (BEAKER) 7.4 K/ L 3.5-10.5 (test code = 775) RED BLOOD CELL COUNT (BEAKER) 4.56 M/ L 4.63-6.08 L (test code = 761) HEMOGLOBIN (BEAKER) (test code = 13.5 GM/DL 13.7-17.5 L 410) HEMATOCRIT (BEAKER) (test code = 41.7 % 40.1-51.0 411) MEAN CORPUSCULAR VOLUME (BEAKER) 91.4 fL 79.0-92.2 (test code = 753) MEAN CORPUSCULAR HEMOGLOBIN 29.6 pg 25.7-32.2 (BEAKER) (test code = 751) MEAN CORPUSCULAR HEMOGLOBIN CONC 32.4 GM/DL 32.3-36.5 (BEAKER) (test code = 752) RED CELL DISTRIBUTION WIDTH 13.0 % 11.6-14.4 (BEAKER) (test code = 412) PLATELET COUNT (BEAKER) (test 116 K/CU MM 150-450 L code = 756) MEAN PLATELET VOLUME (BEAKER) 11.0 fL 9.4-12.4 (test code = 754) NUCLEATED RED BLOOD CELLS 0 /100 WBC 0-0 (BEAKER) (test code = 413) NEUTROPHILS RELATIVE PERCENT 69 % (BEAKER) (test code = 429) LYMPHOCYTES RELATIVE PERCENT 13 % (BEAKER) (test code = 430) MONOCYTES RELATIVE PERCENT 10 % (BEAKER) (test code = 431) EOSINOPHILS RELATIVE PERCENT 6 % (BEAKER) (test code = 432) BASOPHILS RELATIVE PERCENT 1 % (BEAKER) (test code = 437) NEUTROPHILS ABSOLUTE COUNT 5.09 K/ L 1.78-5.38 (BEAKER) (test code = 670) LYMPHOCYTES ABSOLUTE COUNT 1.00 K/ L 1.32-3.57 L (BEAKER) (test code = 414) MONOCYTES ABSOLUTE COUNT (BEAKER) 0.73 K/ L 0.30-0.82 (test code = 415) EOSINOPHILS ABSOLUTE COUNT 0.44 K/ L 0.04-0.54 (BEAKER) (test code = 416) BASOPHILS ABSOLUTE COUNT (BEAKER) 0.09 K/ L 0.01-0.08 H (test code = 417) IMMATURE GRANULOCYTES-RELATIVE 1 % 0-1 PERCENT (BEAKER) (test code = 2801) BERNICE VISCERAL [id number] 13:30:00Reffering; Dr. Carlton Puckett for Exam:->Y[facility]90 [facility] 1955 Sex: MFINAL REPORT PROCEDURE: Hepatic radioembolization - Radioisotope administration Procedural PersonnelAttending physician(s): Liz Alberts physician(s): Fidencio Bahena physician(s): NoneAdvantalya practice provider(s): NoneAuthorized user: Barak Arevalo MD Pre-procedure diagnosis: Hepatocellular carcinomaPost-procedure diagnosis: SameIndication: Locoregional therapy for tumor controlAdditional clinical history: NoneVascular invasion: None Complications: No immediate complications. IMPRESSION: Hepatic angiography demonstrates tumor blush arising from segment 8 branches of the right hepatic artery. Successful administration of Theraspheres Y90 glass microspheres with Dr. Arevalo of nuclear medicine. Plan: Right leg straight x 3 hours. PROCEDURE SUMMARY:- Arterial access with ultrasound guidance- Aortography: Not performed- Visceral angiography: Celiac angiography- Selective hepatic angiography: Right hepatic artery- Superselective hepatic angiography: Segment 8 branch of right hepatic artery- Radioisotope administration as described below- Additional procedure(s): None PROCEDURE DETAILS: Pre-procedureConsent: Informed consent for the procedure including risks, benefits and alternatives was obtained and time- out was performed prior to the procedure.Preparation: The site was prepared and draped using maximalsterile barrier technique including cutaneous antisepsis. Anesthesia/sedationLevel of anesthesia/sedation: Moderate sedation (conscious sedation) 1mg Versed, 50mcg fentanylAnesthesia/sedation administered by: Independent trained observer under attending supervision with continuous monitoring of the patient\\X2019\\s level of consciousness and physiologic statusTotal intra-service sedation time (minutes): 60 AccessLocal anesthesia was administered. The vessel was sonographically evaluated and judged sana patent. Real time ultrasound was used to visualize needle entry into the vessel and a permanent image was stored. A 5Fr sheath was placed.Vessel accessed: Right common femoral arteryAccess technique: Micropuncture set with 21 gauge needle Selective angiographyThe hepatic arterial system was catheterized using 5Fr catheter and 2.8Fr microcatheter.Indication for angiography: Diagnostic angiography -A prior study is available, but the patient's condition with respect to the clinical indication has changed since the prior study. Variant anatomy: None Vessel catheterized: Celiac arteryFindings: Patent branches of normal caliber. Tumor blush from branches of right hepatic artery Vessel catheterized:Segment 8 right hepatic arteryFindings: Patent, tumor blush corresponding with areas of enhancing tumor seen on prior cross sectional imaging. Radioisotope administrationRadioisotope: Yttrium-90 glass microspheres Catheter position for administration #1: Segment 8 branch of right hepatic artery- Administration endpoint: Complete delivery of dose ClosureAccess site angiography performed: YesFindings: Patent vessel with appropriate access levelArterial closure technique: Angioseal Hemostasis achieved from closure technique: YesDuration of manual compression (minutes): 2 ContrastContrast agent: Gafrcw262Behnipxm volume (mL): 60 Radiation DoseFluoroscopy time (minutes): 5.3 Reference air kerma (mGy):602 Additional DetailsAdditional description of procedure: NoneEquipment details: NoneSpecimens removed: NoneEstimated blood loss (mL): Less than 10Standardized report: [email or web address] AttestationSigner name: Crow Walters attest that I was present for the entire procedure. I reviewed the stored images and agree with the report as written. Signed: Crow Fraser Verified Date/Time: 2021 13:30:03 Reading Location: [facility] Radiology Reading Room Electronically signed by: Mya ALBERTS 07/08/2021 01:30 PMTUMOR LOCALIZATION, SPECT 2021-07-08 10:38:00y90 [facility] : 1955 Sex: MFINAL REPORT PROCEDURE: TRACER DISTRIBUTION STUDY - SPECT ([facility]) CPT CODE: 23779 CLINICAL INDICATION: Hepatocellular carcinoma PROTOCOL: 69.6 mCi of Y-90 microspheres (TheraSphere) had been previously administered. SPECT imaging of the liver and upper abdomen using Bremsstrahlung radiation was performed without additional injection of radiopharmaceutical. FINDINGS: Tracerdistribution in the visualized portion of the liver is irregular. No significant activity is noted outside of the liver. IMPRESSION: Appropriate tracer distribution following anterior superior right hepatic artery injection. Signed: Barak Arevalo MDReport Verified Date/Time: 07/08/2021 10:38:19 Reading Location: [address] Reading Room O'TX, INTRA-ARTERIAL PARTIC [id number] 10:36:00y90 [facility] : 1955 Sex: MFINAL REPORT PROCEDURE: Y-90 microsphere therapy (TheraSphere) CPT CODE: 75212 CLINICAL INDICATION: Hepatocellular carcinoma PROTOCOL: 69.6 mCi of Y-90 labeled microspheres (TheraSphere) was administered by the nuclear medicine physician to the right lobe of the liver (primarily Segment VIII) via a hepatic artery catheter placed by the interventional radiologist. IMPRESSION: Y-90 mi crosphere therapy Signed: Barak Arevalo MDReport Verified Date/Time: 07/08/2021 10:36:50 Reading Location: [address] Reading Room Electronically signed by: BARAK AREVALO MD on07/08/2021 10:36 AMPOC- Glucose [id number] 08:03:10 Test Item Value Reference Range Interpretation Comments POC-Glucose Meter (test 227 mg/dL 70-110 H : TE STED AT [facility] code = 1538) [address] [facility], [address] 30: Commercial Mortgage Broker/Techni daniel ID = [id number] for Dial, Alici a Lab Interpretation (test Abnormal code = 55296-8) [facility] [id number] 08:03:10 Test Item Value Reference Range Interpretation Comments POC-GLUCOSE METER 227 mg/dL 70-110 H : TESTED A T [facility] [address] (BEAKER) (test code = [facility] [facility], 1538) [id number]: Commercial Mortgage Broker/Techni daniel ID = [id number] for Ca nadiaenas, Jeanine HEPATIC FUNCTION [id number] 04:47:09 Test Item Value Reference Range Interpretation Comments TOTAL PROTEIN (BEAKER) (test code = 6.8 gm/dL 6.0-8.3 770) ALBUMIN (BEAKER) (test code = 1145) 3.5 g/dL 3.5-5.0 BILIRUBIN TOTAL (BEAKER) (test code 1.1 mg/dL 0.2-1.2 = 377) BILIRUBIN DIRECT (BEAKER) (test 0.4 mg/dL 0.1-0.5 code = 706) ALKALINE PHOSPHATASE (BEAKER) (test 55 U/L 40-150 code = 346) AST (SGOT) (BEAKER) (test code = 16 U/L 5-34 353) ALT (SGPT) (BEAKER) (test code = 17 U/L 6-55 347) Commercial Mortgage Broker AUGUST DOMINGUEZ WBASIC METABOLIC [id number] 04:47:08 Test Item Value Reference Range Interpretation Comments SODIUM (BEAKER) 133 meq/L 136-145 L (test code = 381) POTASSIUM (BEAKER) 4.4 meq/L 3.5-5.1 (test code = 379) CHLORIDE (BEAKER) 100 meq/L 98-107 (test code = 382) CO2 (BEAKER) (test 25 meq/L 22-29 code = 355) BLOOD UREA NITROGEN 11 mg/dL 7-21 (BEAKER) (test code = 354) CREATININE (BEAKER) 0.77 mg/dL 0.57-1.25 (test code = 358) GLUCOSE RANDOM 295 mg/dL 70-105 H (BEAKER) (test code = 652) CALCIUM (BEAKER) 8.9 mg/dL 8.4-10.2 (test code = 697) EGFR (BEAKER) (test 100 mL/min/1.73 ESTIM ATED GFR IS code = 1092) sq m NOT ACCURATE CREATININE CLEARANCE IN PREDICTING GLOMERULAR FILTRATION RATE . ESTIMATED GFR I S NOT APPLICABLE FOR DIALYSIS PATIEN TS. Commercial Mortgage Broker AUGUST DOMINGUEZ WCBC W/PLT COUNT & AUTO [id number] 04:23:15 Test Item Value Reference Range Interpretation Comments WHITE BLOOD CELL COUNT (BEAKER) 7.7 K/ L 3.5-10.5 (test code = 775) RED BLOOD CELL COUNT (BEAKER) 4.61 M/ L 4.63-6.08 L (test code = 761) HEMOGLOBIN (BEAKER) (test code = 13.9 GM/DL 13.7-17.5 410) HEMATOCRIT (BEAKER) (test code = 41.1 % 40.1-51.0 411) MEAN CORPUSCULAR VOLUME (BEAKER) 89.2 fL 79.0-92.2 (test code = 753) MEAN CORPUSCULAR HEMOGLOBIN 30.2 pg 25.7-32.2 (BEAKER) (test code = 751) MEAN CORPUSCULAR HEMOGLOBIN CONC 33.8 GM/DL 32.3-36.5 (BEAKER) (test code = 752) RED CELL DISTRIBUTION WIDTH 13.3 % 11.6-14.4 (BEAKER) (test code = 412) PLATELET COUNT (BEAKER) (test code 72 K/CU MM 150-450 L = 756) MEAN PLATELET VOLUME (BEAKER) 12.2 fL 9.4-12.4 (test code = 754) NUCLEATED RED BLOOD CELLS (BEAKER) 0 /100 WBC 0-0 (test code = 413) NEUTROPHILS RELATIVE PERCENT 76 % (BEAKER) (test code = 429) LYMPHOCYTES RELATIVE PERCENT 15 % (BEAKER) (test code = 430) MONOCYTES RELATIVE PERCENT 9 % (BEAKER) (test code = 431) EOSINOPHILS RELATIVE PERCENT 0 % (BEAKER) (test code = 432) BASOPHILS RELATIVE PERCENT 0 % (BEAKER) (test code = 437) NEUTROPHILS ABSOLUTE COUNT 5.85 K/ L 1.78-5.38 H (BEAKER) (test code = 670) LYMPHOCYTES ABSOLUTE COUNT 1.12 K/ L 1.32-3.57 L (BEAKER) (test code = 414) MONOCYTES ABSOLUTE COUNT (BEAKER) 0.66 K/ L 0.30-0.82 (test code = 415) EOSINOPHILS ABSOLUTE COUNT 0.02 K/ L 0.04-0.54 L (BEAKER) (test code = 416) BASOPHILS ABSOLUTE COUNT (BEAKER) 0.03 K/ L 0.01-0.08 (test code = 417) IMMATURE GRANULOCYTES-RELATIVE 1 % 0-1 PERCENT (BEAKER) (test code = 2801) POCT-GLUCOSE [id number] 21:58:20 Test Item Value Reference Range Interpretation Comments POC-GLUCOSE METER 266 mg/dL 70-110 H : TESTED A T [facility] 6720 (BEAKER) (test code = [facility], 1538) [id number]: Commercial Mortgage Broker/Techni daniel ID = [id number] for Keith Pineda POCT-GLUCOSE [id number] 18:51:56 Test Item Value Reference Range Interpretation Comments POC-GLUCOSE METER 170 mg/dL 70-110 H : TESTED A T [facility] 6720 (BEAKER) (test code = [facility], 1538) [id number]: Commercial Mortgage Broker/Techni daniel ID = [id number] for OR TEGA, LIO SARS-CoV2/RT-PCR ([facility])2021-07-07 11:32:11 Test Item Value Reference Interpretation Comments Range SARS-COV2/RT-PCR Negative Negative The SARS-Co V-2 (test code = target nucleic 21908-2) acids are not detected in thi s specimen. Negat alicia results do not preclude SARS-C oV-2 infection and should not be u sed as the sole bas is for patient management decisions. Nega tive results must be combined with clinical observations, patient history , and epidemiolog ical information. A false negative result may occu r if a specimen is improperly collected, transported or handled. This S ARS CoV-2 test is a rapid, real-yanira e RT-PCR test intended for th e qualitative detection of nucleic acid fr om SARS-CoV-2 in a nasopharyngeal swab specimen collec diana from individual s suspected of COVID-19 by the ir healthcare provider. DEANNA (test code = This test has been DEANNA) authorized by FDA under an EUA for use by authorized laboratories. This test is only authorized for the duration of the declaration that circumstances exist justifying the authorization of emergency use of in vitro diagnostic tests for detection and/or diagnosis of COVID-19 under Section 564(b)(1) of the Federal Food, Drug and Cosmetic Act, 21 U.S.C. 360bbb-3(b)(1), unless the authorization is terminated or revoked sooner. Fact Sheet for Healthcare Providers: https://www.fruux/Documents/Xp ert%20Xpress%20SAR S%20CoV-2/Fact%20S heets/3023802%20S ARS-COV-2%20HEALTH CARE%20PROVIDERS%2 0FACT%20SHEET.pdf Fact Sheet for Healthcare Patients: https://www.[employer]/Documents/Xp ert%20Xpress%20SAR S%20CoV-2/Fact%20S heets/3023801%20S ARS-COV-2%20PATIEN T%20FACT%20SHEET.p df Lab Interpretation Normal (test code = 60700-6) [facility])2021-07-07 11:32:11 Test Item Value Reference Range Interpretation Comments SARS-COV2/RT-PCR Negative Negative The SARS-Co V-2 target (test code = nucleic acids a re not [id number]) detected in thi s specimen. Negative result s do not preclude SARS-C oV-2 infection and s hould not be used as the ezequiel e basis for patient managem ent decisions. Nega tive results must be combine d with clinical observ ations, patient history , and epidemiological information. A false negativ e result may occur if a spec imen is improperly may ected, transported or handled. This SARS CoV-2 test is a rapid, real-time RT-PC R test intended for th e qualitative detection of nu cleic acid from SARS-CoV-2 in a nasopharyngeal swab specimen collected from individuals suspected of CO VID-19 by their healthcar e provider. This test has been authorized by FDA under an EUA for use by authorized laboratories. This test is only authorized for the duration of the declaration that circumstances exist justifying the authorization of emergency use of in vitro diagnostic tests for detection and/or diagnosis of COVID-19 under Section 564(b)(1) of the Federal Food, Drug and Cosmetic Act, 21 U.S.C. 360bbb-3(b)(1), unless the authorization is terminated or revoked sooner. Fact Sheet for Healthcare Providers: https://www.[employer]/Documents/Xpert%20Xpress%20SARS%20CoV-2/Fact%20Sheets/3023802%60NJWL-IAD-4%20 HEALTHCARE%20PROVIDERS%20FACT%20SHEET.pdf Fact Sheet for Healthcare Patients: https://www.[employer]/Documents/Xpert%20Xp ress%20SARS%20CoV-2/Fact%20Sheets/3023801%69UQBX-FOK-8%20PATIENT%20FACT%20SHEET .pdfBASIC METABOLIC [id number] 10:23:21 Test Item Value Reference Range Interpretation Comments SODIUM (BEAKER) 134 meq/L 136-145 L (test code = 381) POTASSIUM (BEAKER) 4.1 meq/L 3.5-5.1 (test code = 379) CHLORIDE (BEAKER) 100 meq/L 98-107 (test code = 382) CO2 (BEAKER) (test 28 meq/L 22-29 code = 355) BLOOD UREA NITROGEN 11 mg/dL 7-21 (BEAKER) (test code = 354) CREATININE (BEAKER) 0.82 mg/dL 0.57-1.25 (test code = 358) GLUCOSE RANDOM 302 mg/dL 70-105 H (BEAKER) (test code = 652) CALCIUM (BEAKER) 9.5 mg/dL 8.4-10.2 (test code = 697) EGFR (BEAKER) (test 93 mL/min/1.73 ESTIMA DIANA GFR IS code = 1092) sq m NOT ACCURATE CREATININE CLEARANCE IN PREDICTING GLOMERULAR FILTRATION RATE . ESTIMATED GFR I S NOT APPLICABLE FOR DIALYSIS PATIEN TS. Commercial Mortgage Broker ID - PIAYA LHEPATIC FUNCTION [id number] 10:23:21 Test Item Value Reference Range Interpretation Comments TOTAL PROTEIN (BEAKER) (test code = 7.4 gm/dL 6.0-8.3 770) ALBUMIN (BEAKER) (test code = 1145) 3.9 g/dL 3.5-5.0 BILIRUBIN TOTAL (BEAKER) (test code 0.5 mg/dL 0.2-1.2 = 377) BILIRUBIN DIRECT (BEAKER) (test 0.2 mg/dL 0.1-0.5 code = 706) ALKALINE PHOSPHATASE (BEAKER) (test 64 U/L 40-150 code = 346) AST (SGOT) (BEAKER) (test code = 16 U/L 5-34 353) ALT (SGPT) (BEAKER) (test code = 16 U/L 6-55 347) Commercial Mortgage Broker ID - PIAYA LPROTHROMBIN TIME/[id number] 10:19:43 Test Item Value Reference Range Interpretation Comments PROTIME (BEAKER) 13.5 seconds 11.9-14.2 (test code = 759) INR (BEAKER) (test 1.05 See_Comment [Automat ed message] code = 370) The system [employer] generated this result transmitted ref erence range: <=5.90. The reference range was not used to int erpret this result as normal/abnormal . RECOMMENDED COUMADIN/WARFARIN INR THERAPY RANGESSTANDARD DOSE: 2.0 - 3.0 Includes: PROPHYLAXIS for venous thrombosis, systemic embolization; TREATMENT for venous thrombosis and/or pulmonary embolus.HIGH RISK: Target INR is 2.5-3.5 for patients with mechanical heart valves.CBC W/PLT COUNT & AUTO [id number] 09:49:14 Test Item Value Reference Range Interpretation Comments WHITE BLOOD CELL COUNT (BEAKER) 6.7 K/ L 3.5-10.5 (test code = 775) RED BLOOD CELL COUNT (BEAKER) 4.76 M/ L 4.63-6.08 (test code = 761) HEMOGLOBIN (BEAKER) (test code = 14.4 GM/DL 13.7-17.5 410) HEMATOCRIT (BEAKER) (test code = 42.3 % 40.1-51.0 411) MEAN CORPUSCULAR VOLUME (BEAKER) 88.9 fL 79.0-92.2 (test code = 753) MEAN CORPUSCULAR HEMOGLOBIN 30.3 pg 25.7-32.2 (BEAKER) (test code = 751) MEAN CORPUSCULAR HEMOGLOBIN CONC 34.0 GM/DL 32.3-36.5 (BEAKER) (test code = 752) RED CELL DISTRIBUTION WIDTH 13.2 % 11.6-14.4 (BEAKER) (test code = 412) PLATELET COUNT (BEAKER) (test code 73 K/CU MM 150-450 L = 756) MEAN PLATELET VOLUME (BEAKER) 11.4 fL 9.4-12.4 (test code = 754) NUCLEATED RED BLOOD CELLS (BEAKER) 0 /100 WBC 0-0 (test code = 413) NEUTROPHILS RELATIVE PERCENT 61 % (BEAKER) (test code = 429) LYMPHOCYTES RELATIVE PERCENT 26 % (BEAKER) (test code = 430) MONOCYTES RELATIVE PERCENT 9 % (BEAKER) (test code = 431) EOSINOPHILS RELATIVE PERCENT 2 % (BEAKER) (test code = 432) BASOPHILS RELATIVE PERCENT 1 % (BEAKER) (test code = 437) NEUTROPHILS ABSOLUTE COUNT 4.06 K/ L 1.78-5.38 (BEAKER) (test code = 670) LYMPHOCYTES ABSOLUTE COUNT 1.75 K/ L 1.32-3.57 (BEAKER) (test code = 414) MONOCYTES ABSOLUTE COUNT (BEAKER) 0.61 K/ L 0.30-0.82 (test code = 415) EOSINOPHILS ABSOLUTE COUNT 0.14 K/ L 0.04-0.54 (BEAKER) (test code = 416) BASOPHILS ABSOLUTE COUNT (BEAKER) 0.05 K/ L 0.01-0.08 (test code = 417) IMMATURE GRANULOCYTES-RELATIVE 1 % 0-1 PERCENT (BEAKER) (test code = 2801) TUMOR LOCAL, PRE-MICROSPHERE [id number] 12:52:00Reffering; Dr. Carlton Chancelisted Reason for Exam - Click Yes and Enter Reason Below->YesUnlis diana Reason for Exam->HCC, Y-90 [facility] 1955 Sex: MFINAL REPORT PROCEDURE: TRACER DISTRIBUTION STUDY, WHOLE BODY with SPECT CPT CODE:70568, 58609 CLINICAL INDICATION: Hepatocellular carcinoma. PROTOCOL: A total of 2.6 mCi of Tc-99m MAA was injected by the nuclear medicine physician via an arterial catheter placed by the interventional radiologist in the right hepatic lobe. Planar whole body and spot images of the chest and upper abdomen, as well as tomographic images of the liver were obtained.CT correlation cannot be performed due to patient's lack of cooperation. Hepatopulmonary shunting was calculated by the geometric mean method. FINDINGS: There is heterogeneous tracer distribution within the right lobe liver within majorityof the activity in segment IVb. There is mild tracer accumulation in the salivary glands, thyroid, stomach, and the kidneys/urinary system, consistent with expected free pertechnetate activity. Otherwise, there is minimal tracer distribution outside of the liver in the abdomen. Quantitative analysis indicates 2.75% shunting of tracer to the lungs. IMPRESSION: 1. Tracer uptake in the liver is consistent with hepatic parenchymal disease and/or focal space occupying disease. 2. There is no abnormal extrahepatic activity . The patient is an acceptable candidate for injection of therapeutic microspheres by this criterion. 3. Shunting to the lungs is in an acceptable range for therapy. Signed: Maninder Vincent Verified Date/Time: 06/22/2021 12:52:39 Reading Location: [address] Reading Room POCT-GLUCOSE [id number] 07:22:42 Test Item Value Reference Range Interpretation Comments POC-GLUCOSE METER 159 mg/dL 70-110 H : TESTED A T [facility] 6720 ([employer]) (test code = [employer] [facility], 1538) [address]: Commercial Mortgage Broker/Techni daniel ID = [id number] for ROSETTA MARTINEZ POCT-GLUCOSE [id number] 01:01:44 Test Item Value Reference Range Interpretation Comments POC-GLUCOSE METER 196 mg/dL 70-110 H : TESTED A T [facility] 6720 ([employer]) (test code = [address] [facility], 1538) [address]: Commercial Mortgage Broker/Techni daniel ID = [id number] for PH NETOPATY ANG, VISCERAL [id number] 17:03:00Reffering; Dr. Carlton Puckett for Exam:- >HCC, Y-[address] [facility] 1955 Sex: MFINAL REPORT Mesenteric angiogram, for hepatic radioembolization mapping, 06/21/2021. History: HCC. Comparison: MRI 03/26/2021. Modality: Fluoroscopy. Sedation: 1 mg Versed and 50 mcg Fentanyl IV was used for moderate sedation monitored under my direction. The patient's vital signs were monitored throughout the procedure and recorded to the patient's medical record by the nurse. Total intra-service time of sedation was 30 minutes. Anesthesia: Two percent Lidocaine without epinephrine. Approach: Right common femoral artery. Estimated blood loss: < 5 cc. Specimen: None. Primaryoperator: Pretty. Naturalist: Brayan. Fluoroscopy Time: 4.9 min. Dose (Ka,r): 49 mGy. Technique: Informed written consent was obtained. Discussion of risks, benefits, and alternatives were made with the patient. The patient expressed understanding and agreed to proceed. All elements maximal sterile barrier technique was utilized for this procedure, including utilization of sterile scrub solution for skin prep, a large sterile sheet to cover the areas of the patient that were not prepped, and hand hygiene, mask, head covering, and sterile gown for performing radiologist and scrub technologist. The skin was anesthetized with lidocaine. The right common femoral artery was accessed using a 19-gauge micropuncture needle. A 0.035 inch wire was placed through the needle into the distal aorta. The needle wasremoved and a 5 Palauan sheath was placed. A 5 Palauan Dickens B catheter was used to select the celiac trunk for a DSA run. A microcatheter was advanced through the Dickens catheter for subselection of the distal right hepatic artery for a DSA run. The catheter was then used to further subselect the superior anterior branch of the right hepatic artery supplying segment 8 for a DSA run. Technetium 99m labeled MAA administration was then performed by Dr. Vincent of the nuclear medicine department. The microcatheter was removed. Injection was performed through the sheath for a DSA run of the right femoral artery. The sheath was removed, the arteriotomy was closed, and hemostasis was obtained using a Mynx closure device. Vital signs were monitored throughout the procedure by a nurse, and remained stable. Thepatient tolerated the procedure well and left the department in the same condition. FINDINGS: 1. Celiac injection: There is patency of the common hepatic, left gastric, gastroduodenal, and splenic arteries. There is normal branching anatomy. The right and left hepatic arteries are normal in appearance and patent. The portal and splenic vein are patent.2. Right hepatic injection: Ill-defined hypervascular lesion is present superiorly within the right lobe of the liver, corresponding to the MRI finding. 3. Right femoral sheath injection: The right common femoral artery is patent with normal positionof the arterial sheath. Impression: 1. Uncomplicated mesenteric angiogram.2. Successful placement ofright hepatic artery microcatheter for mapping of the superior right hepatic lobe. Plan is to perform radiation segmentectomy of segment 8.3. Arteriotomy hemostasis obtained with Mynx closure device. Signed: Jv Zaldivar MDReport Verified Date/Time: 06/21/2021 17:03:56 Reading Location: [facility] B1 P048 Angio Body Reading Room HEPATIC FUNCTION [id number] 14:08:30 Test Item Value Reference Range Interpretation Comments TOTAL PROTEIN (BEAKER) 7.6 gm/dL 6.0-8.3 Speci men slightly (test code = 770) hemolyzed ALBUMIN (BEAKER) (test 3.8 g/dL 3.5-5.0 Speci men slightly code = 1145) hemolyzed BILIRUBIN TOTAL 0.7 mg/dL 0.2-1.2 Specimen sli ghtly (BEAKER) (test code = hemoly zed 377) BILIRUBIN DIRECT 0.2 mg/dL 0.1-0.5 Specimen sl ightly (BEAKER) (test code = hemoly zed 706) ALKALINE PHOSPHATASE 52 U/L 40-150 (BEAKER) (test code = 346) AST (SGOT) (BEAKER) 22 U/L 5-34 Specimen slightly (test code = 353) hemolyzed ALT (SGPT) (BEAKER) 18 U/L 6-55 Specimen slightly (test code = 347) hemolyzed Commercial Mortgage Broker [facility] FBASIC METABOLIC [id number] 14:08:29 Test Item Value Reference Range Interpretation Comments SODIUM (BEAKER) 136 meq/L 136-145 (test code = 381) POTASSIUM (BEAKER) 4.2 meq/L 3.5-5.1 Specimen slightly (test code = 379) hemolyzed CHLORIDE (BEAKER) 102 meq/L 98-107 (test code = 382) CO2 (BEAKER) (test 27 meq/L 22-29 code = 355) BLOOD UREA NITROGEN 8 mg/dL 7-21 (BEAKER) (test code = 354) CREATININE (BEAKER) 0.73 mg/dL 0.57-1.25 Specimen slightly (test code = 358) hemolyzed GLUCOSE RANDOM 179 mg/dL 70-105 H (BEAKER) (test code = 652) CALCIUM (BEAKER) 9.2 mg/dL 8.4-10.2 (test code = 697) EGFR (BEAKER) (test 107 mL/min/1.73 ESTIM ATED GFR IS code = 1092) sq m NOT ACCURATE CREATININE CLEARANCE IN PREDICTING GLOMERULAR FILTRATION RATE . ESTIMATED GFR I S NOT APPLICABLE FOR DIALYSIS PATIEN TS. Commercial Mortgage Broker ID - LISSETT FPROTHROMBIN TIME/[id number] 13:52:45 Test Item Value Reference Range Interpretation Comments PROTIME (BEAKER) 13.7 seconds 11.9-14.2 (test code = 759) INR (BEAKER) (test 1.07 See_Comment [Automat ed message] code = 370) The system [employer] generated this result transmitted ref erence range: <=5.90. The reference range was not used to int erpret this result as normal/abnormal . RECOMMENDED COUMADIN/WARFARIN INR THERAPY RANGESSTANDARD DOSE: 2.0 - 3.0 Includes: PROPHYLAXIS for venous thrombosis, systemic embolization; TREATMENT for venous thrombosis and/or pulmonary embolus.HIGH RISK: Target INR is 2.5-3.5 for patients with mechanical heart valves.CBC W/PLT COUNT & AUTO [id number] 13:47:25 Test Item Value Reference Range Interpretation Comments WHITE BLOOD CELL COUNT (BEAKER) 7.0 K/ L 3.5-10.5 (test code = 775) RED BLOOD CELL COUNT (BEAKER) 4.70 M/ L 4.63-6.08 (test code = 761) HEMOGLOBIN (BEAKER) (test code = 14.0 GM/DL 13.7-17.5 410) HEMATOCRIT (BEAKER) (test code = 41.8 % 40.1-51.0 411) MEAN CORPUSCULAR VOLUME (BEAKER) 88.9 fL 79.0-92.2 (test code = 753) MEAN CORPUSCULAR HEMOGLOBIN 29.8 pg 25.7-32.2 (BEAKER) (test code = 751) MEAN CORPUSCULAR HEMOGLOBIN CONC 33.5 GM/DL 32.3-36.5 (BEAKER) (test code = 752) RED CELL DISTRIBUTION WIDTH 13.0 % 11.6-14.4 (BEAKER) (test code = 412) PLATELET COUNT (BEAKER) (test code 71 K/CU MM 150-450 L = 756) MEAN PLATELET VOLUME (BEAKER) 11.8 fL 9.4-12.4 (test code = 754) NUCLEATED RED BLOOD CELLS (BEAKER) 0 /100 WBC 0-0 (test code = 413) NEUTROPHILS RELATIVE PERCENT 54 % (BEAKER) (test code = 429) LYMPHOCYTES RELATIVE PERCENT 32 % (BEAKER) (test code = 430) MONOCYTES RELATIVE PERCENT 10 % (BEAKER) (test code = 431) EOSINOPHILS RELATIVE PERCENT 2 % (BEAKER) (test code = 432) BASOPHILS RELATIVE PERCENT 1 % (BEAKER) (test code = 437) NEUTROPHILS ABSOLUTE COUNT 3.79 K/ L 1.78-5.38 (BEAKER) (test code = 670) LYMPHOCYTES ABSOLUTE COUNT 2.26 K/ L 1.32-3.57 (BEAKER) (test code = 414) MONOCYTES ABSOLUTE COUNT (BEAKER) 0.69 K/ L 0.30-0.82 (test code = 415) EOSINOPHILS ABSOLUTE COUNT 0.15 K/ L 0.04-0.54 (BEAKER) (test code = 416) BASOPHILS ABSOLUTE COUNT (BEAKER) 0.07 K/ L 0.01-0.08 (test code = 417) IMMATURE GRANULOCYTES-RELATIVE 0 % 0-1 PERCENT (BEAKER) (test code = 2801) CT, CHEST, WITHOUT [id number] 08:47:00Reffering; Dr. Carlton GastelumoUnlisted Reason for Exam - Click Yes and Enter Reason Below->YesUnlis diana Reason for Exam->[facility]CC [facility] 1955 Sex: MFINAL REPORT CT Chest without contrast History: Hepatocellular carcinoma Comparison: 07/22/2020 Technique: serial axial imaging was performed without intravenous contrast as per departmental protocol. Multiplanar images are reconstructed and reviewed when indicated. This CT examination is performed using one or more of the following dose reduction techniques: Automated exposure control, adjustment of the mA and /or kV according to patient size, and/or use of iterative reconstructiontechnique. Findings:No mediastinal lymphadenopathy. No definite hilar enlargement. Mildly enlarged pericardial and right hemidiaphragm lymph nodes, unchanged from prior study. Normal size heart. No pericardial effusion. No thoracic aortic aneurysm. Normal caliber of main pulmonary trunk. Patent central airways. No pleural effusion or pneumothorax. Scattered tiny granulomas within the lungs, consistent with prior granulomatous disease. No significant interval change. The lungs are otherwise clear. Residual hypodense mass within the right hepatic lobe, unchanged from prior study. Redemonstration of "porcelain gallbladder". No aggressive osseous lesion. Impression: 1. No evidence of pulmonary metastasis.2. Stable mildly enlarged right hemidiaphragm and pericardial lymph nodes. Signed: Akil Espinoza MDReport Verified Date/Time: 05/10/2021 08:47:27 BONE AND/OR JOINT IMAGING, WHOLE BODY 2021-05-03 17:00:00Reffering; Dr. Carlton GastelumoUnlisted Reason for Exam - Click Yes and Enter Reason Below->YesUnlisted Reason for Exam->HCC, mets work-up [facility] : 1955 Sex: MFINAL REPORT PROCEDURE: BONE SCAN, WHOLE BODY CPT CODE: 11942 INDICATION: Hepatocellular carcinoma PROTOCOL: 21.4 mCi of Tc-99m MDP was injected intravenously. Whole body and selectedspot images were obtained approximately 3 hours later. FINDINGS: Tracer activity is irregularly mildly increased in the shoulders, sternoclavicular joints, costosternal junctions, wrists, hips, knees, and ankles/feet. There is additional irregular mild increase throughout the spine. Mild increase is noted in the posterior aspect of the right eighth rib and the right eighth costovertebral junction. IMPRESSION: 1. No evidence of bony neoplastic disease.2. Focal increase in the right eighth rib suggests traumatic etiology.3. Degenerative changes in the spine and peripheral joints.4. Findings are not significantly changed from the study of 07/24/2019. Images for comparison/correlation were abdominal MRI and chest CT of 07/22/2020 and foot radiographs of August and August 2020. Signed: Barak Arevalo MDReport Verified Date/Time: 05/03/2021 17:00:06 Reading Location: [address] Reading Room MR, ABDOMEN, WITHOUT / WITH IV [id number] 13:03:00 Reffering; Dr. Vincent RiveroMesenteric thrombosisUnlisted Reason for Exam - Click Yes and Enter Reason Below->YesUnlisted Reason for Exam->[facility] : 1955 Sex: MFINAL REPORT TECHNIQUE: MRI of the abdomen WITHOUT and WITH intravenous contrast. INDICATION: Unlisted Reason for ExamMesenteric thrombosis. COMPARISON: MRI from 12/22/2020. FINDINGS: LOWER THORAX: Unremarkable. LIVER: Cirrhotic liver morphology. Several areas of nodular arterial phase hyperenhancement the periphery of the embolization bed have increased compared to the prior and are consistent with recurrent disease. The largest area measures 3.7 cm on axial arterial phase image 23along the superior margin. Previously this was a few separate areas. BILIARY: Gallbladder is unremarkable. No biliary ductal dilatation or filling defect.SPLEEN: No splenomegaly. The spleen measures 12.9 cm in length.PANCREAS: No focal masses or ductal dilatation. A few cystic lesions in the pancreas measure up to 0.7 cm. The most prominent is in the pancreatic neck and was not definitely seen on theprior examination. ADRENALS: No adrenal nodules.KIDNEYS/URETERS: No hydronephrosis or solid mass lesions. A right interpolar renal lesion is markedly hyperintense on T1-weighted consistent with a hemorrhagic cyst which measures 1.4 cm. No routine follow-up imaging is recommended. PERITONEUM/RETROPERITONEUM: No free fluid.LYMPH NODES: No lymphadenopathy. There are several prominent upper abdominal lymph nodes which are unchanged and most likely reactive.VESSELS: Conventional hepatic arterial anatomy.The main portal vein measures 1.6 cm in diameter. There is likely a trace amount of thrombus in the superior mesenteric vein. However, it is not as well visualized on the current examination as on the prior. GI TRACT: No distention or wall thickening. BONES AND SOFT TISSUES: Unremarkable. IMPRESSION: 1.The recurrent disease along the periphery of the embolization bed has increased with several areas of recurrence along the peripheral margin. The largest measures 3.7 cm. 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 The largest was not definitely seen on the prior examination. Close attention on follow-up imaging is recommended. Signed: Mai Campos MDReport Verified Date/Time: 03/30/2021 13:03:36 Reading Location: [facility] C[facility]Y CT Body Reading Room ALPHA FETOPROTEIN (AFP), TUMOR [id number] 16:42:37 Test Item Value Reference Range Interpretation Comments ALPHA-FETOPROTEIN (BEAKER) (test 3.2 ng/mL <10.0 code = 1094) Commercial Mortgage [employer]ker ID - DBHEPATIC FUNCTION [id number] 15:23:10 Test Item Value Reference Range Interpretation Comments TOTAL PROTEIN (BEAKER) (test code = 7.7 gm/dL 6.0-8.3 770) ALBUMIN (BEAKER) (test code = 1145) 4.0 g/dL 3.5-5.0 BILIRUBIN TOTAL (BEAKER) (test code 1.1 mg/dL 0.2-1.2 = 377) BILIRUBIN DIRECT (BEAKER) (test 0.3 mg/dL 0.1-0.5 code = 706) ALKALINE PHOSPHATASE (BEAKER) (test 57 U/L 40-150 code = 346) AST (SGOT) (BEAKER) (test code = 17 U/L 5-34 353) ALT (SGPT) (BEAKER) (test code = 15 U/L 6-55 347) Commercial Mortgage Broker ID - DBBASIC METABOLIC [id number] 15:23:10 Test Item Value Reference Range Interpretation Comments SODIUM (BEAKER) 137 meq/L 136-145 (test code = 381) POTASSIUM (BEAKER) 3.6 meq/L 3.5-5.1 (test code = 379) CHLORIDE (BEAKER) 100 meq/L 98-107 (test code = 382) CO2 (BEAKER) (test 28 meq/L 22-29 code = 355) BLOOD UREA NITROGEN 11 mg/dL 7-21 (BEAKER) (test code = 354) CREATININE (BEAKER) 0.74 mg/dL 0.57-1.25 (test code = 358) GLUCOSE RANDOM 113 mg/dL 70-105 H (BEAKER) (test code = 652) CALCIUM (BEAKER) 9.5 mg/dL 8.4-10.2 (test code = 697) EGFR (BEAKER) (test 105 mL/min/1.73 ESTIM ATED GFR IS code = 1092) sq m NOT ACCURATE CREATININE CLEARANCE IN PREDICTING GLOMERULAR FILTRATION RATE . ESTIMATED GFR I S NOT APPLICABLE FOR DIALYSIS PATIEN TS. Commercial Mortgage Broker ID - DBPROTHROMBIN TIME/[id number] 15:13:47 Test Item Value Reference Range Interpretation Comments PROTIME (BEAKER) 13.7 seconds 11.9-14.2 (test code = 759) INR (BEAKER) (test 1.07 See_Comment [Automat ed message] code = 370) The system [employer] generated this result transmitted ref erence range: <=5.90. The reference range was not used to int erpret this result as normal/abnormal . RECOMMENDED COUMADIN/WARFARIN INR THERAPY RANGESSTANDARD DOSE: 2.0 - 3.0 Includes: PROPHYLAXIS for venous thrombosis, systemic embolization; TREATMENT for venous thrombosis and/or pulmonary embolus.HIGH RISK: Target INR is 2.5-3.5 for patients with mechanical heart valves.CBC W/PLT COUNT & AUTO [id number] 15:07:48 Test Item Value Reference Range Interpretation Comments WHITE BLOOD CELL COUNT (BEAKER) 8.3 K/ L 3.5-10.5 (test code = 775) RED BLOOD CELL COUNT (BEAKER) 5.02 M/ L 4.63-6.08 (test code = 761) HEMOGLOBIN (BEAKER) (test code = 15.3 GM/DL 13.7-17.5 410) HEMATOCRIT (BEAKER) (test code = 45.1 % 40.1-51.0 411) MEAN CORPUSCULAR VOLUME (BEAKER) 89.8 fL 79.0-92.2 (test code = 753) MEAN CORPUSCULAR HEMOGLOBIN 30.5 pg 25.7-32.2 (BEAKER) (test code = 751) MEAN CORPUSCULAR HEMOGLOBIN CONC 33.9 GM/DL 32.3-36.5 (BEAKER) (test code = 752) RED CELL DISTRIBUTION WIDTH 13.1 % 11.6-14.4 (BEAKER) (test code = 412) PLATELET COUNT (BEAKER) (test code 94 K/CU MM 150-450 L = 756) MEAN PLATELET VOLUME (BEAKER) 11.8 fL 9.4-12.4 (test code = 754) NUCLEATED RED BLOOD CELLS (BEAKER) 0 /100 WBC 0-0 (test code = 413) NEUTROPHILS RELATIVE PERCENT 56 % (BEAKER) (test code = 429) LYMPHOCYTES RELATIVE PERCENT 30 % (BEAKER) (test code = 430) MONOCYTES RELATIVE PERCENT 11 % (BEAKER) (test code = 431) EOSINOPHILS RELATIVE PERCENT 2 % (BEAKER) (test code = 432) BASOPHILS RELATIVE PERCENT 1 % (BEAKER) (test code = 437) NEUTROPHILS ABSOLUTE COUNT 4.62 K/ L 1.78-5.38 (BEAKER) (test code = 670) LYMPHOCYTES ABSOLUTE COUNT 2.44 K/ L 1.32-3.57 (BEAKER) (test code = 414) MONOCYTES ABSOLUTE COUNT (BEAKER) 0.91 K/ L 0.30-0.82 H (test code = 415) EOSINOPHILS ABSOLUTE COUNT 0.18 K/ L 0.04-0.54 (BEAKER) (test code = 416) BASOPHILS ABSOLUTE COUNT (BEAKER) 0.07 K/ L 0.01-0.08 (test code = 417) IMMATURE GRANULOCYTES-RELATIVE 1 % 0-1 PERCENT (BEAKER) (test code = 2801) MR, ABDOMEN, [id number] 12:13:00Reffering; Dr. Vincent RiveroUnlisted Reason for Exam - Click Yes and Enter Reason Below->YesUnlisted Reason for Exam- >[facility]rhosis, [facility] 1955 Sex: MFINAL REPORT TECHNIQUE: MRI of the abdomen WITHOUT and WITH intravenous contrast. INDICATION: Unlisted Reason for ExamCirrhosis, HCC. COMPARISON: MRI from 09/21/2020. FINDINGS: LOWER THORAX: Unremarkable. LIVER: Nodular, cirrhotic liver. There are a few areas of arterial phase hyperenhancement the periphery of the prior embolization bed in segments VII and VIII. The tumor along the grant perior margin measures 1.1 cm and 0.7 cm on axial arterial phase image 93, unchanged. A nodular focus of arterial phase hyperenhancement along the medial margin of the embolization bed in segment VII/VIII measures 1.2 cm, previously 0.6 cm. BILIARY: Gallbladder is unremarkable. No biliary ductal dilatation or filling defect.SPLEEN: No splenomegaly. The spleen measures 11.2 cm in length.PANCREAS: No focal masses or ductal dilatation. There are multiple cystic lesions in the pancreas which are similarthe prior examination and measure up to 0.4 cm in the uncinate process. ADRENALS: No adrenal nodules.KIDNEYS/URETERS: No hydronephrosis or solid mass lesions. A right interpolar renal lesion which is hyperintense on T1-weighted imaging measures 1.1 cm and does not appear to enhance. This is most consistent with a hemorrhagic renal cyst. A routine follow-up imaging is recommended for this finding. PERITONEUM/RETROPERITONEUM: No free fluid.LYMPH NODES: No lymphadenopathy. The prominent supradiaphragmatic lymph nodes are unchanged. VESSELS: Conventional hepatic arterial anatomy. The main portal vein measures 1.4 cm in diameter. There is unchanged, mild nonocclusive thrombus in the superior mesentericvein. GI TRACT: No distention or wall thickening. BONES AND SOFT TISSUES: Unremarkable. IMPRESSION: 1.A majority of the nodular areas of arterial phase hyperenhancement adjacent to the embolization bedare unchanged. However, one area along the medial margin which measures 1.2 cm has increased in sizefrom 0.6 cm. 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 Mackenzie se attention on follow-up imaging is recommended 3.The mild nonocclusive thrombus in the superior mesenteric vein is unchanged. Signed: Mai Campos MDReport Verified Date/Time: 12/24/2020 12:13:51 POCT HEMOGLOBIN [id number] 20:54:00 Test Item Value Reference Range Interpretation Comments HEMOGLOBIN A1C (test code = 4548-4) 9.6 % 4.0-5.6 A Lab Interpretation (test code = Abnormal 01356-9) [facility] [id number] 13:16:00 Reffering; Dr. Carlton Puckett for Exam:->foot pain left [facility] : 1955 Sex: MFINAL REPORT Radiographs of the left foot three views with weightbearing HISTORY: PainCOMPARISON: September 03, 2020. FINDINGS:Bones:No acute displaced fracture.Redemonstrated postinfectious change about the second MTP joint with erosions and osseous excrescence at the distal second metatarsal, similar compared to prior radiographs. Persistent periosteal reaction. Mild degenerative arthrosis throughout the midfoot joints and first MTP joint. Diffuse osseous demineralization.Scattered vascular calcifications IMPRESSION: Healing septic arthritis/osteomyelitis at the second MTP joint, which is similar compared to prior radiographs from 09/03/2020. No radiographic evidence of progression. Si gned: Rj Ulloa MDReport Verified Date/Time: 10/22/2020 13:16:10 Reading Location: [facility] Reading Room [address] [place] [address] MR, ABDOMEN, [id number] 10:00:00Reffering; Dr. Carlton GastelumoHepatocellular carcinomaTriple Phase Liver ProtocolUnlisted Reason for Exam - Click Yes and Enter Reason Below->No [facility] 1955 Sex: MFINAL REPORT TECHNIQUE: MRI of the abdomen WITHOUT and WITH intravenous contrast. INDICATION: Liver lesion, > 1cm, history of malignancy, US nondiagnostic. COMPARISON: MRIs dating back to 04/03/2019. FINDINGS: LOWER THORAX: Unremarkable. LIVER: The caudate lobe is enlarged, and theliver is mildly nodular, consistent with cirrhosis. Partially hyperenhancing nodule at the peripheryof the segment VIII embolization bed has minimally increased in size and measures 1 cm, previously 0.9 cm. This is best seen on axial arterial phase image 103 and likely washes out. The peripheral and septal enhancement in the radial embolization bed is otherwise unchanged and apical. BILIARY: Gallblad destinee appears to be calcified. No biliary ductal dilatation or filling defect.SPLEEN: 13.5 cm splenomegaly.PANCREAS: There are numerous cystic lesions in the pancreas which are unchanged and measure up to 0.6 cm. ADRENALS: No adrenal nodules.KIDNEYS/URETERS: No hydronephrosis or solid mass lesions. A rig ht lower pole renal lesion is hyperintense on T1-weighted imaging and measures 1.6 cm, consistent with a hemorrhagic renal cyst. No routine follow-up imaging is recommended. PERITONEUM/RETROPERITONEUM:No free fluid.LYMPH NODES: No lymphadenopathy. The prominent precardiac lymph nodes are unchanged. The prominent periportal lymph nodes are unchanged. VESSELS: Conventional hepatic arterial anatomy. The main portal vein is patent and measures 1.4 cm in diameter. Small esophageal varices. There is unchanged nonocclusive thrombus in the superior mesenteric vein. GI TRACT: No distention or wall thickening. BONES AND SOFT TISSUES: Unremarkable. IMPRESSION: 1.A 1 cm area of nodular focus of arterial phase hyperenhancement and washout at the periphery of the embolization bed is most consistent with recurrent hepatocellular carcinoma, LR-TR viable. 2.Cirrhosis with sequelae of portal hypertension including small esophageal varices and mild splenomegaly. 3.Cystic lesions in the pancreas measure up to 0.6cm and are unchanged. 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 Noductal dilation or nodular component to suggest malignant transformation. 4.Unchanged, non-occlusivethrombus of the superior mesenteric vein. 5.The gallbladder is calcified. Signed: Mai aCmpos Verified Date/Time: 09/22/2020 10:00:30 Reading Location: [facility] Diagnostic Imaging Reading Room - [place] [address] RAD, FOOT, MIN 3 VIEWS, [id number] 11:47:00Reffering; Dr. Carlton Puckett for Exam:->Foot pain, [facility] : 1955 Sex: MFINAL REPORT EXAMINATION: RAD, FOOT, MIN 3 VIEWS, LEFT INDICATION: Left foot pain COMPARISON: Left foot radiographs 08/13/2020 and 07/13/2020 DISCUSSION: No acute displaced fracture.Redemonstrated postinfectious change about the second MTP joint with erosions and osseous excrescence atthe distal second metatarsal, similar compared to prior radiographs. Persistent periosteal reaction.Mild degenerative arthrosis throughout the midfoot joints and first MTP joint. Diffuse osseous demineralization.Scattered vascular calcifications IMPRESSION: Healing septic arthritis/osteomyelitis at the second MTP joint, which is similar compared to prior radiographs from 08/13/2020. No radiographic evidence of progression. Signed: Carlos Delaney Verified Date/Time: 09/03/2020 11:47:21 Reading Location: [facility] Reading Room [address] [place] [address] Electronically signed by: Mya HOLCOMB 09/03/2020 11:47 AMRAD, FOOT, MIN 3 VIEWS, [id number] 12:56:00Reffering; Dr. Carlton Puckett for Exam:->[facility] 1955 Sex: MFINAL REPORT EXAMINATION: RAD, FOOT, MIN 3 VIEWS, LEFT INDICATION: Left foot pain COMPARISON: Left foot radiographs 07/13/2020 DISCUSSION: No acute displaced fracture.Redemonstrated postinfectious change about the second MTP joint with erosions and osseous excrescence at the distal second metatarsal, similar compared to prior radiographs. Persistent periosteal reaction.Mild degenerative arthrosis throughout the midfoot joints and first MTP joint.Diffuse osseous demineralization.Scattered vascular calcifications. IMPRESSION: Healing septic arthritis/osteomyelitis at the second MTP joint, which is similar compared to radiographs from 07/13/2020. No radiographic evidence of progression. Signed: Carlos Delaney MDReport Verified Date/Time: 08/13/2020 12:56:10 MR, ABDOMEN, [id number] 13:17:00Reffering; Dr. Carlton Phelan Phase Liver ProtocolUnlisted Reason for Exam - Click Yes and Enter Reason Below->No [facility] 1955 Sex: MFINAL REPORT TECHNIQUE: MRI of the abdomen WITHOUT and WITH intravenous contrast. INDICATION: HCC status post liver 10/10/2019. COMPARISON: 04/08/2020. FINDINGS: LOWER THORAX: Unremarkable. LIVER: Cirrhotic morphology liver.. The lesion in the dome of liver in segment eight measuring 5.8 x 5.1 cm not significantly changed in size.. There is persistent peripheral and internal septal enhancement similar in appearance to the previous exam. 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 No biliary ductal dilatation or filling defect.SPLEEN: Borderline enlargement spleen measuring 13.5 cm in length..PANCREAS: Diffuse atrophy of the pancreas. No focal masses or ductal dilatation. ADRENALS: No adrenal nodules.KIDNEYS/URETERS: No hydronephrosis or solid mass lesions. 1.5 cm T1 hyperintense nonenhancing focus in the interpolar region of the right kidney likely representing cyst with hemorrhagic/proteinaceous fluid. PERITONEUM/RETROPERITONEUM: No free fluid.LYMPH NODES: Mildly enlarged periportal and cardiophrenic lymph nodes are not significant changed..VESSELS: Portal vein, splenic vein and superior mesenteric vein are patent. Main portal vein measures 1.6 cm in diameter.. GI TRACT: No distention or wall thickening. Appendix is normal. BONES AND SOFT TISSUES: Degenerative changes in the spine.. IMPRESSION:No interval change in size of treated lesion in the dome of the liver with persistent peripheral and septal enhancement. LR-TR equivocal. Unchanged periportal and right cardiophrenic lymphadenopathy. No new hepatic lesion. Signed: Leila Aleport Verified Date/Time: 07/22/2020 13:17:23 Reading Location: [facility] C[facility]X Ortho Consult Reading Room CT, CHEST, WITHOUT [id number] 12:44:00Reffering; Dr. Carlton GastelumAllegheny [facility] Screen for MetsUnlisted Reason for Exam - Click Yes and Enter Reason Below->YesUnlisted Reason for Exam->Hepatocellular carcinoma, [facility] : 1955 Sex: MFINAL REPORT CT Chest without contrast History: Hepatocellular carcinoma, evaluate for metastatic disease. Comparison: 07/17/2019 Technique: serial axial imaging was performed withoutintravenous contrast as per departmental protocol. Multiplanar images are reconstructed and reviewedwhen indicated. This CT examination is performed using one or more of the following dose reduction techniques: Automated exposure control, adjustment of the mA and /or kV according to patient size, and/or use of iterative reconstruction technique. Findings:No mediastinal lymphadenopathy. Previous enlarged lymph nodes within the right hemidiaphragm and pericardium have decreased in size. Largest lymphnode now measures 11 mm in short axis dimension, previously 16 mm. No definite hilar enlargement. Normal size heart. No pericardial effusion. No thoracic aortic aneurysm. Normal caliber of main pulmonary trunk. Patent central airways. No pleural effusion or pneumothorax. There are scattered granulomata within both lungs, consistent with prior granulomatous disease. Mild bilateral lower lobe dependentatelectasis. The lungs are otherwise clear. Partial visualization of an embolization cavity within the right hepatic lobe. Redemonstration of "porcelain gallbladder". No aggressive osseous lesion. Impre ssion: 1. No evidence of pulmonary metastasis.2. Previous enlarged right hemidiaphragm and pericardial lymph nodes have decreased in size. Signed: Akil Espinoza MDReport Verified Date/Time: 07/22/2020 12:44:10 Reading Location: [facility] Diagnostic Imaging Reading Room - [place] [address] HEMATOLOGY SLIDE RETURN 2020-07-15 21:29:59 Test Item Value Reference Range Interpretation Comments SLIDE RETURNED TO 07/15/2020 TESTING P ERFORMED AT (test code = CLINICAL PAT HOLOGY 9752) LABORATORIES, [place] [address] [facility] [address] [place] [address] CLIA NO. [id number] Unle ss Otherwise Indic ated, All Testing Perform ed At: Clinical Pathol ogy [facility], [address] [place] [address] Laboratory Dire ctor: Sixto campbell M.D. CLIA Number [id number] [place] [id number] [facility]WS, [id number] 14:18:00 Reffering; Dr. Carlton Puckett for Exam:->Foot [facility], [facility] 1955 Sex: MFINAL REPORT Exam: Left foot three views History: Foot pain Comparison: May 20, 2020 Findings: No fracture or malalignment. Post infectious change about the second MTP joint witherosions and increased bone formation about the head of the second metatarsal. Stable periosteal change. Vascular calcifications. Calcaneal enthesophytes. Impression: No acute osseous abnormality Healing septic arthritis/osteomyelitis about the second MTP joint. No progression. Signed: Fred DeniseMDReport Verified Date/Time: 07/13/2020 14:18:25 Reading Location: [facility] Reading Room [address] [place] [address] ALPHA FETOPROTEIN (AFP), TUMOR [id number] 17:58:00 Test Item Value Reference Range Interpretation Comments ALPHA-FETOPROTEIN (BEAKER) (test 2.9 ng/mL <10.0 code = 1094) Commercial [employer] Broker ID - DBBASIC METABOLIC [id number] 16:34:00 Test Item Value Reference Range Interpretation Comments SODIUM (BEAKER) 134 meq/L 136-145 L (test code = 381) POTASSIUM (BEAKER) 3.9 meq/L 3.5-5.1 (test code = 379) CHLORIDE (BEAKER) 98 meq/L 98-107 (test code = 382) CO2 (BEAKER) (test 29 meq/L 22-29 code = 355) BLOOD UREA NITROGEN 9 mg/dL 7-21 (BEAKER) (test code = 354) CREATININE (BEAKER) 0.73 mg/dL 0.57-1.25 (test code = 358) GLUCOSE RANDOM 259 mg/dL 70-105 H (BEAKER) (test code = 652) CALCIUM (BEAKER) 8.9 mg/dL 8.4-10.2 (test code = 697) EGFR (BEAKER) (test 107 mL/min/1.73 ESTIM ATED GFR IS code = 1092) sq m NOT ACCURATE CREATININE CLEARANCE IN PREDICTING GLOMERULAR FILTRATION RATE . ESTIMATED GFR I S NOT APPLICABLE FOR DIALYSIS PATIEN TS. Commercial [employer] Broker ID - DBHEPATIC FUNCTION [id number] 16:34:00 Test Item Value Reference Range Interpretation Comments TOTAL PROTEIN (BEAKER) (test code = 7.4 gm/dL 6.0-8.3 770) ALBUMIN (BEAKER) (test code = 1145) 3.8 g/dL 3.5-5.0 BILIRUBIN TOTAL (BEAKER) (test code 0.7 mg/dL 0.2-1.2 = 377) BILIRUBIN DIRECT (BEAKER) (test 0.2 mg/dL 0.1-0.5 code = 706) ALKALINE PHOSPHATASE (BEAKER) (test 60 U/L 40-150 code = 346) AST (SGOT) (BEAKER) (test code = 13 U/L 5-34 353) ALT (SGPT) (BEAKER) (test code = 11 U/L 6-55 347) Commercial Mortgage Broker ID - DBCBC W/PLT COUNT & AUTO [id number] 16:15:00 Test Item Value Reference Range Interpretation Comments WHITE BLOOD CELL COUNT (BEAKER) 6.3 K/ L 3.5-10.5 (test code = 775) RED BLOOD CELL COUNT (BEAKER) 4.73 M/ L 4.63-6.08 (test code = 761) HEMOGLOBIN (BEAKER) (test code = 13.7 GM/DL 13.7-17.5 410) HEMATOCRIT (BEAKER) (test code = 41.0 % 40.1-51.0 411) MEAN CORPUSCULAR VOLUME (BEAKER) 86.7 fL 79.0-92.2 (test code = 753) MEAN CORPUSCULAR HEMOGLOBIN 29.0 pg 25.7-32.2 (BEAKER) (test code = 751) MEAN CORPUSCULAR HEMOGLOBIN CONC 33.4 GM/DL 32.3-36.5 (BEAKER) (test code = 752) RED CELL DISTRIBUTION WIDTH 13.6 % 11.6-14.4 (BEAKER) (test code = 412) PLATELET COUNT (BEAKER) (test code 55 K/CU MM 150-450 L = 756) MEAN PLATELET VOLUME (BEAKER) 13.0 fL 9.4-12.4 H (test code = 754) NUCLEATED RED BLOOD CELLS (BEAKER) 0 /100 WBC 0-0 (test code = 413) NEUTROPHILS RELATIVE PERCENT 56 % (BEAKER) (test code = 429) LYMPHOCYTES RELATIVE PERCENT 29 % (BEAKER) (test code = 430) MONOCYTES RELATIVE PERCENT 11 % (BEAKER) (test code = 431) EOSINOPHILS RELATIVE PERCENT 2 % (BEAKER) (test code = 432) BASOPHILS RELATIVE PERCENT 1 % (BEAKER) (test code = 437) NEUTROPHILS ABSOLUTE COUNT 3.50 K/ L 1.78-5.38 (BEAKER) (test code = 670) LYMPHOCYTES ABSOLUTE COUNT 1.82 K/ L 1.32-3.57 (BEAKER) (test code = 414) MONOCYTES ABSOLUTE COUNT (BEAKER) 0.69 K/ L 0.30-0.82 (test code = 415) EOSINOPHILS ABSOLUTE COUNT 0.15 K/ L 0.04-0.54 (BEAKER) (test code = 416) BASOPHILS ABSOLUTE COUNT (BEAKER) 0.07 K/ L 0.01-0.08 (test code = 417) IMMATURE GRANULOCYTES-RELATIVE 1 % 0-1 PERCENT (BEAKER) (test code = 2801) POCT REAGENT STP/BLD [id number] 19:45:00 Test Item Value Reference Range Interpretation Comments GLUCOSE BLOOD (test code = 2341-6) 70-105 A Lab Interpretation (test code = Abnormal 08589-2) [facility], [id number] 17:38:00 Reffering; Dr. Carlton Puckett for Exam:->[facility] 1955 Sex: MFINAL REPORT Left foot radiographs - three views HISTORY: Foot pain COMPARISON: Left foot radiograph 04/23/2020 DISCUSSION: Persistent osseous erosion with mildly increased sclerosis about the second MTP joint and lateral aspect of the first toe proximal phalanx, remains consistent with chronic osteomyelitis. No new osseous erosions to suggest progression.Joint spaces are otherwise unchanged. Posterior and plantar calcaneal enthesophytes.Mild diffuse forefoot soft tissue swelling. Scattered vascular calcifications. IMPRESSION: Persistent osseous erosions with mild increased sclerosis about the second MTP joint and lateral aspect of the first toe proximal phalanx, remains consistent with chronic osteomyelitis. No new osseous erosions to suggest progression. Signed: Rhett, Carlos MDReport Verified Date/Time: 05/20/2020 17:38:19 Reading Location: [facility] Reading Room [address] [place] [address] RAD, FOOT, MIN 3 VIEWS, [id number] 08:30:00Reffering; Dr. Carlton PenaAVENIR BEH[facility] SURPRISEMARKELBEAUM[facility] SIDEReason for Exam:- >FOOT PAIN,[facility] 1955 Sex: MFINAL REPORT Exam: Left foot three views History: Foot infection Comparison: March 26, 2020 Findings: No new fracture. Persistent and increased bone erosion about the second MTP joint and lateral aspect of the proximal phalanx of the hallux. No additional bone erosion. Joint spaces are otherwise unchanged. Calcaneal enthesophytes. Impression: Progressive bone resorption about the second MTP joint and lateral aspect proximal phalanx of the hallux secondary to osteomyelitis Signed: Fred Deniseort Verified Date/Time: 04/24/2020 08:30:14 AFB CULTURE + SMEAR (NON-SPUTUM)2020-04-21 10:35:00 Test Item Value Reference Range Interpretation Comments CULTURE (BEAKER) (test No acid-fast bacilli code = 1095) isolated in 42 days AFB SMEAR (BEAKER) No acid fast bacilli (test code = 994) seen MR, ABDOMEN, [id number] 09:45:00Reffering; Dr. Carlton Corrigan s/p Y90 October 2019Triple Phase liver protocolFINAL REPORT TECHNIQUE: MRI of the abdomen WITHOUT and WITH intravenous contrast. INDICATION: HCC. COMPARISON: MRIs dating back to 04/03/2019. FINDINGS: LOWER THORAX: Unremarkable. LIVER: Lobular liver contour with an enlarged caudate lobe. There is mild peripheral enhancement withsome internal septations in the segment VII hepatocellular carcinoma after treatment. The degree of enhancement has continuously decreased. The embolization cavity now measures 6.8 cm, unchanged. BILIARY: Gallbladder is unremarkable. No biliary ductal dilatation or filling defect.SPLEEN: No splenomegaly.PANCREAS: No focal masses or ductal dilatation. ADRENALS: No adrenal nodules.KIDNEYS/URETERS: No hydronephrosis or solid mass lesions. A right interpolar renal lesion as material which is hyperintense on T1-weighted imaging and likely does not enhance. This is most consistent with a hemorrhagic cystwhich measures 1.6 cm. No routine follow-up imaging is recommended. PERITONEUM/RETROPERITONEUM: No free fluid.LYMPH NODES: The prominent supradiaphragmatic lymph nodes have mildly decreased in size and measure up to 1.5 cm in short axis dimension, previously 1.9 cm. A prominent periportal lymph node is unchanged and likely reactive. VESSELS: Conventional hepatic arterial anatomy. GI TRACT: No distention or wall thickening. BONES AND SOFT TISSUES: Unremarkable. IMPRESSION: 1.There is residual peripheral and septated enhancement in the embolization bed. However, overall, the degree of enhancement hascontinuously decreased. This could be due to a small amount of residual tumor or fibrosis related tothe treatment. LR-TR equivocal. Continued close attention on follow-up imaging is recommended. 2.Theprominent lymph nodes in the supradiaphragmatic and periportal regions are unchanged. Signed: Francis Campos MDReport Verified Date/Time: 04/09/2020 09:45:35 ALPHA FETOPROTEIN (AFP), TUMOR MARKER 2020-04-08 17:01:00 Test Item Value Reference Range Interpretation Comments ALPHA-FETOPROTEIN (BEAKER) (test 3.0 ng/mL <10.0 code = 1094) Commercial Mortgage Broker ID - BSHEPATIC FUNCTION [id number] 14:45:00 Test Item Value Reference Range Interpretation Comments TOTAL PROTEIN (BEAKER) (test code = 7.6 gm/dL 6.0-8.3 770) ALBUMIN (BEAKER) (test code = 1145) 3.8 g/dL 3.5-5.0 BILIRUBIN TOTAL (BEAKER) (test code 0.7 mg/dL 0.2-1.2 = 377) BILIRUBIN DIRECT (BEAKER) (test 0.3 mg/dL 0.1-0.5 code = 706) ALKALINE PHOSPHATASE (BEAKER) (test 61 U/L 40-150 code = 346) AST (SGOT) (BEAKER) (test code = 17 U/L 5-34 353) ALT (SGPT) (BEAKER) (test code = 12 U/L 6-55 347) Commercial Mortgage Broker ID - EMERSONBASIC METABOLIC [id number] 14:45:00 Test Item Value Reference Range Interpretation Comments SODIUM (BEAKER) 135 meq/L 136-145 L (test code = 381) POTASSIUM (BEAKER) 3.8 meq/L 3.5-5.1 (test code = 379) CHLORIDE (BEAKER) 100 meq/L 98-107 (test code = 382) CO2 (BEAKER) (test 27 meq/L 22-29 code = 355) BLOOD UREA NITROGEN 6 mg/dL 7-21 L (BEAKER) (test code = 354) CREATININE (BEAKER) 0.69 mg/dL 0.57-1.25 (test code = 358) GLUCOSE RANDOM 161 mg/dL 70-105 H (BEAKER) (test code = 652) CALCIUM (BEAKER) 8.5 mg/dL 8.4-10.2 (test code = 697) EGFR (BEAKER) (test 114 mL/min/1.73 ESTIM ATED GFR IS code = 1092) sq m NOT ACCURATE CREATININE CLEARANCE IN PREDICTING GLOMERULAR FILTRATION RATE . ESTIMATED GFR I S NOT APPLICABLE FOR DIALYSIS PATIEN TS. Commercial Mortgage Broker ID - EMERSONPROTHROMBIN TIME/[id number] 14:19:00 Test Item Value Reference Range Interpretation Comments PROTIME (BEAKER) (test code = 13.3 seconds 11.9-14.2 759) INR (BEAKER) (test code = 370) 1.04 <=5.90 Effective 11/28/2018: PT Reference Range ChangeNew: 11.9-14.2 Previous: 11.7- 14.7RECOMMENDED COUMADIN/WARFARIN INR THERAPY RANGESSTANDARD DOSE: 2.0-3.0 Includes: PROPHYLAXIS for venous thrombosis, systemic embolization; TREATMENT for venous thrombosis and/or pulmonary embolus.HIGH RISK: Target INR is 2.5-3.5 for patients wiht mechanical heart valves.CBC W/PLT COUNT & AUTO [id number] 14:13:00 Test Item Value Reference Range Interpretation Comments WHITE BLOOD CELL COUNT (BEAKER) 6.9 K/ L 3.5-10.5 (test code = 775) RED BLOOD CELL COUNT (BEAKER) 4.41 M/ L 4.63-6.08 L (test code = 761) HEMOGLOBIN (BEAKER) (test code = 12.7 GM/DL 13.7-17.5 L 410) HEMATOCRIT (BEAKER) (test code = 39.2 % 40.1-51.0 L 411) MEAN CORPUSCULAR VOLUME (BEAKER) 88.9 fL 79.0-92.2 (test code = 753) MEAN CORPUSCULAR HEMOGLOBIN 28.8 pg 25.7-32.2 (BEAKER) (test code = 751) MEAN CORPUSCULAR HEMOGLOBIN CONC 32.4 GM/DL 32.3-36.5 (BEAKER) (test code = 752) RED CELL DISTRIBUTION WIDTH 14.4 % 11.6-14.4 (BEAKER) (test code = 412) PLATELET COUNT (BEAKER) (test code 55 K/CU MM 150-450 L = 756) MEAN PLATELET VOLUME (BEAKER) 11.7 fL 9.4-12.4 (test code = 754) NUCLEATED RED BLOOD CELLS (BEAKER) 0 /100 WBC 0-0 (test code = 413) NEUTROPHILS RELATIVE PERCENT 62 % (BEAKER) (test code = 429) LYMPHOCYTES RELATIVE PERCENT 23 % (BEAKER) (test code = 430) MONOCYTES RELATIVE PERCENT 11 % (BEAKER) (test code = 431) EOSINOPHILS RELATIVE PERCENT 2 % (BEAKER) (test code = 432) BASOPHILS RELATIVE PERCENT 1 % (BEAKER) (test code = 437) NEUTROPHILS ABSOLUTE COUNT 4.24 K/ L 1.78-5.38 (BEAKER) (test code = 670) LYMPHOCYTES ABSOLUTE COUNT 1.60 K/ L 1.32-3.57 (BEAKER) (test code = 414) MONOCYTES ABSOLUTE COUNT (BEAKER) 0.76 K/ L 0.30-0.82 (test code = 415) EOSINOPHILS ABSOLUTE COUNT 0.16 K/ L 0.04-0.54 (BEAKER) (test code = 416) BASOPHILS ABSOLUTE COUNT (BEAKER) 0.05 K/ L 0.01-0.08 (test code = 417) IMMATURE GRANULOCYTES-RELATIVE 1 % 0-1 PERCENT (BEAKER) (test code = 2801) RAD, FOOT, MIN 3 VIEWS, [id number] 11:24:00Reffering; Dr. Carlton Lopez sideReason for Exam:->Encounter for incision and drainage procedureFINAL REPORT Left foot radiographs - three views HISTORY: Encounter for incision and drainage procedure COMPARISON: Left foot radiographs 02/25/2020, left foot MRI 02/28/2020 DISCUSSION:Bone:Osseous destruction and fragmentation at the base of the second toe proximal phalanx, head of the second metatarsal, and along the lateral base of the first toe proximal phalanx, consistent with osteomyelitis.Accessory os naviculare and peroneum. Diffuse osseous demineralization. Joints:No joint malalignment or dislocation. Osseous destruction about the first and second MTP joints as described above.Mild scattered degenerative changes of the midfoot joints. Soft tissues:Soft tissue swelling at the first webspace and adjacent first and second digit. IMPRESSION: Findings of osteomyelitis at the base of the second toe proximal phalanx, head of the second metatarsal, and lateral base of the first toe proximal phalanx which have progressed from prior imaging. Signed: Carlos Delaney Date/Time: 03/26/2020 11:24:12 Reading Location: [facility] Reading Room [address] [place] [address] POCT REAGENT STP/BLD [id number] 19:06:00 Test Item Value Reference Range Interpretation Comments GLUCOSE FINGERSTICK (test code = 00719-6) Lab Interpretation (test code = Abnormal 38146-6) [facility] [id number] 11:16:00 Test Item Value Reference Interpretation Comments Range CULTURE (BEAKER) (test KLEBSIELLA A 3+ Kl ebsiella code = 1095) PNEUMONIAE SSP pneumoniae ss p PNEUMONIAE pneumoniae Amikacin (test code = S 1) Ampicillin + Sulbactam S (test code = 6) Aztreonam (test code = S 32) Cefepime (test code = S 51) Cefoxitin (test code = S 68) Ceftazidime (test code S = 27) Ceftriaxone (test code S = 52) Ertapenem (test code = S 38) Gentamicin (test code S = 18) Levofloxacin (test S code = 22) Meropenem (test code = S 34) Nitrofurantoin (test I code = 23) Piperacillin + S Tazobactam (test code = 29) Tetracycline (test S code = 2) Tobramycin (test code S = 25) Trimethoprim + R Sulfamethoxazole (test code = 47) CULTURE (BEAKER) (test A 2 out of 3 media code = 1095) Cunninghamella species CULTURE (BEAKER) (test A 2+ Be ta-hemolytic code = 1095) streptococcus g roup B, by serologic al grouping GRAM STAIN RESULT 2+ White blood (BEAKER) (test code = cells seen 1123) GRAM STAIN RESULT 2+ gram (BEAKER) (test code = positive cocci 774967) in chains and pairs FUNGUS CULTURE + [id number] 18:12:00 Test Item Value Reference Range Interpretation Comments CULTURE (BEAKER) A <1+ Niharika (test code = 1095) tropicali s FUNGUS SMEAR No fungi seen (BEAKER) (test code = 1406) ANAEROBIC [id number] 17:26:00 Test Item Value Reference Range Interpretation Comments CULTURE (BEAKER) (test No anaerobes isolated code = 1095) SURGICALLY OBTAINED CULTURE + GRAM [id number] 13:16:00 Test Item Value Reference Interpretation Comments Range CULTURE (BEAKER) STAPHYLOCOCCUS A <1+ Staph ylococcus (test code = 1095) EPIDERMIDIS epidermid is Clindamycin (test R code = 10) Erythromycin (test R code = 4) Linezolid (test code S = 40) Nitrofurantoin (test S code = 23) Oxacillin (test code R = 14) Rifampin (test code = S 43) Tetracycline (test S code = 2) Trimethoprim + S Sulfamethoxazole (test code = 47) Vancomycin (test code S = 13) GRAM STAIN RESULT No white blood (BEAKER) (test code = cells seen 1123) GRAM STAIN RESULT No organisms seen (BEAKER) (test code = 417610) POCT-GLUCOSE [id number] 12:30:00 Test Item Value Reference Range Interpretation Comments POC-GLUCOSE METER 176 mg/dL 70-110 H : TESTED A T [facility] 6720 (BEAKER) (test code = [facility], 1538) [address]: Commercial Mortgage Broker/Techni daniel ID = [id number] for SHANNON CORADO POCT-GLUCOSE [id number] 07:25:00 Test Item Value Reference Range Interpretation Comments POC-GLUCOSE METER 146 mg/dL 70-110 H : TESTED A T [facility] 6720 (BEAKER) (test code = [facility], 1538) 118[address]: Commercial Mortgage Broker/Techni daniel ID = [id number] for GENO MORENO [id number] 05:48:00 Test Item Value Reference Range Interpretation Comments MAGNESIUM (BEAKER) (test code = 1.7 mg/dL 1.6-2.6 627) Commercial Mortgage Broker ID - ANGELICA WCBC W/PLT COUNT & AUTO [id number] 05:20:00 Test Item Value Reference Range Interpretation Comments WHITE BLOOD CELL COUNT (BEAKER) 8.1 K/ L 3.5-10.5 (test code = 775) RED BLOOD CELL COUNT (BEAKER) 4.07 M/ L 4.63-6.08 L (test code = 761) HEMOGLOBIN (BEAKER) (test code = 11.8 GM/DL 13.7-17.5 L 410) HEMATOCRIT (BEAKER) (test code = 36.9 % 40.1-51.0 L 411) MEAN CORPUSCULAR VOLUME (BEAKER) 90.7 fL 79.0-92.2 (test code = 753) MEAN CORPUSCULAR HEMOGLOBIN 29.0 pg 25.7-32.2 (BEAKER) (test code = 751) MEAN CORPUSCULAR HEMOGLOBIN CONC 32.0 GM/DL 32.3-36.5 L (BEAKER) (test code = 752) RED CELL DISTRIBUTION WIDTH 14.1 % 11.6-14.4 (BEAKER) (test code = 412) PLATELET COUNT (BEAKER) (test 126 K/CU MM 150-450 L code = 756) MEAN PLATELET VOLUME (BEAKER) 11.3 fL 9.4-12.4 (test code = 754) NUCLEATED RED BLOOD CELLS 0 /100 WBC 0-0 (BEAKER) (test code = 413) NEUTROPHILS RELATIVE PERCENT 67 % (BEAKER) (test code = 429) LYMPHOCYTES RELATIVE PERCENT 19 % (BEAKER) (test code = 430) MONOCYTES RELATIVE PERCENT 10 % (BEAKER) (test code = 431) EOSINOPHILS RELATIVE PERCENT 2 % (BEAKER) (test code = 432) BASOPHILS RELATIVE PERCENT 1 % (BEAKER) (test code = 437) NEUTROPHILS ABSOLUTE COUNT 5.38 K/ L 1.78-5.38 (BEAKER) (test code = 670) LYMPHOCYTES ABSOLUTE COUNT 1.51 K/ L 1.32-3.57 (BEAKER) (test code = 414) MONOCYTES ABSOLUTE COUNT (BEAKER) 0.78 K/ L 0.30-0.82 (test code = 415) EOSINOPHILS ABSOLUTE COUNT 0.17 K/ L 0.04-0.54 (BEAKER) (test code = 416) BASOPHILS ABSOLUTE COUNT (BEAKER) 0.06 K/ L 0.01-0.08 (test code = 417) IMMATURE GRANULOCYTES-RELATIVE 2 % 0-1 H PERCENT (BEAKER) (test code = 2801) SPIN/CONCENTRATION [id number] 04:23:00 Test Item Value Reference Range Interpretation Comments CONCENTRATION CHARGED (BEAKER) (test Done code = 2657) POCT-GLUCOSE [id number] 21:08:00 Test Item Value Reference Range Interpretation Comments POC-GLUCOSE METER 117 mg/dL 70-110 H : TESTED A T [facility] 6720 (BEAKER) (test code = [facility]an [facility], 1538) [address]: Commercial Mortgage Broker/Techni daniel ID = [id number] for JEAN JASSOAK POCT-GLUCOSE [id number] 14:32:00 Test Item Value Reference Range Interpretation Comments POC-GLUCOSE METER 118 mg/dL 70-110 H : TESTED A T [facility] 6720 (BEAKER) (test code [facility], = 1538) [address]: Commercial Mortgage Broker/Techni daniel ID = [id number] for SUSANNE MENDOZA POCT-GLUCOSE [id number] 13:04:00 Test Item Value Reference Range Interpretation Comments POC-GLUCOSE METER 108 mg/dL 70-110 : TESTED A T [facility] 6720 (BEAKER) (test code = [facility], 1538) 210[address]: Commercial Mortgage Broker/Techni daniel ID = [id number] for VANCE CANNON BASIC METABOLIC [id number] 09:10:00 Test Item Value Reference Range Interpretation Comments SODIUM (BEAKER) 131 meq/L 136-145 L (test code = 381) POTASSIUM (BEAKER) 4.4 meq/L 3.5-5.1 (test code = 379) CHLORIDE (BEAKER) 97 meq/L 98-107 L (test code = 382) CO2 (BEAKER) (test 26 meq/L 22-29 code = 355) BLOOD UREA NITROGEN 17 mg/dL 7-21 (BEAKER) (test code = 354) CREATININE (BEAKER) 0.66 mg/dL 0.57-1.25 (test code = 358) GLUCOSE RANDOM 228 mg/dL 70-105 H (BEAKER) (test code = 652) CALCIUM (BEAKER) 8.7 mg/dL 8.4-10.2 (test code = 697) EGFR (BEAKER) (test 120 mL/min/1.73 ESTIM ATED GFR IS code = 1092) sq m NOT ACCURATE CREATININE CLEARANCE IN PREDICTING GLOMERULAR FILTRATION RATE . ESTIMATED GFR I S NOT APPLICABLE FOR DIALYSIS PATIEN TS. Commercial Mortgage Broker ID - NTPPOCT-GLUCOSE [id number] 06:05:00 Test Item Value Reference Range Interpretation Comments POC-GLUCOSE METER 209 mg/dL 70-110 H : TESTED A T [facility] 6720 (BEAKER) (test code = [facility], 1538) [address]: Commercial Mortgage Broker/Techni daniel ID = [id number] for CARLOS JASSO [id number] 05:58:00 Test Item Value Reference Range Interpretation Comments MAGNESIUM (BEAKER) (test code = 1.8 mg/dL 1.6-2.6 627) Commercial Mortgage Broker ID - EDASICBC W/PLT COUNT & AUTO [id number] 05:41:00 Test Item Value Reference Range Interpretation Comments WHITE BLOOD CELL COUNT (BEAKER) 7.3 K/ L 3.5-10.5 (test code = 775) RED BLOOD CELL COUNT (BEAKER) 4.10 M/ L 4.63-6.08 L (test code = 761) HEMOGLOBIN (BEAKER) (test code = 11.6 GM/DL 13.7-17.5 L 410) HEMATOCRIT (BEAKER) (test code = 37.0 % 40.1-51.0 L 411) MEAN CORPUSCULAR VOLUME (BEAKER) 90.2 fL 79.0-92.2 (test code = 753) MEAN CORPUSCULAR HEMOGLOBIN 28.3 pg 25.7-32.2 (BEAKER) (test code = 751) MEAN CORPUSCULAR HEMOGLOBIN CONC 31.4 GM/DL 32.3-36.5 L (BEAKER) (test code = 752) RED CELL DISTRIBUTION WIDTH 13.9 % 11.6-14.4 (BEAKER) (test code = 412) PLATELET COUNT (BEAKER) (test 153 K/CU MM 150-450 code = 756) MEAN PLATELET VOLUME (BEAKER) 11.1 fL 9.4-12.4 (test code = 754) NUCLEATED RED BLOOD CELLS 0 /100 WBC 0-0 (BEAKER) (test code = 413) NEUTROPHILS RELATIVE PERCENT 60 % (BEAKER) (test code = 429) LYMPHOCYTES RELATIVE PERCENT 22 % (BEAKER) (test code = 430) MONOCYTES RELATIVE PERCENT 11 % (BEAKER) (test code = 431) EOSINOPHILS RELATIVE PERCENT 3 % (BEAKER) (test code = 432) BASOPHILS RELATIVE PERCENT 1 % (BEAKER) (test code = 437) NEUTROPHILS ABSOLUTE COUNT 4.38 K/ L 1.78-5.38 (BEAKER) (test code = 670) LYMPHOCYTES ABSOLUTE COUNT 1.59 K/ L 1.32-3.57 (BEAKER) (test code = 414) MONOCYTES ABSOLUTE COUNT (BEAKER) 0.80 K/ L 0.30-0.82 (test code = 415) EOSINOPHILS ABSOLUTE COUNT 0.19 K/ L 0.04-0.54 (BEAKER) (test code = 416) BASOPHILS ABSOLUTE COUNT (BEAKER) 0.05 K/ L 0.01-0.08 (test code = 417) IMMATURE GRANULOCYTES-RELATIVE 5 % 0-1 H PERCENT (BEAKER) (test code = 2801) POCT-GLUCOSE [id number] 21:40:00 Test Item Value Reference Range Interpretation Comments POC-GLUCOSE METER 128 mg/dL 70-110 H : TESTED A T [facility] 6720 (BEAKER) (test code = [facility], 1538) 33988: Commercial Mortgage Broker/Techni daniel ID = [id number] for CARLOS JASSO POCT-GLUCOSE [id number] 16:58:00 Test Item Value Reference Range Interpretation Comments POC-GLUCOSE METER 147 mg/dL 70-110 H : TESTED A T [facility] 6720 (BEAKER) (test code = [facility], 1538) 63116: Commercial Mortgage Broker/Techni daniel ID = [id number] for THOMAS TRIPLETT POCT-GLUCOSE [id number] 12:20:00 Test Item Value Reference Range Interpretation Comments POC-GLUCOSE METER 185 mg/dL 70-110 H : TESTED A T [facility] 6720 (BEAKER) (test code = [facility], 153) 63336: Commercial Mortgage Broker/Techni daniel ID = [id number] for THOMAS TRIPLETT CBC W/PLT COUNT & AUTO [id number] 10:54:00 Test Item Value Reference Range Interpretation Comments WHITE BLOOD CELL COUNT (BEAKER) 7.8 K/ L 3.5-10.5 (test code = 775) RED BLOOD CELL COUNT (BEAKER) 4.52 M/ L 4.63-6.08 L (test code = 761) HEMOGLOBIN (BEAKER) (test code = 13.0 GM/DL 13.7-17.5 L 410) HEMATOCRIT (BEAKER) (test code = 41.1 % 40.1-51.0 411) MEAN CORPUSCULAR VOLUME (BEAKER) 90.9 fL 79.0-92.2 (test code = 753) MEAN CORPUSCULAR HEMOGLOBIN 28.8 pg 25.7-32.2 (BEAKER) (test code = 751) MEAN CORPUSCULAR HEMOGLOBIN CONC 31.6 GM/DL 32.3-36.5 L (BEAKER) (test code = 752) RED CELL DISTRIBUTION WIDTH 13.9 % 11.6-14.4 (BEAKER) (test code = 412) PLATELET COUNT (BEAKER) (test 216 K/CU MM 150-450 code = 756) MEAN PLATELET VOLUME (BEAKER) 10.7 fL 9.4-12.4 (test code = 754) NUCLEATED RED BLOOD CELLS 0 /100 WBC 0-0 (BEAKER) (test code = 413) (CELLAVISION MANUAL DIFF)2020-03-02 10:54:00 Test Item Value Reference Range Interpretation Comments NEUTROPHILS - REL 71 % (CELLAVISION)(BEAKER) (test code = 2816) LYMPHOCYTES - REL 13 % (CELLAVISION)(BEAKER) (test code = 2817) MONOCYTES - REL 6 % (CELLAVISION)(BEAKER) (test code = 2818) EOSINOPHILS - REL 5 % (CELLAVISION)(BEAKER) (test code = 2819) BASOPHILS - REL 1 % (CELLAVISION)(BEAKER) (test code = 2820) MYELOCYTES - REL 1 % 0-0 H (CELLAVISION)(BEAKER) (test code = 2822) BANDS - REL (CELLAVISION)(BEAKER) 2 % 0-10 (test code = 2826) ATYPICAL LYMPHOCYTES - REL 1 % 0-0 H (CELLAVISION)(BEAKER) (test code = 2829) NEUTROPHILS - ABS 5.54 K/ul 1.78-5.38 H (CELLAVISION)(BEAKER) (test code = 2830) LYMPHOCYTES - ABS 1.01 K/ul 1.32-3.57 L (CELLAVISION)(BEAKER) (test code = 2831) MONOCYTES - ABS 0.47 K/uL 0.30-0.82 (CELLAVISION)(BEAKER) (test code = 2832) EOSINOPHILS - ABS 0.39 K/uL 0.04-0.54 (CELLAVISION)(BEAKER) (test code = 2834) BASOPHILS - ABS 0.08 K/uL 0.01-0.08 (CELLAVISION)(BEAKER) (test code = 2835) MYELOCYTES-ABS 0.08 K/uL 0.00-0.00 H (CELLAVISION)(BEAKER) (test code = 2837) BANDS - ABS (CELLAVISION)(BEAKER) 0.16 K/uL 0.00-0.80 (test code = 2840) ATYPICAL LYMPHOCYTES - ABS 0.08 K/uL 0.00-0.00 H (CELLAVISION)(BEAKER) (test code = 2858) TOTAL COUNTED (BEAKER) (test code 100 = 1351) MANUAL NRBC PER 100 CELLS (BEAKER) 1 /100 WBC 0-0 H (test code = 1353) WBC MORPHOLOGY (BEAKER) (test code Normal = 487) GIANT PLATELETS (BEAKER) (test Present code = 313) LARGE PLT(BEAKER) (test code = Present 2156) BASOPHILIC STIPPLING (BEAKER) Present (test code = 473) ARTIFACT (CELLAVISION)(BEAKER) Present (test code = 3432) PLATELET CONCENTRATION Adequate (CELLAVISION)(BEAKER) (test code = 3438) Commercial Mortgage Broker ID - Lissett Paz comments: Slide comments: WBC: SEGMENTED WITH TOXIC GRANULATIONS PRESENTPOCT-GLUCOSE [id number] 10:10:00 Test Item Value Reference Range Interpretation Comments POC-GLUCOSE METER 156 mg/dL 70-110 H : [facility] (test code = [facility], 1538) [address]: Commercial Mortgage Broker/Techni daniel ID = [id number] for Talia Dinh [id number] 08:35:00 Test Item Value Reference Range Interpretation Comments ACTIVATED CLOTTING TIME 263 sec : 74 -137 seconds, (BEAKER) (test code = Baseli ne: TESTED AT 441) [facility] 67[address] [facility], 770 30: Commercial Mortgage Broker/Techni daniel ID = [id number] for ALEJANDRO CORONA RN, YVETTE [id number] 05:17:00 Test Item Value Reference Range Interpretation Comments MAGNESIUM (BEAKER) (test code = 1.8 mg/dL 1.6-2.6 627) Commercial Mortgage Broker ID - TU LBASIC METABOLIC [id number] 05:17:00 Test Item Value Reference Range Interpretation Comments SODIUM (BEAKER) 135 meq/L 136-145 L (test code = 381) POTASSIUM (BEAKER) 4.5 meq/L 3.5-5.1 (test code = 379) CHLORIDE (BEAKER) 101 meq/L 98-107 (test code = 382) CO2 (BEAKER) (test 27 meq/L 22-29 code = 355) BLOOD UREA NITROGEN 16 mg/dL 7-21 (BEAKER) (test code = 354) CREATININE (BEAKER) 0.63 mg/dL 0.57-1.25 (test code = 358) GLUCOSE RANDOM 149 mg/dL 70-105 H (BEAKER) (test code = 652) CALCIUM (BEAKER) 9.1 mg/dL 8.4-10.2 (test code = 697) EGFR (BEAKER) (test 127 mL/min/1.73 ESTIM ATED GFR IS code = 1092) sq m NOT ACCURATE CREATININE CLEARANCE IN PREDICTING GLOMERULAR FILTRATION RATE . ESTIMATED GFR I S NOT APPLICABLE FOR DIALYSIS PATIEN TS. Commercial Mortgage Broker ID - PIAYA LPOCT-GLUCOSE [id number] 21:22:00 Test Item Value Reference Range Interpretation Comments POC-GLUCOSE METER 162 mg/dL 70-110 H : TESTED A T [facility] 6720 (BEAKER) (test code = [facility], 1538) [id number]: Commercial Mortgage Broker/Techni daniel ID = [id number] for [place] RBAJAL, RADHA POCT-GLUCOSE [id number] 17:48:00 Test Item Value Reference Range Interpretation Comments POC-GLUCOSE METER 144 mg/dL 70-110 H : TESTED A T [facility] 6720 (BEAKER) (test code = [facility], 1538) [id number]: Commercial Mortgage Broker/Techni daniel ID = [id number] for SA NTOS, SHANNON BLOOD [id number] 14:00:00 Test Item Value Reference Range Interpretation Comments CULTURE (BEAKER) (test No growth in 5 days code = 1095) BLOOD [id number] 14:00:00 Test Item Value Reference Range Interpretation Comments CULTURE (BEAKER) (test No growth in 5 days code = 1095) POCT-GLUCOSE [id number] 12:06:00 Test Item Value Reference Range Interpretation Comments POC-GLUCOSE METER 199 mg/dL 70-110 H : TESTED A T [facility] 6720 (BEAKER) (test code = [facility], 1538) [id number]: Commercial Mortgage Broker/Techni danile ID = [id number] for SA NTOS, SHANNON POCT-GLUCOSE [id number] 09:23:00 Test Item Value Reference Range Interpretation Comments POC-GLUCOSE METER 249 mg/dL 70-110 H : TESTED A T [facility] 6720 (BEAKER) (test code = [place], 1538) [id number]: Commercial Mortgage Broker/Techni daniel ID = [id number] for SHANNON CORADO [id number] 07:01:00 Test Item Value Reference Range Interpretation Comments MAGNESIUM (BEAKER) (test code = 1.8 mg/dL 1.6-2.6 627) Commercial Mortgage Broker ID - TU LBASIC METABOLIC [id number] 07:01:00 Test Item Value Reference Range Interpretation Comments SODIUM (BEAKER) 133 meq/L 136-145 L (test code = 381) POTASSIUM (BEAKER) 4.5 meq/L 3.5-5.1 (test code = 379) CHLORIDE (BEAKER) 101 meq/L 98-107 (test code = 382) CO2 (BEAKER) (test 28 meq/L 22-29 code = 355) BLOOD UREA NITROGEN 13 mg/dL 7-21 (BEAKER) (test code = 354) CREATININE (BEAKER) 0.61 mg/dL 0.57-1.25 (test code = 358) GLUCOSE RANDOM 203 mg/dL 70-105 H (BEAKER) (test code = 652) CALCIUM (BEAKER) 8.7 mg/dL 8.4-10.2 (test code = 697) EGFR (BEAKER) (test 132 mL/min/1.73 ESTIM ATED GFR IS code = 1092) sq m NOT ACCURATE CREATININE CLEARANCE IN PREDICTING GLOMERULAR FILTRATION RATE . ESTIMATED GFR I S NOT APPLICABLE FOR DIALYSIS PATIEN TS. Commercial Mortgage Broker ID - PIAYA LCBC W/PLT COUNT & AUTO [id number] 06:44:00 Test Item Value Reference Range Interpretation Comments WHITE BLOOD CELL COUNT (BEAKER) 6.7 K/ L 3.5-10.5 (test code = 775) RED BLOOD CELL COUNT (BEAKER) 4.14 M/ L 4.63-6.08 L (test code = 761) HEMOGLOBIN (BEAKER) (test code = 12.2 GM/DL 13.7-17.5 L 410) HEMATOCRIT (BEAKER) (test code = 37.8 % 40.1-51.0 L 411) MEAN CORPUSCULAR VOLUME (BEAKER) 91.3 fL 79.0-92.2 (test code = 753) MEAN CORPUSCULAR HEMOGLOBIN 29.5 pg 25.7-32.2 (BEAKER) (test code = 751) MEAN CORPUSCULAR HEMOGLOBIN CONC 32.3 GM/DL 32.3-36.5 (BEAKER) (test code = 752) RED CELL DISTRIBUTION WIDTH 13.7 % 11.6-14.4 (BEAKER) (test code = 412) PLATELET COUNT (BEAKER) (test 209 K/CU MM 150-450 code = 756) MEAN PLATELET VOLUME (BEAKER) 11.0 fL 9.4-12.4 (test code = 754) NUCLEATED RED BLOOD CELLS 0 /100 WBC 0-0 (BEAKER) (test code = 413) NEUTROPHILS RELATIVE PERCENT 55 % (BEAKER) (test code = 429) LYMPHOCYTES RELATIVE PERCENT 23 % (BEAKER) (test code = 430) MONOCYTES RELATIVE PERCENT 13 % (BEAKER) (test code = 431) EOSINOPHILS RELATIVE PERCENT 3 % (BEAKER) (test code = 432) BASOPHILS RELATIVE PERCENT 1 % (BEAKER) (test code = 437) NEUTROPHILS ABSOLUTE COUNT 3.65 K/ L 1.78-5.38 (BEAKER) (test code = 670) LYMPHOCYTES ABSOLUTE COUNT 1.56 K/ L 1.32-3.57 (BEAKER) (test code = 414) MONOCYTES ABSOLUTE COUNT (BEAKER) 0.86 K/ L 0.30-0.82 H (test code = 415) EOSINOPHILS ABSOLUTE COUNT 0.21 K/ L 0.04-0.54 (BEAKER) (test code = 416) BASOPHILS ABSOLUTE COUNT (BEAKER) 0.06 K/ L 0.01-0.08 (test code = 417) IMMATURE GRANULOCYTES-RELATIVE 5 % 0-1 H PERCENT (BEAKER) (test code = 2801) POCT-GLUCOSE [id number] 21:41:00 Test Item Value Reference Range Interpretation Comments POC-GLUCOSE METER 178 mg/dL 70-110 H : TESTED [place] Ko [facility] 6720 (BEAKER) (test code = [place], 1538) 23881: Commercial Mortgage Broker/Techni daniel ID = [id number] for CA CYNTHIA RADHA POCT-GLUCOSE [id number] 17:54:00 Test Item Value Reference Range Interpretation Comments POC-GLUCOSE METER 169 mg/dL 70-110 H : TESTED A T [facility] 6720 (INGRID) (test code = [place], 1538) [address]: Commercial Mortgage Broker/Techni daniel ID = [id number] for SHANNON CORADO SARS-COV2/RT-PCR ([facility])2020-02-29 14:47:00 Test Item Value Reference Range Interpretation Comments SARS-COV2/RT-PCR (test Negative Not Detected, Negative, code = 1874141) See external report for linked test SARS-COV-[address] [facility] CYN (test code = 2174256) Negative result for this test determines that SARS-CoV-2 RNA was not present in the specimen above the Limit of Detection (LOD). However, Negative results do not preclude SARS-CoV-2 infection and should not be used as the sole basis for treatment or patient management decisions. Negative results must be combined with clinical observations, patient history, and epidemiological information. A false negative result may occur if a specimen is improperly collected, transported or handled. A false negative result should be considered if patient's recent exposures or clinical presentation indicate that COVID-19 (SARS-CoV-2) is likely and diagnostic tests for other causes of illness are negative. Re-testing should be considered in cases of suspected false negatives.The limit of detection for this assay is 800 copies/mL.This SARS CoV-2 test is a real-time RT-PCR test intended for the qualitative detection of nucleic acid from SARS-CoV-2 in a nasopharyngeal swab specimen collected from individuals suspected of COVID-19 by their healthcare provider.This test has not been Food and Drug Administration (FDA) cleared or approved. This is a modified version of an approved Emergency Use Authorization (EUA) and is in the process of review by the FDA. Once authorized by the FDA, the issued EUA will be effective until the declaration that circumstances exist justifying the authorization of the emergency use ofin vitro diagnostic tests for detection and/or diagnosis of COVID-19 is terminated under Section 564(b)(2) of the Act or the EUA is revoked under Section 564(g) of the Act.Fact Sheet for Healthcare Prov iders:https://www.WiseStamp.eJamming/sites/default/files/product/documents/Fact_Sheet_HC _Rrxwdclaa_Gbyf_TEKJ-NgY-6.pdfFact Sheet for Healthcare Patients:https://www.[employer]iseStamp.eJamming/sites/default/files/product/docume nts/Zysf_Wphpq_Rfbjdgqw_Exxf_XJBG-LdA-9.pdfPerforming Laboratory:[facility], [place] [address]OQXT-OIVXKGS METER 2020-02-29 12:02:00 Test Item Value Reference Range Interpretation Comments POC-GLUCOSE METER 242 mg/dL 70-110 H : TESTED A T [facility] 6720 (BEAKER) (test code = NEGRO [place] [facility], 1538) 21121: Commercial Mortgage Broker/Techni daniel ID = [id number] for SA SHANNON NORMAN WOUND CULTURE + GRAM [id number] 11:29:00 Test Item Value Reference Range Interpretation Comments CULTURE (BEAKER) A 2+ Same org anism has (test code = been isolated f rom 1095) culture(s) of t he same body site within 3 days. Repeat identification performed only after consultation wi th the clinical microbiology laboratory.Refe r to previous cultur e ofBeta-hemolyti c streptococcus g roup B CULTURE (BEAKER) ENTEROCOCCUS A 1+ Enteroco ccus (test code = FAECALIS faecalis 1095) Ampicillin (test S code = 26) Linezolid (test S code = 40) Vancomycin (test S code = 13) GRAM STAIN RESULT 4+ WBCs (BEAKER) (test code = 1123) GRAM STAIN RESULT 1+ gram negative (BEAKER) (test rods code = 117384) GRAM STAIN RESULT 4+ gram positive (BEAKER) (test cocci in chains code = 193543) and pairs [id number] 09:34:00 Test Item Value Reference Range Interpretation Comments MAGNESIUM (BEAKER) (test code = 1.7 mg/dL 1.6-2.6 627) Commercial Mortgage Broker ID - HARITHA CBASIC METABOLIC [id number] 09:34:00 Test Item Value Reference Range Interpretation Comments SODIUM (BEAKER) 133 meq/L 136-145 L (test code = 381) POTASSIUM (BEAKER) 4.5 meq/L 3.5-5.1 (test code = 379) CHLORIDE (BEAKER) 99 meq/L 98-107 (test code = 382) CO2 (BEAKER) (test 27 meq/L 22-29 code = 355) BLOOD UREA NITROGEN 7 mg/dL 7-21 (BEAKER) (test code = 354) CREATININE (BEAKER) 0.61 mg/dL 0.57-1.25 (test code = 358) GLUCOSE RANDOM 209 mg/dL 70-105 H (BEAKER) (test code = 652) CALCIUM (BEAKER) 8.7 mg/dL 8.4-10.2 (test code = 697) EGFR (BEAKER) (test 132 mL/min/1.73 ESTIM ATED GFR IS code = 1092) sq m NOT ACCURATE CREATININE CLEARANCE IN PREDICTING GLOMERULAR FILTRATION RATE . ESTIMATED GFR I S NOT APPLICABLE FOR DIALYSIS PATIEN TS. Commercial Mortgage Broker ID - HARITHA CCBC W/PLT COUNT & AUTO [id number] 09:13:00 Test Item Value Reference Range Interpretation Comments WHITE BLOOD CELL COUNT (BEAKER) 7.0 K/ L 3.5-10.5 (test code = 775) RED BLOOD CELL COUNT (BEAKER) 4.07 M/ L 4.63-6.08 L (test code = 761) HEMOGLOBIN (BEAKER) (test code = 11.6 GM/DL 13.7-17.5 L 410) HEMATOCRIT (BEAKER) (test code = 36.9 % 40.1-51.0 L 411) MEAN CORPUSCULAR VOLUME (BEAKER) 90.7 fL 79.0-92.2 (test code = 753) MEAN CORPUSCULAR HEMOGLOBIN 28.5 pg 25.7-32.2 (BEAKER) (test code = 751) MEAN CORPUSCULAR HEMOGLOBIN CONC 31.4 GM/DL 32.3-36.5 L (BEAKER) (test code = 752) RED CELL DISTRIBUTION WIDTH 13.6 % 11.6-14.4 (BEAKER) (test code = 412) PLATELET COUNT (BEAKER) (test 223 K/CU MM 150-450 code = 756) MEAN PLATELET VOLUME (BEAKER) 11.3 fL 9.4-12.4 (test code = 754) NUCLEATED RED BLOOD CELLS 0 /100 WBC 0-0 (BEAKER) (test code = 413) NEUTROPHILS RELATIVE PERCENT 59 % (BEAKER) (test code = 429) LYMPHOCYTES RELATIVE PERCENT 22 % (BEAKER) (test code = 430) MONOCYTES RELATIVE PERCENT 12 % (BEAKER) (test code = 431) EOSINOPHILS RELATIVE PERCENT 2 % (BEAKER) (test code = 432) BASOPHILS RELATIVE PERCENT 1 % (BEAKER) (test code = 437) NEUTROPHILS ABSOLUTE COUNT 4.13 K/ L 1.78-5.38 (BEAKER) (test code = 670) LYMPHOCYTES ABSOLUTE COUNT 1.57 K/ L 1.32-3.57 (BEAKER) (test code = 414) MONOCYTES ABSOLUTE COUNT (BEAKER) 0.82 K/ L 0.30-0.82 (test code = 415) EOSINOPHILS ABSOLUTE COUNT 0.17 K/ L 0.04-0.54 (BEAKER) (test code = 416) BASOPHILS ABSOLUTE COUNT (BEAKER) 0.06 K/ L 0.01-0.08 (test code = 417) IMMATURE GRANULOCYTES-RELATIVE 4 % 0-1 H PERCENT (BEAKER) (test code = 2801) POCT-GLUCOSE [id number] 08:15:00 Test Item Value Reference Range Interpretation Comments POC-GLUCOSE METER 220 mg/dL 70-110 H : TESTED A T [facility] 6720 (BEAKER) (test code = [facility], 153) [address]: Commercial Mortgage Broker/Techni daniel ID = [id number] for SA NTOS, SHANNON POCT-GLUCOSE [id number] 20:46:00 Test Item Value Reference Range Interpretation Comments POC-GLUCOSE METER 215 mg/dL 70-110 H : TESTED A T [facility] 6720 (BEAKER) (test code = [facility], 153) 61783: Commercial Mortgage Broker/Techni daniel ID = [id number] for SA GRANT, AARON POCT-GLUCOSE [id number] 17:14:00 Test Item Value Reference Range Interpretation Comments POC-GLUCOSE METER 288 mg/dL 70-110 H : TESTED A T [facility] 6720 (BEAKER) (test code = [facility], 153) 52095: Commercial Mortgage Broker/Techni daniel ID = [id number] for GARRISON JERIELKE DOTSON MR, EXTREMITY, LOWER, [id number] 13:25:00Reffering; Dr. Carlton Velasquez64M admitted w/ diabetic L foot infection. Eval for osteo, abscess.Unlisted Reason for Exam - Click Yes and Enter Reason Below->NoAnesthesia:->NoneAddendum BeginsREPORT STATUS:A Soft tissue gas at the dorsal aspect of the second metatarsal could also be related to recent surgery, correlate with patient history. Signed: Michael Le MDReport Verified Date/Time: 02/28/2020 13:25:20 Reading [facility] C013X Ortho Consult Reading RoomAddendum EndsFINAL REPORT MRI of the left forefoot with and without intravenous contrast History: Osteomyelitis, diabetic Comparison: Radiograph dated February 25, 2020 Technique: Multiplanar multisequence MRI of the left forefoot was performed with and without intravenous contrast Findings: An ulceration is noted in the web space between the first and second toes. There is nonenhancing T2 hyperintense tissue containing air that extends from the web space to the dorsal aspect of the second metatarsal, to the level of the metatarsal base, most likely to reflect a necrotic infected tissue, with concern for gas forming infection. Another ulceration is noted at the plantar aspect of the second toe, with adjacent subcutaneous edema, no associated drainable collection. There is a T1 hypointense intensity and lack of enhancement at the lateral aspect of the base of first proximal phalanx, and the medial aspect of the base of the second proximal phalanx, compatible with osteomyelitis, associated with diffuse marrow edema and enhancement throughout the proximal phalanges. There is also a suspected small erosion at the second metatarsal head, as well as the lateral aspect of the first metatarsal head, worrisome for osteomyelitis. There is nonspecific marrow edema in the thirdmetatarsal head, and base of third proximal phalanx, as well as both sesamoids of the first toe, without clear cortical erosion. There is no fracture or malalignment. No tenosynovitis. There is diffusemuscle edema and enhancement. IMPRESSION: Wound in the first and second toe webspace. There is infected, necrotic tissue that extends for the webspace to the dorsal aspect of the second metatarsal; presence of air is concerning for gas-forming infection. Osteomyelitis involving the base of the first and second proximal phalanges. Also suspect osteomyelitis involving the first and second metatarsal heads. There is nonspecific marrow edema involving the third metatarsal head and proximal phalanx, as well as the first toe sesamoids, which could be reactive versus reflective of early infection. Signed:Michael Leort Verified Date/Time: 02/28/2020 10:03:11 Reading Location: [facility] B1 C013X Ortho Consult Reading Room POCT-GLUCOSE [id number] 12:26:00 Test Item Value Reference Range Interpretation Comments POC-GLUCOSE METER 230 mg/dL 70-110 H : TESTED A T [facility] 6720 (BEAKER) (test code = [facility], 1538) 19120: Commercial Mortgage Broker/Techni daniel ID = [id number] for ELKE RAMOS MRSA [id number] 10:02:00 Test Item Value Reference Range Interpretation Comments CULTURE (BEAKER) (test code No MRSA isolated = 1095) POCT-GLUCOSE [id number] 09:37:00 Test Item Value Reference Range Interpretation Comments POC-GLUCOSE METER 245 mg/dL 70-110 H : TESTED A T [facility] 6720 (BEAKER) (test code = [facility] Jass [facility], 1538) 734[address]: Commercial Mortgage Broker/Techni daniel ID = [id number] for ELKE RAMOS [id number] 06:57:00 Test Item Value Reference Range Interpretation Comments MAGNESIUM (BEAKER) (test code = 1.8 mg/dL 1.6-2.6 627) Commercial Mortgage Broker ID - CARLOS MCOMPREHENSIVE METABOLIC [id number] 06:57:00 Test Item Value Reference Range Interpretation Comments TOTAL PROTEIN 6.4 gm/dL 6.0-8.3 (BEAKER) (test code = 770) ALBUMIN (BEAKER) 2.7 g/dL 3.5-5.0 L (test code = 1145) ALKALINE PHOSPHATASE 60 U/L 40-150 (BEAKER) (test code = 346) BILIRUBIN TOTAL 0.4 mg/dL 0.2-1.2 (BEAKER) (test code = 377) SODIUM (BEAKER) (test 131 meq/L 136-145 L code = 381) POTASSIUM (BEAKER) 4.1 meq/L 3.5-5.1 (test code = 379) CHLORIDE (BEAKER) 101 meq/L 98-107 (test code = 382) CO2 (BEAKER) (test 26 meq/L 22-29 code = 355) BLOOD UREA NITROGEN 8 mg/dL 7-21 (BEAKER) (test code = 354) CREATININE (BEAKER) 0.65 mg/dL 0.57-1.25 (test code = 358) GLUCOSE RANDOM 274 mg/dL 70-105 H (BEAKER) (test code = 652) CALCIUM (BEAKER) 8.3 mg/dL 8.4-10.2 L (test code = 697) AST (SGOT) (BEAKER) 17 U/L 5-34 (test code = 353) ALT (SGPT) (BEAKER) 19 U/L 6-55 (test code = 347) EGFR (BEAKER) (test 123 ESTIMATE D GFR IS code = 1092) mL/min/1.73 sq NOT ACCURA TE m CREATININE CLEARANCE IN PREDICTING GLOMERULAR FILTRATION RATE . ESTIMATED GFR I S NOT APPLICABLE FOR DIALYSIS PATIEN TS. Commercial Mortgage Broker ID - CARLOS MCBC W/PLT COUNT & AUTO [id number] 06:35:00 Test Item Value Reference Range Interpretation Comments WHITE BLOOD CELL COUNT (BEAKER) 5.8 K/ L 3.5-10.5 (test code = 775) RED BLOOD CELL COUNT (BEAKER) 3.89 M/ L 4.63-6.08 L (test code = 761) HEMOGLOBIN (BEAKER) (test code = 11.0 GM/DL 13.7-17.5 L 410) HEMATOCRIT (BEAKER) (test code = 34.6 % 40.1-51.0 L 411) MEAN CORPUSCULAR VOLUME (BEAKER) 88.9 fL 79.0-92.2 (test code = 753) MEAN CORPUSCULAR HEMOGLOBIN 28.3 pg 25.7-32.2 (BEAKER) (test code = 751) MEAN CORPUSCULAR HEMOGLOBIN CONC 31.8 GM/DL 32.3-36.5 L (BEAKER) (test code = 752) RED CELL DISTRIBUTION WIDTH 13.6 % 11.6-14.4 (BEAKER) (test code = 412) PLATELET COUNT (BEAKER) (test 208 K/CU MM 150-450 code = 756) MEAN PLATELET VOLUME (BEAKER) 11.2 fL 9.4-12.4 (test code = 754) NUCLEATED RED BLOOD CELLS 0 /100 WBC 0-0 (BEAKER) (test code = 413) NEUTROPHILS RELATIVE PERCENT 58 % (BEAKER) (test code = 429) LYMPHOCYTES RELATIVE PERCENT 23 % (BEAKER) (test code = 430) MONOCYTES RELATIVE PERCENT 13 % (BEAKER) (test code = 431) EOSINOPHILS RELATIVE PERCENT 3 % (BEAKER) (test code = 432) BASOPHILS RELATIVE PERCENT 1 % (BEAKER) (test code = 437) NEUTROPHILS ABSOLUTE COUNT 3.41 K/ L 1.78-5.38 (BEAKER) (test code = 670) LYMPHOCYTES ABSOLUTE COUNT 1.36 K/ L 1.32-3.57 (BEAKER) (test code = 414) MONOCYTES ABSOLUTE COUNT (BEAKER) 0.73 K/ L 0.30-0.82 (test code = 415) EOSINOPHILS ABSOLUTE COUNT 0.15 K/ L 0.04-0.54 (BEAKER) (test code = 416) BASOPHILS ABSOLUTE COUNT (BEAKER) 0.03 K/ L 0.01-0.08 (test code = 417) IMMATURE GRANULOCYTES-RELATIVE 3 % 0-1 H PERCENT (BEAKER) (test code = 2801) POCT-GLUCOSE [id number] 21:46:00 Test Item Value Reference Range Interpretation Comments POC-GLUCOSE METER 325 mg/dL 70-110 H : TESTED A T [facility] 6720 (BEAKER) (test code = [facility], [facility]) 05[address]: Commercial Mortgage Broker/Techni daniel ID = [id number] for UL LATTIL, CARLOS POCT-GLUCOSE [id number] 17:01:00 Test Item Value Reference Range Interpretation Comments POC-GLUCOSE METER 256 mg/dL 70-110 H : TESTED A T [facility] 6720 (BEAKER) (test code = [facility], 153) 37842: Commercial Mortgage Broker/Techni daniel ID = [id number] for RADHA ADARSHTHOMAS POCT-GLUCOSE [id number] 11:56:00 Test Item Value Reference Range Interpretation Comments POC-GLUCOSE METER 315 mg/dL 70-110 H : TESTED A T [facility] 6720 (BEAKER) (test code = [facility], 153) 58805: Commercial Mortgage Broker/Techni daniel ID = [id number] for FA THOMAS ALTAMIRANO POCT-GLUCOSE [id number] 07:59:00 Test Item Value Reference Range Interpretation Comments POC-GLUCOSE METER 268 mg/dL 70-110 H : [facility] (BE[facility]ER[facility] (test code = [place], 1538) 47[address]: Commercial Mortgage Broker/Techni daniel ID = [id number] for FA THOMAS ALTAMIRANO VANCOMYCIN LEVEL, [id number] 03:28:00 Test Item Value Reference Range Interpretation Comments VANCOMYCIN TROUGH (BEAKER) (test 3.2 ug/mL 10.0-20.0 L code = 522) Commercial Mortgage Broker ID - ANGELICA WCOMPREHENSIVE METABOLIC [id number] 03:21:00 Test Item Value Reference Range Interpretation Comments TOTAL PROTEIN 6.3 gm/dL 6.0-8.3 (BEAKER) (test code = 770) ALBUMIN (BEAKER) 2.7 g/dL 3.5-5.0 L (test code = 1145) ALKALINE PHOSPHATASE 62 U/L 40-150 (BEAKER) (test code = 346) BILIRUBIN TOTAL 0.3 mg/dL 0.2-1.2 (BEAKER) (test code = 377) SODIUM (BEAKER) (test 128 meq/L 136-145 L code = 381) POTASSIUM (BEAKER) 4.0 meq/L 3.5-5.1 (test code = 379) CHLORIDE (BEAKER) 99 meq/L 98-107 (test code = 382) CO2 (BEAKER) (test 24 meq/L 22-29 code = 355) BLOOD UREA NITROGEN 10 mg/dL 7-21 (BEAKER) (test code = 354) CREATININE (BEAKER) 0.69 mg/dL 0.57-1.25 (test code = 358) GLUCOSE RANDOM 309 mg/dL 70-105 H (BEAKER) (test code = 652) CALCIUM (BEAKER) 7.4 mg/dL 8.4-10.2 L (test code = 697) AST (SGOT) (BEAKER) 18 U/L 5-34 (test code = 353) ALT (SGPT) (BEAKER) 24 U/L 6-55 (test code = 347) EGFR (BEAKER) (test 115 ESTIMATE D GFR IS code = 1092) mL/min/1.73 sq NOT ACCURA TE m CREATININE CLEARANCE IN PREDICTING GLOMERULAR FILTRATION RATE . ESTIMATED GFR I S NOT APPLICABLE FOR DIALYSIS PATIEN TS. Commercial Mortgage Broker ID - ANGELICA [id number] 03:16:00 Test Item Value Reference Range Interpretation Comments MAGNESIUM (BEAKER) (test code = 1.7 mg/dL 1.6-2.6 627) Commercial Mortgage Broker ID - ANGELICA WCBC W/PLT COUNT & AUTO [id number] 02:31:00 Test Item Value Reference Range Interpretation Comments WHITE BLOOD CELL COUNT (BEAKER) 7.2 K/ L 3.5-10.5 (test code = 775) RED BLOOD CELL COUNT (BEAKER) 3.86 M/ L 4.63-6.08 L (test code = 761) HEMOGLOBIN (BEAKER) (test code = 11.1 GM/DL 13.7-17.5 L 410) HEMATOCRIT (BEAKER) (test code = 34.4 % 40.1-51.0 L 411) MEAN CORPUSCULAR VOLUME (BEAKER) 89.1 fL 79.0-92.2 (test code = 753) MEAN CORPUSCULAR HEMOGLOBIN 28.8 pg 25.7-32.2 (BEAKER) (test code = 751) MEAN CORPUSCULAR HEMOGLOBIN CONC 32.3 GM/DL 32.3-36.5 (BEAKER) (test code = 752) RED CELL DISTRIBUTION WIDTH 13.5 % 11.6-14.4 (BEAKER) (test code = 412) PLATELET COUNT (BEAKER) (test 198 K/CU MM 150-450 code = 756) MEAN PLATELET VOLUME (BEAKER) 11.2 fL 9.4-12.4 (test code = 754) NUCLEATED RED BLOOD CELLS 0 /100 WBC 0-0 (BEAKER) (test code = 413) NEUTROPHILS RELATIVE PERCENT 65 % (BEAKER) (test code = 429) LYMPHOCYTES RELATIVE PERCENT 19 % (BEAKER) (test code = 430) MONOCYTES RELATIVE PERCENT 12 % (BEAKER) (test code = 431) EOSINOPHILS RELATIVE PERCENT 2 % (BEAKER) (test code = 432) BASOPHILS RELATIVE PERCENT 1 % (BEAKER) (test code = 437) NEUTROPHILS ABSOLUTE COUNT 4.70 K/ L 1.78-5.38 (BEAKER) (test code = 670) LYMPHOCYTES ABSOLUTE COUNT 1.34 K/ L 1.32-3.57 (BEAKER) (test code = 414) MONOCYTES ABSOLUTE COUNT (BEAKER) 0.86 K/ L 0.30-0.82 H (test code = 415) EOSINOPHILS ABSOLUTE COUNT 0.14 K/ L 0.04-0.54 (BEAKER) (test code = 416) BASOPHILS ABSOLUTE COUNT (BEAKER) 0.04 K/ L 0.01-0.08 (test code = 417) IMMATURE GRANULOCYTES-RELATIVE 1 % 0-1 PERCENT (BEAKER) (test code = 2801) POCT-GLUCOSE [id number] 22:45:00 Test Item Value Reference Range Interpretation Comments POC-GLUCOSE METER 379 mg/dL 70-110 H : TESTED A T [facility] 6720 (BEAKER) (test code = [facility], 153) 96616: Commercial Mortgage Broker/Techni daniel ID = [id number] for ANGELICA GRANDA POCT-GLUCOSE [id number] 12:06:00 Test Item Value Reference Range Interpretation Comments POC-GLUCOSE METER 284 mg/dL 70-110 H : TESTED A T [facility] 6720 (BEAKER) (test code = [facility], 1538) 76757: Commercial Mortgage Broker/Techni daniel ID = [id number] for THOMAS TRIPLETT POCT-GLUCOSE [id number] 09:18:00 Test Item Value Reference Range Interpretation Comments POC-GLUCOSE METER 256 mg/dL 70-110 H : TESTED A T [facility] 6720 (BEAKER) (test code = [facility], 153) 90038: Commercial Mortgage Broker/Techni daniel ID = [id number] for THOMAS TRIPLETT [id number] 05:14:00 Test Item Value Reference Range Interpretation Comments MAGNESIUM (BEAKER) (test code = 1.8 mg/dL 1.6-2.6 627) Commercial Mortgage Broker ID - EDASICOMPREHENSIVE METABOLIC [id number] 05:14:00 Test Item Value Reference Range Interpretation Comments TOTAL PROTEIN 6.7 gm/dL 6.0-8.3 (BEAKER) (test code = 770) ALBUMIN (BEAKER) 2.8 g/dL 3.5-5.0 L (test code = 1145) ALKALINE PHOSPHATASE 70 U/L 40-150 (BEAKER) (test code = 346) BILIRUBIN TOTAL 0.6 mg/dL 0.2-1.2 (BEAKER) (test code = 377) SODIUM (BEAKER) (test 131 meq/L 136-145 L code = 381) POTASSIUM (BEAKER) 3.6 meq/L 3.5-5.1 (test code = 379) CHLORIDE (BEAKER) 99 meq/L 98-107 (test code = 382) CO2 (BEAKER) (test 24 meq/L 22-29 code = 355) BLOOD UREA NITROGEN 12 mg/dL 7-21 (BEAKER) (test code = 354) CREATININE (BEAKER) 0.66 mg/dL 0.57-1.25 (test code = 358) GLUCOSE RANDOM 245 mg/dL 70-105 H (BEAKER) (test code = 652) CALCIUM (BEAKER) 8.5 mg/dL 8.4-10.2 (test code = 697) AST (SGOT) (BEAKER) 41 U/L 5-34 H (test code = 353) ALT (SGPT) (BEAKER) 38 U/L 6-55 (test code = 347) EGFR (BEAKER) (test 121 ESTIMATE D GFR IS code = 1092) mL/min/1.73 sq NOT ACCURA TE m CREATININE CLEARANCE IN PREDICTING GLOMERULAR FILTRATION RATE . ESTIMATED GFR I S NOT APPLICABLE FOR DIALYSIS PATIEN TS. [employer] ID - EDASIC-REACTIVE [id number] 05:14:00 Test Item Value Reference Range Interpretation Comments C-REACTIVE PROTEIN (BEAKER) (test 14.67 mg/dL 0.00-0.50 H code = 676) [employer] ID - [id number] W/PLT COUNT & AUTO [id number] 04:46:00 Test Item Value Reference Range Interpretation Comments WHITE BLOOD CELL COUNT (BEAKER) 6.5 K/ L 3.5-10.5 (test code = 775) RED BLOOD CELL COUNT (BEAKER) 4.07 M/ L 4.63-6.08 L (test code = 761) HEMOGLOBIN (BEAKER) (test code = 11.7 GM/DL 13.7-17.5 L 410) HEMATOCRIT (BEAKER) (test code = 36.2 % 40.1-51.0 L 411) MEAN CORPUSCULAR VOLUME (BEAKER) 88.9 fL 79.0-92.2 (test code = 753) MEAN CORPUSCULAR HEMOGLOBIN 28.7 pg 25.7-32.2 (BEAKER) (test code = 751) MEAN CORPUSCULAR HEMOGLOBIN CONC 32.3 GM/DL 32.3-36.5 (BEAKER) (test code = 752) RED CELL DISTRIBUTION WIDTH 13.4 % 11.6-14.4 (BEAKER) (test code = 412) PLATELET COUNT (BEAKER) (test 206 K/CU MM 150-450 code = 756) MEAN PLATELET VOLUME (BEAKER) 11.1 fL 9.4-12.4 (test code = 754) NUCLEATED RED BLOOD CELLS 0 /100 WBC 0-0 (BEAKER) (test code = 413) NEUTROPHILS RELATIVE PERCENT 66 % (BEAKER) (test code = 429) LYMPHOCYTES RELATIVE PERCENT 20 % (BEAKER) (test code = 430) MONOCYTES RELATIVE PERCENT 10 % (BEAKER) (test code = 431) EOSINOPHILS RELATIVE PERCENT 2 % (BEAKER) (test code = 432) BASOPHILS RELATIVE PERCENT 1 % (BEAKER) (test code = 437) NEUTROPHILS ABSOLUTE COUNT 4.30 K/ L 1.78-5.38 (BEAKER) (test code = 670) LYMPHOCYTES ABSOLUTE COUNT 1.28 K/ L 1.32-3.57 L (BEAKER) (test code = 414) MONOCYTES ABSOLUTE COUNT (BEAKER) 0.67 K/ L 0.30-0.82 (test code = 415) EOSINOPHILS ABSOLUTE COUNT 0.15 K/ L 0.04-0.54 (BEAKER) (test code = 416) BASOPHILS ABSOLUTE COUNT (BEAKER) 0.04 K/ L 0.01-0.08 (test code = 417) IMMATURE GRANULOCYTES-RELATIVE 1 % 0-1 PERCENT (BEAKER) (test code = 2801) POCT-GLUCOSE [id number] 21:28:00 Test Item Value Reference Range Interpretation Comments POC-GLUCOSE METER 285 mg/dL 70-110 H : TESTED A T [facility] 6720 (BEAKER) (test code = [place], 1538) [id number]: Commercial Mortgage Broker/Techni daniel ID = [id number] for FERNANDA MONGE SARS-COV2/RT-PCR ([facility])2020-02-25 21:21:00 Test Item Value Reference Range Interpretation Comments SARS-COV2/RT-PCR (test Negative Not Detected, Negative, code = 8593800) See external report for linked test SARS-COV-[address] [facility] CYN (test code = 0448537) Negative result for this test determines that SARS-CoV-2 RNA was not present in the specimen above the Limit of Detection (LOD). However, Negative results do not preclude SARS-CoV-2 infection and should not be used as the sole basis for treatment or patient management decisions. Negative results must be combined with clinical observations, patient history, and epidemiological information. A false negative result may occur if a specimen is improperly collected, transported or handled. A false negative result should be considered if patient's recent exposures or clinical presentation indicate that COVID-19 (SARS-CoV-2) is likely and diagnostic tests for other causes of illness are negative. Re-testing should be considered in cases of suspected false negatives.The limit of detection for this assay is 800 copies/mL.This SARS CoV-2 test is a real-time RT-PCR test intended for the qualitative detection of nucleic acid from SARS-CoV-2 in a nasopharyngeal swab specimen collected from individuals suspected of COVID-19 by their healthcare provider.This test has not been Food and Drug Administration (FDA) cleared or approved. This is a modified version of an approved Emergency Use Authorization (EUA) and is in the process of review by the FDA. Once authorized by the FDA, the issued EUA will be effective until the declaration that circumstances exist justifying the authorization of the emergency use ofin vitro diagnostic tests for detection and/or diagnosis of COVID-19 is terminated under Section 564(b)(2) of the Act or the EUA is revoked under Section 564(g) of the Act.Fact Sheet for Healthcare Prov iders:https://www.WiseStamp.eJamming/sites/default/files/product/documents/Fact_Sheet_HC _Wwhdcvvgx_Pzkk_MGXQ-UoZ-9.pdfFact Sheet for Healthcare Patients:https://www.WiseStamp.com/sites/default/files/product/docume nts/Ikws_Hbbxw_Pyjfsfnb_Pubv_DWJA-LjG-0.pdfPerforming Laboratory:[facility], [place] [id number]-[id number] METER 2020-02-25 20:16:00 Test Item Value Reference Range Interpretation Comments POC-GLUCOSE METER 349 mg/dL 70-110 H : TESTED A T [facility] 6720 (BEAKER) (test code = [facility], 1538) [id number]: Commercial Mortgage Broker/Techni daniel ID = [id number] for Go nayealez, Maricel POCT-GLUCOSE [id number] 20:15:00 Test Item Value Reference Range Interpretation Comments POC-GLUCOSE METER 385 mg/dL 70-110 H : TESTED A T [facility] 6720 (BEAKER) (test code = [facility], 1538) [id number]: Commercial Mortgage Broker/Techni daniel ID = [id number] for Go nayealez, Maricel HEMOGLOBIN [id number] 18:20:00 Test Item Value Reference Range Interpretation Comments HEMOGLOBIN A1C (BEAKER) (test code = 9.5 % 4.3-6.1 H 368) Commercial Mortgage Broker ID - [id number]-GLUCOSE [id number] 15:17:00 Test Item Value Reference Range Interpretation Comments POC-GLUCOSE METER 391 mg/dL 70-110 H : TESTED A T [facility] 6720 (BEAKER) (test code = [facility], 1538) [id number]: Commercial Mortgage Broker/Techni daniel ID = [id number] for Go nzalez, Maricel RAD, FOOT, MIN 3 VIEWS, [id number] 14:46:00Reffering; Dr. Carlton Puckett for exam:->WOUND CHECKFINAL REPORT RAD, FOOT, MIN 3 VIEWS, LEFT INDICATION: WOUND CHECK COMPARISON: None TECHNIQUE: AP, lateral and oblique radiograph of the left foot FINDINGS/IMPRESSION:No acute fracture. Moderate degenerative changes of the midfoot. Signed: Tiffany Rodríguez MDReport Verified Date/Time: 02/25/2020 14:46:16 Reading Location: [facility] Radiology Reading Room BASIC METABOLIC [id number] 13:47:00 Test Item Value Reference Range Interpretation Comments SODIUM (BEAKER) 127 meq/L 136-145 L (test code = 381) POTASSIUM (BEAKER) 4.2 meq/L 3.5-5.1 (test code = 379) CHLORIDE (BEAKER) 94 meq/L 98-107 L (test code = 382) CO2 (BEAKER) (test 22 meq/L 22-29 code = 355) BLOOD UREA NITROGEN 19 mg/dL 7-21 (BEAKER) (test code = 354) CREATININE (BEAKER) 0.87 mg/dL 0.57-1.25 (test code = 358) GLUCOSE RANDOM 460 mg/dL 70-105 HH (BEAKER) (test code = 652) CALCIUM (BEAKER) 8.8 mg/dL 8.4-10.2 (test code = 697) EGFR (BEAKER) (test 88 mL/min/1.73 ESTIMA DIANA GFR IS code = 1092) sq m NOT ACCURATE CREATININE CLEARANCE IN PREDICTING GLOMERULAR FILTRATION RATE . ESTIMATED GFR I S NOT APPLICABLE FOR DIALYSIS PATIEN TS. Commercial Mortgage Broker ID - NTPHEPATIC FUNCTION [id number] 13:41:00 Test Item Value Reference Range Interpretation Comments TOTAL PROTEIN (BEAKER) (test code = 7.2 gm/dL 6.0-8.3 770) ALBUMIN (BEAKER) (test code = 1145) 3.0 g/dL 3.5-5.0 L BILIRUBIN TOTAL (BEAKER) (test code 0.7 mg/dL 0.2-1.2 = 377) BILIRUBIN DIRECT (BEAKER) (test 0.4 mg/dL 0.1-0.5 code = 706) ALKALINE PHOSPHATASE (BEAKER) (test 79 U/L 40-150 code = 346) AST (SGOT) (BEAKER) (test code = 66 U/L 5-34 H 353) ALT (SGPT) (BEAKER) (test code = 42 U/L 6-55 347) Commercial Mortgage Broker ID - NTPCBC W/PLT COUNT & AUTO [id number] 13:29:00 Test Item Value Reference Range Interpretation Comments WHITE BLOOD CELL COUNT (BEAKER) 9.0 K/ L 3.5-10.5 (test code = 775) RED BLOOD CELL COUNT (BEAKER) 4.37 M/ L 4.63-6.08 L (test code = 761) HEMOGLOBIN (BEAKER) (test code = 12.6 GM/DL 13.7-17.5 L 410) HEMATOCRIT (BEAKER) (test code = 38.7 % 40.1-51.0 L 411) MEAN CORPUSCULAR VOLUME (BEAKER) 88.6 fL 79.0-92.2 (test code = 753) MEAN CORPUSCULAR HEMOGLOBIN 28.8 pg 25.7-32.2 (BEAKER) (test code = 751) MEAN CORPUSCULAR HEMOGLOBIN CONC 32.6 GM/DL 32.3-36.5 (BEAKER) (test code = 752) RED CELL DISTRIBUTION WIDTH 13.3 % 11.6-14.4 (BEAKER) (test code = 412) PLATELET COUNT (BEAKER) (test 221 K/CU MM 150-450 code = 756) MEAN PLATELET VOLUME (BEAKER) 11.3 fL 9.4-12.4 (test code = 754) NUCLEATED RED BLOOD CELLS 0 /100 WBC 0-0 (BEAKER) (test code = 413) NEUTROPHILS RELATIVE PERCENT 77 % (BEAKER) (test code = 429) LYMPHOCYTES RELATIVE PERCENT 11 % (BEAKER) (test code = 430) MONOCYTES RELATIVE PERCENT 10 % (BEAKER) (test code = 431) EOSINOPHILS RELATIVE PERCENT 1 % (BEAKER) (test code = 432) BASOPHILS RELATIVE PERCENT 0 % (BEAKER) (test code = 437) NEUTROPHILS ABSOLUTE COUNT 6.95 K/ L 1.78-5.38 H (BEAKER) (test code = 670) LYMPHOCYTES ABSOLUTE COUNT 0.94 K/ L 1.32-3.57 L (BEAKER) (test code = 414) MONOCYTES ABSOLUTE COUNT (BEAKER) 0.89 K/ L 0.30-0.82 H (test code = 415) EOSINOPHILS ABSOLUTE COUNT 0.08 K/ L 0.04-0.54 (BEAKER) (test code = 416) BASOPHILS ABSOLUTE COUNT (BEAKER) 0.03 K/ L 0.01-0.08 (test code = 417) IMMATURE GRANULOCYTES-RELATIVE 1 % 0-1 PERCENT (BEAKER) (test code = 2801) MR, ABDOMEN, [id number] 16:22:00Reffering; [facility] FINAL REPORT MRI of the abdomen dated December 07, 2019 COMPARISON: April 03, 2019 Comment: Multiplanar T1 and T2-weighted images of the abdomen, postcontrast axial and coronal T1-weighted images of the abdomen were obtained. Liver is normal in size. The margin of the liver is somewhat lobular in appearance. A 5.8 x 5.2 cm irregular lesion is seen in the segment 7 of the liver. Peripheral marginal enhancement is seen. There is minimal central, postcontrast enhancement. No other lesion is seen in the liver. Spleen is normal in size. The splenic, spleen mesenteric, portal, and hepatic veins are patent. Main portal vein measures approximately 1.2 cm. Gallbladder is not visualized. Nobiliary dilatation is present. Pancreas and adrenals are unremarkable. Both kidneys are normal in size and functioning. A 1.3 x 1.3 cm hemorrhagic cyst is seen in the midpole right kidney. Enlarged lymph nodes are seen in the right cardiophrenic sulcus the measuring up to 1.7 x 2.5 cm. Impression:1. Irregular central and peripheral marginal enhancement involving the segment 7 lesion suggestive of residual disease.2. Adenopathy in the right cardiophrenic sulcus.3. Hemorrhagic right renal cyst. Signed: Neelam Russell MDReport Verified Date/Time: 01/06/2020 16:22:30 Reading Location: [address] Radiology Reading Room -[id number] 10:50:00 Test Item Value Reference Range Interpretation Comments POC-CREATININE 0.5 mg/dL 0.6-1.3 L : TESTED AT [facility] ([facility]) (test [address] [facility] code = 1859) [place], [address]: Commercial Mortgage Broker/Techni daniel ID = [id number] for ANDRES QUINONES POC-EGFR ([facility]) 166 mL/min/1.73M2 (test code = 1860) ANG, VISCERAL [id number] 08:30:00Reffering; Dr. Carlton Puckett for Exam:->HCCFINAL REPORT Hepatic angiogram with administration of Y90 radioactive particles(Theraspheres) in conjunction with nuclear medicine service. History: 8 mL. Modality: Fluoroscopy Sedation: Versed 1.0 mg and fentanyl 50 mcg was given intravenously for conscious sedation. Vital signs were monitored throughout the procedure by a nurse, and remained stable. Physician intra-service time was 45 minutes. Anesthesia: Two percent Lidocaine without epinephrine. Approach: Right common femoral artery Estimated blood loss: < 5 cc. Specimen: None. shell molding roller blast operator: Umesh Spain MD. Naturalist: MD Idalia. Fluoroscopy Time: 3.3 min.Reference Air Kerma (Ka, r): 17.7 mGy. Technique: Informed written consent was obtained. Discussion of risks, benefits, and alternatives were made with the patient. The patient expressed understanding and agreed to proceed. A universal timeout was performed prior to starting the procedure. All elements maximal sterile barrier technique was utilized for this procedure, including utilization of sterile scrub solution for skin prep, a large sterile sheet to cover the areas of the patient that were not prepped, and hand hygiene, mask, head covering, and st erile gown for performing radiologist and scrub technologist. Ultrasound demonstrated a patent rightcommon femoral artery. The right common femoral artery was accessed with a micropuncture set under direct ultrasound guidance. An ultrasound image was saved into PACS. Access was scaled up in the standard fashion and a 5 Palauan vascular sheath was placed. A 5 Palauan Dickens B catheter was then used to select the celiac axis for digital subtraction angiography. The DSA demonstrated a hypervascular blushin the right hepatic lobe corresponding to the patient's known hepatocellular carcinoma. A renegade high flow microcatheter and fathom microwire were then advanced through the Dickens B catheter to select the right hepatic artery. The wire was removed and repeat DSA was performed which again demonstrated hypervascular blush in the right hepatic lobe corresponding to the targeted lesion. Y-90 radioactive embolization particles were then injected through the microcatheter in conjunction with nuclear medi cine service. The catheters were then removed. The right common femoral artery access was closed with an angiogram osteomyelitis. The patient tolerated the procedure well without evidence of immediate competition. Impression: Technically successful and uncomplicated right hepatic angiogram and injection of Y-90 Signed: Umesh Spain Verified Date/Time: 10/14/2019 08:30:23 Reading Location:[facility] Diagnostic Imaging [place] Room [place] [address] 1.310.12 TUMOR LOCALIZATION, [id number] 12:42:00Reffering; Dr. Carlton Velasquez Reason for Exam:->HCC, FATTY LIVERFINAL REPORT PROCEDURE: LIVER SPECT (Bremsstrahlung) CPT CODE: 28980 CLINICAL INDICATION: Hepatocellular carcinoma PROTOCOL: 37.6 mCi of Y-90 microspheres (TheraSphere) had been pre viously administered. SPECT imaging of the liver and upper abdomen using Bremsstrahlung radiation was performed without additional injection of radiopharmaceutical. FINDINGS: Tracer distribution is concentrated in the upper central right lobe of the liver corresponding to Segments 7/8. There is faint a ctivity elsewhere in the right lobe. No significant activity is noted outside of the liver. IMPRESSION: Appropriate tracer distribution following right hepatic artery injection. Signed: Barak Arevalo Verified Date/Time: 10/10/2019 12:42:29 RADIO'TX, INTRA-ARTERIAL PARTIC [id number] 12:40:00Reffering; Dr. Carlton Velasquez Reason for Exam:->HCC, FATTY LIVERFINAL REPORT PROCEDURE: Y-90 microsphere therapy (TheraSphere) CPT CODE: 14608 C LINICAL INDICATION: hepatocellular carcinoma PROTOCOL: 37.6 mCi of Y-90 labeled microspheres (TheraSphere) was administered by the nuclear medicine physician to the right lobe of the liver via a hepatic artery catheter placed by the interventional radiologist. IMPRESSION: Y-90 microsphere therapy Signed: Barak Arevalo Verified Date/Time: 10/10/2019 12:40:24 COMPREHENSIVE METABOLIC [id number] 07:58:00 Test Item Value Reference Range Interpretation Comments TOTAL PROTEIN 9.2 gm/dL 6.0-8.3 H (BEAKER) (test code = 770) ALBUMIN (BEAKER) 4.8 g/dL 3.5-5.0 (test code = 1145) ALKALINE PHOSPHATASE 64 U/L 40-150 (BEAKER) (test code = 346) BILIRUBIN TOTAL 0.7 mg/dL 0.2-1.2 (BEAKER) (test code = 377) SODIUM (BEAKER) (test 135 meq/L 136-145 L code = 381) POTASSIUM (BEAKER) 3.8 meq/L 3.5-5.1 (test code = 379) CHLORIDE (BEAKER) 100 meq/L 98-107 (test code = 382) CO2 (BEAKER) (test 24 meq/L 22-29 code = 355) BLOOD UREA NITROGEN 13 mg/dL 7-21 (BEAKER) (test code = 354) CREATININE (BEAKER) 1.02 mg/dL 0.57-1.25 (test code = 358) GLUCOSE RANDOM 256 mg/dL 70-105 H (BEAKER) (test code = 652) CALCIUM (BEAKER) 10.2 mg/dL 8.4-10.2 (test code = 697) AST (SGOT) (BEAKER) 17 U/L 5-34 (test code = 353) ALT (SGPT) (BEAKER) 15 U/L 6-55 (test code = 347) EGFR (BEAKER) (test 73 mL/min/1.73 ESTIMA DIANA GFR IS code = 1092) sq m NOT ACCURATE CREATININE CLEARANCE IN PREDICTING GLOMERULAR FILTRATION RATE . ESTIMATED GFR I S NOT APPLICABLE FOR DIALYSIS PATIEN TS. Commercial Mortgage Broker ID Marjorie FLETCHER FBILIRUBIN, [id number] 07:58:00 Test Item Value Reference Range Interpretation Comments BILIRUBIN DIRECT (BEAKER) (test 0.2 mg/dL 0.1-0.5 code = 706) Commercial Mortgage Broker ID Marjorie FLETCHER [id number] 07:39:00 Test Item Value Reference Range Interpretation Comments PARTIAL THROMBOPLASTIN TIME 28.7 seconds 22.5-36.0 (BEAKER) (test code = 760) PROTHROMBIN [id number] 07:38:00 Test Item Value Reference Range Interpretation Comments PROTIME (BEAKER) (test code = 12.9 seconds 11.9-14.2 759) INR (BEAKER) (test code = 370) 1.0 <=5.9 Effective 11/28/2018: PT Reference Range ChangeNew: 11.9-14.2 Previous: 11.7- 14.7RECOMMENDED COUMADIN/WARFARIN INR THERAPY RANGESSTANDARD DOSE: 2.0-3.0 Includes: PROPHYLAXIS for venous thrombosis, systemic embolization; TREATMENT for venous thrombosis and/or pulmonary embolus.HIGH RISK: Target INR is 2.5-3.5 for patients wiht mechanical heart valves.CBC W/PLT COUNT & AUTO [id number] 07:32:00 Test Item Value Reference Range Interpretation Comments WHITE BLOOD CELL COUNT (BEAKER) 10.3 K/ L 3.5-10.5 (test code = 775) RED BLOOD CELL COUNT (BEAKER) 5.52 M/ L 4.63-6.08 (test code = 761) HEMOGLOBIN (BEAKER) (test code = 16.7 GM/DL 13.7-17.5 410) HEMATOCRIT (BEAKER) (test code = 50.2 % 40.1-51.0 411) MEAN CORPUSCULAR VOLUME (BEAKER) 90.9 fL 79.0-92.2 (test code = 753) MEAN CORPUSCULAR HEMOGLOBIN 30.3 pg 25.7-32.2 (BEAKER) (test code = 751) MEAN CORPUSCULAR HEMOGLOBIN CONC 33.3 GM/DL 32.3-36.5 (BEAKER) (test code = 752) RED CELL DISTRIBUTION WIDTH 13.7 % 11.6-14.4 (BEAKER) (test code = 412) PLATELET COUNT (BEAKER) (test 156 K/CU MM 150-450 code = 756) MEAN PLATELET VOLUME (BEAKER) 11.3 fL 9.4-12.4 (test code = 754) NUCLEATED RED BLOOD CELLS 0 /100 WBC 0-0 (BEAKER) (test code = 413) NEUTROPHILS RELATIVE PERCENT 65 % (BEAKER) (test code = 429) LYMPHOCYTES RELATIVE PERCENT 23 % (BEAKER) (test code = 430) MONOCYTES RELATIVE PERCENT 8 % (BEAKER) (test code = 431) EOSINOPHILS RELATIVE PERCENT 3 % (BEAKER) (test code = 432) BASOPHILS RELATIVE PERCENT 1 % (BEAKER) (test code = 437) NEUTROPHILS ABSOLUTE COUNT 6.72 K/ L 1.78-5.38 H (BEAKER) (test code = 670) LYMPHOCYTES ABSOLUTE COUNT 2.35 K/ L 1.32-3.57 (BEAKER) (test code = 414) MONOCYTES ABSOLUTE COUNT (BEAKER) 0.85 K/ L 0.30-0.82 H (test code = 415) EOSINOPHILS ABSOLUTE COUNT 0.26 K/ L 0.04-0.54 (BEAKER) (test code = 416) BASOPHILS ABSOLUTE COUNT (BEAKER) 0.10 K/ L 0.01-0.08 H (test code = 417) IMMATURE GRANULOCYTES-RELATIVE 1 % 0-1 PERCENT (BEAKER) (test code = 2801) KAPIL QUEEN [id number] 17:11:00Reffering; Dr. Carlton Puckett for Exam:->HCC,cirrhosisFINAL REPORT Hepatic angiogram and administration of technetium 99 MAA for Y 90mapping History: HCC. Modality: Ultrasound and fluoroscopy Sedation: Versed 1.0 mg and fentanyl 50 mcg was given intravenously for conscious sedation. Vital signs were monitored throughout the procedure by a nurse, and remained stable. Physician intra-service time was 45 minutes. Anesthesia: Two percent Lidocaine without epinephrine. Approach: Right common femoral artery Estimated blood loss: < 5 cc. Specimen: None. shell molding roller blast operator: Umesh Spain MD. Naturalist: None. Fluoroscopy Time: 2.3 min .Reference Air Kerma (Ka, r): 579 mGy. Technique: Informed written consent was obtained. Discussion of risks, benefits, and alternatives were made with the patient. The patient expressed understanding and agreed to proceed. A universal timeout was performed prior to starting the procedure. All elements maximal sterile barrier technique was utilized for this procedure, including utilization of sterilescrub solution for skin prep, a large sterile sheet to cover the areas of the patient that were not prepped, and hand hygiene, mask, head covering, and sterile gown for performing radiologist and scrubtechnologist. Ultrasound of the patient's right inguinal region demonstrated a patent right common femoral artery. Under direct ultrasound guidance a 21-gauge micropuncture needle was used to access the right common femoral artery. An ultrasound image was saved into PACS. A microwire and 4 Palauan coaxial dilator was then placed. The access was scaled up the standard fashion and a 5 Palauan vascular sheath was placed. A 5 Palauan Dickens B catheter was used to select the SMA for digital subtraction angiography. There was no evidence of a replaced or accessory right hepatic artery. The 5 Palauan Dickens B catheter was then used to select the celiac axis and digital subtraction angiography was performed which revealed type I hepatic arterial anatomy. A hypervascular blush was noted in the right hepatic lobe and in the dome of the liver measuring approximately 9.3 cm in diameter corresponding to the patient's known liver tumor. A high flow microcatheter and fathom microwire were then advanced through the Dickens B catheter selectively right hepatic artery. The microcatheter was removed. Digital subtraction angiography was performed which confirmed that the hypervascular blush was supplied by the right hepatic artery. Technetium 99 MAA was administered in conjunction with nuclear medicine through the microcatheter. The catheter was then removed. A angiogram through the right femoral sheath was performed to assess the vessel for adequacy and placing a closure device. No contraindications were identified.A 5 Palauan minx device was deployed as the sheath was removed. Impression: Technically successful and uncomplicated hepatic arteriogram administration of technetium 99 MAA to the right hepatic artery.Signed: Umesh Spaineport Verified Date/Time: 09/24/2019 17:11:28 Reading Location: [place] [id number] Angio Body Reading Room TUMOR LOCAL, PRE-MICROSPHERE [place] 2019-09-20 16:12:00Reffering; Dr. Carlton Velasquez Reason for Exam:->HCC,cirrhosisFINAL REPORT PROCEDURE: TRACER DISTRIBUTION STUDY, WHOLE BODY with SPECT CPT CODE: 68530, 74235 CLINICAL INDICATION: HCC, cirrhosis PROTOCOL: A total of 2.6 mCi of Tc-99m MAA was in jected by the nuclear medicine physician via an arterial catheter placed by the interventional radiologist in right hepatic artery. Planar whole body and spot images of the chest and upper abdomen, as well as tomographic images of the liver and upper abdomen with limited CT correlation were obtained. H epatopulmonary shunting was calculated by the geometric mean method. FINDINGS: There is increased tracer distribution in the VIII hepatic segment and mild diffuse activity in the remainder of the rightlobe of the liver. There is mild tracer accumulation in the salivary glands, thyroid, stomach, and the kidneys/urinary system, consistent with expected free pertechnetate activity. Otherwise, there is no tracer distribution outside of the liver in the abdomen. Quantitative analysis indicates 4.91% shunting of tracer to the lungs. IMPRESSION: 1. Tracer uptake in the liver is consistent with hepatic parenchymal disease and/or focal space occupying disease. 2. There is no abnormal extrahepatic activity. The patient is an acceptable candidate for injection of therapeutic microspheres by this criterion. 3. Shunting to the lungs is in an acceptable range for therapy. Signed: Maninder Vincenteport Verified Date/Time: 09/20/2019 16:12:04 PT/[id number] 09:59:00 Test Item Value Reference Range Interpretation Comments PROTIME (BEAKER) (test code = 13.9 seconds 11.9-14.2 759) INR (BEAKER) (test code = 370) 1.1 <=5.9 PARTIAL THROMBOPLASTIN TIME 29.2 seconds 22.5-36.0 (BEAKER) (test code = 760) Effective 11/28/2018: PT Reference Range ChangeNew: 11.9-14.2 Previous: 11.7- 14.7RECOMMENDED COUMADIN/WARFARIN INR THERAPY RANGESSTANDARD DOSE: 2.0-3.0 Includes: PROPHYLAXIS for venous thrombosis, systemic embolization; TREATMENT for venous thrombosis and/or pulmonary embolus.HIGH RISK: Target INR is 2.5-3.5 for patients wiht mechanical heart valves.COMPREHENSIVE METABOLIC PANEL 2019-09-20 09:54:00 Test Item Value Reference Range Interpretation Comments TOTAL PROTEIN 7.3 gm/dL 6.0-8.3 (BEAKER) (test code = 770) ALBUMIN (BEAKER) 3.9 g/dL 3.5-5.0 (test code = 1145) ALKALINE PHOSPHATASE 51 U/L 40-150 (BEAKER) (test code = 346) BILIRUBIN TOTAL 0.6 mg/dL 0.2-1.2 (BEAKER) (test code = 377) SODIUM (BEAKER) (test 135 meq/L 136-145 L code = 381) POTASSIUM (BEAKER) 3.9 meq/L 3.5-5.1 (test code = 379) CHLORIDE (BEAKER) 103 meq/L 98-107 (test code = 382) CO2 (BEAKER) (test 25 meq/L 22-29 code = 355) BLOOD UREA NITROGEN 8 mg/dL 7-21 (BEAKER) (test code = 354) CREATININE (BEAKER) 0.76 mg/dL 0.57-1.25 (test code = 358) GLUCOSE RANDOM 204 mg/dL 70-105 H (BEAKER) (test code = 652) CALCIUM (BEAKER) 9.2 mg/dL 8.4-10.2 (test code = 697) AST (SGOT) (BEAKER) 13 U/L 5-34 (test code = 353) ALT (SGPT) (BEAKER) 12 U/L 6-55 (test code = 347) EGFR (BEAKER) (test 103 ESTIMATE D GFR IS code = 1092) mL/min/1.73 sq NOT ACCURA TE m CREATININE CLEARANCE IN PREDICTING GLOMERULAR FILTRATION RATE . ESTIMATED GFR I S NOT APPLICABLE FOR DIALYSIS PATIEN TS. Commercial Mortgage Broker ID - NTPCBC W/PLT COUNT & AUTO [id number] 09:40:00 Test Item Value Reference Range Interpretation Comments WHITE BLOOD CELL COUNT (BEAKER) 7.1 K/ L 3.5-10.5 (test code = 775) RED BLOOD CELL COUNT (BEAKER) 4.60 M/ L 4.63-6.08 L (test code = 761) HEMOGLOBIN (BEAKER) (test code = 13.3 GM/DL 13.7-17.5 L 410) HEMATOCRIT (BEAKER) (test code = 40.3 % 40.1-51.0 411) MEAN CORPUSCULAR VOLUME (BEAKER) 87.6 fL 79.0-92.2 (test code = 753) MEAN CORPUSCULAR HEMOGLOBIN 28.9 pg 25.7-32.2 (BEAKER) (test code = 751) MEAN CORPUSCULAR HEMOGLOBIN CONC 33.0 GM/DL 32.3-36.5 (BEAKER) (test code = 752) RED CELL DISTRIBUTION WIDTH 13.8 % 11.6-14.4 (BEAKER) (test code = 412) PLATELET COUNT (BEAKER) (test 118 K/CU MM 150-450 L code = 756) MEAN PLATELET VOLUME (BEAKER) 11.4 fL 9.4-12.4 (test code = 754) NUCLEATED RED BLOOD CELLS 0 /100 WBC 0-0 (BEAKER) (test code = 413) NEUTROPHILS RELATIVE PERCENT 58 % (BEAKER) (test code = 429) LYMPHOCYTES RELATIVE PERCENT 26 % (BEAKER) (test code = 430) MONOCYTES RELATIVE PERCENT 11 % (BEAKER) (test code = 431) EOSINOPHILS RELATIVE PERCENT 4 % (BEAKER) (test code = 432) BASOPHILS RELATIVE PERCENT 1 % (BEAKER) (test code = 437) NEUTROPHILS ABSOLUTE COUNT 4.12 K/ L 1.78-5.38 (BEAKER) (test code = 670) LYMPHOCYTES ABSOLUTE COUNT 1.81 K/ L 1.32-3.57 (BEAKER) (test code = 414) MONOCYTES ABSOLUTE COUNT (BEAKER) 0.81 K/ L 0.30-0.82 (test code = 415) EOSINOPHILS ABSOLUTE COUNT 0.26 K/ L 0.04-0.54 (BEAKER) (test code = 416) BASOPHILS ABSOLUTE COUNT (BEAKER) 0.05 K/ L 0.01-0.08 (test code = 417) IMMATURE GRANULOCYTES-RELATIVE 1 % 0-1 PERCENT (BEAKER) (test code = 2801) POCT HEMOGLOBIN [id number] 18:55:00 Test Item Value Reference Range Interpretation Comments HEMOGLOBIN A1C (test code = 4548-4) 8.4 % 4-5.6 A Lab Interpretation (test code = Abnormal 31174-1) [facility] [id number] 14:28:00 Test Item Value Reference Range Interpretation Comments TOTAL PROTEIN 7.6 gm/dL 6.0-8.3 (BEAKER) (test code = 770) ALBUMIN (BEAKER) 4.0 g/dL 3.5-5.0 (test code = 1145) ALKALINE PHOSPHATASE 55 U/L 40-150 (BEAKER) (test code = 346) BILIRUBIN TOTAL 0.5 mg/dL 0.2-1.2 (BEAKER) (test code = 377) SODIUM (BEAKER) (test 135 meq/L 136-145 L code = 381) POTASSIUM (BEAKER) 3.9 meq/L 3.5-5.1 (test code = 379) CHLORIDE (BEAKER) 102 meq/L 98-107 (test code = 382) CO2 (BEAKER) (test 25 meq/L 22-29 code = 355) BLOOD UREA NITROGEN 12 mg/dL 7-21 (BEAKER) (test code = 354) CREATININE (BEAKER) 0.87 mg/dL 0.57-1.25 (test code = 358) GLUCOSE RANDOM 338 mg/dL 70-105 H (BEAKER) (test code = 652) CALCIUM (BEAKER) 9.5 mg/dL 8.4-10.2 (test code = 697) AST (SGOT) (BEAKER) 13 U/L 5-34 (test code = 353) ALT (SGPT) (BEAKER) 12 U/L 6-55 (test code = 347) EGFR (BEAKER) (test 88 mL/min/1.73 ESTIMA DIANA GFR IS code = 1092) sq m NOT ACCURATE CREATININE CLEARANCE IN PREDICTING GLOMERULAR FILTRATION RATE . ESTIMATED GFR I S NOT APPLICABLE FOR DIALYSIS PATIEN TS. Commercial Mortgage Broker ID - [place] FBILIRUBIN, [id number] 14:28:00 Test Item Value Reference Range Interpretation Comments BILIRUBIN DIRECT (BEAKER) (test 0.2 mg/dL 0.1-0.5 code = 706) Commercial Mortgage Broker ID - [place] [id number] 14:23:00 Test Item Value Reference Range Interpretation Comments PARTIAL THROMBOPLASTIN TIME 28.1 seconds 22.5-36.0 (BEAKER) (test code = 760) PROTHROMBIN TIME/[id number] 14:22:00 Test Item Value Reference Range Interpretation Comments PROTIME (BEAKER) (test code = 13.3 seconds 11.9-14.2 759) INR (BEAKER) (test code = 370) 1.0 <=5.9 Effective 11/28/2018: PT Reference Range ChangeNew: 11.9-14.2 Previous: 11.7- 14.7RECOMMENDED COUMADIN/WARFARIN INR THERAPY RANGESSTANDARD DOSE: 2.0-3.0 Includes: PROPHYLAXIS for venous thrombosis, systemic embolization; TREATMENT for venous thrombosis and/or pulmonary embolus.HIGH RISK: Target INR is 2.5-3.5 for patients wiht mechanical heart valves.CBC W/PLT COUNT & AUTO [id number] 14:11:00 Test Item Value Reference Range Interpretation Comments WHITE BLOOD CELL COUNT (BEAKER) 7.2 K/ L 3.5-10.5 (test code = 775) RED BLOOD CELL COUNT (BEAKER) 4.90 M/ L 4.63-6.08 (test code = 761) HEMOGLOBIN (BEAKER) (test code = 14.5 GM/DL 13.7-17.5 410) HEMATOCRIT (BEAKER) (test code = 43.0 % 40.1-51.0 411) MEAN CORPUSCULAR VOLUME (BEAKER) 87.8 fL 79.0-92.2 (test code = 753) MEAN CORPUSCULAR HEMOGLOBIN 29.6 pg 25.7-32.2 (BEAKER) (test code = 751) MEAN CORPUSCULAR HEMOGLOBIN CONC 33.7 GM/DL 32.3-36.5 (BEAKER) (test code = 752) RED CELL DISTRIBUTION WIDTH 13.7 % 11.6-14.4 (BEAKER) (test code = 412) PLATELET COUNT (BEAKER) (test 134 K/CU MM 150-450 L code = 756) MEAN PLATELET VOLUME (BEAKER) 11.0 fL 9.4-12.4 (test code = 754) NUCLEATED RED BLOOD CELLS 0 /100 WBC 0-0 (BEAKER) (test code = 413) NEUTROPHILS RELATIVE PERCENT 55 % (BEAKER) (test code = 429) LYMPHOCYTES RELATIVE PERCENT 31 % (BEAKER) (test code = 430) MONOCYTES RELATIVE PERCENT 10 % (BEAKER) (test code = 431) EOSINOPHILS RELATIVE PERCENT 3 % (BEAKER) (test code = 432) BASOPHILS RELATIVE PERCENT 1 % (BEAKER) (test code = 437) NEUTROPHILS ABSOLUTE COUNT 3.90 K/ L 1.78-5.38 (BEAKER) (test code = 670) LYMPHOCYTES ABSOLUTE COUNT 2.23 K/ L 1.32-3.57 (BEAKER) (test code = 414) MONOCYTES ABSOLUTE COUNT (BEAKER) 0.72 K/ L 0.30-0.82 (test code = 415) EOSINOPHILS ABSOLUTE COUNT 0.20 K/ L 0.04-0.54 (BEAKER) (test code = 416) BASOPHILS ABSOLUTE COUNT (BEAKER) 0.05 K/ L 0.01-0.08 (test code = 417) IMMATURE GRANULOCYTES-RELATIVE 1 % 0-1 PERCENT (BEAKER) (test code = 2801) BONE AND/OR JOINT IMAGING, WHOLE [id number] 15:39:00Reffering; Dr. Carlton Puckett for Exam:->[id number] BeginsREPORT STATUS:A PROCEDURE: BONE SCAN, WHOLE BODY CPT CODE: 00305PHOCKHRMEE: Hepatocellular carcinoma PROTOCOL: 20.0 mCi of Tc-99m MDP was injected intravenously. Whole body and selected spot images were obtained approximately 3 hours later. FINDINGS: Tracer activity is irregularly, moderately increased in the hips, knees, feet, ankles, and sternoclavicular and acromioclavicular joints. There is mild focal increase in the left side of L4/5. Distribution in the spine is otherwise mildly irregular. There is mild focal increase in the posterior aspect of the right eighth rib. IMPRESSION: 1. No evidence of osseous metastases.2. Degenerative disease in the spine andperipheral joints.3. Right rib lesion suggests remote trauma. Images for comparison/correlation wererecent chest CT. Note: This is an amended report only to include information for indication. No change has been made in the Findings or Impression. Signed: Barak Arevalo Verified Date/Time: 08/05/2019 15:39:45 Reading Location: [address] [facility] Reading RoomAddendum EndsFINAL REPORT PROCEDURE: BONE SCAN, WHOLE BODY CPT CODE: 47943 INDICATION: PROTOCOL: 20.0 mCi of Tc-99m MDP was injected intravenously. Whole body and selected spot images were obtained approximately 3 hours later. FINDINGS: Tracer activity is irregularly, moderately increased in the hips, knees, feet, ankles, and sternoclavicular and acromioclavicular joints. There is mild focal increase in the left side of L4/5. Distribution in the spine is otherwise mildly irregular. There is mild focal increase in the posterior aspect of the right eighth rib. IMPRESSION: 1. No evidence of osseous metastases.2. Degenerative disease in the spine and peripheral joints.3. Right rib lesion suggests remote trauma. Images for comparison/correlation were recent chest CT. Signed: Barak Arevalo MDRkatelynort Verified Date/Time: 07/24/2019 17:04:06 Reading Location: [address] [facility] Reading Room CT, CHEST, WITHOUT IV [id number] 16:42:00Reffering; Dr. Carlton Llamas REPORT CT of the chest, without contrast Clinical History: HEPATOCELLULARCARCINOMA Technique: CT of the chest is performed without intravenous contrast administration. This exam was performed according to our departmental dose optimization program which includes automated exposure control, adjustment of the mA and/or kV according to patient's size and/or use of iterative reconstructive technique. Comparison Film: None Discussion: Visualized thyroid gland is normal. There is no supraclavicular, axillary, or hilar lymphadenopathy. There are several enlarged right diaphragma tic and pericardial lymph nodes, measuring up to 1.6 cm in short axis. Heart and pericardium are unremarkable. A triangular opacity along the minor fissure most likely represents an intrapulmonary lymph node. There is no mass or consolidation, no pleural effusion. Central airways are patent, no significant bronchiectasis, or bronchial wall thickening. A large hypodensity is seen in the right hepatic lobe, likely reflecting known HCC. There is cholelithiasis. Osseous structures demonstrate degenerative changes. No suspicious bony lesion is identified. Impression: No pulmonary metastasis is identified. Enlarged right diaphragm and pericardial lymph nodes, suspicious for barbara metastasis. Signed: Michael Leeport Verified Date/Time: 07/17/2019 16:42:22 Reading Location: [facility] C013X Ortho Consult Reading Room FINE NEEDLE ASPIRATION BY [id number] 14:57:00Medical Cytology Report Case: [id number] Authorizing Provider: Kailyn Howe MD Collected: 06/10/2019 1500 Ordering Location: [facility] Endoscopy Received: 06/11/2019 0801 Services Pathologist:Yuli Briones MD Specimen: Lymph Node, Gastro Hepatic lymph node for routine cyto in CRR GASTRO HEPATIC LYMPH NODE FNA BY CLINICIAN (CYTOSPINS AND CELL BLOCK OF ASPIRATE): - SATISFACTORY FOR EVALUATION - NEGATIVE FOR METASTATIC MALIGNANT CELLS - EVIDENCE OF LYMPH NODE SAMPLING (POLYMORPHOUS LYMPHOID TISSUE PRESENT) Signing Pathologist Direct Phone Line: [phone] signed by Yuli Briones MD on 06/13/2019 at 2:57 PMPlease see the concurrent surgical case ([id number]) for further evaluation. 60002, 96645(2.4 X 1.4 cm) oval enlarged lymph node in the gastrohepatic ligamentGASTRO HEPATIC LYMPH NODE FNA20 mls in cytorich red; 4 cytospins and cell block Collected: [id number]: [id number] interpretation of this case included the use of immunohistochemistry or special stains.Control Slides Examined: In-house known positive controls were evaluated along with the test tissue. These control slides run alongside of the patients sample show appropriate staining. Internal positive and negativecontrols when available are evaluated Immunohistochemistry technical testing was performed at [facility], Pathology Laboratory where it was developed and its performance characteristics were determined. It has not been cleared or approved by the U.S. Food and Drug Administration.The FDA has determined that such clearance or approval is not necessary. The test is used for clinical purposes. It should not be regarded as investigational or for research. This laboratory is certified under the Clinical Laboratory Improvement Amendments of 1988 (CLIA-88) as qualified to perform high complexity clinical laboratory testing.[facility], Department of Pathology, [address] [place] [address], [facility]dvplv[facility], [facility] of [facility], [address] [place] [address], BpjautLoma Linda [facility], Department of Pathology, [address] [place] [address], ETJLTI [id number] 13:34:00Surgical Pathology Report Case: [id number] Authorizing Provider: Kailyn Howe MD Collected: 1459 Ordering Location: [facility] Endoscopy Received: 06/11/2019 0751 Services Pathologist: Lorena Mg MD Specimen: Biopsy, Gastric, Gastrohepatic lymphnode A. LYMPH NODE, GASTROHEPATIC, BIOPSY: - REACTIVE LYMPH NODE, NEGATIVE FOR MALIGNANCY. - SEE COMMENT. Signing Pathologist Direct PhoneLine: [phone] signed by Lorena Mg MD on 06/13/2019 at 1:34 PMThe interpretationof this case included the use of the following immunohistochemical stains on block A1.AE1/AE3: negativeHepatocyte: negative.Arginase-1 : [id number], 73316, 31316 x 2H/O HCCA. Gastrohepatic lymph nodeSpecimen is received in a formalin-filled container and labeled with the patient's name, date of , and medical record number and is labeled "gastrohepatic lymph node" but is also labeled "gastric biopsy". The specimen is received in formalin and consists of multiple portions of brown-white tissue 1.1 x 0.4 x 0.3 cm in aggregate submitted in toto in one cassette. CB/bc Performed.The interpretation of this case included the use of immunohistochemistry or special stains.Control Slides Examined: In-house known positive controls were evaluated along with the test tissue. These control slides run alongside of the patients sample show appropriate staining. Internal positive and negative controls when available are evaluated Immunohistochemistry technical testing was performed at [facility], Pathology Laboratory where it was developed and its performance characteristics were determined. It has not been cleared or approved by the U.S. Food and Drug Administration. The FDA has determined that such clearance or approval is not necessary. The test is used for clinical purposes. Itshould not be regarded as investigational or for research. This laboratory is certified under the Clinical Laboratory Improvement Amendments of 1988 (CLIA-88) as qualified to perform high complexity clinical laboratory testing.[facility], Department of Pathology, [address] [place] [address], YwggrsL[facility], [facility] of Path[facility], [address] [place] [address], VuuhtuLoma [facility], Department ofPathology, [address] [place] [address], RAYL CYTOMETRY [id number] 14:01:00 Test Item Value Reference Range Interpretation Comments FLOW CYTOMETRY RESULT See Separate Report POINTER (BEFELTON) (test code = 2758) FLOW CYTOMETRY AP CASE # [id number] (BEAKER) (test code = 2759) FLOW [id number] 17:23:00Flow Cytometry Report Case: [id number] Authorizing Provider: Kailyn Howe MD Collected: 06/10/2019 2267 Ordering Location: [facility] Endoscopy Received: 06/10/2019 1656 Services Pathologist: Yovanny Lim MD Specimen: Other LYMPH NODE, GASTRO-HEPATIC, FINE NEEDLE ASPIRATION, FLOW CYTOMETRY:-NO ABERRANT T LYMPHOCYTE POPULATION-NO MONOTYPIC B LYMPHOCYTE POPULATION [id number] year old man with enlarged lymph node.LYMPH NODE, GASTRO-HEPATIC, FINE NEEDLE ASPIRATIONCD8, surface-kappa, CD56, surface-lambda, CD5, CD19, CD10, CD3, CD20, CD4, BY07Rycglort Viability: 93.7% Number of Events Acquired: [id number] The following populations are identified: Lymphocytes: Bright CD45+ lymphocytes comprise 78.4% of total cells. T cells show a CD4:MY3ushks of 4.0 and normal expression of the daley T cell antigens CD3 and CD5. B cells are polytypic with a kappa:lambda ratio of 1.2. Myeloid/monocytic populations: As identified by CD45 and light scattercharacteristics, granulocytes comprise 18.7% of total cells, and monocytes comprise 2.0% of total cells. The remaining events analyzed represent nonviable cells, non-hematolymphoid cells, and debris.These tests were developed and their performance characteristics determined by [facility] They have not been cleared or approved by the U.S. Food and Drug Administration. The FDA hasdetermined that such clearance or approval is not necessary. It should not be regarded as investigational or for research. This laboratory is certified under the Clinical Laboratory Improvement Amendments of 1988 ("CLIA") as qualified to perform high-complexity clinical testing.FINE NEEDLE ASPIRATE (FNA) [id number] 10:00:00 Test Item Value Reference Range Interpretation Comments CYTOLOGY RESULT POINTER See Separate Report (INGRID) (test code = 2629) POCT-GLUCOSE [id number] 13:58:00 Test Item Value Reference Range Interpretation Comments POC-GLUCOSE METER 172 mg/dL 70-110 H : TESTED A T [facility] 6720 (INGRID) (test code = [place], 1538) [address]: Commercial Mortgage Broker/Techni daniel ID = [id number] for Erika Valencia TISSUE [id number] 17:22:00Surgical Pathology Report Case: [id number] Authorizing Provider: Felisha Malik MD Collected:05/08/2019 0903 Ordering Location: [facility] Radiology Angio Received: 05/08/2019 1207 Pathologist: Figueroa López MD Specimen: Liver The addendum is being issued to report the results of immunostain for glypican 3 performed at the request of oncologist, Dr. Munoz. The diagnosis is unchanged.RESULTSImmunostain for glypican 3 is negative (appropriate controls present).51240Xoehgnmcfvxbgcdpsncv technical testing was performed at [facility], Pathology Laboratory where it was developed and its performance characteristics were determined. It has not been cleared or approved bythe U.S. Food and Drug Administration. The FDA has determined that such clearance or approval is not necessary. Thetest is used for clinical purposes. It should not be regarded as investigational or for research. This laboratory is certifiedunder the Clinical Laboratory Improvement Amendments of 1988 (CLIA-88) as qualified to perform high complexityclinical laboratory testingAddendum electronically signed by Figueroa López MD on 05/31/2019 at 5:22 PMLIVER, NEEDLE BIOPSIES OF MASS- HEPATOCELLULAR CARCINOMA, MODERATELY DIFFERENTIATED- see comment Signing Pathologist Direct Phone Line: [phone] signed by Figueroa López MD on 05/14/2019 at 10:54 AMCK 19 immunohistochemical expression in HCC is associated with a poor prognosis ( see ref.). Reference:Rhina T et al. Cytokeratin 19 expression in hepatocellular carcinoma predicts early postoperative recurrence. Cancer Sci. 2003 Apr;94(10):851-857.53213, 57962, 12851 x4, 83952 r8Vxeyp massLiver massThis case has one part. Received in formalin labeled with the patient's name, accession number and "liver" are three yellow-brown thread-likesoft tissue cores measuring up to 1.5 cm in greatest length which are filtered and submitted in totoin A1. PA/bc Sections show tumor tissue composed of atypical hepatocytes disposed in thickened trabeculae in a desmoplastic stroma.Immunostains were performed with appropriate controls. The tumor is positive for p-CEA (canalicular pattern), focally positive for arginase and Hepar. Immunostains for CK7and CK19 are diffusely positive. Mucin stain is negative. A small amount of background liver is sampled and shows features of mass effect. Trichrome stain shows portal and periportal fibrosis and mild perisinusoidal fibrosis. No steatosis is seen. No hyaline globules are seen on PAS stain. The interpretation of this case included the use of immunohistochemistry or special stains.Control Slides Examined: In-house known positive controls were evaluated along with the test tissue. These control slides run alongside of the patients sample show appropriate staining. Internal positive and negative controls when available are evaluated Immunohistochemistry technical testing was performed at [facility], Pathology Laboratory where it was developed and its performance characteristics were determined. It has not been cleared or approved by the U.S. Food and Drug Administration. The FDA has determined that such clearance or approval is not necessary. The test is used for clinical purposes. It should not be regarded as investigational or for research. This laboratory is certified under the Clinical Laboratory Improvement Amendments of 1988 (CLIA-88) as qualified to perform high complexity clinical laboratory testing.U/S, BIOPSY, [id number] 10:51:00Reffering; Dr. Carlton Roblesed biopsy of liver massReason for Exam:->liver massFINAL REPORT US Guided core biopsy liver. History: A mass in the segment 8/7 ofthe liver. Dragline Engineer: Sonu Romeo MD. Naturalist: None. Modality: Ultrasound Sedation: Versed one mg and fentanyl 50 mcg was given intravenously for conscious sedation. Vital signs were monitored throughout the procedure by a dedicated RN under direct supervision of Dr. Romeo, and remainedstable. Physician intra- service sedation time was 12 minutes. Estimated blood loss: < 5 cc. Techni que: Informed written consent was obtained. Discussion of risks, benefits, and alternatives were made with the patient. The patient expressed understanding and agreed to proceed. A universal timeout was performed prior to starting the procedure. Standard sterile precautions were utilized. A preliminary ultrasonography was performed to assess the target and determine a safe access site. It showed target mass. Pertinent ultrasound images were secured to the PACS for documentation. A right upper quadrant access site was selected and sterilely prepped and draped. Local anesthesia with 1% lidocaine was a dministered. A dermatotomy was performed. Using aseptic precautions, under real- time ultrasonographic guidance, the target lesion was accessed with a 17-gauge guide. Using an 18-gauge, multiple cores of the targeted tissue were performed. The specimen was submitted in formalin for further processing. At the end of the procedure, an aseptic dressing applied. The patient tolerated the procedure well. After recovery, the patient was discharged from the department in stable condition. Complications: None immediate. Specimen: Four cores Impression: Successful ultrasound-guided core biopsy of liver massas described above. Thank you for the opportunity to assist in the care of your patient. Signed: Sonu Romeo Verified Date/Time: 05/08/2019 10:51:13 Reading Location: [place] [address] Angio BodyReading Room CBC W/PLT COUNT & AUTO [id number] 07:29:00 Test Item Value Reference Range Interpretation Comments WHITE BLOOD CELL COUNT (BEAKER) 7.3 K/ L 3.5-10.5 (test code = 775) RED BLOOD CELL COUNT (BEAKER) 4.68 M/ L 4.63-6.08 (test code = 761) HEMOGLOBIN (BEAKER) (test code = 14.0 GM/DL 13.7-17.5 410) HEMATOCRIT (BEAKER) (test code = 41.6 % 40.1-51.0 411) MEAN CORPUSCULAR VOLUME (BEAKER) 88.9 fL 79.0-92.2 (test code = 753) MEAN CORPUSCULAR HEMOGLOBIN 29.9 pg 25.7-32.2 (BEAKER) (test code = 751) MEAN CORPUSCULAR HEMOGLOBIN CONC 33.7 GM/DL 32.3-36.5 (BEAKER) (test code = 752) RED CELL DISTRIBUTION WIDTH 13.8 % 11.6-14.4 (BEAKER) (test code = 412) PLATELET COUNT (BEAKER) (test 139 K/CU MM 150-450 L code = 756) MEAN PLATELET VOLUME (BEAKER) 11.1 fL 9.4-12.4 (test code = 754) NUCLEATED RED BLOOD CELLS 0 /100 WBC 0-0 (BEAKER) (test code = 413) NEUTROPHILS RELATIVE PERCENT 56 % (BEAKER) (test code = 429) LYMPHOCYTES RELATIVE PERCENT 29 % (BEAKER) (test code = 430) MONOCYTES RELATIVE PERCENT 11 % (BEAKER) (test code = 431) EOSINOPHILS RELATIVE PERCENT 3 % (BEAKER) (test code = 432) BASOPHILS RELATIVE PERCENT 1 % (BEAKER) (test code = 437) NEUTROPHILS ABSOLUTE COUNT 4.07 K/ L 1.78-5.38 (BEAKER) (test code = 670) LYMPHOCYTES ABSOLUTE COUNT 2.12 K/ L 1.32-3.57 (BEAKER) (test code = 414) MONOCYTES ABSOLUTE COUNT (BEAKER) 0.81 K/ L 0.30-0.82 (test code = 415) EOSINOPHILS ABSOLUTE COUNT 0.19 K/ L 0.04-0.54 (BEAKER) (test code = 416) BASOPHILS ABSOLUTE COUNT (BEAKER) 0.05 K/ L 0.01-0.08 (test code = 417) IMMATURE GRANULOCYTES-RELATIVE 1 % 0-1 PERCENT (BEAKER) (test code = 2801) [id number] 07:28:00 Test Item Value Reference Range Interpretation Comments PARTIAL THROMBOPLASTIN TIME 29.1 seconds 22.5-36.0 (BEAKER) (test code = 760) PROTHROMBIN [id number] 07:27:00 Test Item Value Reference Range Interpretation Comments PROTIME (BEAKER) (test code = 13.3 seconds 11.9-14.2 759) INR (BEAKER) (test code = 370) 1.1 <=5.9 Effective 11/28/2018: PT Reference Range ChangeNew: 11.9-14.2 Previous: 11.7- 14.7RECOMMENDED COUMADIN/WARFARIN INR THERAPY RANGESSTANDARD DOSE: 2.0-3.0 Includes: PROPHYLAXIS for venous thrombosis, systemic embolization; TREATMENT for venous thrombosis and/or pulmonary embolus.HIGH RISK: Target INR is 2.5-3.5 for patients wiht mechanical heart valves.ANTI-NUCLEAR ANTIBODY (MARICEL)2019-04-19 09:20:00 Test Item Value Reference Range Interpretation Comments ANTI-NUCLEAR ANTIBODY (MARICEL) (BEAKER) Negative Negative (test code = 418) Test performed by IFA method.Test performed by IFA method.CARCINOEMBRYONIC ANTIGEN (CEA)2019-04-18 20:08:00 Test Item Value Reference Range Interpretation Comments CARCINOEMBRYONIC ANTIGEN (BEAKER) 1.4 ng/mL 0.0-5.0 (test code = 685) ALPHA FETOPROTEIN (AFP), TUMOR [id number] 20:08:00 Test Item Value Reference Range Interpretation Comments ALPHA-FETOPROTEIN (BEAKER) (test 3.6 ng/mL <10.0 code = 1094) HEPATITIS B CORE ANTIBODY, [id number] 20:08:00 Test Item Value Reference Range Interpretation Comments HEPATITIS B CORE TOTAL ANTIBODY Nonreactive Nonreactive (BEAKER) (test code = 497) HEPATITIS A ANTIBODY, [id number] 20:08:00 Test Item Value Reference Range Interpretation Comments HEPATITIS A IGG ANTIBODY (BEAKER) Nonreactive Nonreactive (test code = 2797) HEPATITIS B SURFACE [id number] 18:48:00 Test Item Value Reference Range Interpretation Comments HEPATITIS B SURFACE ANTIGEN (2) Nonreactive Nonreactive (BEAKER) (test code = 2585) [id number] 18:22:00 Test Item Value Reference Range Interpretation Comments ALPHA-1 ANTITRYPSIN (BEAKER) 130.20 mg/dL 90.00-200.00 (test code = 502) [id number] 16:11:00 Test Item Value Reference Range Interpretation Comments FERRITIN (BEAKER) (test code = 361) 57 ng/mL 5-275 COMPREHENSIVE METABOLIC [id number] 15:52:00 Test Item Value Reference Range Interpretation Comments TOTAL PROTEIN 8.5 gm/dL 6.0-8.3 H (BEAKER) (test code = 770) ALBUMIN (BEAKER) 4.5 g/dL 3.5-5.0 (test code = 1145) ALKALINE PHOSPHATASE 59 U/L 40-150 (BEAKER) (test code = 346) BILIRUBIN TOTAL 0.6 mg/dL 0.2-1.2 (BEAKER) (test code = 377) SODIUM (BEAKER) (test 138 meq/L 136-145 code = 381) POTASSIUM (BEAKER) 3.9 meq/L 3.5-5.1 (test code = 379) CHLORIDE (BEAKER) 103 meq/L 98-107 (test code = 382) CO2 (BEAKER) (test 29 meq/L 22-29 code = 355) BLOOD UREA NITROGEN 15 mg/dL 7-21 (BEAKER) (test code = 354) CREATININE (BEAKER) 0.83 mg/dL 0.57-1.25 (test code = 358) GLUCOSE RANDOM 169 mg/dL 70-105 H (BEAKER) (test code = 652) CALCIUM (BEAKER) 10.7 mg/dL 8.4-10.2 H (test code = 697) AST (SGOT) (BEAKER) 17 U/L 5-34 (test code = 353) ALT (SGPT) (BEAKER) 16 U/L 6-55 (test code = 347) EGFR (BEAKER) (test 93 mL/min/1.73 ESTIMA DIANA GFR IS code = 1092) sq m NOT ACCURATE CREATININE CLEARANCE IN PREDICTING GLOMERULAR FILTRATION RATE . ESTIMATED GFR I S NOT APPLICABLE FOR DIALYSIS PATIEN TS. BILIRUBIN, [id number] 15:52:00 Test Item Value Reference Range Interpretation Comments BILIRUBIN DIRECT (BEAKER) (test 0.2 mg/dL 0.1-0.5 code = 706) IRON, TIBC, % SAT. (WITHOUT FERRITIN)[id number] 15:52:00 Test Item Value Reference Range Interpretation Comments IRON (BEAKER) (test code = 547) 76.0 ug/dL 40.0-160.0 TOTAL IRON BINDING CAPACITY 383 ug/dL 250-450 (BEAKER) (test code = 769) IRON % SATURATION (2) (BEAKER) 20 % 20-55 (test code = 2590) PROTHROMBIN [id number] 15:39:00 Test Item Value Reference Range Interpretation Comments PROTIME (BEAKER) (test code = 13.2 seconds 11.9-14.2 759) INR (BEAKER) (test code = 370) 1.1 <=5.9 Effective 11/28/2018: PT Reference Range ChangeNew: 11.9-14.2 Previous: 11.7- 14.7RECOMMENDED COUMADIN/WARFARIN INR THERAPY RANGESSTANDARD DOSE: 2.0-3.0 Includes: PROPHYLAXIS for venous thrombosis, systemic embolization; TREATMENT for venous thrombosis and/or pulmonary embolus.HIGH RISK: Target INR is 2.5-3.5 for patients wiht mechanical heart valves.CBC W/PLT COUNT & AUTO [id number] 15:32:00 Test Item Value Reference Range Interpretation Comments WHITE BLOOD CELL COUNT (BEAKER) 7.2 K/ L 3.5-10.5 (test code = 775) RED BLOOD CELL COUNT (BEAKER) 5.17 M/ L 4.63-6.08 (test code = 761) HEMOGLOBIN (BEAKER) (test code = 15.5 GM/DL 13.7-17.5 410) HEMATOCRIT (BEAKER) (test code = 46.5 % 40.1-51.0 411) MEAN CORPUSCULAR VOLUME (BEAKER) 89.9 fL 79.0-92.2 (test code = 753) MEAN CORPUSCULAR HEMOGLOBIN 30.0 pg 25.7-32.2 (BEAKER) (test code = 751) MEAN CORPUSCULAR HEMOGLOBIN CONC 33.3 GM/DL 32.3-36.5 (BEAKER) (test code = 752) RED CELL DISTRIBUTION WIDTH 13.6 % 11.6-14.4 (BEAKER) (test code = 412) PLATELET COUNT (BEAKER) (test 144 K/CU MM 150-450 L code = 756) MEAN PLATELET VOLUME (BEAKER) 11.8 fL 9.4-12.4 (test code = 754) NUCLEATED RED BLOOD CELLS 0 /100 WBC 0-0 (BEAKER) (test code = 413) NEUTROPHILS RELATIVE PERCENT 56 % (BEAKER) (test code = 429) LYMPHOCYTES RELATIVE PERCENT 31 % (BEAKER) (test code = 430) MONOCYTES RELATIVE PERCENT 10 % (BEAKER) (test code = 431) EOSINOPHILS RELATIVE PERCENT 2 % (BEAKER) (test code = 432) BASOPHILS RELATIVE PERCENT 1 % (BEAKER) (test code = 437) NEUTROPHILS ABSOLUTE COUNT 4.03 K/ L 1.78-5.38 (BEAKER) (test code = 670) LYMPHOCYTES ABSOLUTE COUNT 2.24 K/ L 1.32-3.57 (BEAKER) (test code = 414) MONOCYTES ABSOLUTE COUNT (BEAKER) 0.70 K/ L 0.30-0.82 (test code = 415) EOSINOPHILS ABSOLUTE COUNT 0.15 K/ L 0.04-0.54 (BEAKER) (test code = 416) BASOPHILS ABSOLUTE COUNT (BEAKER) 0.05 K/ L 0.01-0.08 (test code = 417) IMMATURE GRANULOCYTES-RELATIVE 1 % 0-1 PERCENT (BEAKER) (test code = 2801) MR, ABDOMEN, WITHOUT / WITH IV [id number] 15:22:00Reason for Exam:- >liver massFINAL REPORT EXAMINATION: MRI Abdomen with and without contrast. TECHNIQUE: Axial T1 nonfat sat in and out of phase, axial T2 fat sat, coronal T2 nonfat sat, axial DWI and ADC MR images of the abdomen were obtained before and after the administration of IV gadolinium. Axial T1 fat sat GRE dynamic images in precontrast, arterial, venous and delayed phases were obtained. CLINICAL HISTORY: 64-year-old male with a history of nonalcoholic steatotic hepatitis (BARRETO), who was found to have a 5.1 cm hypoechoic mass in the liver on prior ultrasound. No known history of hepatitis B or C infection or cirrhosis. COMPARISON: Abdominal ultrasound on 02/25/2019. FINDINGS: LOWER THORAX: Unremarkable. LIVER: The hepatic contour is normal. The background hepatic parenchymal signal is slightly decreased on-out of-phase imaging compared to in-phase imaging, compatible with mild steatosis. There is an approximately 4.5 x 6.2 x 5.4 cm lobulated mass centered in hepatic segment 8 (series 8, image 8). The mass is hypointense on T1WI and heterogeneously hyperintense on T2WI. There is progressive enhancement on arterial and venous phases with subtle heterogeneity on delayed phases. There is associated restricted diffusion. No definite washout characteristics. BILIARY: No ductal dilatation or filling defect. The gallbladder is not well-visualized. PANCREAS: No mass or ductal dilatation. SPLEEN: Nosplenomegaly. ADRENALS: No nodules. KIDNEYS: No hydronephrosis or solid enhancing mass in the imagedportion of the kidneys. PERITONEUM / RETROPERITONEUM: No upper abdominal free fluid. GI TRACT: No bowel dilation. LYMPH NODES: Mildly prominent cesar hepatis node, measuring up to 1.1 cm (series 1100, image 49 and image 80). Right cardiophrenic angle lymphadenopathy measuring up to 1.5 cm in the shortaxis (series 1100, images 14 and 23). Enlargement gastrohepatic lymph node also noted. VESSELS: The celiac trunk, superior and inferior mesenteric and bilateral renal arteries are patent. The portal, superior mesenteric and splenic veins are patent. BONES AND SOFT TISSUES: No acute abnormalities. IMPRESSION: The 6.2 cm right hepatic mass is concerning for malignancy, favor cholangiocarcinoma over other primary liver malignancy. This mass is amenable to heterogeneous ultrasound guided biopsy. Right paracardial and upper abdominal lymphadenopathy as above, concerning for metastasis. Signed: Angela Hughes Verified Date/Time: 04/03/2019 15:22:13 Reading Location: [address] [id number] [id number] 11:32:00 Test Item Value Reference Range Interpretation Comments POC-CREATININE 0.5 mg/dL 0.6-1.[address] [facility] 7200 ([facility]) (test ANIKA BLD G A code = 1859) [facility] 7703 0 POC-EGFR 166 mL/min/1.73M2 (BEAKER) (test code = 1860) US, ABDOMINAL, [id number] 16:51:00Reason for Exam:->nashFINAL REPORT EXAM: US, LIVERDATE: 02/25/2019 3:56 PM INDICATION: barreto COMPARISON: None FINDINGS:Archer scale and color flow Doppler ultrasound of the right upper abdomen was performed. Liver: 15.2 cm span. Hyperechoic parenchyma. In the posterior right hepatic lobe there is a more focal hypoechoic zone measuring 5.1 x 4.2 x 4.2 cm. No intrahepatic bile duct dilatation. Main portal vein 1.1 cm, nondilated, normal hepatopedal flow. Biliary: The gallbladder is contracted. Shadowing from the region of the gallbladder fossa suggests cholelithiasis. Prominence of the gallbladder wall is likely accentuated by lack of distention. Common bile duct 0.3 cm, normal. Pancreas: Obscured by overlying bowel. Vessels: Aorta and IVC are partially obscured by overlying bowel. Ascites: None IMPRESSION: 1. Hyperechoic hepatic parenchyma suggesting steatosis. 2. Focal 5.1 cm hypoechoic area in the right hepatic lobe. While this may represent an area of fatty sparing, liver mass of other etiology is also a concern. Recommend correlation with liver mass protocol MRI or CT. 3. The gallbladder appears contracted. Shadowing behind the gallbladder fossa suggests the presence of gallstones. This may also be assessed on MRI or CT of the liver. Signed: Sinai Hardwick Verified Date/Time: 02/25/2019 16:51:26 Reading Location: [facility] Reading Room [address] [place] [address]
[2022-03-03] MEDS ORDERED: ACETAMINOPHEN 325 MG TABLET ONE (12:12)
[2022-03-03 12:18] LABS: Hematocrit 39.4 % (39.6-49.0); MCV 88.8 fL (80-100); RBC Red Blood Cell Count 4.43 M/uL (4.33-5.43)
--- NOTE | 2022-03-03 12:25 | RAD REPORT ---
EXAM DESCRIPTION: US - Extremity Venous Uni Ltd - 03/03/2022 12:17 pm CLINICAL HISTORY: SWELLING COMPARISON: None. TECHNIQUE: Real-time sonographic evaluation of the right lower extremity deep venous systems was per formed. FINDINGS: Normal compressibility, flow augmentation, phasic flow and spontaneous flow are identified in the right lower extremity common femoral, superficial femoral, popliteal and posterior tibial vei ns. No intraluminal filling defects seen. Benign right inguinal lymph nodes seen. IMPRESSION: No DVT in the right lower extremity.
[2022-03-03 12:27] LABS: Albumin 2.7 g/dL (3.4-5.0); Bilirubin Total 0.9 mg/dL (0.2-1.0); Protein, Total 8.2 g/dL (6.4-8.2)
--- NOTE | 2022-03-03 12:42 | RAD REPORT ---
EXAM DESCRIPTION: RAD - Foot Right 3 View - 03/03/2022 12:30 pm CLINICAL HISTORY: SWELLING COMPARISON: Extremity Venous Uni Ltd dated 03/03/2022 FINDINGS: Soft tissue swelling is seen about the mid and forefoot. Moderate vascular atherosclerosis . Large posterior and plantar calcaneal spurs. No definitive plain radiograph finding for osteomyelit is. If osteomyelitis remains a clinical concern, recommend followup MR imaging.
[2022-03-03] MEDS ORDERED: NA CHLORIDE 0.9% 250 ML ONE (13:36)
[2022-03-03] MEDS ORDERED: VANCOMYCIN 1 GM/VIAL ONE (13:36)
[2022-03-03 13:57] LABS: SARS-CoV-2 Antigen Rapid Res Negative (Negative)
--- NOTE | 2022-03-03 14:04 | P.HP ---
Certification for Inpatient With expected LOS: >2 Midnights Patient will require the following post-hospital care: Other (PT) Practitioner: I am a practitioner with admitting privileges, knowledge of patient current condition, hospital course, and medical plan of care. Services: Services provided to patient in accordance with Admission requirements found in Title 42 Section 412.3 of the Code of Federal Regulations Patient History Date of Service: 03/03/22 Primary Care Provider: Dr. Florentino Simpson Reason for admission: Diabetic foot History of Present Illness: Mr. Love is a 67 yo male who has insulin dependant diabetes who presented to [facility] ED today for a red, swollen right foot x 3 days. In the ED pt was noted to have a severe cellulitis to right foot necessitating admission. Mr. Love has not taken his medications of amlodipine, escitalopram, and insulin for at least 1.5 months. He does not keep blood sugar logs. In 2019 pt had a debridement of his left foot for a similar problem. Mr. Love gives a history of a possible hepatocellular carcinoma years ago that has been treated with radiation and bead placement x 2. He is having ongoing monitoring but states he is now cancer free. Today a venous doppler of the right lower extremity was performed in the ED and was negative for DVT. Dr. Partida saw pt in ED and requested an arterial doppler, MRI to right foot, consent for surgical debridement. Home medications list reviewed: Yes (Amlodipine, Escitalopram, Insulin) - Past Medical/Surgical History Has patient received pneumonia vaccine in the past: No Diabetic: Yes -: IDDM -: Hepatocellular carcinoma -: Poor dentition -: Autism -: Depression -: 2 radiation bead placements to liver -: Debridement of left foot -: Dental extractions - Social History Smoking Status: Never smoker Alcohol use: No CD- Drugs: No Caffeine use: Yes Place of Residence: Home (Pt lives alone in an apt in [place] on the third floor) Review of Systems General: Fever, Chills Eyes: Unremarkable ENT: Unremarkable Respiratory: Unremarkable Cardiovascular: Unremarkable Gastrointestinal: Unremarkable Genitourinary: Unremarkable Musculoskeletal: Unremarkable Integumentary: As per HPI Neurological: Other (fatigue and malaise) Lymphatics: Unremarkable Physical Examination - Vital Signs Temperature: 99.2 F Blood Pressure: 119/99 Pulse: 99 Respirations: 20 Pulse Ox (%): 98 - Physical Exam General: Alert, Oriented x3, Disheveled HEENT: Atraumatic, Other (very poor dentition) Neck: Supple Respiratory: Clear to auscultation bilaterally Cardiovascular: No edema Capillary refill: <2 Seconds Gastrointestinal: Normal bowel sounds, Soft and benign, Non-distended Musculoskeletal: No clubbing Integumentary: Skin breakdown, Tenderness/swelling, Erythema, Warmth, Other (fissures and inflammation, edema between multiple toes of right foot) - Studies Laboratory Data (last 24 hrs) 03/03/22 11:50: Sodium 127 L, Potassium 3.0 L, BUN 9, Creatinine 0.72, Glucose 272 H, Total Bilirubin 0.9, AST 28, ALT 35, Alkaline Phosphatase 105 03/03/22 11:50: WBC 13.10 H, Hgb 13.0 L, Hct 39.4 L, Plt Count 230 Assessment and Plan - Problems (Diagnosis) (1) Diabetic foot infection Current Visit: Yes Status: Acute Plan: Labs, Wound care, PT eval, Blood sugar control via mild sliding scale, Evaluate arterial flow to lower extremity, Vancomycin 1.5gm IVPB q 12h, Rocephin 1gm IVPB [id number] Dr. Partida (2) Essential hypertension Current Visit: Yes Status: Acute Plan: monitored bed, labs, resume pt's outpatient amlodipine - Advance Directives Does patient have a Living Will: No Does patient have a Durable POA for Healthcare: No - Code Status/Comfort Care Code Status Assessed: Yes (Full) Critical Care: No Time Spent Managing Pts Care (In Minutes): 70
[2022-03-03] MEDS ORDERED: NA CHLORIDE 0.9% 500 ML ONE (14:10)
--- NOTE | 2022-03-03 14:17 | ER ---
Nurse's Notes [facility] Name: Alvaro Love Age: 67 yrs Sex: Male : 1955 Arrival Date: 03/03/2022 Time: 11:23 Bed 17 Private MD: Diagnosis: Cellulitis of the Right Foot Presentation: 03/03 11:40 Chief complaint: Patient states: "I think I have a diabetic ulcer." Reports pain, ph swelling and purulent d/c from R foot. Low grade fever in triage. Coronavirus screen: Vaccine status: Patient reports receiving the 2nd dose of the covid vaccine. Ebola Screen: No symptoms or risks identified at this time. Initial Sepsis Screen: Does the patient meet any 2 criteria? HR > 90 bpm. Does the patient have a suspected source of infection? Yes: Skin breakdown/wound. Risk Assessment: Do you want to hurt yourself or someone else? Patient reports no desire to harm self or others. Onset of symptoms was March 03, 2022. 11:40 Method Of Arrival: Wheelchair ph 11:40 Acuity: ASHLEY 3 ph Triage Assessment: 11:44 General: Appears in no apparent distress. unkempt, Behavior is calm, cooperative, ph appropriate for age, Reports fever for 0-12 hours. Pain: Complains of pain in right foot. Derm: redness and swelling noted to L foot. Historical: - Allergies: 11:43 No Known Allergies; ph - Home Meds: 11:43 Lantus Sub-Q [Active]; ph - PMHx: 11:43 Diabetes mellitus; ph - Immunization history:: Adult Immunizations unknown. - Social history:: Smoking status: Patient denies any tobacco usage or history of. Screenin:02 Abuse screen: Denies threats or abuse. Denies injuries from another. Nutritional lg3 screening: No deficits noted. Tuberculosis screening: No symptoms or risk factors identified. Fall Risk No fall in past 12 months (0 pts). Secondary diagnosis (15 points) impaired mobility, Gait- Weak (10 pts.). Total Linares Fall Scale indicates Low Risk Score (25-44 pts). Side Rails Up X 2 Frequent Obs/Assesments occuring As available Patient and Family Educated on Fall Prevention Program and strategies. Assessment: 20:02 General: Appears in no apparent distress. comfortable, Behavior is calm, cooperative. lg3 Pain: Complains of pain in right foot. Neuro: No deficits noted. Level of Consciousness is awake, alert, obeys commands, Oriented to person, place, time, situation. Cardiovascular: No deficits noted. Denies chest pain, shortness of breath, Capillary refill < 3 seconds Clubbing of nail beds is absent JVD is absent Patient's skin is warm and dry. Respiratory: No deficits noted. Airway is patent Trachea midline Respiratory effort is even, unlabored, Respiratory pattern is regular, symmetrical. GI: No deficits noted. No signs and/or symptoms were reported involving the gastrointestinal system. : No deficits noted. No signs and/or symptoms were reported regarding the genitourinary system. EENT: No deficits noted. No signs and/or symptoms were reported regarding the EENT system. Derm: Wound noted right foot Reports pain. Musculoskeletal: Swelling present in right foot. 20:05 General: IV's placed by previous shift noted. 22 To RAC and 20 to LFA intact, clean, lg3 dry and secured with Tegaderm. . 20:15 General: attempted to call report. Nurse not available. Waiting call back from madan Thornton RN. 20:35 General: report called to Sriram Thornton. lg3 Vital Signs: 11:40 BP 163 / 98; Pulse 99; Resp 20; Temp 99.7; Pulse Ox 98% on R/A; Weight 78.02 kg; Height ph 5 ft. 10 in. (177.80 cm); 20:06 BP 107 / 89; Pulse 72; Resp 19 S; Temp 98.5(O); Pulse Ox 99% on R/A; lg3 11:40 Body Mass Index 24.68 (78.02 kg, 177.80 cm) ph ED Course: 11:23 Patient arrived in ED. rg4 11:28 Aiden Rogers PA is PHCP. m 11:28 Evaristo Rudd DO is Attending Physician. [facility] 11:35 Erika Hernandez, SRIRAM is Primary Nurse. jh6 11:43 Triage completed. ph 11:44 Arm band placed on Patient placed in an exam room. ph 12:17 Patient taken to ultrasound. ultrasound at bedside. jh6 12:18 US Extremity Venous Unilateral Ltd In Process Unspecified. EDMS 12:32 Foot Right 3 View XRAY In Process Unspecified. EDMS 14:16 Matt Wilkes MD is Hospitalizing Provider. jmm 20:02 Patient has correct armband on for positive identification. Placed in gown. Bed in low lg3 position. Call light in reach. Side rails up X2. Client placed on continuous cardiac and pulse oximetry monitoring. NIBP monitoring applied. hall monitor on. Door closed. Noise minimized. Warm blanket given. 20:02 No provider procedures requiring assistance completed. IV is intact. lg3 20:11 Patient admitted, IV remains in place. intact, No redness/swelling at site. lg3 Administered Medications: 12:00 Drug: Acetaminophen 650 mg Route: PO; 6 20:12 Follow up: Response: No adverse reaction; Temperature is decreased lg3 13:49 Drug: vancoMYCIN 1 grams Route: IVPB; Infused Over: 2 hrs; Site: right antecubital; 6 20:12 Follow up: Response: No adverse reaction; IV Status: Completed infusion; IV Intake: lg3 250ml 14:00 Drug: NS 0.9% 500 ml Route: IV; Rate: bolus; Site: right antecubital; 6 20:12 Follow up: Response: No adverse reaction; IV Status: Completed infusion; IV Intake: lg3 500ml Medication: 20:02 VIS not applicable for this client. lg3 Intake: 20:12 IV: 500ml; Total: 500ml. lg3 20:12 IV: 250ml; Total: 750ml. lg3 Outcome: 14:16 Decision to Hospitalize by Provider. jmm 20:11 Admitted to Med/surg accompanied by tech, via stretcher, room -6. lg3 20:11 Condition: stable 20:11 Instructed on the need for admit, Demonstrated understanding of instructions. 20:51 Patient left the ED. [facility] Signatures: Dispatcher [employer] EDMS Aiden Rogers PA PA [facility] Nidia Bailey, RN RN Audrey Dumont 4 Kelsie Saldivar RN RN 3 Erika Hernandez RN RN 6
--- NOTE | 2022-03-03 14:17 | EDPHYS ---
Physician Documentation [facility] Name: Alvaro Love Age: 67 yrs Sex: Male : 1955 Arrival Date: 03/03/2022 Time: 11:23 Bed 17 Private MD: ED Physician Evaristo Rudd HPI: 03/03 11:40 This 67 yrs old Male presents to ER via Wheelchair with complaints of Abscess. jmm 11:40 the patient presents with a swollen area of the right leg. Onset: The symptoms/episode jmm began/occurred gradually. Possible cause(s): unknown. Diabetes mellitus the presents emerged part with complaints of right foot swelling. Patient states he initially noticed it 3 days ago with increased swelling yesterday. Also complains of body aches.. Historical: - Allergies: 11:43 No Known Allergies; ph - Home Meds: 11:43 Lantus Sub-Q [Active]; ph - PMHx: 11:43 Diabetes mellitus; ph - Immunization history:: Adult Immunizations unknown. - Social history:: Smoking status: Patient denies any tobacco usage or history of. ROS: 11:40 Cardiovascular: Negative for chest pain, palpitations, and edema, Respiratory: Negative jmm for shortness of breath, cough, wheezing, and pleuritic chest pain. 11:40 Constitutional: Positive for body aches, chills. 11:40 MS/extremity: Positive for pain, swelling. 11:40 All other systems are negative. Exam: 11:40 Constitutional: This is a well developed, well nourished patient who is awake, alert, jmm and in no acute distress. Head/Face: atraumatic. Eyes: EOMI, no conjunctival erythema appreciated ENT: Moist Mucus Membranes Neck: Trachea midline, Supple Chest/axilla: Normal chest wall appearance and motion. Cardiovascular: Regular rate and rhythm. No edema appreciated Respiratory: Normal respirations, no respiratory distress appreciated Abdomen/GI: Non distended Back: Normal ROM 11:40 Skin: , Compartments are soft, full dorsalis pedis pulse, neurovascular intact, erythema noted to the right foot with induration, large blister noted to the ball of the left foot. 11:40 Neuro: Orientation: is normal, Mentation: is normal, Memory: is normal. 11:40 Psych: Behavior/mood is pleasant, cooperative. Vital Signs: 11:40 BP 163 / 98; Pulse 99; Resp 20; Temp 99.7; Pulse Ox 98% on R/A; Weight 78.02 kg; Height ph 5 ft. 10 in. (177.80 cm); 20:06 BP 107 / 89; Pulse 72; Resp 19 S; Temp 98.5(O); Pulse Ox 99% on R/A; lg3 11:40 Body Mass Index 24.68 (78.02 kg, 177.80 cm) ph MDM: 11:40 Patient medically screened. [facility] 14:15 Data reviewed: vital signs, nurses notes. Counseling: I had a detailed discussion with agustín the patient and/or guardian regarding: the historical points, exam findings, and any diagnostic results supporting the discharge/admit diagnosis, lab results, radiology results, the need for further work-up and treatment in the hospital. ED course: Discussed patient with Inna Maurice NP whom accepted the patient to Dr. Wilkes service. Dr. Partida Will consult on admission. 03/03 11:41 Order name: CBC with Diff; Complete Time: 12:46 [facility] 03/03 11:41 Order name: CMP; Complete Time: 12:28 [facility] 03/03 11:41 Order name: Lactate; Complete Time: 12:28 [facility] 03/03 11:41 Order name: Blood Culture Adult (2) [facility] 03/03 11:41 Order name: ESR; Complete Time: 12:46 [facility] 03/03 11:41 Order name: CRP; Complete Time: 12:28 [facility] 03/03 11:41 Order name: Foot Right 3 View XRAY; Complete Time: 12:46 [facility] 03/03 11:42 Order name: US Extremity Venous Unilateral Ltd; Complete Time: 12:26 [facility] 03/03 13:24 Order name: SARS RAPID; Complete Time: 14:00 [facility] 03/03 17:52 Order name: US; Complete Time: 17:54 [facility] 03/03 18:56 Order name: Vancomycin Level Trough; Complete Time: 19:01 [facility] 03/03 18:57 Order name: Vancomycin Peak; Complete Time: 19:01 [facility] 03/03 19:39 Order name: MRI; Complete Time: 19:39 [facility] 03/03 11:41 Order name: Saline Lock; Complete Time: 12:39 [facility] 03/03 13:38 Order name: CONS Physician Consult EDMS Administered Medications: 12:00 Drug: Acetaminophen 650 mg Route: PO; [facility] 20:12 Follow up: Response: No adverse reaction; Temperature is decreased lg3 13:49 Drug: vancoMYCIN 1 grams Route: IVPB; Infused Over: 2 hrs; Site: right antecubital; [facility] 20:12 Follow up: Response: No adverse reaction; IV Status: Completed infusion; IV Intake: lg3 250ml 14:00 Drug: NS 0.9% 500 ml Route: IV; Rate: bolus; Site: right antecubital; [facility] 20:12 Follow up: Response: No adverse reaction; IV Status: Completed infusion; IV Intake: lg3 500ml Disposition: 19:56 Co-signature as Attending Physician, Evaristo Rudd DO I agree with the assessment and ms3 plan of care. Disposition Summary: 03/03/22 14:16 Hospitalization Ordered Hospitalization Status: Inpatient Admission [facility] Provider: Matt Wilkes Condition: Stable [facility] Problem: new [facility] Symptoms: are unchanged [facility] Bed/Room Type: Standard [facility] Location: Intensive Care Unit(03/03/22 19:04) Room Assignment: 6-(03/03/22 19:04) Diagnosis - Cellulitis of the Right Foot [facility] Forms: - Medication Reconciliation Form [facility] - SBAR form [facility] Signatures: Dispatcher [employer] EDMS Aiden Rogers PA PA jmm Hall, Patricia, RN RN ph Garcia, Cindy RN Evaristo Leal DO DO ms3 Erika Hernandez RN RN 6 Kelsie Saldivar RN lg3 Corrections: (The following items were deleted from the chart) 19:04 14:16 Telemetry/MedSurg (Inpatient) [facility] cg 19:04 14:16 [facility]
[2022-03-03] MEDS ORDERED: ACETAMINOPHEN 500 MG TAB PO PRN (16:46)
[2022-03-03] MEDS: D5.45NS W/KCL 40MEQ 40 MEQ/1,000 ML BAG IV SCH (16:46)
[2022-03-03] MEDS ORDERED: NA CHLORIDE 0.9% 1,000 ML IV SCH (16:46)
[2022-03-03] MEDS ORDERED: ALBUTEROL 2.5 MG/3 ML NEB SOL NEB PRN (16:46)
[2022-03-03] MEDS: INSULIN -REGULAR HUMAN 50 UNIT/0.5 ML ML SQ SCH ×2 (16:46→23:05)
[2022-03-03] MEDS ORDERED: ONDANSETRON 4 MG/2 ML VIAL IV PRN (16:46)
[2022-03-03] MEDS ORDERED: ENOXAPARIN 40 MG/0.4 ML SQ ONE (16:46)
[2022-03-03] MEDS ORDERED: INSULIN -REGULAR HUMAN 50 UNIT/0.5 ML ML ONE (17:04)
[2022-03-03] MEDS ORDERED: NA CHLORIDE 0.9% 1,000 ML ONE (17:05)
--- NOTE | 2022-03-03 17:51 | RAD REPORT ---
EXAM DESCRIPTION: US - Lower Extremity Arterial Bilat - 03/03/2022 5:24 pm CLINICAL HISTORY: diabetic foot Pain and swelling COMPARISON: No comparisons TECHNIQUE: Bilateral lower extremity arterial Doppler examination was performed with waveform tracin g and velocity measurements. FINDINGS: Triphasic waveforms are seen involving the left lower extremity arterial system. Triphasic waveforms are seen involving the proximal right lower extremity arterial system. However, the right popliteal, posterior tibial and dorsalis pedis are monophasic. No complete occlusion seen. IMPRESSION: Moderate popliteal and infrapopliteal peripheral vascular disease suspected on the right .
--- NOTE | 2022-03-03 19:37 | RAD REPORT ---
EXAM DESCRIPTION: MRI - Foot Right Wo Cont - 03/03/2022 7:25 pm CLINICAL HISTORY: diabetic foot Pain and swelling COMPARISON: No comparisons FINDINGS: Moderate soft tissue swelling is seen involving mid and forefoot. Mild intertarsal arthrit ic changes are evident. Soft tissue thickening ulceration is seen along the anterior soft tissues of the forefoot medially measuring approximately 5 mm in depth. No localized fluid collection seen. No evidence of osteomyelitis at this time. No soft tissue mass or hematoma. IMPRESSION: Negative for osteomyelitis at this time.
[2022-03-03] MEDS ORDERED: VANCOMYCIN 1.5 GM in NA CHLORIDE 0.9% 500 ML IVPB SCH (21:00)
[2022-03-03] MEDS: CEFTRIAXONE 1,000 MG in NA CHLORIDE 0.9% 50 ML IVPB SCH (22:47)
[2022-03-04] MEDS: VANCOMYCIN 1.5 GM in NA CHLORIDE 0.9% 500 ML IVPB SCH ×2 (01:50→13:59)
[2022-03-04] MEDS ORDERED: NA CHLORIDE 0.9% 500 ML ONE (01:52)
[2022-03-04] MEDS ORDERED: VANCOMYCIN 500 MG/VIAL ONE (01:52)
[2022-03-04] MEDS ORDERED: VANCOMYCIN 1 GM/VIAL ONE (01:52)
[2022-03-04 05:39] LABS: ALT/SGPT 27 U/L (12-78); AST/SGOT 25 U/L (15-37); Albumin 1.9 g/dL (3.4-5.0); Alkaline Phosphatase 90 U/L (45-117); BUN Blood Urea Nitrogen 7 mg/dL (7-18); Bicarbonate 27 mmol/L (21-32); Bilirubin Direct 0.3 mg/dL (0-0.2); Bilirubin Total 0.5 mg/dL (0.2-1.0); Creatine Phosphokinase 16 U/L (39-308); Glomerular Filtration Rate 106 ml/min (=/>90); Glucose Level 283 mg/dL (74-106); HDL Cholesterol 14 mg/dL (40-60); LDL Cholesterol, Calculated 45 mg/dL (<130); Magnesium 1.8 mg/dL (1.8-2.4); NT PRO-BNP 844 pg/mL (<125); Phosphorus 2.5 mg/dL (2.5-4.9); Potassium 3.4 mmol/L (3.5-5.1); Protein, Total 6.1 g/dL (6.4-8.2); Sodium Level 132 mmol/L (136-145)
[2022-03-04 05:43] LABS: CKMB Creatine Kinase MB < 1.0 ng/mL (1.0-3.6)
[2022-03-04] MEDS: AMLODIPINE 2.5 MG TAB PO SCH (09:00)
[2022-03-04] MEDS: ESCITALOPRAM 20 MG TAB PO SCH (09:00)
[2022-03-04] MEDS: CEFTRIAXONE 1,000 MG in NA CHLORIDE 0.9% 50 ML IVPB SCH ×2 (09:26→21:30)
[2022-03-04] MEDS: INSULIN -REGULAR HUMAN 50 UNIT/0.5 ML ML SQ SCH ×4 (09:27→21:30)
[2022-03-04] MEDS: KCL 20 MEQ/100 mL IVPB 20 MEQ/100 ML BAG IV SCH ×2 (09:55→12:49)
[2022-03-04] MEDS ORDERED: NA CHLORIDE 0.9% 1,000 ML ONE (13:22)
[2022-03-04] MEDS: BUPIVACAINE 0.25% PF 10 ML VIAL ONE ×2 (14:33→15:09)
[2022-03-04] MEDS ORDERED: SODIUM HYPOCHLORITE 0.25% 473 ML ONE (14:48)
[2022-03-04] MEDS ORDERED: LIDOCAINE 1% MPF 5 ML VIAL ONE (14:59)
[2022-03-04] MEDS ORDERED: FENTANYL CITR 100 MCG/2 ML ONE (14:59)
[2022-03-04] MEDS ORDERED: propofoL 200 MG/20 ML VIAL IV ONE (14:59)
[2022-03-04] MEDS ORDERED: ETOMIDATE 20 MG/10 ML VIAL IV ONE (15:03)
--- NOTE | 2022-03-04 15:35 | P.OP ---
Preoperative diagnosis: RIGHT foot infection with abscess Postoperative diagnosis: RIGHT foot infection with abscess Primary procedure: Wide local excision of RIGHT foot infection with abscess Anesthesia: GETA + Local Estimated blood loss: < 5cc Specimen: debridement tissue, cultures Findings: necrosis to forefoot, midfoot, fascia necrotic Complications: None Transferred to: Recovery Room Condition: Good
[2022-03-04] MEDS: D5.45NS W/KCL 40MEQ 40 MEQ/1,000 ML BAG IV SCH (15:52)
[2022-03-04 16:04] VITALS: O2SAT 98
[2022-03-04] MEDS: ENOXAPARIN 40 MG/0.4 ML SQ SCH (16:40)
[2022-03-04] MEDS ORDERED: ACETAMINOPHEN 500 MG TAB PO PRN (18:13)
--- NOTE | 2022-03-04 18:21 | CON ---
History Of Present Illness: This is a 67-year-old male. I was consulted for evaluation of his right foot ulceration and cellulitis of the leg. Patient is feeling much better today, but continue to nunn ve discomfort to the right foot. Patient is supposed to go for surgical debridement today. Denies a ny headache, nausea, vomiting, chest pain, abdominal pain, constipation, or diarrhea. No problems wi th antibiotic. Patient is currently being treated with Rocephin and vancomycin. Past Medical History: Diabetes mellitus, carcinoma, poor dentition, autism, depression, _ debridement of left foot, dental extractions. Social History: Nonsmoker, nondrinker. Family History: Noncontributory. Medications: Vancomycin and Rocephin. See MAR for other medications. Allergies: NO KNOWN DRUG ALLERGIES. Review of Systems: A 10-point review was performed. Physical Examination: General: This is a 67-year-old male, lying in bed, not in any acute cardiopulmonary distress. Vital Signs: Temperature 98, pulse 69, respiration 19, blood pressure 133/67. HEENT: Poor dental hygiene, otherwise unremarkable. Neck: Supple: Basal crackles. Heart S1, S2. Regular. Abdomen: Soft, nontender. Bowel sounds present. Extremities: Right foot wound and ulceration noted especially to the plantar area. Laboratory Data: Shows WBC 13.1, hemoglobin 13, platelets are 230. Chemistry shows sodium 132, pota ssium 3.4, chloride 98, bicarb 27, BUN 7, creatinine 0.5, glucose is 283. Albumin level is 1.9. Jasbir ro Data: Blood cultures are growing gram-positive cocci in pairs and chains. Assessment And Plan: Bacteremia secondary to gram-positive cocci with right diabetic foot ulcer and necrotic tissue and possible debridement today. MRI of the foot is negative for osteomyelitis. We w ill continue IV antibiotic depending on the extensiveness of wound. Patient might need long-term acu te care evaluation. We will follow the patient as needed. Thank you Dr. Wilkes for consult. NF/MODL Voice ID: [id number] Report ID: [id number]
--- NOTE | 2022-03-04 20:43 | OP ---
Date of Procedure: 03/04/2022 Surgeon: Nikolai Partida MD, Preoperative Diagnosis: Right foot infection with abscess. Postoperative Diagnosis: Right foot infection with abscess. Procedure Performed: A wide local excision of right foot infection with abscess. Anesthesia: General endotracheal plus local with 0.25% Marcaine. Estimated Blood Loss: 5 cc. Specimen: Debridement tissue and culture sent for aerobic and anaerobic speciation. Findings: Necrosis to the large area of his forefoot, midfoot extending all the way through the plan tar fascia and up to the tendinous musculature of the midfoot and forefoot. The skin had ischemic ch anges as well with cellulitis. Complications: None. Disposition: The patient was transferred to recovery room in good condition. Procedure In Detail: After informed consent was obtained, the patient was prepped and draped in the usual sterile fashion. After adequate anesthesia was achieved, I made a linear incision overlying ar ea of obvious skin necrosis with a 15 blade. Immediately encountered was purulent material. I digit ized the area and found it to be in a complete tract extending from the forefoot to the midfoot. I t hen palpated this area and digitized it getting purulent material out throughout. I placed cultures at this point for both aerobic and anaerobic speciation and marsupialized the entire area of skin whi ch was overlying this fairly large area of necrotic fascia. I then proceeded to use a curette to rem ove all the necrotic fascia following a circumferentially around to get ahead of the infection. At t his point, I removed approximately 8 cm x 10 cm area of skin on the plantar aspect of the foot essent ially removing the majority of the skin from the forefoot and midfoot including the associated planta r fascia. I did not have to extend beyond the tendinous portions of the fascial plane, but it did ex tend up to this area. After this area was completely cleansed and all necrotic tissue was removed, I made a counter incision on the mid foot along the first metatarsal where another area of necrosis wa s evident. I opened this plane up and inspected the fascia and found it to be necrotic as well. I r emoved all necrotic tissue at this point. I then proceeded to pulse lavage the forefoot and lateral foot until completely cleansed. At this point, hemostasis was achieved with electrocautery. I then proceeded to pack the foot with Dakin-soaked Kerlix and a sterile dressing placed over the top. The patient tolerated the procedure well without evidence of complication and transferred to PACU in good condition. All counts were correct at the end of the case.. JESSICA/SHEILA Voice ID: [id number] Report ID: [id number]
--- NOTE | 2022-03-04 21:20 | P.PN ---
Date of Service: 03/04/22 Subjective: no acute events overnight pain ok awaiting debridement today ROS: 10 point ROS as noted above, otherwise negative Physical Exam: Gen: NAD, AOx3 HEENT: normal conjunctiva, sclera anicteric CV: regular rate & rhythm, no edema Pulm: non-labored respirations, clear bilaterally Skin: L foot: toes to mid-arch with erythema, bullae, ulceration Neuro: normal speech, normal affect vitals reviewed Problem List L diabetic foot infection IDDM2 h/o HCC Depression Autism PAD continue empiric antibiotics prelim blood cx: gram positive cocci in pairs/chains ID consulted General surgery consulted - I&D planned for today MRI: negative for osteomyelitis Arterial doppler: monophasic blood flow at popliteal -> distally will need further vascular eval/procedure in near future to assist in healing patient had L balloon angioplasty of Ltibial artery by Dr. Benitez in [place] (per patient) and plans to follow up with him insulin sliding scale, accucheks confirm home meds VTE: lovenox Code: full Dispo: home, ~3-4days Time Spent Managing Pts Care (In Minutes): 35
[2022-03-05 01:42] LABS: Specific Gravity 1.013 (1.005-1.030); Urine Bacteria <20 /HPF (<20); Urine Bilirubin NEGATIVE (Negative); Urine Blood Negative (Negative); Urine Clarity Turbid (Clear); Urine Color Yellow (Yellow); Urine Glucose 2+ (Negative); Urine Mucus Slight /HPF (None Seen); Urine Protein TRACE (Negative); Urine RBC <5 /HPF (None Seen); Urine Urobilinogen Normal (Normal); Urine WBC Clump Rare /HPF (None Seen); Urine pH 5.5 (5.0-7.0)
[2022-03-05] MEDS: VANCOMYCIN 1.5 GM in NA CHLORIDE 0.9% 500 ML IVPB SCH ×2 (01:58→14:06)
[2022-03-05] MEDS ORDERED: CODEINE 30MG/APAP 300MG TAB PO PRN (06:09)
--- NOTE | 2022-03-05 06:09 | P.PN ---
Date of Service: 03/05/22 Subjective: no acute events overnight s/p I&D in OR yesterday, extensive involvement in leg pain ok ROS: 10 point ROS as noted above, otherwise negative Physical Exam: Gen: NAD, AOx3 HEENT: normal conjunctiva, sclera anicteric CV: regular rate & rhythm, no edema Pulm: non-labored respirations, clear bilaterally Skin: L foot: surgical dressing in place Neuro: normal speech, normal affect vitals reviewed Problem List L diabetic foot infection IDDM2 h/o HCC Depression Autism PAD continue empiric antibiotics prelim blood cx: gram positive cocci in pairs/chains ID consulted MRI: negative for osteomyelitis General surgery consulted - I&D 03/04 - significant involvement; recommends BKA Arterial doppler: monophasic blood flow at popliteal -> distally will need further vascular eval/procedure in near future to assist in healing patient had L balloon angioplasty of Ltibial artery by Dr. Benitez in [place] (per patient) and plans to follow up with him insulin sliding scale, accucheks confirm/restart home meds VTE: lovenox Code: full Dispo: home, ~3-[address] Partida to discuss BKA with patient Time Spent Managing Pts Care (In Minutes): 35
[2022-03-05 06:35] LABS: Absolute Lymphocytes (CBC) 1.2 K/uL (0.7-4.9); Hematocrit 31.2 % (39.6-49.0); Lymphocytes % 12.8 % (15.3-44.8); MCV 88.1 fL (80-100); MPV 8.8 fL (7.6-11.3); RBC Red Blood Cell Count 3.54 M/uL (4.33-5.43)
[2022-03-05 06:47] LABS: Magnesium 1.7 mg/dL (1.8-2.4); Potassium 3.7 mmol/L (3.5-5.1)
[2022-03-05 06:49] VITALS: BMI 27.1
[2022-03-05 07:07] LABS: Phosphorus 2.1 mg/dL (2.5-4.9)
[2022-03-05 07:18] LABS: Protime INR 1.38
[2022-03-05] MEDS ORDERED: POTASSIUM CL SA 10 MEQ TAB PO ONE (08:00)
[2022-03-05] MEDS: INSULIN -REGULAR HUMAN 50 UNIT/0.5 ML ML SQ SCH ×4 (08:36→21:26)
[2022-03-05] MEDS ORDERED: POTASSIUM PHOS IN 0.9 % NACL 15 MMOL/250 ML BAG IV ONE (09:00)
[2022-03-05] MEDS ORDERED: ALBUTEROL 2.5 MG/3 ML NEB SOL NEB PRN (09:00)
[2022-03-05] MEDS: AMLODIPINE 2.5 MG TAB PO SCH (09:24)
[2022-03-05] MEDS: CEFTRIAXONE 1,000 MG in NA CHLORIDE 0.9% 50 ML IVPB SCH ×2 (09:24→21:25)
[2022-03-05] MEDS: POTASS/SODIUM PHOSPHATE 1 PKT POWD.PACK PO SCH ×3 (09:24→11:23)
[2022-03-05] MEDS: ESCITALOPRAM 20 MG TAB PO SCH (09:25)
[2022-03-05] MEDS: COLLAGENASE 30 GM OINTMENT TOP SCH (11:51)
[2022-03-05] MEDS ORDERED: MAGNESIUM SULFATE 1 gm IVPB 1 GM/100 ML BAG IV ONE (16:00)
--- NOTE | 2022-03-05 16:19 | P.PN ---
Subjective Date of Service: 03/05/22 Primary Care Provider: Dr. Florentino Simpson Chief Complaint: Diabetic foot Subjective: No new changes (Patient has no pain in RIGHT foot, but had neuropathy prior) Physical Examination - Vital Signs Temperature: 96.8 F Blood Pressure: 111/79 Pulse: 70 Respirations: 20 Pulse Ox (%): 99 - Physical Exam General: Alert, In no apparent distress, Cooperative Musculoskeletal: Other (RIGHT foot remains cellulitic, new areas of necrosis, ischemia, gangrenous changes.) - Studies Microbiology Data (last 24 hrs): 03/03/22 12:00 Blood - Blood Gram Stain - Final 03/03/22 11:50 Blood - Blood Gram Stain - Final Assessment And Plan - Plan Patient is s/p debridement of RIGHT foot on 03/04/2022 - wound is not doing well, he continues to have persistent infection, and gangrenous changes, - I have discussed RIGHT below the knee amputation and made that recommendation to the patient due to ongoing infection to beyond midfoot, no significant improvement, but patient is still not ready to proceed, he states he lives on the 3rd floor of his assisted living apartment, and does not want to submit to BKA at this time, I have shown the patient the wound on hospital IPAD, and have explained this may progress to sepsis and can be life threatening if not dealt with soon, he states he will consider and wants to discuss tomorrow - NPO after midnight - continue current antibiotics and medical management - continue current wound care.
[2022-03-05] MEDS: ENOXAPARIN 40 MG/0.4 ML SQ SCH (17:25)
[2022-03-06] MEDS: VANCOMYCIN 1.5 GM in NA CHLORIDE 0.9% 500 ML IVPB SCH ×2 (01:37→14:39)
[2022-03-06 05:54] LABS: Potassium 3.5 mmol/L (3.5-5.1)
--- NOTE | 2022-03-06 05:57 | P.PN ---
Date of Service: 03/06/22 Subjective: no acute events overnight no pain, +neuropathy tolerating diet, no nausea/vomiting afebrile undecided on BKA ROS: 10 point ROS as noted above, otherwise negative Physical Exam: Gen: NAD, AOx3 HEENT: normal conjunctiva, sclera anicteric CV: regular rate & rhythm, no edema Pulm: non-labored respirations on RA, clear bilaterally Skin: L foot: surgical dressing in place, foul odor Neuro: normal speech, normal affect vitals reviewed Problem List L diabetic foot infection IDDM2 h/o HCC Depression Autism PAD Diabetic foot infection continue empiric antibiotics - vanc/rocephin blood cx (03/03): strep agalactiae in 4/4 bottles repeat blood cx (03/04): NGTD ID consulted MRI: negative for osteomyelitis General surgery consulted - I&D 03/04 - significant involvement of foot, POD 1 with increased necrosis of tissue edges; recommends BKA Arterial doppler: monophasic blood flow at popliteal -> distally will need further vascular eval/procedure to assist in healing if possible patient had L balloon angioplasty of Ltibial artery by Dr. Benitez in [place] (per patient) and plans to follow up with him insulin sliding scale, accucheks confirm/restart home meds VTE: lovenox Code: full Dispo: home, ~3-[address] Partida to discuss BKA with patient Time Spent Managing Pts Care (In Minutes): 35
[2022-03-06] MEDS: INSULIN -REGULAR HUMAN 50 UNIT/0.5 ML ML SQ SCH ×3 (07:30→16:45)
[2022-03-06 07:35] LABS: Magnesium 1.7 mg/dL (1.8-2.4); Phosphorus 2.8 mg/dL (2.5-4.9)
[2022-03-06 07:51] LABS: Hematocrit 33.9 % (39.6-49.0); Lymphocytes % 12.3 % (15.3-44.8); MCV 89.4 fL (80-100); MPV 8.6 fL (7.6-11.3); RBC Red Blood Cell Count 3.79 M/uL (4.33-5.43)
[2022-03-06] MEDS: COLLAGENASE 30 GM OINTMENT TOP SCH (09:00)
[2022-03-06] MEDS ORDERED: LACTOBACILLUS/ACIDOPHILUS TAB PO SCH (10:00)
[2022-03-06] MEDS: AMLODIPINE 2.5 MG TAB PO SCH (10:06)
[2022-03-06] MEDS: ESCITALOPRAM 20 MG TAB PO SCH (10:06)
[2022-03-06] MEDS: CEFTRIAXONE 1,000 MG in NA CHLORIDE 0.9% 50 ML IVPB SCH (10:06)
--- NOTE | 2022-03-06 12:10 | CON ---
Date of Consultation: 03/05/2022 Reason For Consultation: Peripheral arterial disease. History Of Present Illness: Mr. Love is a 67-year-old male. Has a history of diabetes, peripher al arterial disease. He is status post debridement of the right foot gangrene. Arterial Doppler eduar wed diffuse disease below the knee popliteal and infrapopliteal monophasic, otherwise it was normal. I was asked by Dr. Partida to clear him for surgery and my opinion regarding possible BKA. The anastacia ent has no cardiac symptoms. Past Medical History: Diabetes. Allergies: NONE. Medications: At home insulin. Review of Systems: Negative. Social History: Negative. Family History: Noncontributory. Physical Examination: Vital Signs: Stable, afebrile, sinus rhythm. HEENT: Negative. Neck: Supple with no bruit. Chest: Clear. Cardiac: Revealed regular rhythm and rate. No murmurs, gallops, or rubs. Abdomen: Benign. Extremities: Revealed gangrenous right foot. Diagnostic Data: Includes a glucose of 334, creatinine of 0.53. Venous Doppler was negative. Arter ial Doppler showed diffuse disease below the knee on the right side, monophasic popliteal and infrapo pliteal. EKG was unremarkable. Chest x-ray is negative. Impression And Plan: Peripheral arterial disease, not amenable for angiography and intervention. I think he needs to have a BKA done. I think he is cleared to undergo surgery by Dr. Partida. His giana betes needs to be better controlled. He is now on Lovenox, potassium, amlodipine, insulin, and antib iotics. He will eventually need a Lexiscan to rule out coronary artery disease, but I would not wait for that before the surgery. I will discuss the case further with Dr. Partida. SOL/SHEILA Voice ID: [id number] Report ID: [id number]
[2022-03-06 13:28] VITALS: TEMP 97.3
[2022-03-06] MEDS: ENOXAPARIN 40 MG/0.4 ML SQ SCH (16:46)
--- NOTE | 2022-03-06 16:54 | P.DS ---
Admission Date: 03/03/22 Discharge Date: 03/06/22 Primary Care Provider: Dr. Florentino Simpson Reason for Admission: Diabetic foot Consultations: General surgery - Dr. Partida Cardiology - Dr. Nixon Infectious disease - Dr. Terrell Procedures: Wide local excision of RIGHT foot infection with abscess (03/04) by Dr. Partida Findings: necrosis to forefoot, midfoot, fascia necrotic RLE Arterial Doppler (03/03) FINDINGS: Triphasic waveforms are seen involving the left lower extremity arterial system. Triphasic waveforms are seen involving the proximal right lower extremity arterial system. However, the right popliteal, posterior tibial and dorsalis pedis are monophasic. No complete occlusion seen. IMPRESSION: Moderate popliteal and infrapopliteal peripheral vascular disease suspected on the right. Brief History of Present Illness: 67yo M, PMH: IDDM2, PAD Presented to ED due to red, swollen right foot x 3 days. 67 yo male who has insulin dependant diabetes who presented to ED today for a red, swollen right foot x 3 days. In the ED pt was noted to have a severe cellulitis to right foot necessitating admission. Mr. Love has not taken his medications of amlodipine, escitalopram, and insulin for at least 1.5 months. He does not keep blood sugar logs. In 2019 pt had a debridement of his left foot for a similar problem. Mr. Love gives a history of a possible hepatocellular carcinoma years ago that has been treated with radiation and bead placement x 2. He is having ongoing monitoring but states he is now cancer free. Today a venous doppler of the right lower extremity was performed in the ED and was negative for DVT. Dr. Partida saw pt in ED and requested an arterial doppler, MRI to right foot, consent for surgical debridement. Hospital Course: Problem List Left diabetic foot infection with abscess PAD (Moderate popliteal and infrapopliteal peripheral vascular disease suspected on the right) IDDM2 h/o HCC Depression Autism L Diabetic foot infection started on vanc/rocephin empirically. blood cx (03/03): strep agalactiae in 4/4 bottles repeat blood cx (03/04): NGTD wound culture (OR on 03/04): klebsiella - resistant to ampicillin MRI: negative for osteomyelitis General surgery consulted - I&D performed on 03/04. Noted significant involvement/necrosis. POD 1 with increased necrosis of tissue edges. Dr. Partida recommended BKA Arterial doppler: monophasic flow at popliteal -> distally. Cardiology was consulted, reviewed images, and agreed with Dr. Partida, recommending BKA Discussed with patient, who did not want to proceed with BKA without a second opinion. He has undergone prior vascular procedures at [facility]. Patient was accepted to [facility] for further evaluation for limb salvage. Vital Signs/Physical Exam: Temp Pulse Resp BP Pulse Ox 97.3 F 68 24 H 119/77 98 03/06/22 12:00 03/06/22 12:00 03/06/22 04:00 03/06/22 12:00 03/06/22 12:00 General: Alert, In no apparent distress, Oriented x3 HEENT: EOMI, Sclerae nonicteric Neck: Supple, No LAD Respiratory: Clear to auscultation bilaterally, Normal air movement Cardiovascular: No edema, Regular rate/rhythm Gastrointestinal: Soft and benign, Non-distended, No tenderness Integumentary: Other (R foot: erythema, wound to plantar fascia, necrotic edges, foul smelling) Neurological: Normal speech, Normal strength at 5/5 x4 extr, Normal affect Laboratory Data at Discharge: WBC 8.30 K/uL (4.3-10.9) 03/06/22 07:31 Hgb 11.3 g/dL (13.6-17.9) L 03/06/22 07:31 Hct 33.9 % (39.6-49.0) L 03/06/22 07:31 Plt Count 205 K/uL (152-406) 03/06/22 07:31 PT 15.3 SECONDS (9.5-12.5) H 03/05/22 06:05 INR 1.38 03/05/22 06:05 APTT 31.5 SECONDS (24.3-36.9) 03/04/22 04:45 Sodium 134 mmol/L (136-145) L 03/06/22 04:55 Potassium 3.5 mmol/L (3.5-5.1) 03/06/22 04:55 BUN 5 mg/dL (7-18) L 03/06/22 04:55 Creatinine 0.53 mg/dL (0.55-1.3) L 03/06/22 04:55 Glucose 166 mg/dL (74-106) H 03/06/22 04:55 Phosphorus 2.8 mg/dL (2.5-4.9) 03/06/22 04:55 Magnesium 1.7 mg/dL (1.8-2.4) L 03/06/22 04:55 Total Bilirubin 0.5 mg/dL (0.2-1.0) 03/04/22 04:45 AST 25 U/L (15-37) 03/04/22 04:45 ALT 27 U/L (12-78) 03/04/22 04:45 Alkaline Phosphatase 90 U/L (45-117) 03/04/22 04:45 Triglycerides 129 mg/dL (<150) 03/04/22 04:45 Cholesterol 85 mg/dL (<200) 03/04/22 04:45 HDL Cholesterol 14 mg/dL (40-60) L 03/04/22 04:45 Cholesterol/HDL Ratio 6.07 03/04/22 04:45 Home Medications: NK [No Home Meds] 03/03/22 Followup: NONE,NONE [Primary Care Provider] - Time spent managing pt's care (in minutes): 45
[2022-03-06 18:34] VITALS: BP 109/61
--- NOTE | 2022-03-13 13:27 | CON ---
Date of Consultation: 03/03/2022 Brief History Of Present Illness: The patient is a 67-year-old male, who has diabetes, peripheral ar terial disease, who presents with worsening infection of his right foot. He states for anywhere from 3-6 days prior he is not exactly sure when the redness and tenderness and drainage began, but he sta mark anywhere from 3-6 days ago. He noted that it got progressively worse, more redness, started swel ling all the way up his leg, and he had not been compliant with his medications for several months pr ior to admission. He is unaware of his blood sugar. He is noncompliant with his diabetes care. He has had a left foot debridement before in the past similarly, but was treated quickly for that. He u ltimately comes in now with worsening of his right lower extremity with cellulitis, drainage, and obv ious serious infection of this area. In the ER, he had a venous Doppler of the right lower extremity , which showed no DVTs. He additionally has a history of hepatocellular carcinoma, treated with radi ation bead placement. He states he is currently cancer-free by his last recollection. He is due to have a followup in the next he says 3-6 months. Past Medical History: Diabetes, hepatocellular carcinoma, autism, depression. Past Surgical History: He has had dental extractions, debridement of his left foot, radiation bead p lacements on several occasions. Social History: He denies smoking, alcohol, recreational drug use. Review of Systems: Ten-point review of systems other than HPI, denies. Physical Examination: Vital Signs: At the time of my examination; temperature 98.2, blood pressure 119/99, pulse 99, respi ratory rate 20, pulse ox 98% on room air. General: He is awake, alert, and oriented. He appears disheveled generally. HEENT: Otherwise normocephalic. Sclerae anicteric. Mucous membranes are moist. Oropharynx is daryl r. Neck: Supple without JVD. Chest: Normal expansion and excursion. Cardiovascular: Regular rate and rhythm. Pulmonary: Clear to auscultation bilaterally. Abdomen: Soft. Extremities: Focused examination of right lower extremity, he has significant cellulitis with gangre nous changes to the bottom of his foot. The gangrene extends all the way across the midfoot to the r egion of the heel. There is pus draining from the foot through multiple areas on the plantar aspect of the foot and between the toes on the dorsal aspect of the foot as well. There was no fluid collec tions, but there appears to be just gross leaking of abscess like material and any palpation to regio ns of the foot causes additional pus to drain. Laboratory Data: He had a foot x-ray as well as labs. His laboratory exam revealed a white blood ce ll count of 13.1, hemoglobin 13.0, hematocrit 39.4, platelet count was 230, neutrophils 83%. Coags w ere not done. Chemistry shows sodium of 127, potassium 3.0, chloride 99, carbon dioxide is 29, BUN 9 , creatinine 0.72, glucose is 272. Lactic acid is 1.7. His C-reactive protein is 209. He had imagi ng performed, which included a foot x-ray and an extremity venous study. Foot x-ray showed soft tiss ue swelling seen about the midfoot and forefoot, moderate vascular atherosclerosis, large posterior p lantar calcaneal spurs. No definitive plain radiographic evidence of osteomyelitis. Recommended MRI . He had an extremity venous study, which was officially read as normal compressibility, no DVT seen in the right lower extremity. Assessment And Plan: This is a 67-year-old male, who comes in with signs and symptoms of infection o f the right foot consistent with gangrenous changes. 1.IV fluid hydration. 2.Antibiotic coverage. 3.I have recommended surgical debridement of the area and possible amputation. The patient states h e refused to have any amputation at this point and will only submit to a debridement of the foot at t his point and states he would rather consider amputation based on my findings and we can revisit the discussion afterwards. I will also order a peripheral arterial study to see if the patient has signi ficant peripheral arterial disease, which I suspect is likely contributing to his overall condition. I have discussed medical management. I have discussed the risks, benefits, and alternatives of the surgical plan including, but not limited to bleeding, infection, damage to surrounding tissues, need for further operation and procedures, need for higher level amputations. The patient agrees to proce ed as indicated at this point and has refused amputation and as such, we will continue with debrideme nt and we will revisit the discussion. Thank you for this interesting consult. TK/SHEILA Voice ID: [id number] Report ID: [id number]
== END 2022-03-06 19:00 | disposition short-term general hospital (02) | DRG 264 ==
LOC: ER 11:20 → ERHOLD 13:35 → 3RD-ICU 20:12
PROVIDERS: ADMIT Hospitalist; ATTEND Hospitalist
PROC: 0JBQ0ZZ Excision of Right Foot Subcutaneous Tissue and Fascia, Open Approach (ICD-10-PCS; principal; 2022-03-04 15:00)
DX: E11.52 Type 2 diabetes mellitus with diabetic peripheral angiopathy with gangrene (principal); I96 Gangrene, not elsewhere classified; L03.115 Cellulitis of right lower limb; R78.81 Bacteremia; F84.0 Autistic disorder; B96.1 Klebsiella pneumoniae [K. pneumoniae] as the cause of diseases classified elsewhere; B95.1 Streptococcus, group B, as the cause of diseases classified elsewhere; F32.A Depression, unspecified; Z85.05 Personal history of malignant neoplasm of liver; Z20.822 Contact with and (suspected) exposure to COVID-19
CPT/HCPCS: 36415; 80048; 80053; 80061; 80202; 81001; 82248; 82550; 82553; 82947; 83605; 83735; 83880; 84100; 84132; 84443; 85025; 85610; 85652; 85730; 86140; 87040; 87070; 87075; 87077; 87186; 87205; 87811; 88304; 93925; 93971; 96365; 96366; 99285; J1650; J1815; J2001; J2704; J3010; J3370; J3475; J3480; J3590; J7030; J7040; J7050